=== PATIENT | female | born 1950 | race Caucasian/White ===

== ENCOUNTER 2016-09-05 10:36 | Day surgery (SDC) | payer MEDICARE, OTHER ==
[2016-08-31 15:06] VITALS: BMI 37.8
[~2016-09-05 10:36] MED LIST: LACTATED RINGERS 1,000 ML IV SCH; LIDOCAINE 1% 20 ML VIAL (10MG/ML) FOR IV START INTRADERMA PRN
[2016-09-05 11:28] VITALS: TEMP 98
[2016-09-05] MEDS ORDERED: LACTATED RINGERS 1,000 ML IV ONE (11:28)
[2016-09-05] MEDS ORDERED: LIDOCAINE 1% 20 ML VIAL (10MG/ML) FOR IV START INTRADERMA ONE (11:29)
[2016-09-05] MEDS ORDERED: fentaNYL (PF) 50 MCG/ML 2 ML AMP ONE (12:13)
[2016-09-05] MEDS ORDERED: PROPOFOL 10 MG/ML 20 ML VIAL IV ONE (12:13)
[2016-09-05] MEDS ORDERED: MIDAZOLAM 2 MG/2 ML VIAL ONE (12:13)
--- NOTE | 2016-09-05 12:18 | P.GSHP ---
History of Present Illness H&P Date: 09/05/16 Chief Complaint: GERD, dysphagia, screening Patient here today for upper and lower endoscopy. Last colonoscopy was 5 years ago. She does have a history of colon polyps. She has chronic reflux. Recently she started having dysphagia. The reflux is worse despite taking Prilosec daily. Past Medical History Past Medical History: GERD/Reflux, Thyroid Disorder Additional Past Medical History / Comment(s): hx colon polyps History of Any Multi-Drug Resistant Organisms: None Reported Past Surgical History: Cholecystectomy, Orthopedic Surgery Additional Past Surgical History / Comment(s): lt knee arthroscopy Past Anesthesia/Blood Transfusion Reactions: Motion Sickness Smoking Status: Former smoker Past Alcohol Use History: Occasional Additional Past Alcohol Use History / Comment(s): smoked 5-10 years 1 ppd quit 35 years ago Past Drug Use History: None Reported - Past Family History Mother Family Medical History: Cancer Father Family Medical History: Cancer Additional Family Medical History / Comment(s): prostate Medications and Allergies Home Medications Medication Instructions Recorded Confirmed Type Furosemide [Lasix] 20 mg PO DAILY 12/03/13 08/31/16 History Levothyroxine Sodium [Synthroid] 137 mcg PO DAILY 12/03/13 08/31/16 History Omeprazole [PriLOSEC] 20 mg PO AC-BRKFST 12/03/13 08/31/16 History buPROPion [Wellbutrin] 150 mg PO DAILY 12/03/13 08/31/16 History Cetirizine HCl [Zyrtec] 10 mg PO DAILY PRN 02/06/16 08/31/16 History Calcium Carbonate [Tums] 500 mg PO TID PRN 08/31/16 08/31/16 History Allergies Allergy/AdvReac Type Severity Reaction Status Date / Time Sulfa (Sulfonamide Allergy RED AND Verified 08/31/16 14:53 Antibiotics) HOT SKIN Surgical - Exam Vital Signs Temp Pulse Resp BP Pulse Ox 98.0 F 88 18 138/89 98 09/05/16 11:27 09/05/16 11:27 09/05/16 11:27 09/05/16 11:27 09/05/16 11:27 Physical exam: General: Well-developed, well-nourished HEENT: Normocephalic, sclerae nonicteric Abdomen: Nontender, nondistended Extremities: No edema Neuro: Alert and oriented Assessment and Plan (1) GERD (gastroesophageal reflux disease) Narrative/Plan: Proceed with upper and lower endoscopy. Possible dilation discussed. Risks of bleeding and perforation discussed. Status: Acute
--- NOTE | 2016-09-05 12:40 | P.PCN ---
Date of Procedure: 09/05/16 Procedure(s) Performed: PREOPERATIVE DIAGNOSIS: GERD, screening, personal history of colon polyps POSTOPERATIVE DIAGNOSIS: Mild gastritis, small hiatal hernia, mild distal esophagitis, transverse colon polyp PROCEDURE: 1. EGD with biopsy 2. Colonoscopy with snare polypectomy ANESTHESIA: [facility] [place] SURGEON: Damian Cash M.D. SPECIMENS: Antrum, transverse colon polyp ENDOSCOPIC PROCEDURE: The patient was on the endoscopy table in the left decubitus position. The Olympus gastroscope was inserted into the oropharynx and passed under direct visualization to the region of the third portion of the duodenum. From that point the scope was slowly withdrawn inspecting all surfaces carefully. There were no neoplastic inflammatory or polypoid lesions throughout the duodenum. The pylorus was widely patent. The stomach was carefully inspected. There was mild gastritis present. A biopsy of the antrum took place to rule out H. pylori. Retroflexion revealed a very small sliding hiatal hernia. Only about 1 cm of the stomach was seen above the diaphragm. There was mild esophagitis present at the GE junction and a biopsy was taken. The remainder the esophagus appeared normal. The patient was kept on the endoscopy table in the left decubitus position. The Olympus colonoscope was inserted into the anus and passed under direct visualization to the base of the cecum. The appendiceal orifice was visualized. From that point the scope was slowly withdrawn inspecting all surfaces carefully. There were no neoplastic inflammatory or polypoid lesions throughout the cecum and ascending colon. In the mid transverse colon a small polyp was seen and removed using the snare with cautery technique. We questioned whether there was any tissue as it appeared to almost fulgurate we were cauterizing. The remainder of the transverse, descending, sigmoid and rectum appeared normal. There was no diverticulosis noted. Digital rectal examination was normal. The patient was taken to the recovery room in stable condition per anesthesia guidelines. RECOMMENDATIONS: Await biopsy results. Increase antiacid therapy. Consider modified barium study if her symptoms persist.
[2016-09-05 13:08] VITALS: BP 131/61; PULSE 72; RESP 18
== END 2016-09-05 13:25 | disposition home or self-care (01) ==
LOC: ORWHC2ENDO 10:36
PROVIDERS: ATTEND Surgery
DX: Z12.11 Encounter for screening for malignant neoplasm of colon (principal); Z86.010 Personal history of colon polyps; D12.3 Benign neoplasm of transverse colon; K21.0 Gastro-esophageal reflux disease with esophagitis; E07.9 Disorder of thyroid, unspecified; K29.50 Unspecified chronic gastritis without bleeding; K44.9 Diaphragmatic hernia without obstruction or gangrene; Z79.899 Other long term (current) drug therapy; Z87.891 Personal history of nicotine dependence; Z88.2 Allergy status to sulfonamides
CPT/HCPCS: 88305; 88342; 45385; 43239; J2250; J3010; J2704

== ENCOUNTER 2018-04-16 00:42 | Emergency (ER) | payer MEDICARE ==
[2018-04-16 00:49] VITALS: TEMP 98.1
[2018-04-16] MEDS ORDERED: ASPIRIN 81 MG PO STA (00:59)
[2018-04-16] MEDS ORDERED: SODIUM CHLORIDE 0.9% 1,000 ML IV STA (00:59)
--- NOTE | 2018-04-16 01:00 | ED ---
Chest Pain HPI - General Chief Complaint: Chest Pain Stated Complaint: chest pain Time Seen by Provider: 04/16/18 00:58 Source: patient, family Mode of arrival: wheelchair Limitations: no limitations - History of Present Illness Initial Comments: Aidee is a 67-year-old female with a history of GERD who presents to the ER today for evaluation of burning epigastric and retrosternal pain. Patient reports that for dinner she had some tomato soup and subsequently developed some acid reflux, she took her Protonix any some Tums but the symptoms persisted. Patient reports around 10 PM she attempted bili down to go to bed but continued to have a burning pain that then radiated into her chest, patient' s sister did have a myocardial infarction last week requiring stent placement and patient has been told in the past that women can have atypical symptoms therefore she became somewhat concerned and came to the ER for further evaluation. is no history of hypertension, hyperlipidemia, diabetes, she was a social smoker in her teens and 20s but has not smoked in over 30 years. She has no family history of early cardiac disease but does have an older sister at an [place] last week. - Related Data Home Medications Medication Instructions Recorded Confirmed Furosemide [Lasix] 20 mg PO DAILY 12/03/13 08/31/16 Levothyroxine Sodium [Synthroid] 137 mcg PO DAILY 12/03/13 08/31/16 Omeprazole [PriLOSEC] 20 mg PO AC-BRKFST 12/03/13 08/31/16 buPROPion [Wellbutrin] 150 mg PO DAILY 12/03/13 08/31/16 Cetirizine HCl [Zyrtec] 10 mg PO DAILY PRN 02/06/16 08/31/16 Calcium Carbonate [Tums] 500 mg PO TID PRN 08/31/16 08/31/16 Allergies Allergy/AdvReac Type Severity Reaction Status Date / Time Sulfa (Sulfonamide Allergy RED AND Verified 04/16/18 00:49 Antibiotics) HOT SKIN Review of Systems ROS Statement: Those systems with pertinent positive or pertinent negative responses have been documented in the HPI. ROS Other: All systems not noted in ROS Statement are negative. EKG Findings - EKG Comments: EKG Findings:: EKG obtained at 12:59 AM, rate is 78, rhythm is sinus, there is left axis deviation and a left bundle branch block, [place] 182, QRS 140, QTC 481. There are no acute ST elevations or depressions urge no evidence of acute ischemia or infarction. Past Medical History Past Medical History: GERD/Reflux, Thyroid Disorder Additional Past Medical History / Comment(s): wound lt leg lt side of brock History of Any Multi-Drug Resistant Organisms: None Reported Past Surgical History: Cholecystectomy, Orthopedic Surgery Additional Past Surgical History / Comment(s): lt knee arthroscopy. cataracts. Past Anesthesia/Blood Transfusion Reactions: Motion Sickness Past Psychological History: No Psychological Hx Reported Smoking Status: Former smoker Past Alcohol Use History: Occasional Past Drug Use History: None Reported - Past Family History Mother Family Medical History: Cancer Father Family Medical History: Cancer General Exam - General Exam Comments Initial Comments: Physical Exam GENERAL: Patient is well-developed and well-nourished. Patient is nontoxic and well- hydrated and is in no distress. HENT: Normocephalic, Atraumatic. EYES: PERRL, EOMI PULMONARY: Unlabored respirations. No audible rales rhonchi or wheezing was noted. CARDIOVASCULAR: There is a regular rate and rhythm without any murmurs gallops or rubs. ABDOMEN: Soft and nontender with normal bowel sounds. SKIN: Skin is clear with no lesions or rashes and otherwise unremarkable. : Deferred NEUROLOGIC: Patient is alert and oriented x3. Moving all extremities spontaneously MUSCULOSKELETAL: Normal extremities with adequate strength and full range of motion. No lower extremity swelling or edema. No calf tenderness. PSYCHIATRIC: Normal psychiatric evaluation. Limitations: no limitations Limitations: no limitations Course Vital Signs 04/16/18 04/16/18 04/16/18 00:44 03:57 05:43 Temperature 98.1 F Pulse Rate 83 69 79 Respiratory 16 15 16 Rate Blood Pressure 166/92 133/83 133/99 O2 Sat by Pulse 99 95 95 Oximetry Chest Pain MDM - MDM The patient was seen and evaluated, history is obtained from the patient and at bedside Patient reports discomfort has subsided upon evaluation HEART score 3 (Age, moderately suspicious hx) Initial labs were unremarkable Patient is very eager for discharge home, however considering the symptoms that worsen immediately upon arrival she is agreeable to staying for repeat troponin 3 hours after arrival Repeat trop again negative Patient remains chest pain free I offered the patient option for staying in observation for evaluation by cardiology, however patient would prefer to be discharged home. I have a very low suspicion for cardiac etiology of her discomfort, her heart score is only 3 , she has no cardiac risk factors and is stable for discharge home. Her has established care with cardiology and she will follow up with the [facility]. Return parameters were discussed or questions pertaining care were answered patient was discharged home in stable condition. Disposition Clinical Impression: Atypical chest pain, GERD (gastroesophageal reflux disease) Disposition: HOME SELF-CARE Condition: Stable Instructions: Chest Pain (ED) Is patient prescribed a controlled substance at d/c from ED?: No Referrals: Maury Estrada DO [Primary Care Provider] - 1-2 days Frank Murguia MD [STAFF PHYSICIAN] - 1-2 days
[2018-04-16 02:28] LABS: Basophils % (A) 0 %; Eosinophils # (A) 0.1 k/uL (0-0.7); Eosinophils % (A) 2 %; HCT 39.8 % (34.0-46.0); HGB 13.5 gm/dL (11.4-16.0); Lymphocytes # (A) 1.1 k/uL (1.0-4.8); Lymphocytes % (A) 20 %; MCH 28.9 pg (25.0-35.0); MCHC 33.9 g/dL (31.0-37.0); MCV 85.3 fL (80.0-100.0); Mean Platelet Volume 6.9; Monocytes # (A) 0.4 k/uL (0-1.0); Monocytes % (A) 7 %; Neutrophils # (A) 3.6 k/uL (1.3-7.7); Neutrophils % (A) 68 %; Platelet Count 174 k/uL (150-450); RBC 4.66 m/uL (3.80-5.40); RDW 13.8 % (11.5-15.5); WBC 5.2 k/uL (3.8-10.6)
[2018-04-16 02:39] LABS: Partial Thromboplastin Time 23.3 sec (22.0-30.0); Prothrombin Time 9.9 sec (9.0-12.0)
[2018-04-16 02:41] LABS: ALT 34 U/L (9-52); AST 28 U/L (14-36); Albumin 3.8 g/dL (3.5-5.0); Alkaline Phosphatase 104 U/L (38-126); Anion Gap 8 mmol/L; Blood Urea Nitrogen 16 mg/dL (7-17); Calcium 9.5 mg/dL (8.4-10.2); Carbon Dioxide 25 mmol/L (22-30); Chloride 106 mmol/L (98-107); Glucose 100 mg/dL (74-99); Lipase 50 U/L (23-300); Potassium 4.4 mmol/L (3.5-5.1); Sodium 139 mmol/L (137-145); Total Bilirubin 0.8 mg/dL (0.2-1.3); Total Protein 7.2 g/dL (6.3-8.2)
--- NOTE | 2018-04-16 02:42 | XR ---
EXAMINATION TYPE: XR chest 2V DATE OF EXAM: 04/16/2018 COMPARISON: NONE HISTORY: Chest pain TECHNIQUE: Frontal and lateral views of the chest are obtained. FINDINGS: Heart and mediastinum are normal. Lungs are clear. Diaphragm is normal. Bony thorax appear s normal. There are chest leads. IMPRESSION: Normal chest
[2018-04-16 02:43] LABS: Creatine Kinase 26 U/L (30-135)
[2018-04-16 02:56] LABS: Creatine Kinase MB 0.5 ng/mL (0.0-2.4); Troponin I <0.012 ng/mL (0.000-0.034)
[2018-04-16 05:44] VITALS: BP 133/99; PULSE 79; RESP 16
== END 2018-04-16 05:59 | disposition home or self-care (01) ==
LOC: EC 00:42
DX: K21.9 Gastro-esophageal reflux disease without esophagitis (principal); R07.89 Other chest pain; E07.9 Disorder of thyroid, unspecified; Z87.891 Personal history of nicotine dependence; Z79.899 Other long term (current) drug therapy; Z88.2 Allergy status to sulfonamides; Z82.49 Family history of ischemic heart disease and other diseases of the circulatory system
CPT/HCPCS: 36415; 71046; 80053; 82550; 82553; 83690; 83735; 84484; 85025; 85610; 85730; 93005; 96360; 99285

== ENCOUNTER → 2018-10-30 | Outpatient (CLI) | payer MEDICARE ==
--- NOTE | 2018-11-03 10:04 | MM ---
Reason for exam: screening (asymptomatic). Last mammogram was performed 7 years and 6 months ago. Physical Findings: A clinical breast exam by your physician is recommended on an annual basis and results should be correlated with mammographic findings. MG 3D Screening Mammo W/Cad Bilateral CC and MLO view(s) were taken. Prior study comparison: April 16, 2011, mammogram. March 24, 2010, mammogram. There are two central, slightly lateral anterior and middle depth 5mm masses. There is a 2mm group of calcifications in the right lower inner quadrant at middle depth and a 3mm group on the left in the upper outer quadrant at middle posterior depth. ASSESSMENT: Incomplete: need additional imaging evaluation, BI-RAD 0 RECOMMENDATION: Special view mammogram of both breasts. [facility] will attempt to contact patient to return for supplemental views.
== END | disposition home or self-care (01) ==
LOC: RADMAMWWP 08:01
PROVIDERS: ATTEND Family Medicine
DX: Z12.31 Encounter for screening mammogram for malignant neoplasm of breast (principal)
CPT/HCPCS: 77063; 77067

== ENCOUNTER → 2018-11-04 | Outpatient (CLI) | payer MEDICARE ==
--- NOTE | 2018-11-05 13:26 | MM ---
Reason for exam: additional evaluation requested from abnormal screening. Last mammogram was performed less than 1 month ago. History: Patient is postmenopausal. Family history of breast cancer in paternal grandmother at age 85. Physical Findings: Nurse did not find any significant physical abnormalities on exam. MG 3D Work Up W/Cad DEONTE Bilateral spot compression CC, spot compression MLO, and LM view(s) were taken. Prior study comparison: October 30, 2018, bilateral MG 3d screening mammo w/cad. April 16, 2011, mammogram. The breast tissue is heterogeneously dense. This may lower the sensitivity of mammography. There are 3 low density central inner middle depth right masses that improve on additional views but subtly persists . Ultrasound will be performed. There is a heterogenous group of calcifications on the left in the upper outer quadrant at middle posterior depth that appear similar to other adjacent calcifications and coarse. 6 month follow up recommended. A right 3mm group of calcifications in the central inner breast at middle depth appear pleomorphic, stereotactic biopsy recommended. These results were verbally communicated with the patient and result sheet given to the patient on 11/04/18. ASSESSMENT: Incomplete: need additional imaging evaluation, BI-RAD 0 RECOMMENDATION: Ultrasound of the right breast. (lower outer quadrant, if there is no correlation, the upper outer quadrant)
--- NOTE | 2018-11-05 13:32 | USB ---
Reason for exam: additional evaluation requested from abnormal screening. History: Patient is postmenopausal. Family history of breast cancer in paternal grandmother at age 85. US Breast Workup Limited RT Right limited breast ultrasound including focal area of concern, retroareolar and axilla demonstrates a 0.3 x 0.2 x 0.2cm hypoechoic lesion at 7 o'clock, possibly small cyst. 6 month follow up ultrasound of the right breast. Multifocal/ductal ectasia correlate with mammographic finding. These results were verbally communicated with the patient and result sheet given to the patient on 11/04/18. ASSESSMENT: Suspicious, BI-RAD 4 RECOMMENDATION: Stereotactic core biopsy of the right breast. Called Dr. Estrada with mammographic findings and has scheduled an appointment for the patient for 12/18/18 at 10:[address] Anderson. Biopsy scheduled for 11/28/18 at 8:00. PRELIMINARY REPORT CALLED AND FAXED TO DR. ANDERSON ON 11/05/18. Ultrasound of the right breast in 6 months.
== END | disposition home or self-care (01) ==
LOC: RADMAMWWP 15:13
PROVIDERS: ATTEND Family Medicine
DX: R92.8 Other abnormal and inconclusive findings on diagnostic imaging of breast (principal)
CPT/HCPCS: 77066; 76642; G0279; 77062

== ENCOUNTER → 2018-11-28 | Day surgery (SDC) | payer MEDICARE ==
[2018-11-28 07:23] VITALS: RESP 16; BMI 81.2
[2018-11-28 09:27] VITALS: BP 133/78; PULSE 62; TEMP 98.1
--- NOTE | 2018-11-28 16:00 | MM ---
EXAMINATION TYPE: MG stereo VAD BX RT DATE OF EXAM: 11/28/2018 COMPARISON: 10/30/2018 and 11/04/2018 CLINICAL HISTORY: 68-year-old female referred for biopsy of right breast microcalcifications. TECHNIQUE: Stereotactic guided core biopsy of the right breast. FINDINGS: The procedure of stereotactic guided core biopsy was explained to the patient. Benefits, alternatives, and risks were discussed. An informed consent was then obtained. [facility] for biopsy was chosen. Shortness pathway was a medial approach. I performed the localization followed by the remainder of the procedure. A vacuum assisted biopsy gun was used to obtain 4 core samples. The patient tolerated the procedure well without any immediate complication. The patient was kept in the radiology department for short stay after the procedure and then discharged home in stable condition. Targeted calcifications are identified in specimen mammogram. Post biopsy mammogram shows 1.7 cm of medial clip migration relative to the biopsy cavity. IMPRESSION: SUCCESSFUL, UNCOMPLICATED STEREOTACTIC GUIDED CORE BIOPSY OF 3-4 O'CLOCK MICROCALCIFICATIONS IN THE right BREAST, FULL PATHOLOGY RESULTS TO FOLLOW. 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 Negative for malignancy. Recommendation Follow up mammogram of the right breast in 6 months. GÓMEZ
== END ==
LOC: RADMAMWWP 06:57
PROVIDERS: ATTEND Surgery
DX: D24.1 Benign neoplasm of right breast (principal); R92.1 Mammographic calcification found on diagnostic imaging of breast; Z88.2 Allergy status to sulfonamides
CPT/HCPCS: 19081; 88305; A4648; J2001

== ENCOUNTER → 2019-06-19 | Outpatient (CLI) | payer MEDICARE ==
--- NOTE | 2019-06-19 11:12 | USB ---
Reason for exam: follow-up at short interval from prior study. History: Patient is postmenopausal. Family history of breast cancer in paternal grandmother at age 85. Benign MG stereo VAD BX RT of the right breast, November 28, 2018. US Breast Limited RT Right limited breast ultrasound including focal area of concern, retroareolar and axilla demonstrates a 5 x 2 x 3mm oval, cystic lesion at 7 o'clock, a 3 x 2 x 4mm oval, cystic lesion at 7 o'clock, a 6 x 2 x 4mm oval, cystic lesion at 9 o'clock, a 7mm oval lymph node at the axilla tail and a 5mm oval lymph node at the axillary tail. All thin walled cysts. These results were verbally communicated with the patient and result sheet given to the patient on 06/19/19. ASSESSMENT: Benign, BI-RAD 2 RECOMMENDATION: Return to routine screening mammogram schedule for both breasts.
--- NOTE | 2019-06-23 10:55 | MM ---
Reason for exam: follow-up at short interval from prior study. Last mammogram was performed 7 months ago. History: Patient is postmenopausal. Family history of breast cancer in paternal grandmother at age 85. Benign MG stereo VAD BX RT of the right breast, November 28, 2018. Physical Findings: Nurse did not find any significant physical abnormalities on exam. MG 3D Diag Mammo W/Cad DEONTE Bilateral CC and MLO view(s) were taken. Prior study comparison: November 04, 2018, bilateral MG 3d work up w/cad DEONTE. October 30, 2018, bilateral MG 3d screening mammo w/cad. There are scattered fibroglandular densities. Finding: There are typically benign dystrophic calcifications in the left breast. Previous mammotome biopsy in the right breast. These results were verbally communicated with the patient and result sheet given to the patient on 06/19/19. ASSESSMENT: Benign, BI-RAD 2 RECOMMENDATION: Routine screening mammogram of both breasts in 1 year.
== END | disposition home or self-care (01) ==
LOC: RADMAMWWP 08:51
PROVIDERS: ATTEND Surgery
DX: R92.8 Other abnormal and inconclusive findings on diagnostic imaging of breast (principal)
CPT/HCPCS: 77066; 76642; G0279; 77062

== ENCOUNTER → 2019-08-05 | Outpatient (CLI) | payer MEDICARE ==
--- NOTE | 2019-08-05 12:14 | XR ---
EXAMINATION TYPE: XR chest 2V DATE OF EXAM: 08/05/2019 COMPARISON: 04/16/2018 HISTORY: Cough and chest congestion TECHNIQUE: Frontal and lateral views of the chest are obtained. FINDINGS: There is no focal air space opacity, pleural effusion, or pneumothorax seen. Diffuse inte rstitial prominence throughout. The cardiac silhouette size is within normal limits. The osseous st ructures are intact. Cholecystectomy clips are seen. Mild degenerative change of the spine. IMPRESSION: Diffuse interstitial prominence that can be seen in atypical pneumonia or bronchitis.
== END | disposition home or self-care (01) ==
LOC: RADXRMAIN 11:55
PROVIDERS: ATTEND Family Medicine
DX: R91.8 Other nonspecific abnormal finding of lung field (principal); R05 Cough; R09.89 Other specified symptoms and signs involving the circulatory and respiratory systems
CPT/HCPCS: 71046

== ENCOUNTER 2020-11-29 10:18 | Emergency (ER) | payer MEDICARE ==
[2020-11-29 10:32] VITALS: BP 132/77; PULSE 70; RESP 18; TEMP 97.8
--- NOTE | 2020-11-29 12:04 | US ---
EXAMINATION TYPE: US venous doppler duplex LE LT DATE OF EXAM: 11/29/2020 11:57 AM COMPARISON: NONE CLINICAL HISTORY: pain, swelling 2-3 wks. SIDE PERFORMED: Left TECHNIQUE: The lower extremity deep venous system is examined utilizing real time linear array sonog natalya with graded compression, doppler sonography and color-flow sonography. VESSELS IMAGED: Common Femoral Vein Deep Femoral Vein Greater Saphenous Vein * Femoral Vein Popliteal Vein Small Saphenous Vein * Proximal Calf Veins (* superficial vessels) Left Leg: Negative for DVT IMPRESSION: 1. No evidence of deep venous thrombosis in the left lower extremity veins.
--- NOTE | 2020-11-29 12:35 | XR ---
EXAMINATION TYPE: XR tibia fibula LT DATE OF EXAM: 11/29/2020 CLINICAL HISTORY: Left lower leg swelling and pain TECHNIQUE: Two views of the left leg are obtained. COMPARISON: None. FINDINGS: There is no acute fracture or dislocation seen in the left tibia or fibula. Left ankle sofie ears intact and visualized portions. Mild narrowing of the mediolateral and patellofemoral compartmen t joint spaces of the left knee suggestive of osteoarthritis. No radiopaque foreign body within the s oft tissues. The overlying soft tissue appears unremarkable. IMPRESSION: There is no acute fracture or dislocation seen in the left tibia or fibula.
--- NOTE | 2020-11-29 12:48 | ED ---
Extremity Problem HPI - General Chief complaint: Extremity Problem,Nontraumatic Stated complaint: leg swelling Time Seen by Provider: 11/29/20 10:33 Source: patient Mode of arrival: ambulatory Limitations: no limitations - History of Present Illness Initial comments: Patient is a 70-year-old female presenting to emergency Department with complaints of swelling of her left lower leg that has been intermittent for the past 3-4 weeks. She did have a road trip to [place] about 4 weeks ago, and is concerned for possible DVT. She also stated she did hit her left brock at home on a step about 2 weeks ago. She denies any fevers or chills, no chest pain or shortness of breath. She has no history of DVTs, she is not on a blood thinner. She does have an old scars to the left lower leg after having wound care about 10 years ago. She has no further complaints at this time. - Related Data Home Medications Medication Instructions Recorded Confirmed Furosemide [Lasix] 20 mg PO DAILY 12/03/13 11/29/20 Levothyroxine Sodium [Synthroid] 137 mcg PO DAILY 12/03/13 11/29/20 Omeprazole [PriLOSEC] 20 mg PO BID 12/03/13 11/29/20 Famotidine 20 mg PO HS 11/13/18 11/29/20 Ascorbic Acid [Vitamin C] 500 mg PO DAILY 11/29/20 11/29/20 Biotin 5 mg PO DAILY 11/29/20 11/29/20 Calcium/Magnesium/Zinc 1 tab PO DAILY 11/29/20 11/29/20 [Qpsexfl-Meqgijfkj-Diqu Tablet] Cetirizine HCl [Zyrtec] 10 mg PO HS 11/29/20 11/29/20 Cholecalciferol [Vitamin D3 (25 25 mcg PO DAILY 11/29/20 11/29/20 Mcg = 1000 Iu)] Escitalopram [Lexapro] 10 mg PO DAILY 11/29/20 11/29/20 Multivitamins, Thera [Multivitamin 1 tab PO DAILY 11/29/20 11/29/20 (formulary)] Pseudoephedrine HCl [Sudafed 240 mg PO DAILY 11/29/20 11/29/20 24-Hour] Vit C/E/Zn/Coppr/Lutein/Zeaxan 1 cap PO BID 11/29/20 11/29/20 [Preservision Areds 2 Softgel] Vitamin B Complex 1 cap PO DAILY 11/29/20 11/29/20 amLODIPine [Norvasc] 5 mg PO DAILY 11/29/20 11/29/20 buPROPion HCL [Wellbutrin SR] 150 mg PO DAILY 11/29/20 11/29/20 Allergies Allergy/AdvReac Type Severity Reaction Status Date / Time Sulfa (Sulfonamide Allergy RED AND Verified 11/29/20 10:59 Antibiotics) HOT SKIN Review of Systems ROS Statement: Those systems with pertinent positive or pertinent negative responses have been documented in the HPI. ROS Other: All systems not noted in ROS Statement are negative. Past Medical History Past Medical History: GERD/Reflux, Thyroid Disorder Additional Past Medical History / Comment(s): hypothyroidism History of Any Multi-Drug Resistant Organisms: None Reported Past Surgical History: Cholecystectomy, Orthopedic Surgery Additional Past Surgical History / Comment(s): lt knee arthroscopy. bilateral cataracts. Past Anesthesia/Blood Transfusion Reactions: Motion Sickness Additional Past Anesthesia/Blood Transfusion Reaction / Comment(s): Patient states anesthesiologist usually gives her Zofran in her IV before surgery Past Psychological History: Anxiety, Depression Smoking Status: Former smoker Past Alcohol Use History: Occasional Past Drug Use History: None Reported - Past Family History Mother Family Medical History: No Reported History Father Family Medical History: Cancer Additional Family Medical History / Comment(s): at age 75 from cancer (pt believes possibly prostate cancer) General Exam - General Exam Comments Initial Comments: GENERAL: Patient is well-developed and well-nourished. Patient is nontoxic and in no acute distress. HEAD: Atraumatic, normocephalic. EYES: Pupils equal round and reactive to light, extraocular movements intact, sclera anicteric, conjunctiva are normal. Eyelids were unremarkable. NECK: Normal range of motion, supple without lymphadenopathy or JVD. LUNGS: Unlabored respirations. Breath sounds clear to auscultation bilaterally and equal. No wheezes rales or rhonchi. HEART: Regular rate and rhythm without murmurs, rubs or gallops. ABDOMEN: Soft, nontender, normoactive bowel sounds. No guarding, no rebound. No masses appreciated. MUSCULOSKELETAL: Patient has some mild swelling noted to the left lower leg on the lateral aspect near her old scars, there is no erythema, very minimal pain with palpation, no pain in the posterior aspect of the left lower leg. She is neurovascular intact bilaterally lower extremities. Range of motion of the knee. There is no evidence of infection. No clubbing or cyanosis. NEUROLOGICAL: Patient is alert and oriented x 3. Normal speech, normal gait. PSYCH: Normal mood, normal affect. SKIN: Warm, Dry, normal turgor, no rashes or lesions noted. Limitations: no limitations Course Vital Signs 11/29/20 10:28 Temperature 97.8 F Pulse Rate 70 Respiratory 18 Rate Blood Pressure 132/77 O2 Sat by Pulse 97 Oximetry Medical Decision Making - Medical Decision Making Patient is a 70-year-old female here for some mild swelling noted to the left lower leg that has been there for about 3 weeks. She did have a recent road trip to [place] and was concerned for DVT. No chest pain or shortness of breath, no history of DVTs. I did do an x-ray of the left tib-fib which showed no acute abnormalities and ultrasound of the left lower extremity also revealed no evidence for DVT. I discussed with patient that this could be from a contusion of hitting on a step a couple weeks ago. I see no evidence of infection at this time. I recommended compression to the area, elevation above the heart level and a follow-up with primary care physician. Patient is in agreement with this plan of care, she is stable for discharge. Return parameters were discussed with her and she verbalized understanding. Case discussed with Dr. Martinez. Disposition Clinical Impression: Localized swelling of left lower leg Disposition: HOME SELF-CARE Condition: Stable Instructions (If sedation given, give patient instructions): Leg Edema (ED) Additional Instructions: Please return to the Emergency Department if symptoms worsen or any other concerns. X-rays today were normal, ultrasound shows no evidence for DVT. Recommended compression to the area, elevation above the heart level. Please follow up with primary care physician. Is patient prescribed a controlled substance at d/c from ED?: No Referrals: Maury Estrada DO [Primary Care Provider] - 1-2 days Time of Disposition: 12:47
== END 2020-11-29 13:23 | disposition home or self-care (01) ==
LOC: EC 10:18
DX: R22.42 Localized swelling, mass and lump, left lower limb (principal); E03.9 Hypothyroidism, unspecified; K21.9 Gastro-esophageal reflux disease without esophagitis; F32.9 Major depressive disorder, single episode, unspecified; F41.9 Anxiety disorder, unspecified; Z87.891 Personal history of nicotine dependence; Z79.890 Hormone replacement therapy
CPT/HCPCS: 99284

== ENCOUNTER → 2021-03-13 | Outpatient (CLI) | payer MEDICARE ==
--- NOTE | 2021-03-14 13:35 | MM ---
Reason for exam: screening (asymptomatic). Last mammogram was performed 1 year and 9 months ago. History: Patient is postmenopausal. Family history of breast cancer in paternal grandmother at age 85. Benign MG stereo VAD BX RT of the right breast, November 28, 2018. Physical Findings: A clinical breast exam by your physician is recommended on an annual basis and results should be correlated with mammographic findings. MG 3D Screening Mammo W/Cad Bilateral CC and MLO view(s) were taken. Prior study comparison: June 19, 2019, bilateral MG 3d diag mammo w/cad [facility]. October 30, 2018, bilateral MG 3d screening mammo w/cad. There are scattered fibroglandular densities. No significant changes when compared with prior studies. ASSESSMENT: Benign, BI-RAD 2 RECOMMENDATION: Routine screening mammogram of both breasts in 1 year.
== END | disposition home or self-care (01) ==
LOC: RADMAMWWP 10:50
PROVIDERS: ATTEND Family Medicine
DX: Z12.31 Encounter for screening mammogram for malignant neoplasm of breast (principal); Z80.3 Family history of malignant neoplasm of breast
CPT/HCPCS: 77063; 77067

== ENCOUNTER → 2022-03-20 | Outpatient (CLI) | payer MEDICARE ==
--- NOTE | 2022-03-21 10:21 | MM ---
Reason for Exam: Screening (asymptomatic). Last screening mammogram was performed 12 month(s) ago. Patient History: Menarche at age 12. First Full-Term at age 18. Postmenopausal. 11/28/2018, Benign Core Biopsy on the right side. Paternal grandmother had breast cancer, age 85. Risk Values: Fanny 5 year model risk: 1.5%. NCI Lifetime model risk: 3.9%. Prior Study Comparison: 11/04/2018 Bilateral Diagnostic Mammogram, [facility]. 06/19/2019 Bilateral Diagnostic Mammogram, [facility]. 03/13/2021 Bilateral Screening Mammogram, [facility]. Tissue Density: There are scattered fibroglandular densities. Findings: Analyzed By CAD. Mammotome biopsy clip right breast is redemonstrated. Benign-appearing bilateral axillary lymph nodes are again seen. There are some scattered and grouped benign appearing round calcifications bilaterally redemonstrated. There is no suspicious group of microcalcifications or new suspicious mass in either breast. Overall Assessment: Benign, BI-RAD 2 Management: Screening Mammogram of both breasts in 1 year. A clinical breast exam by your physician is recommended on an annual basis and results should be correlated with mammographic findings. Electronically signed and approved by: Jesse Moralez M.D.
== END | disposition home or self-care (01) ==
LOC: RADMAMWWP 09:25
PROVIDERS: ATTEND Family Medicine
DX: Z12.31 Encounter for screening mammogram for malignant neoplasm of breast (principal)
CPT/HCPCS: 77063; 77067

== ENCOUNTER → 2023-05-06 | Outpatient (CLI) | payer MEDICARE ==
--- NOTE | 2023-05-07 16:35 | MM ---
Reason for Exam: Screening (asymptomatic). Last mammogram was performed 1 year(s) and 2 month(s) ago. Patient History: Menarche at age 12. First Full-Term at age 18. Postmenopausal. 11/28/2018, Benign Core Biopsy on the right side. Paternal grandmother had breast cancer, age 85. Risk Values: Fanny 5 year model risk: 1.5%. NCI Lifetime model risk: 3.7%. Prior Study Comparison: 04/16/2011 Screening Mammogram, [facility]. 10/30/2018 Bilateral Screening Mammogram, [facility]. 11/04/2018 Bilateral Diagnostic Mammogram, [facility]. 06/19/2019 Bilateral Diagnostic Mammogram, [facility]. 03/13/2021 Bilateral Screening Mammogram, [facility]. 03/20/2022 Bilateral MG 3D screening mammo w/cad, [facility]. Tissue Density: There are scattered fibroglandular densities. Findings: Analyzed By CAD. Pattern appears symmetrical and stable. Scattered benign calcifications are present greater on the left. No significant interval changes are. Chronic nodularities right breast is stable No suspicious groups of microcalcifications, spiculated or lobular masses, architectural distortion or other secondary signs of malignancy are mammographically apparent. Overall Assessment: Benign, BI-RAD 2 Management: Screening Mammogram of both breasts in 1 year. A negative mammogram report should not preclude additional follow up of suspicious palpable abnormalities. Patient should continue monthly self breast exam. A clinical breast exam by your physician is recommended on an annual basis and results should be correlated with mammographic findings. Electronically signed and approved by: Tone Escalante D.O. Radiologis
== END | disposition home or self-care (01) ==
LOC: RADMAMWWP 10:06
PROVIDERS: ATTEND Family Medicine
DX: Z12.31 Encounter for screening mammogram for malignant neoplasm of breast (principal); Z80.3 Family history of malignant neoplasm of breast; Z78.0 Asymptomatic menopausal state
CPT/HCPCS: 77063; 77067

== ENCOUNTER → 2024-03-31 | Outpatient (CLI) | payer MEDICARE ==
--- NOTE | 2024-03-31 12:30 | MR ---
EXAMINATION TYPE: MR knee LT wo con DATE OF EXAM: 03/31/2024 COMPARISON: X-ray 03/24/2024 HISTORY: Left knee pain x 2 mos. TECHNIQUE: Multiplanar, multisequence imaging of the left knee is performed without IV contrast. FINDINGS: MEDIAL MENISCUS: Intrasubstance signal seen in the posterior horn medial meniscus favored mucoid dege neration or tear. LATERAL MENISCUS: Intrasubstance signal seen within the posterior horn and body. A subtle linear tear is suspected. CRUCIATE LIGAMENTS: The anterior and posterior cruciate ligaments are intact and unremarkable. COLLATERAL LIGAMENTS: The medial collateral ligament and lateral collateral ligament complex are inta ct and unremarkable. EXTENSOR MECHANISM: Visualized quadriceps and patellar tendons are intact. EFFUSION: No significant suprapatellar joint effusion. POPLITEAL CYST: No popliteal/mast cyst. TRICOMPARTMENT SPACES: Mild to moderate tricompartment joint space narrowing. No erosive changes. CARTILAGE: Fibrillation of the medial femoral articular cartilage compatible grade I chondromalacia. Patellar cartilage maintained. BONE MARROW SIGNAL: No focal abnormal marrow signal is appreciated. IMPRESSION: 1. Mild to moderate tricompartment osteoarthritis with no evidence of marrow edema or erosive changes . 2. Intrasubstance signal seen in the posterior horn of the medial meniscus favored to represent myxoi d degeneration over subtle tear. 3. Intrasubstance signal posterior horn of the lateral meniscus likely represents a degenerative meni scal tear. 4. Fibrillation of the medial femoral articular cartilage compatible with chondromalacia. [facility], , 03/31/2024 12:28 PM
== END | disposition home or self-care (01) ==
LOC: RADMRIMAIN 10:45
PROVIDERS: ATTEND Orthopaedic Surgery
DX: M17.12 Unilateral primary osteoarthritis, left knee (principal); M94.262 Chondromalacia, left knee

== ENCOUNTER → 2024-05-07 | Outpatient (CLI) | payer MEDICARE ==
--- NOTE | 2024-05-07 17:32 | US ---
EXAMINATION TYPE: US pelvis complete transvag DATE OF EXAM: 05/07/2024 COMPARISON: NONE CLINICAL INDICATION: Female, 73 years old with history of N950 POST HERB BLEEDING, R102 PELVIC PAIN; spotting on and off. TECHNIQUE: Transvaginal (TV) and Transabdominal (TA) . Transabdominal grayscale sonographic images of the pelvis were acquired. Transvaginal sonographic im ages were medically necessary to better assess the following anatomy: endo Doppler imaging: Not performed. FINDINGS: Date of LMP: unknown EXAM MEASUREMENTS: Uterus: 8.1 x 5.3 x 4.4 cm Endometrial Stripe: 2.5 Right Ovary: not seen Left Ovary: not seen 1. Uterus: Anteverted wnl 2. Endometrium: appears enlarged 3. Right Ovary: not seen 4. Left Ovary: not seen 5. Bilateral Adnexa: wnl 6. Posterior cul-de-sac: wnl IMPRESSION: Abnormally thickened endometrium with vascularity concerning for endometrial carcinoma, f urther workup with direct visualization and tissue similarly recommended. A Yellow level critical message alert has been initiated for Maury Estrada DO via the [facility] Critical Results System on 05/07/2024 5:29 PM. This message alert has been sent to Maury Estrada DO vi a the preferences provided by the clinician for the receipt of Radiology Critical Findings. Message I D [id number]. [facility], , 05/07/2024 5:29 PM
== END | disposition home or self-care (01) ==
LOC: RADUSWWP 16:02
PROVIDERS: ATTEND Family Medicine
DX: N95.0 Postmenopausal bleeding (principal); N85.9 Noninflammatory disorder of uterus, unspecified; R10.2 Pelvic and perineal pain
CPT/HCPCS: 76830; 76856

== ENCOUNTER 2024-05-12 11:18 | Inpatient (IN) | payer MEDICARE ==
--- NOTE | 2024-05-12 11:39 | ED ---
Chest Pain HPI - General Source: patient, RN notes reviewed Mode of arrival: wheelchair Limitations: no limitations <Jocelynn Noyola - Last Filed: 05/12/24 11:38> <Matt Martinez - Last Filed: 05/12/24 15:48> - General Chief Complaint: Chest Pain Stated Complaint: Chest pain Time Seen by Provider: 05/12/24 11:30 - History of Present Illness Initial Comments: Quick [id number] female presenting to the emergency department chief complaint of chest pain that has been intermittent started yesterday evening. P atlarisa readily thought this was indigestion however pain has not been alleviated with Tums. She endorses nausea. Denies radiation of pain. Patient states that she underwent cardiac stress testing last week. (Jocelynn Noyola) Dictation was produced using Q-Bot dictation software. please excuse any grammatical, word or spelling errors. Chief Complaint: 73-year-old female chest pain History of Present Illness: Patient 73-year-old female presents to the emergency department chest pain. Patient states she has a dull ache to her substernal chest. She also has allegedly right arm pain as well. No diaphoresis or nausea. She had a stress test last week does not know of the results for it. She had a stress test for cardiac clearance for surgery. Patient denies any symptoms at the bedside. She took some Tums with no relief. Patient has no history of coronary artery disease. The ROS documented in this emergency department record has been reviewed and confirmed by me. Those systems with pertinent positive or negative responses have been documented in the HPI. All other systems are other negative and/or noncontributory. (Matt Martinez) - Related Data Home Medications Medication Instructions Recorded Confirmed Furosemide [Lasix] 20 mg PO DAILY 12/03/13 11/29/20 Levothyroxine Sodium [Synthroid] 137 mcg PO DAILY 12/03/13 11/29/20 Omeprazole [PriLOSEC] 20 mg PO BID 12/03/13 11/29/20 Famotidine 20 mg PO HS 11/13/18 11/29/20 Ascorbic Acid [Vitamin C] 500 mg PO DAILY 11/29/20 11/29/20 Biotin 5 mg PO DAILY 11/29/20 11/29/20 Calcium/Magnesium/Zinc 1 tab PO DAILY 11/29/20 11/29/20 [Weqgnlq-Eahqjcixc-Ofgu Tablet] Cetirizine HCl [Zyrtec] 10 mg PO HS 11/29/20 11/29/20 Cholecalciferol [Vitamin D3 (25 25 mcg PO DAILY 11/29/20 11/29/20 Mcg = 1000 Iu)] Escitalopram [Lexapro] 10 mg PO DAILY 11/29/20 11/29/20 Multivitamins, Thera [Multivitamin 1 tab PO DAILY 11/29/20 11/29/20 (formulary)] Pseudoephedrine HCl [Sudafed 240 mg PO DAILY 11/29/20 11/29/20 24-Hour] Vit C/E/Zn/Coppr/Lutein/Zeaxan 1 cap PO BID 11/29/20 11/29/20 [Preservision Areds 2 Softgel] Vitamin B Complex 1 cap PO DAILY 11/29/20 11/29/20 amLODIPine [Norvasc] 5 mg PO DAILY 11/29/20 11/29/20 buPROPion HCL [Wellbutrin SR] 150 mg PO DAILY 11/29/20 11/29/20 Allergies Allergy/AdvReac Type Severity Reaction Status Date / Time Sulfa (Sulfonamide Allergy RED AND Verified 05/12/24 11:23 Antibiotics) HOT SKIN Review of Systems ROS Other: All systems not noted in ROS Statement are negative. <Jocelynn Noyola - Last Filed: 05/12/24 11:38> ROS Other: All systems not noted in ROS Statement are negative. <Matt Martinez - Last Filed: 05/12/24 15:48> ROS Statement: Those systems with pertinent positive or pertinent negative responses have been documented in the HPI. Past Medical History Past Medical History: GERD/Reflux, Thyroid Disorder Additional Past Medical History / Comment(s): hypothyroidism History of Any Multi-Drug Resistant Organisms: None Reported Past Surgical History: Cholecystectomy, Orthopedic Surgery Additional Past Surgical History / Comment(s): lt knee arthroscopy. bilateral cataracts. Past Anesthesia/Blood Transfusion Reactions: Motion Sickness Additional Past Anesthesia/Blood Transfusion Reaction / Comment(s): Patient states anesthesiologist usually gives her Zofran in her IV before surgery Past Psychological History: Anxiety, Depression Smoking Status: Former smoker Past Alcohol Use History: Occasional Past Drug Use History: None Reported - Past Family History Mother Family Medical History: No Reported History Father Family Medical History: Cancer Additional Family Medical History / Comment(s): at age 75 from cancer (pt believes possibly prostate cancer) <Jocelynn Noyola - Last Filed: 05/12/24 11:38> General Exam Limitations: no limitations <Jocelynn Noyola - Last Filed: 05/12/24 11:38> <Matt Martinez - Last Filed: 05/12/24 15:48> - General Exam Comments Initial Comments: Visual Physical Exam Vital signs reviewed General: Well-appearing, nontoxic, no acute distress. Head: Normocephalic, atraumatic Eyes: PERRLA, EOMI ENT: Airway patent Chest: Nonlabored breathing Skin: No visual rash, normal skin tone Neuro: Alert and oriented 3 Musculoskeletal: No gross abnormalities (Jocelynn Noyola) Patient initially seen and evaluated in the waiting room due to lack of ER department beds PHYSICAL EXAM: General Impression: Alert and oriented x3, not in acute distress HEENT: Normocephalic atraumatic, extra-ocular movements intact, pupils equal and reactive to light bilaterally, mucous membranes moist. Cardiovascular: Heart regular rate and rhythm Chest: Able to complete full sentences, no retractions, no tachypnea Abdomen: abdomen soft, non-tender, non-distended, no organomegaly Musculoskeletal: Pulses present and equal in all extremities, no peripheral edema Motor: no focal deficits noted Neurological: CN II-XII grossly intact, no focal motor or sensory deficits noted Skin: Intact with no visualized rashes Psych: Normal affect and mood (Matt Martinez) Course Vital Signs 05/12/24 05/12/24 11:21 15:30 Temperature 97.4 F L Pulse Rate 62 66 Respiratory 20 Rate Blood Pressure 154/79 159/84 O2 Sat by Pulse 100 Oximetry Chest Pain MDM <Jocelynn Noyola - Last Filed: 05/12/24 11:38> <Matt Martinez - Last Filed: 05/12/24 15:48> - MDM I completed the quick note portion of this chart signed Jocelynn Noyola PA-C (Jocelynn Noyola) My EKG interpretation: Ventricular rate 60, sinus rhythm, WY interval 185, QRS 147, QTc 464. No W[place] prolongation, no QTC prolongation, no ST or T-wave changes noted. EKG compared to April 16, 2018 showing no changes. Overall, this EKG is unremarkable Was pt. sent in by a medical professional or institution (, PA, GUN STOCKER, urgent care, hospital, or intermediate...) When possible be specific @ -No Did you speak to anyone other than the patient for history (EMS, parent, family, police, friend...)? What history was obtained from this source @ -Some history obtained from Dr. Estrada states that patient was recent diagnosed with pelvic mass Did you review nursing and triage notes (agree or disagree)? Why? @ -I reviewed and agree with nursing and triage notes Were old charts reviewed (outside hosp., previous admission, EMS record, old EKG, old radiological studies, urgent care reports/EKG's, intermediate records)? Report findings @ -No old charts were reviewed Differential Diagnosis (chest pain, altered mental status, abdominal pain women, abdominal pain men, vaginal bleeding, musculoskeletal, weakness, fever, dyspnea, syncope, headache, dizziness, GI bleed, back pain, seizure, CVA, palpatations, mental health)? @ -Differential Chest Pain: Stable Angina, Unstable Angina, STEMI, NSTEMI Aortic Dissection, Pneumothorax, Musculoskeletal, Esophageal Spasm GERD, Cholecystitis, Pancreatitis, Zoster, this is not meant to be an all-inclusive list. EKG interpreted by me (3pts min.). @ -See above X-rays interpreted by me (1pt min.). @ -Chest x-ray is nonacute CT interpreted by me (1pt min.). @ -None done U/S interpreted by me (1pt. min.). @ -None done What testing was considered but not performed or refused? (CT, X-rays, U/S, labs)? Why? @ -None What meds were considered but not given or refused? Why? @ -None Was smoking cessation discussed for >3mins.? @ -No Were there social determinants of health that impacted care today? How? (Homelessness, low income, unemployed, alcoholism, drug addiction, transportation, low edu. Level, literacy, decrease access to med. care, custodial, rehab)? @ -No Was there de-escalation of care discussed even if they declined (Discuss DNR or withdrawal of care, Hospice)? DNR status @ -No What co-morbidities impacted this encounter? (DM, HTN, Smoking, COPD, CAD, Cancer, CVA, ARF, Chemo, Hep., AIDS, mental health diagnosis, sleep apnea, morbid obesity)? @ -Recent diagnosis of cancer Was patient admitted / discharged? Hospital course, mention meds given and route, prescriptions, significant lab abnormalities, going to OR and other pertinent info. @ -73-year-old female presents to the emergency department for atypical chest pain typical features. Vital signs upon arrival are within acceptable limits. EKG shows no findings of ischemia infarction. Laboratory evaluation obtained. Troponin is 0.06. Rest of labs within acceptable limits. Clinical presentation concerning with NSTEMI. Did you discuss the management of the patient with other professionals (professionals i.e. , PA, GUN STOCKER, lab, RT, psych nurse, social sciences professor, pattern chain builder, teacher, fire management officer, casey saw operator)? Give summary @ -Case was discussed with Dr. Estrada who is agreeable for admission Was critical care preformed (if so, how long)? @ -Yes, 33 minutes Undiagnosed new problem with uncertain prognosis? @ -No Drug Therapy requiring intensive monitoring for toxicity (Heparin, Nitro, Insulin, Cardizem)? @ -No Were any procedures done? @ -No Diagnosis/symptom? Acute, or Chronic, or Acute on Chronic? Uncomplicated (without systemic symptoms) or Complicated (systemic symptoms)? @ -NSTEMI Side effects of treatment? @ -No Exacerbation, Progression, or Severe Exacerbation? @ -No Poses a threat to life or bodily function? How? (Chest pain, [place], [place], pneumonia, PE, COPD, DKA, ARF, appy, cholecystitis, CVA, Diverticulitis, Homicidal, Suicidal, threat to staff... and all critical care pts) @ -yes (Matt Martinez) Disposition <Jocelynn Noyola - Last Filed: 05/12/24 11:38> Decision Time: 15:48 <Matt Martinez - Last Filed: 05/12/24 15:48> Clinical Impression: NSTEMI (non-ST elevated myocardial infarction) Disposition: ADMITTED IP TO THIS HOSP Condition: Serious Referrals: Maury Estrada DO [Primary Care Provider] - 1-2 days
--- NOTE | 2024-05-12 12:42 | XR ---
EXAMINATION TYPE: XR chest 2V DATE OF EXAM: 05/12/2024 12:04 PM COMPARISON: 08/05/2019 CLINICAL INDICATION: Female, 73 years old with history of Chest Pain, TECHNIQUE: Frontal and lateral views of the chest are obtained. FINDINGS: There is no focal air space opacity, pleural effusion, or pneumothorax seen. The cardiac silhouette size is within normal limits. The osseous structures are intact. IMPRESSION: No acute cardiopulmonary process. [facility], , 05/12/2024 12:39 PM
[2024-05-12 13:35] LABS: Basophils % (A) 0 %; Eosinophils # (A) 0.2 k/uL (0-0.7); Eosinophils % (A) 2 %; HCT 42.4 % (34.0-46.0); HGB 13.6 gm/dL (11.4-16.0); Lymphocytes # (A) 1.1 k/uL (1.0-4.8); Lymphocytes % (A) 15 %; MCH 28.9 pg (25.0-35.0); MCV 90.5 fL (80.0-100.0); Mean Platelet Volume 7.2; Monocytes # (A) 0.4 k/uL (0-1.0); Monocytes % (A) 5 %; Neutrophils # (A) 5.3 k/uL (1.3-7.7); Neutrophils % (A) 75 %; Platelet Count 166 k/uL (150-450); RBC 4.69 m/uL (3.80-5.40); RDW 12.9 % (11.5-15.5)
[2024-05-12 13:53] LABS: INR 0.9 (<1.2); Partial Thromboplastin Time 22.4 sec (22.0-30.0); Prothrombin Time 10.4 sec (10.0-12.5)
[2024-05-12 13:54] LABS: ALT 24 U/L (4-34); AST 30 U/L (14-36); African American GFR (CKD) 81 (>60 ml/min/1.73 sqM); Albumin 4.3 g/dL (3.5-5.0); Alkaline Phosphatase 102 U/L (38-126); Anion Gap 5 mmol/L; Blood Urea Nitrogen 22 mg/dL (7-17); Calcium 9.3 mg/dL (8.4-10.2); Carbon Dioxide 27 mmol/L (22-30); Chloride 107 mmol/L (98-107); Glucose 117 mg/dL (74-99); Lipase 88 U/L (23-300); Magnesium 2.2 mg/dL (1.6-2.3); Non-African American GFR(CKD) 70 (>60 ml/min/1.73 sqM); Potassium 4.2 mmol/L (3.5-5.1); Sodium 139 mmol/L (137-145); Total Bilirubin 0.4 mg/dL (0.2-1.3); Total Protein 7.4 g/dL (6.3-8.2)
[2024-05-12] MEDS ORDERED: HEPARIN SODIUM 1,000 UN/ML (10ML VL) IV PRN (14:50)
[2024-05-12] MEDS: ASPIRIN 81 MG PO STA (15:17)
[2024-05-12] MEDS: HEPARIN SOD,PORK IN 0.45% NACL 25,000 UNIT in 0.45% NACL 1 250ML.BAG IV SCH (15:22)
[2024-05-12] MEDS: HEPARIN SODIUM 1,000 UN/ML (10ML VL) IV ONE (15:27)
[2024-05-12] MEDS: NITROGLYCERIN SL TABS 0.4 MG TAB SUBLINGUAL STA (15:28)
[2024-05-12] MEDS: NITROGLYCERIN OINT 1 INCH/GM PACKET TOPICAL SCH (18:57)
[2024-05-13] MEDS: NITROGLYCERIN SL TABS 0.4 MG TAB SUBLINGUAL PRN (04:16)
[2024-05-13 04:54] LABS: Glucose,Whole Blood 126 mg/dL (70-110)
[2024-05-13] MEDS: LIDOCAINE 1% INJ 10MG/ML (20 ML MDV) SQ ONE (05:33)
--- NOTE | 2024-05-13 05:33 | P.CRDCN ---
History of Present Illness History of present illness: HISTORY OF PRESENTING ILLNESS Patient is pleasant 73-year-old female with history of GERD, hypothyroidism, osteoarthritis who presents secondary to chest pain. Patient presented with episodes of chest pain which started yesterday evening. She states originally she felt like it was indigestion. She had undergone a stress test approximately one week ago for clearance for surgery with Dr Tam. She denies any history of CAD. Initial EKG showed left bundle branch block which she had a history of from 2018. Initial troponin 0.06, 0.3, 3.1. D-dimer normal at 0.5. I was contacted earlier in the night with elevation of troponin however patient had Nitropaste and her chest pain had completely resolved. Patient then developed worsened 8 out of 10 chest pain approximately an hour ago per nursing and was given 2 nitroglycerin with decrease in blood pressure initially down in the 70s improved with fluid bolus. Her chest pain however did improve from 8-07. Still having ongoing chest pain. Smokes 40 yrs ago, no alcohol, no hx in parents however sister recently had an OR. In retrospect she has been having off-and-on heartburn sensations for a number months however this episode was more severe. Additionally by the time she got to the emergency department she was having some numbness and tingling in both arms. With a recurrence of chest pain on the general medical floor, she had more nausea and diaphoresis. REVIEW OF SYSTEMS At the time of my exam: CONSTITUTIONAL: Denies fever or chills. CARDIOVASCULAR: +chest pain, +shortness of breath, no orthopnea, PND or palpitat ions. RESPIRATORY: Denies cough. GASTROINTESTINAL: Denies abdominal pain, diarrhea, constipation, nausea or vomiting. MUSCULOSKELETAL: Denies myalgias. NEUROLOGIC: Denies numbness, tingling or weakness. ENDOCRINE: Denies fatigue, weight change, polydipsia or polyurina. GENITOURINARY: Denies burning, hematuria or urgency with micturation. HEMATOLOGIC: Denies history of anemia or bleeding. PHYSICAL EXAMINATION Vital signs reviewed. CONSTITUTIONAL: No apparent distress. HEENT: Head is normocephalic. Pupils are equal, round. Sclerae anicteric. Mucous membranes of the mouth are moist. No JVD. No carotid bruit. CHEST EXAMINATION: Lungs are clear to auscultation. No chest wall tenderness is noted on palpation or with deep breathing. HEART EXAMINATION: Regular rate and rhythm. S1, S2 heard. No murmurs, gallops or rub. ABDOMEN: Soft, nontender. Positive bowel sounds. EXTREMITIES: 2+ peripheral pulses, no lower extremity edema and no calf tenderness. NEUROLOGIC EXAMINATION: Patient is awake, alert and oriented x3. ASSESSMENT Non-STEMI with ongoing chest pain Hypertension Hyperlipidemia remote tobacco abuse Family history sister with CAD PLAN continue aspirin, heparin drip, nitro as tolerated however did have some hypotension with the nitro. We discussed urgent heart catheterization given ongoing chest pain and patient agreeable. Check 2-D echo. Obtain results from prior stress test. Further recommendations of follow-up Past Medical History Past Medical History: GERD/Reflux, Thyroid Disorder Additional Past Medical History / Comment(s): hypothyroidism History of Any Multi-Drug Resistant Organisms: None Reported Past Surgical History: Cholecystectomy, Orthopedic Surgery Additional Past Surgical History / Comment(s): lt knee arthroscopy. bilateral cataracts. Past Anesthesia/Blood Transfusion Reactions: Motion Sickness Additional Past Anesthesia/Blood Transfusion Reaction / Comment(s): Patient states anesthesiologist usually gives her Zofran in her IV before surgery Past Psychological History: Anxiety, Depression Additional Psychological History / Comment(s): Takes Wellbutrin daily Smoking Status: Former smoker Past Alcohol Use History: Occasional Additional Past Alcohol Use History / Comment(s): smoked 5-10 years 1 ppd quit 1978 Past Drug Use History: None Reported - Past Family History Mother Family Medical History: No Reported History Father Family Medical History: Cancer Additional Family Medical History / Comment(s): at age 75 from cancer (pt believes possibly prostate cancer) Medications and Allergies Home Medications Medication Instructions Recorded Confirmed Type Famotidine 20 mg PO DAILY PRN 11/13/18 05/12/24 History Biotin 5 mg PO HS 11/29/20 05/12/24 History Calcium/Magnesium/Zinc 1 tab PO HS 11/29/20 05/12/24 History [Plullkj-Bskguuhjm-Jqrk Tablet] Escitalopram [Lexapro] 10 mg PO DAILY 11/29/20 05/12/24 History amLODIPine [Norvasc] 5 mg PO DAILY 11/29/20 05/12/24 History Acetaminophen Tab [Tylenol Tab] 1,000 mg PO Q6HR PRN 05/12/24 05/12/24 History Levothyroxine Sodium [Synthroid] 112 mcg PO DAILY 05/12/24 05/12/24 History Allergies Allergy/AdvReac Type Severity Reaction Status Date / Time Sulfa (Sulfonamide Allergy RED AND Verified 05/12/24 15:50 Antibiotics) HOT SKIN Physical Exam Vitals: Vital Signs Temp Pulse Pulse Resp BP BP Pulse Ox 05/13/24 04:48 60 18 112/70 95 05/13/24 04:42 65 18 95 05/13/24 04:28 67 18 108/67 95 05/13/24 04:23 62 18 129/79 96 05/13/24 04:00 98.8 F 63 18 143/73 94 L 05/13/24 01:02 65 18 118/74 98 05/13/24 00:51 98.4 F 65 18 158/84 96 05/12/24 22:33 97.8 F 63 18 148/76 96 05/12/24 22:00 161/80 05/12/24 21:00 57 L 20 151/83 05/12/24 20:34 64 19 151/83 05/12/24 15:30 66 159/84 05/12/24 11:21 97.4 F L 62 20 154/79 100 Intake and Output 05/12/24 05/12/24 05/13/24 14:59 22:59 06:59 Intake Total 70.333 80 Balance 70.333 80 Intake: IV 80 Heparin Sod,Pork in 0.45% 80 NaCl 25,000 unit In 0.45 % NaCl 1 250ml.bag @ 11. 603 UNITS/KG/HR 10 mls/hr IV .Q24H [facility] Rx#: [id number] Intake, IV Titration 70.333 Amount Heparin Sod,Pork in 0.45% 70.333 NaCl 25,000 unit In 0.45 % NaCl 1 250ml.bag @ 11. 603 UNITS/KG/HR 10 mls/hr IV .Q24H [facility] Rx#: [id number] Other: Weight 86.183 kg 86.183 kg Results 05/12/24 13:05 05/12/24 13:05 Cardiac Enzymes 05/12/24 05/12/24 05/12/24 Range/Units 13:05 13:05 15:53 AST 30 (14-36) U/L Troponin I 0.060 H* 0.317 H* (0.000-0.034) ng/mL 05/12/24 Range/Units 18:37 AST (14-36) U/L Troponin I 3.150 H* (0.000-0.034) ng/mL Coagulation 05/12/24 05/12/24 Range/Units 13:05 20:52 PT 10.4 (10.0-12.5) sec APTT 22.4 48.9 H (22.0-30.0) sec CBC 05/12/24 Range/Units 13:05 WBC 7.0 (3.8-10.6) k/uL RBC 4.69 (3.80-5.40) m/uL Hgb 13.6 (11.4-16.0) gm/dL Hct 42.4 (34.0-46.0) % Plt Count 166 (150-450) k/uL Comprehensive Metabolic Panel 05/12/24 Range/Units 13:05 Sodium 139 (137-145) mmol/L Potassium 4.2 (3.5-5.1) mmol/L Chloride 107 (98-107) mmol/L Carbon Dioxide 27 (22-30) mmol/L BUN 22 H (7-17) mg/dL Creatinine 0.83 (0.52-1.04) mg/dL Glucose 117 H (74-99) mg/dL Calcium 9.3 (8.4-10.2) mg/dL AST 30 (14-36) U/L ALT 24 (4-34) U/L Alkaline Phosphatase 102 (38-126) U/L Total Protein 7.4 (6.3-8.2) g/dL Albumin 4.3 (3.5-5.0) g/dL Current Medications Generic Name Dose Route Start Last Admin Trade Name Freq PRN Reason Stop Dose Admin Aspirin 325 mg 05/13/24 09:00 Aspirin 325 Mg Tab PO DAILY [facility] Heparin Sodium (Porcine) 0 unit 05/12/24 14:50 Heparin Sodium 1,000 Un/Ml (10ml Vl) IV PER PROTOCOL PRN Low PTT Protocol Heparin Sodium/Sodium Chloride 250 mls @ 10 mls/hr 05/12/24 15:00 05/12/24 22:24 25,000 unit/ Sodium Chloride IV 11.6 units/kg/hr .Q24H [facility] 10 mls/hr Titration Protocol 11.603 UNITS/KG/HR Sodium Chloride 500 mls @ 999 mls/hr 05/13/24 04:58 Saline 0.9% IV 05/13/24 05:28 .Q31M ONE Nitroglycerin 0.4 mg 05/12/24 15:39 05/13/24 04:25 Nitroglycerin Sl Tabs 0.4 Mg Tab SUBLINGUAL 0.4 mg Q5M PRN Administration Chest Pain Nitroglycerin 1 inch 05/12/24 18:00 05/13/24 02:08 Nitroglycerin Oint 1 Inch/Gm Packet TOPICAL 1 inch Q6HR [facility] Administration Intake and Output 05/12/24 05/12/24 05/13/24 14:59 22:59 06:59 Intake Total 70.333 80 Balance 70.333 80 Intake: IV 80 Heparin Sod,Pork in 0.45% 80 NaCl 25,000 unit In 0.45 % NaCl 1 250ml.bag @ 11. 603 UNITS/KG/HR 10 mls/hr IV .Q24H [facility] Rx#: [id number] Intake, IV Titration 70.333 Amount Heparin Sod,Pork in 0.45% 70.333 NaCl 25,000 unit In 0.45 % NaCl 1 250ml.bag @ 11. 603 UNITS/KG/HR 10 mls/hr IV .Q24H [facility] Rx#: [id number] Other: Weight 86.183 kg 86.183 kg Patient Weight 05/13/24 06:59 Weight 86.183 kg 05/12/24 13:05 05/12/24 13:05
[2024-05-13] MEDS: fentaNYL (PF) 50 MCG/ML 2 ML AMP IVP ONE (05:34)
[2024-05-13] MEDS: MIDAZOLAM 2 MG/2 ML VIAL IVP ONE (05:34)
[2024-05-13] MEDS: VERAPAMIL SYRINGE (5 MG/10 ML) INTRAARTER ONE (05:36)
[2024-05-13] MEDS: HEPARIN SODIUM 1,000 UN/ML (10ML VL) IVP ONE ×2 (05:42→05:54)
[2024-05-13] MEDS: IV FLUID CONTINUATION 800 ML IV ONE (05:43)
[2024-05-13] MEDS: TICAGRELOR 90 MG TAB PO ONE (05:44)
[2024-05-13] MEDS: NITROGLYCERIN 1000MCG/10ML SYRINGE INTRACORON ONE ×2 (05:58→06:01)
[2024-05-13] MEDS: IOPAMIDOL-300 100ML BTL INJ ONE (06:02)
[2024-05-13] MEDS: IOPAMIDOL-370 100ML BTL INJ ONE (06:15)
--- NOTE | 2024-05-13 06:38 | P.PRCINT ---
Percutaneous Coronary Int. - Percutaneous Coronary Intervention Percutaneous Coronary Intervention: PROCEDURES PERFORMED: Left heart catheterization, bilateral coronary angiography, ultrasound guided arterial access, PCI mid LAD with a 2.5 x 15mm Xience BRODIE, post dilated with a 2.5mm NC balloon INDICATION: NSTEMI, NYHA class 4 symptoms CONSENT:I have discussed the risks, benefits and alternative therapies for the above-mentioned procedure and for both sedation/analgesia as well as necessary blood product administration, if indicated, as they pertain to this patient. The patient has indicated understanding and acceptance of the risks and procedures discussed. PROCEDURE: After the risks, benefits and alternatives of the above mentioned procedure explained in detail with the patient, informed consent was obtained. Patient was taken to the catheterization lab and prepped and draped in usual fashion. Ultrasound guidance was used to assess for arterial access. 1% lidocaine was used to anesthetize the right radial artery. A 6-Italian sheath was placed in the right radial artery using modified Seldinger technique and ultrasound guidance. Left coronary angiography was performed with a 5-Italian JL 3.5 catheter and right coronary angiography was performed with a 5-Italian FR5 catheter in various views. A 5-Italian FR5 catheter was inserted into the left ventricle and pressure measurements were obtained. The decision was made to perform PCI of the LAD. A 6-Italian LBU 3.5 guide catheter was used to engage the left main. A 0.014 BMW wire was advanced to the distal LAD. Angioplasty was performed with 2.5 x 12 mm balloon. There is diffuse proximal LAD 50-60% stenosis and more distal to apical LAD approximately 70% stenosis however felt best treated medically with patient's chest pain completely improved after ballooning. A 2.5 x 15 mm drug-eluting stent was placed in the mid LAD. This was postdilated with a 2.5 noncompliant balloon. Final angiograms were performed. Preintervention there was 100% stenosis and LAMBERT 0 flow postintervention there was less than 10% stenosis and LAMBERT-3 flow. The right radial sheath was removed and a TR band was placed with hemostasis achieved. The patient tolerated the procedure well. Patient was transported back to the post catheterization holding area in stable condition. Conscious Sedation: Patient was monitored under the direct supervision of myself for conscious sedation using Versed and fentanyl for a total duration of 62 minutes HEMODYNAMICS: Ao: 121/71 LV: 118/8, LVEDP 16 SELECTIVE CORONARY ARTERIOGRAPHY: LEFT MAIN: The left main is a large caliber vessel which bifurcates into the LAD and circumflex. There is distal left main 30-40% stenosis. LEFT ANTERIOR DESCENDING CORONARY ARTERY: LAD is a large caliber vessel which wraps around to the apex. There is proximal LAD 50-60% stenosis. There is diffuse proximal to mid LAD 30% stenosis followed by a mid LAD 100% stenosis. After ballooning, there is noted to be a long 60-70% distal LAD stenosis and otherwise mild luminal irregularities. LEFT CIRCUMFLEX CORONARY ARTERY: Left circumflex is a moderate caliber vessel with mild 20% stenosis. RIGHT CORONARY ARTERY: The right coronary artery is a large caliber vessel which gives off a PDA and PLV branch and is the dominant vessel. There is mild 20% proximal and mid RCA stenosis. There are right to left collaterals to the LAD. FINAL IMPRESSION: 1. CAD as described above with 100% mid LAD, 50-60% proximal LAD, 60-70% distal LAD, 20% RCA and 20% circumflex with some right to left collaterals. 2. Mildly elevated left sided filling pressures 3. S/p PCI mid LAD with a 2.5 x 15mm Xience BRODIE, post dilated with a 2.5mm NC balloon PLAN: 1. Aggressive risk factor modification per most recent ACC/AHA guidelines. 2. Continue dual antiplatelets with aspirin and Brillinta for 12 months 3. Consider functional assessment of proximal LAD or distal LAD if still having angina
[2024-05-13] MEDS: SODIUM CHLORIDE 0.9% 500 ML 500 ML IV ONE (06:42)
[2024-05-13] MEDS ORDERED: MAG HYDROX/AL HYDROX/SIMETH 30 ML CUP PO PRN (06:48)
[2024-05-13] MEDS ORDERED: ATROPINE SULFATE 0.1 MG/ML 10ML SYRINGE IV PRN (06:48)
[2024-05-13] MEDS ORDERED: RX INFO: IV CONTRAST WAS GIVEN 1 EACH MISC MISCELLANE PRN (06:48)
[2024-05-13] MEDS ORDERED: ZOLPIDEM 5 MG TAB PO PRN (06:48)
[2024-05-13] MEDS ORDERED: ASPIRIN 325 MG TAB PO SCH (09:00)
[2024-05-13] MEDS: ASPIRIN 81 MG PO SCH (09:25)
[2024-05-13] MEDS: SODIUM CHLORIDE 0.9% 1,000 ML in EMPTY BAG 1 BAG IV SCH (09:25)
[2024-05-13] MEDS: METOPROLOL TARTRATE 12.5 MG TAB PO SCH (09:25)
[2024-05-13 10:47] LABS: Chol/HDL Ratio 4.69 Ratio; LDL Cholesterol,Calculated 113.2 mg/dL (0.0-131.0)
[2024-05-13 11:28] VITALS: BMI 37.0
--- NOTE | 2024-05-13 12:18 | CA ---
Transthoracic Echo Report Name: Aidee Casas Age: 73 Gender: F : 1950 Exam Date: 05/13/2024 09:03 Exam Location: [facility] Ht (in): 60 Wt (lb): 190 Ordering Physician: Oscar Pendleton DO ([email or web address]) Attending/Referring Phys: Paving Bed Maker Justine Sosa RDCS Procedure CPT: Indications: re: NSTEMI Cardiac Hx: Technical Quality: Good Contrast 1: Definity Total Dose (mL): 1 Contrast 2: Total Dose (mL): MEASUREMENTS (Male / Female) Normal Values 2D ECHO LV Diastolic Diameter PLAX 5.7 cm 4.2 - 5.9 / 3.9 - 5.3 cm LV Systolic Diameter PLAX 4.3 cm IVS Diastolic Thickness 0.9 cm 0.6 - 1.0 / 0.6 - 0.9 cm LVPW Diastolic Thickness 0.9 cm 0.6 - 1.0 / 0.6 - 0.9 cm LV Relative Wall Thickness 0.3 LVOT Diameter 2.0 cm LV Diastolic Volume MOD BP 133.6 cm??? 67 - 155 / 56 - 104 cm??? LV Systolic Volume MOD BP 88.2 cm??? 22 - 58 / 19 - 49 cm??? LV Ejection Fraction MOD BP 34.0 % >= 55 % LV Cardiac Index MOD BP 1695.7 cm???/min???m??? LV Diastolic Volume MOD 4C 129.8 cm??? LV Systolic Volume MOD 4C 90.7 cm??? LV Ejection Fraction MOD 4C 30.1 % LV Cardiac Index MOD 4C 1459.2 cm???/min???m??? LV Diastolic Length 4C 9.0 cm LV Systolic Length 4C 8.2 cm LV Diastolic Volume MOD 2C 133.1 cm??? LV Systolic Volume MOD 2C 83.7 cm??? LV Ejection Fraction MOD 2C 37.1 % LV Cardiac Index MOD 2C 1846.5 cm???/min???m??? LV Diastolic Length 2C 8.7 cm LV Systolic Length 2C 8.0 cm LA Volume 73.1 cm??? 18 - 58 / 22 - 52 cm??? LA Volume Index 37.4 cm???/m??? 16 - 28 cm???/m??? DOPPLER AV Peak Velocity 216.6 cm/s AV Peak Gradient 18.8 mmHg AV Mean Velocity 153.7 cm/s AV Mean Gradient 10.2 mmHg AV Velocity Time Integral 48.6 cm LVOT Peak Velocity 106.4 cm/s LVOT Peak Gradient 4.5 mmHg LVOT Velocity Time Integral 23.5 cm LVOT Stroke Volume 76.1 cm??? LVOT Stroke Volume Index 41.7 ml/m??? LVOT Cardiac Index 2842.0 cm???/min???m??? AV Area Cont Eq vti 1.6 cm??? AV Area Cont Eq pk 1.6 cm??? MV Area PHT 3.6 cm??? Mitral E Point Velocity 49.1 cm/s Mitral A Point Velocity 97.8 cm/s Mitral E to A Ratio 0.5 MV Deceleration Time 208.6 ms PV Peak Velocity 109.4 cm/s PV Peak Gradient 4.8 mmHg FINDINGS Left Ventricle Left ventricular ejection fraction is estimated at 30-35 %. Mildly increased left ventricular diastolic diameter. Severely increased left ventricular diastolic volume. Severely increased left ventricular systolic volume. Moderately decreased left ventricular ejection fraction with regional variability. Right Ventricle Normal right ventricular size and function. Unable to estimate the right ventricular systolic pressure. Right Atrium Normal right atrial size. Left Atrium Moderately increased left atrial volume. Mildly increased left atrial area. Mitral Valve Mitral valve thickened. Mitral annular calcification. No evidence for mitral valve prolapse. No mitral stenosis. Mild mitral regurgitation. Aortic Valve Trileaflet aortic valve. Trace aortic stenosis. Mean gradient 10 mmHg. Mild aortic regurgitation. Tricuspid Valve Structurally normal tricuspid valve. No tricuspid stenosis. Trace tricuspid regurgitation. Pulmonic Valve Pulmonic valve not well visualized. No pulmonic stenosis. No pulmonic regurgitation. Pericardium No pericardial effusion. Aorta Aortic annulus normal. CONCLUSIONS Ischemic cardiomyopathy with severe LV systolic dysfunction with an ejection fraction of 30-35% Hypokinesis involving the anteroseptal and the apex Enlarged left atrium Mild mitral and aortic regurgitation Previewed by: Dr. Kevin Camacho MD (Electronically Signed) Final Date: 13 May 2024 12:17
[2024-05-13] MEDS ORDERED: FAMOTIDINE 20 MG TAB PO PRN (15:34)
[2024-05-13] MEDS: LEVOTHYROXINE 112 MCG TAB PO SCH (17:54)
[2024-05-13] MEDS: ESCITALOPRAM 10 MG TAB PO SCH (17:55)
[2024-05-13] MEDS: PANTOPRAZOLE 40 MG/10 ML VIAL IVP SCH (17:55)
[2024-05-13] MEDS: amLODIPine 5 MG TAB PO SCH (17:55)
[2024-05-13] MEDS: ATORVASTATIN 80 MG TAB PO SCH (20:43)
[2024-05-13] MEDS: TICAGRELOR 90 MG TAB PO SCH (20:43)
[2024-05-14 07:29] LABS: Basophils % (A) 0 %; Eosinophils % (A) 0 %; HGB 12.2 gm/dL (11.4-16.0); Lymphocytes # (A) 0.9 k/uL (1.0-4.8); Lymphocytes % (A) 12 %; MCH 28.7 pg (25.0-35.0); MCHC 32.1 g/dL (31.0-37.0); MCV 89.5 fL (80.0-100.0); Mean Platelet Volume 8.1; Monocytes # (A) 0.3 k/uL (0-1.0); Monocytes % (A) 4 %; Neutrophils % (A) 83 %; Platelet Count 160 k/uL (150-450); RBC 4.25 m/uL (3.80-5.40); RDW 13.1 % (11.5-15.5); WBC 7.2 k/uL (3.8-10.6)
[2024-05-14 08:08] LABS: African American GFR (CKD) >90 (>60 ml/min/1.73 sqM); Anion Gap 2 mmol/L; Blood Urea Nitrogen 14 mg/dL (7-17); Calcium 9.3 mg/dL (8.4-10.2); Carbon Dioxide 28 mmol/L (22-30); Chloride 109 mmol/L (98-107); Glucose 144 mg/dL (74-99); Non-African American GFR(CKD) 87 (>60 ml/min/1.73 sqM); Potassium 4.4 mmol/L (3.5-5.1); Sodium 139 mmol/L (137-145)
[2024-05-14] MEDS: DAPAGLIFLOZIN PROPANEDIOL 10 MG TABLET PO SCH (10:28)
[2024-05-14] MEDS: SACUBITRIL/VALSARTAN 24 MG-26 MG TABLET PO SCH (10:28)
--- NOTE | 2024-05-14 12:03 | P.PN ---
Subjective Progress Note Date: 05/14/24 HISTORY OF PRESENTING ILLNESS Patient is pleasant 73-year-old female with history of GERD, hypothyroidism, osteoarthritis who presents secondary to chest pain. Patient presented with episodes of chest pain which started yesterday evening. She states originally she felt like it was indigestion. She had undergone a stress test approximately one week ago for clearance for surgery with Dr Tam. She denies any history of CAD. Initial EKG showed left bundle branch block which she had a history of from 2018. Initial troponin 0.06, 0.3, 3.1. D-dimer normal at 0.5. I was contacted earlier in the night with elevation of troponin however patient had Nitropaste and her chest pain had completely resolved. Patient then developed worsened 8 out of 10 chest pain approximately an hour ago per nursing and was given 2 nitroglycerin with decrease in blood pressure initially down in the 70s improved with fluid bolus. Her chest pain however did improve from 8-07. Still having ongoing chest pain. Smokes 40 yrs ago, no alcohol, no hx in parents however sister recently had an [place]. In retrospect she has been having off-and-on heartburn sensations for a number months however this episode was more severe. Additionally by the time she got to the emergency department she was having some numbness and tingling in both arms. With a recurrence of chest pain on the general medical floor, she had more nausea and diaphoresis. 05/14/2024 Patient seen and examined. Yesterday, patient underwent left heart catheterization which revealed 100% mid LAD, 50 to 60% proximal LAD, 60 to 70% distal LAD, 20% RCA and 20% circumflex with some right to left collaterals. Patient underwent PCI of the mid LAD with BRODIE. Patient denies having any chest pain at this time no shortness of breath and no fluttering in her chest. Blood pressure 130/78, heart rate 65, pulse ox 98% on room air. Hemoglobin 12.2. BUN 14 creatinine 0.66. Echocardiogram reveals EF of 30 to 35%, hypokinesis involving the anterior septal and apex, enlarged left atrium, mild mitral and aortic regurgitation. PHYSICAL EXAMINATION Vital signs reviewed. CONSTITUTIONAL: No apparent distress. HEENT: Head is normocephalic. Pupils are equal, round. Sclerae anicteric. Mucous membranes of the mouth are moist. No JVD. No carotid bruit. CHEST EXAMINATION: Lungs are clear to auscultation. No chest wall tenderness is noted on palpation or with deep breathing. HEART EXAMINATION: Regular rate and rhythm. S1, S2 heard. No murmurs, gallops or rub. ABDOMEN: Soft, nontender. Positive bowel sounds. EXTREMITIES: 2+ peripheral pulses, no lower extremity edema and no calf tenderness. NEUROLOGIC EXAMINATION: Patient is awake, alert and oriented x3. ASSESSMENT Non-STEMI status post PCI of the mid LAD 05/13 Ischemic cardiomyopathy with EF of 30 to 35% Hypertension Hyperlipidemia remote tobacco abuse Family history sister with CAD PLAN Continue patient on aspirin, statin, metoprolol tartrate 12.5 mg twice daily, Brilinta 90 mg twice daily, amlodipine 5 mg daily Start patient on Farxiga 10 mg daily and Entresto 24-26 mg daily Monitor blood pressure and angina symptoms Further recommendations as patient progresses Nurse practitioner note has been reviewed, I agree with documented findings and plan of care. Patient was seen and examined. Objective - Vital Signs Vital signs: Vital Signs Temp 98.1 F 05/14/24 08:00 Pulse 65 05/14/24 08:00 Resp 16 05/14/24 08:00 BP 130/78 05/14/24 08:00 Pulse Ox 98 05/14/24 08:00 FiO2 Intake & Output 05/13/24 05/14/24 05/14/24 18:59 06:59 18:59 Intake Total 570 20 Balance 570 20 Weight 86.183 kg 86.2 kg Intake: IV 30 20 Invasive Line 2 10 10 Invasive Line 3 20 10 Oral 540 Other: # Voids 3 1 - Labs CBC & Chem 7: 05/14/24 07:20 05/14/24 07:20 Labs: Abnormal Lab Results - Last 24 Hours (Table) 05/12/24 05/14/24 05/14/24 Range/Units 13:05 07:20 07:20 Lymphocytes # 0.9 L (1.0-4.8) k/uL Chloride 109 H (98-107) mmol/L Glucose 144 H (74-99) mg/dL Triglycerides 256.00 H (0.00-149.00) mg/dL Cholesterol 209.00 H (0.00-200.00) mg/dL VLDL Cholesterol, Calc 51.20 H (5.00-40.00) mg/dL
--- NOTE | 2024-05-14 13:55 | P.HPIM ---
History of Present Illness H&P Date: 05/13/24 Chief Complaint: Chest pain This is a 73-year-old female past medical history significant for former nicotine dependence, morbid obesity, gastroesophageal reflux disease, hypo thyroidism, anxiety, depression and multiple other medical issues presented to the ER with complaints of chest pain. Last week patient was being worked up by PCP for clearance regarding a orthopedic procedure. Patient discovered to have anemia, further imaging conducted on 05/07/2024/pelvic/transvaginal ultrasound reported abnormally thickened endometrium with vascularity concerning for endometrial carcinoma. Family history of CAD, sister had an [place].patient also completed a stress test about a week ago. Troponin 0.060, 0.317, 3.150. Evaluated by cardiology, EKGs reviewed, underwent left heart catheterization reporting 100% mid LAD, 50 to 60% proximal LAD, 60 to 70% distal LAD, 20% RCA a nd 20% circumflex with some right to left collaterals, PCI of the mid LAD with BRODIE, earlier today. Tolerated procedure well. Denies chest pain, palpitations or shortness of breath. Echo reporting EF of 30 to 35%, hypokinesis involving the anterior septal and apex, enlarged left atrium, mild mitral and aortic regurgitation. Review of Systems ROS Statement: Those systems with pertinent positive or pertinent negative responses have been documented in the HPI. ROS Other: All systems not noted in ROS Statement are negative. Past Medical History Past Medical History: GERD/Reflux, Thyroid Disorder Additional Past Medical History / Comment(s): hypothyroidism History of Any Multi-Drug Resistant Organisms: None Reported Past Surgical History: Cholecystectomy, Orthopedic Surgery Additional Past Surgical History / Comment(s): lt knee arthroscopy. bilateral cataracts. Past Anesthesia/Blood Transfusion Reactions: Motion Sickness Additional Past Anesthesia/Blood Transfusion Reaction / Comment(s): Patient states anesthesiologist usually gives her Zofran in her IV before surgery Past Psychological History: Anxiety, Depression Additional Psychological History / Comment(s): Takes Wellbutrin daily Smoking Status: Former smoker Past Alcohol Use History: Occasional Additional Past Alcohol Use History / Comment(s): smoked 5-10 years 1 ppd quit 1978 Past Drug Use History: None Reported - Past Family History Mother Family Medical History: No Reported History Father Family Medical History: Cancer Additional Family Medical History / Comment(s): at age 75 from cancer (pt believes possibly prostate cancer) Medications and Allergies Home Medications Medication Instructions Recorded Confirmed Type Famotidine 20 mg PO DAILY PRN 11/13/18 05/12/24 History Biotin 5 mg PO HS 11/29/20 05/12/24 History Calcium/Magnesium/Zinc 1 tab PO HS 11/29/20 05/12/24 History [Jxoouei-Pieunjmqs-Cwln Tablet] Escitalopram [Lexapro] 10 mg PO DAILY 11/29/20 05/12/24 History amLODIPine [Norvasc] 5 mg PO DAILY 11/29/20 05/12/24 History Acetaminophen Tab [Tylenol Tab] 1,000 mg PO Q6HR PRN 05/12/24 05/12/24 History Levothyroxine Sodium [Synthroid] 112 mcg PO DAILY 05/12/24 05/12/24 History Allergies Allergy/AdvReac Type Severity Reaction Status Date / Time Sulfa (Sulfonamide Allergy RED AND Verified 05/12/24 15:50 Antibiotics) HOT SKIN Physical Exam Vitals: Vital Signs Temp Pulse Pulse Resp BP BP Pulse Ox 05/13/24 12:00 97.8 F 59 L 16 132/64 98 05/13/24 10:33 62 16 130/73 97 05/13/24 09:33 69 16 133/77 97 05/13/24 08:33 65 16 125/75 97 05/13/24 08:03 66 16 132/79 96 05/13/24 08:00 98.1 F 73 16 130/77 98 05/13/24 07:33 56 L 16 135/77 97 05/13/24 07:18 59 L 16 145/78 97 05/13/24 07:03 64 16 145/82 98 05/13/24 06:48 56 L 16 97 05/13/24 04:48 60 18 112/70 95 05/13/24 04:42 65 18 95 05/13/24 04:28 67 18 108/67 95 05/13/24 04:23 62 18 129/79 96 05/13/24 04:00 98.8 F 63 18 143/73 94 L 05/13/24 01:02 65 18 118/74 98 05/13/24 00:51 98.4 F 65 18 158/84 96 05/12/24 22:33 97.8 F 63 18 148/76 96 05/12/24 22:00 161/80 05/12/24 21:00 57 L 20 151/83 05/12/24 20:34 64 19 151/83 05/12/24 15:30 66 159/84 Intake and Output 05/13/24 05/13/24 05/13/24 06:59 14:59 22:59 Intake Total 740 570 Balance 740 570 Intake: IV 740 30 Heparin Sod,Pork in 0.45% 80 NaCl 25,000 unit In 0.45 % NaCl 1 250ml.bag @ 11. 603 UNITS/KG/HR 10 mls/hr IV .Q24H UMESH Rx#: [id number] Invasive Line 2 10 Invasive Line 3 10 20 Oral 540 Other: # Voids 3 Weight 86.183 kg 86.183 kg PHYSICAL EXAM: VITAL SIGNS: [Reviewed] GENERAL: Alert and oriented x 3, laying in bed, no acute distress HEENT: Atraumatic, normocephalic, conjunctivae normal. eyes normal. NECK: Supple,no JVD. No thyroid enlargement. No LNs CARDIOVASCULAR: S1, S2 regular. No murmur RESPIRATION: Unlabored, equal air entry, clear to auscultation. ABDOMEN: Soft, nondistended, nontender . No guarding. no masses palpable. Pos itive bowel sounds. LEGS: No edema. no swelling. No calf tenderness. NERVOUS SYSTEM: Cranial N 2-12 grossly normal. No focal deficits. Strength and sensation grossly intact. Skin: Warm and dry, no rash. Results CBC & Chem 7: 05/14/24 07:20 05/14/24 07:20 Labs: Abnormal Lab Results - Last 24 Hours (Table) 05/12/24 05/12/24 05/12/24 Range/Units 13:05 15:53 18:37 APTT (22.0-30.0) sec POC Glucose (mg/dL) (70-110) mg/dL Troponin I 0.317 H* 3.150 H* (0.000-0.034) ng/mL Triglycerides 256.00 H (0.00-149.00) mg/dL Cholesterol 209.00 H (0.00-200.00) mg/dL VLDL Cholesterol, Calc 51.20 H (5.00-40.00) mg/dL 05/12/24 05/13/24 Range/Units 20:52 04:52 APTT 48.9 H (22.0-30.0) sec POC Glucose (mg/dL) 126 H (70-110) mg/dL Troponin I (0.000-0.034) ng/mL Triglycerides (0.00-149.00) mg/dL Cholesterol (0.00-200.00) mg/dL VLDL Cholesterol, Calc (5.00-40.00) mg/dL Thrombosis Risk Factor Assmnt - Choose All That Apply Each Factor Represents 1 point: Obesity (BMI >25) Each Risk Factor Represents 2 Points: Age 61-74 years Thrombosis Risk Factor Assessment Total Risk Factor Score: 3 Thrombosis Risk Factor Assessment Level: Moderate Risk Assessment and Plan Assessment: NSTEMI, status post PCI of the mid LAD 05/13 Ischemic cardiomyopathy, EF 30 to 35% abnormally thickened endometrium with vascularity concerning for endometrial carcinoma, reported per pelvic/transvaginal ultrasound 05/07/2024. Anemia outpatient, reported per PCP Hypertension Hyperlipidemia Morbid obesity, BMI 37 Family history of CAD,sister Prior nicotine dependence Plan: Continue on current medication regimen ,monitoring and symptomatic treatment. [facility]RI[employer] C[employer] ASSOCIATE consulted for further review of imaging suggestive of suspicious endometrial cancer/evaluation. Beta-apolonia, statin ,dual antiplatelet therapy. Discharge planning in progress for tomorrow pending final DC recommendations and clearance per cardiology The impression and plan of care has been dictated as directed. : I performed a history and examination of this patient, discussed the same with the dictator. I agree with the dictator's note ,documented as a scribe. Any additional findings or plans will be noted.
--- NOTE | 2024-05-14 14:05 | P.PN ---
Subjective Progress Note Date: 05/14/24 H&P Date: 05/13/24 Chief Complaint: Chest pain This is a 73-year-old female past medical history significant for former nicotine dependence, morbid obesity, gastroesophageal reflux disease, hypothyroidism, anxiety, depression and multiple other medical issues presented to the ER with complaints of chest pain. Last week patient was being worked up by PCP for clearance regarding a orthopedic procedure. Patient discovered to have anemia, further imaging conducted on 05/07/2024/pelvic/transvaginal ultrasound reported abnormally thickened endometrium with vascularity concerning for endometrial carcinoma. Family history of CAD, sister had an [place].patient also completed a stress test about a week ago. Troponin 0.060, 0.317, 3.150. Evaluated by cardiology, EKGs reviewed, underwent left heart catheterization reporting 100% mid LAD, 50 to 60% proximal LAD, 60 to 70% distal LAD, 20% RCA and 20% circumflex with some right to left collaterals, PCI of the mid LAD with BRODIE, earlier today. Tolerated procedure well. Denies chest pain, palpitations or shortness of breath. Echo reporting EF of 30 to 35%, hypokinesis involving the anterior septal and apex, enlarged left atrium, mild mitral and aortic regurgitation. 05/14/2024 maintained on dual antiplatelet therapy, beta-apolonia, statin .sitting up in chair, complaining of minimal diarrhea this morning, brat diet recommended. Denies chest pain, palpitations or shortness of breath. Maintaini ng O2 sats in the mid 90s on room air .Farxiga and Entresto initiated this morning. LifeVest ordered. Objective - Vital Signs Vital signs: Vital Signs Temp 97.8 F 05/14/24 12:00 Pulse 60 05/14/24 12:00 Resp 16 05/14/24 12:00 BP 131/80 05/14/24 12:00 Pulse Ox 97 05/14/24 12:00 FiO2 Intake & Output 05/13/24 05/14/24 05/14/24 18:59 06:59 18:59 Intake Total 570 158 Balance 570 158 Weight 86.183 kg 86.2 kg Intake: IV 30 40 Invasive Line 2 10 20 Invasive Line 3 20 20 Oral 540 118 Other: # Voids 3 1 - Exam PHYSICAL EXAM: VITAL SIGNS: [Reviewed] GENERAL: Alert and oriented x 3, sitting up in chair, no acute distress HEENT: Atraumatic, normocephalic, conjunctivae normal. eyes normal. MMM. NECK: Supple,no JVD. CARDIOVASCULAR: S1, S2 regular. No murmur RESPIRATION: Unlabored, equal air entry, clear to auscultation. ABDOMEN: Soft, nondistended, nontender . No guarding. Positive bowel sounds. LEGS: No edema. no swelling. No calf tenderness. NERVOUS SYSTEM: Cranial N 2-12 grossly normal. No focal deficits. Strength and sensation grossly intact. Skin: Warm and dry, no rash. - Labs CBC & Chem 7: 05/14/24 07:20 05/14/24 07:20 Labs: Abnormal Lab Results - Last 24 Hours (Table) 05/14/24 05/14/24 Range/Units 07:20 07:20 Lymphocytes # 0.9 L (1.0-4.8) k/uL Chloride 109 H (98-107) mmol/L Glucose 144 H (74-99) mg/dL Assessment and Plan Assessment: NSTEMI, status post PCI of the mid LAD 05/13 Ischemic cardiomyopathy, EF 30 to 35% abnormally thickened endometrium with vascularity concerning for endometrial carcinoma, reported per pelvic/transvaginal ultrasound 05/07/2024. Anemia outpatient, reported per PCP Hypertension Hyperlipidemia Morbid obesity, BMI 37 Family history of CAD,sister Prior nicotine dependence Plan: Continue on current medication regimen ,monitoring and symptomatic treatment. GOVERNMENT GUARD consult canceled per their request and PCP's office will schedule outpatient GOVERNMENT GUARD follow-up. LifeVest ordered for patient's cardiomyopathy. Further med adjustments, with Farxiga and Entresto added to med regimen- continued monitoring as per cardiology. discharge planning in progress for tomorrow pending final DC recommendations and clearance per cardiology. The impression and plan of care has been dictated as directed. : I performed a history and examination of this patient, discussed the same with the dictator. I agree with the dictator's note ,documented as a scribe. Any additional findings or plans will be noted.
[2024-05-14 20:18] VITALS: RESP 18
[2024-05-15] MEDS: PANTOPRAZOLE 40 MG TABLET PO SCH (06:17)
[2024-05-15 10:24] VITALS: BP 141/65; PULSE 62; TEMP 98.1
--- NOTE | 2024-05-15 13:33 | P.DS ---
Providers Date of admission: 05/12/24 15:41 Expected date of discharge: 05/15/24 Attending physician: Maury Estrada Consults: 05/12/24 15:40 Consult Physician Urgent Consulting Provider: Berny Ashraf Consult Reason/Comments: nstemi Do you want consulting provider notified?: Yes 05/13/24 06:48 Consult Physician Routine Consulting Provider: [facility] Consult Reason/Comments: Post Interventional Patient Do you want consulting provider notified?: Already Contacted Primary care physician: Maury Estrada [facility] Course: Final Diagnosis: NSTEMI, status post PCI of the mid LAD 05/13 Ischemic cardiomyopathy, EF 30 to 35% abnormally thickened endometrium with vascularity concerning for endometrial carcinoma, reported per pelvic/transvaginal ultrasound 05/07/2024. Referral to [facility] outpatient in progress as per PCPs office. Anemia outpatient, reported per PCP Hypertension Hyperlipidemia Morbid obesity, BMI 37 Family history of CAD,sister Prior nicotine dependence Hospital course:This is a 73-year-old female past medical history significant for former nicotine dependence, morbid obesity, gastroesophageal reflux disease, hypothyroidism, anxiety, depression and multiple other medical issues presented to the ER with complaints of chest pain. Last week patient was being worked up by PCP for clearance regarding a orthopedic procedure. Patient discovered to coombs ve anemia, further imaging conducted on 05/07/2024/pelvic/transvaginal ultrasound reported abnormally thickened endometrium with vascularity concerning for endometrial carcinoma. Family history of CAD, sister had an [place].patient also completed a stress test about a week ago. Troponin 0.060, 0.317, 3.150. Evaluated by cardiology, EKGs reviewed, underwent left heart catheterization reporting 100% mid LAD, 50 to 60% proximal LAD, 60 to 70% distal LAD, 20% RCA and 20% circumflex with some right to left collaterals, PCI of the mid LAD with BRODIE, earlier today. Tolerated procedure well. Denies chest pain, palpitations or shortness of breath. Echo reporting EF of 30 to 35%, hypokinesis involving the anterior septal and apex, enlarged left atrium, mild mitral and aortic regurgitation. 05/14/2024 maintained on dual antiplatelet therapy, beta-apolonia, statin .sitting up in chair, complaining of minimal diarrhea this morning, brat diet recommended. Denies chest pain, palpitations or shortness of breath. Maintaining O2 sats in the mid 90s on room air .Farxiga and Entresto initiated this morning. LifeVest ordered. [facility] consult canceled per their request and PCP's office will schedule outpatient [facility] follow-up. LifeVest ordered for patient's cardiomyopathy. Further med adjustments, with Farxiga and Entresto added to med regimen- continued monitoring as per cardiology. discharge planning in progress for tomorrow pending final DC recommendations and clearance per cardiology. 05/15/2024 denies chest pain, palpitations or shortness of breath. Farxiga and Entresto added to med regimen yesterday. Vital signs stable, no hypotension, renal function stable. Patient will be discharged home today in a stable condition with guarded prognosis pending arrival of LifeVest, final DC recommendations and clearance per cardiology. The impression and plan of care has been dictated as directed. : I performed a history and examination of this patient, discussed the same with the dictator. I agree with the dictator's note ,documented as a scribe. Any additional findings or plans will be noted. Patient Condition at Discharge: Stable Plan - Discharge Summary Discharge Rx Participant: Yes New Discharge Prescriptions: New Aspirin EC [Ecotrin Low Dose] 81 mg PO DAILY #30 tab Sacubitril/Valsartan [Entresto 24 mg-26 mg Tablet] 1 each PO BID #60 tab Atorvastatin [Lipitor] 80 mg PO HS #30 tab Metoprolol Tartrate [Lopressor] 12.5 mg PO BID #60 tab Nitroglycerin Sl Tabs [Nitrostat] 0.4 mg SUBLINGUAL Q5M PRN #100 tab PRN Reason: Chest Pain Pantoprazole [Protonix] 40 mg PO AC-BRKFST #30 tab Ticagrelor [Brilinta] 90 mg PO BID #60 tab Dapagliflozin Propanediol [Farxiga] 10 mg PO DAILY #30 tab Continue Calcium/Magnesium/Zinc [Cafzsnf-Pstobgswu-Wnit Tablet] 1 tab PO HS Escitalopram [Lexapro] 10 mg PO DAILY Biotin 5 mg PO HS amLODIPine [Norvasc] 5 mg PO DAILY Acetaminophen Tab [Tylenol] 1,000 mg PO Q6HR PRN PRN Reason: Pain Or Fever > 100.5 Levothyroxine Sodium [Synthroid] 112 mcg PO DAILY Discontinued Famotidine 20 mg PO DAILY PRN PRN Reason: acid reflux Discharge Medication List Biotin 5 mg PO HS 07/06/21 [History] Calcium/Magnesium/Zinc [Fliixks-Cmzuggprs-Naaf Tablet] 1 tab PO HS 11/29/20 [History] Escitalopram [Lexapro] 10 mg PO DAILY 11/29/20 [History] amLODIPine [Norvasc] 5 mg PO DAILY 11/29/20 [History] Acetaminophen Tab [Tylenol] 1,000 mg PO Q6HR PRN 05/12/24 [History] Levothyroxine Sodium [Synthroid] 112 mcg PO DAILY 05/12/24 [History] Aspirin EC [Ecotrin Low Dose] 81 mg PO DAILY #30 tab 05/15/24 [Rx] Atorvastatin [Lipitor] 80 mg PO HS #30 tab 05/15/24 [Rx] Dapagliflozin Propanediol [Farxiga] 10 mg PO DAILY #30 tab 05/15/24 [Rx] Metoprolol Tartrate [Lopressor] 12.5 mg PO BID #60 tab 05/15/24 [Rx] Nitroglycerin Sl Tabs [Nitrostat] 0.4 mg SUBLINGUAL Q5M PRN #100 tab 05/15/24 [Rx] Pantoprazole [Protonix] 40 mg PO AC-BRKFST #30 tab 05/15/24 [Rx] Sacubitril/Valsartan [Entresto 24 mg-26 mg Tablet] 1 each PO BID #60 tab [Rx] Ticagrelor [Brilinta] 90 mg PO BID #60 tab 05/15/24 [Rx] Follow up Appointment(s)/Referral(s): Juan Tam MD [Medical Doctor] - 05/26/24 3:15 pm Maury Estrada DO [Primary Care Provider] - 2 Weeks (Please call to schedule your appt ) Ambulatory/Diagnostic Orders: Basic Metabolic Panel [LAB.AMB] Time Frame: 3 Days, Location: None Selected Patient Instructions/Handouts: Heart Catheterization (DC) Discharge Disposition: HOME SELF-CARE
--- NOTE | 2024-05-15 13:38 | P.PN ---
Subjective Progress Note Date: 05/15/24 HISTORY OF PRESENTING ILLNESS Patient is pleasant 73-year-old female with history of GERD, hypothyroidism, osteoarthritis who presents secondary to chest pain. Patient presented with episodes of chest pain which started yesterday evening. She states originally she felt like it was indigestion. She had undergone a stress test approximately one week ago for clearance for surgery with Dr Tam. She denies any history of CAD. Initial EKG showed left bundle branch block which she had a history of from 2018. Initial troponin 0.06, 0.3, 3.1. D-dimer normal at 0.5. I was contacted earlier in the night with elevation of troponin however patient had Nitropaste and her chest pain had completely resolved. Patient then developed worsened 8 out of 10 chest pain approximately an hour ago per nursing and was given 2 nitroglycerin with decrease in blood pressure initially down in the 70s improved with fluid bolus. Her chest pain however did improve from 8-07. Still having ongoing chest pain. Smokes 40 yrs ago, no alcohol, no hx in parents however sister recently had an [place]. In retrospect she has been having off-and-on heartburn sensations for a number months however this episode was more severe. Additionally by the time she got to the emergency department she was having some numbness and tingling in both arms. With a recurrence of chest pain on the general medical floor, she had more nausea and diaphoresis. 05/14/2024 Patient seen and examined. Yesterday, patient underwent left heart catheterization which revealed 100% mid LAD, 50 to 60% proximal LAD, 60 to 70% distal LAD, 20% RCA and 20% circumflex with some right to left collaterals. Patient underwent PCI of the mid LAD with BRODIE. Patient denies having any chest pain at this time no shortness of breath and no fluttering in her chest. Blood pressure 130/78, heart rate 65, pulse ox 98% on room air. Hemoglobin 12.2. BUN 14 creatinine 0.66. Echocardiogram reveals EF of 30 to 35%, hypokinesis involving the anterior septal and apex, enlarged left atrium, mild mitral and aortic regurgitation. 05/15/2024 Patient seen and examined. She denies have any chest pain no shortness of breath. She is scheduled to receive her LifeVest today at 10 AM. Blood pressure 141/65, heart rate in 60s, pulse ox 97% on room air. Yesterday, patient was started on Farxiga and Entresto. PHYSICAL EXAMINATION Vital signs reviewed. CONSTITUTIONAL: No apparent distress. HEENT: Head is normocephalic. Pupils are equal, round. Sclerae anicteric. Mucous membranes of the mouth are moist. No JVD. No carotid bruit. CHEST EXAMINATION: Lungs are clear to auscultation. No chest wall tenderness is noted on palpation or with deep breathing. HEART EXAMINATION: Regular rate and rhythm. S1, S2 heard. No murmurs, gallops or rub. ABDOMEN: Soft, nontender. Positive bowel sounds. EXTREMITIES: 2+ peripheral pulses, no lower extremity edema and no calf tenderness. NEUROLOGIC EXAMINATION: Patient is awake, alert and oriented x3. ASSESSMENT Non-STEMI status post PCI of the mid LAD 05/13 Ischemic cardiomyopathy with EF of 30 to 35% Hypertension Hyperlipidemia remote tobacco abuse Family history sister with CAD PLAN Continue patient on aspirin, statin, metoprolol tartrate 12.5 mg twice daily, Brilinta 90 mg twice daily, amlodipine 5 mg daily Continue patient on Farxiga 10 mg daily and Entresto 24-26 mg daily Patient is cleared for discharge from cardiology May follow-up in the office in 1 to 2 weeks. Nurse practitioner note has been reviewed, I agree with documented findings and plan of care. Patient was seen and examined. Objective - Vital Signs Vital signs: Vital Signs Temp 98 F 05/15/24 04:00 Pulse 65 05/15/24 04:00 Resp 18 05/15/24 04:00 BP 145/65 05/15/24 04:00 Pulse Ox 96 05/15/24 04:00 FiO2 Intake & Output 05/14/24 05/15/24 05/15/24 18:59 06:59 18:59 Intake Total 498 10 120 Balance 498 10 120 Weight 86.1 kg Intake: IV 40 10 Invasive Line 2 20 10 Invasive Line 3 20 Oral 458 120 Other: # Voids 1 1 - Labs CBC & Chem 7: 05/14/24 07:20 05/14/24 07:20
== END 2024-05-15 12:04 | disposition home or self-care (01) | DRG 322 ==
LOC: EC 11:18 → 3SCARD 15:41
PROVIDERS: ADMIT Family Medicine; ATTEND Family Medicine
PROC: B2111ZZ Fluoroscopy of Multiple Coronary Arteries using Low Osmolar Contrast (ICD-10-PCS; 2024-05-13)
PROC: 027034Z Dilation of Coronary Artery, One Artery with Drug-eluting Intraluminal Device, Percutaneous Approach (ICD-10-PCS; principal; 2024-05-13 05:27)
PROC: 4A023N7 Measurement of Cardiac Sampling and Pressure, Left Heart, Percutaneous Approach (ICD-10-PCS; 2024-05-13 05:27)
DX: I21.3 ST elevation (STEMI) myocardial infarction of unspecified site (principal); D64.9 Anemia, unspecified; E66.01 Morbid (severe) obesity due to excess calories; I08.0 Rheumatic disorders of both mitral and aortic valves; E03.9 Hypothyroidism, unspecified; I10 Essential (primary) hypertension; Z68.37 Body mass index [BMI] 37.0-37.9, adult; I25.10 Atherosclerotic heart disease of native coronary artery without angina pectoris; I25.5 Ischemic cardiomyopathy; E78.5 Hyperlipidemia, unspecified; R93.89 Abnormal findings on diagnostic imaging of other specified body structures; Z79.890 Hormone replacement therapy; Z82.49 Family history of ischemic heart disease and other diseases of the circulatory system; Z87.891 Personal history of nicotine dependence; Z79.899 Other long term (current) drug therapy
CPT/HCPCS: 36415; 71046; 80048; 80053; 80061; 83690; 83735; 84484; 85025; 85379; 85610; 85730; 93005; 93306; 93458; 94760; 96365; 96366; 99291

== ENCOUNTER 2024-05-17 12:40 | Inpatient (IN) | payer MEDICARE ==
[2024-05-17 12:58] LABS: Basophils % (A) 0 %; Eosinophils # (A) 0.2 k/uL (0-0.7); Eosinophils % (A) 3 %; HCT 41.9 % (34.0-46.0); HGB 13.6 gm/dL (11.4-16.0); Lymphocytes # (A) 1.4 k/uL (1.0-4.8); Lymphocytes % (A) 19 %; MCH 29.3 pg (25.0-35.0); MCHC 32.4 g/dL (31.0-37.0); MCV 90.5 fL (80.0-100.0); Mean Platelet Volume 7.3; Monocytes # (A) 0.6 k/uL (0-1.0); Monocytes % (A) 8 %; Neutrophils # (A) 4.9 k/uL (1.3-7.7); Neutrophils % (A) 68 %; Platelet Count 219 k/uL (150-450); RBC 4.63 m/uL (3.80-5.40); RDW 13.1 % (11.5-15.5); WBC 7.2 k/uL (3.8-10.6)
[2024-05-17] MEDS: SODIUM CHLORIDE 0.9% 500 ML 500 ML IV STA (13:18)
--- NOTE | 2024-05-17 13:19 | XR ---
EXAMINATION TYPE: XR chest 2V DATE OF EXAM: 05/17/2024 1:07 PM COMPARISON: Chest radiographs from 05/12/2024 CLINICAL INDICATION: Female, 74 years old with history of syncope; [facility] TECHNIQUE: XR chest 2V Frontal and lateral views of the chest. FINDINGS: Lungs/Pleura: There is no evidence of pleural effusion, focal consolidation, or pneumothorax. Pulmonary vascularity: Unremarkable. Heart/mediastinum: Cardiomediastinal silhouette is unremarkable. Musculoskeletal: No acute osseous pathology. IMPRESSION: No acute cardiopulmonary disease/process. [facility] Georgina Jay, , 05/17/2024 1:16 PM
[2024-05-17 13:21] LABS: ALT 26 U/L (4-34); AST 34 U/L (14-36); African American GFR (CKD) 84 (>60 ml/min/1.73 sqM); Albumin 3.6 g/dL (3.5-5.0); Alkaline Phosphatase 96 U/L (38-126); Anion Gap 9 mmol/L; Blood Urea Nitrogen 16 mg/dL (7-17); Calcium 8.8 mg/dL (8.4-10.2); Carbon Dioxide 20 mmol/L (22-30); Chloride 110 mmol/L (98-107); Glucose 170 mg/dL (74-99); Non-African American GFR(CKD) 73 (>60 ml/min/1.73 sqM); Potassium 3.6 mmol/L (3.5-5.1); Sodium 139 mmol/L (137-145); Total Protein 6.5 g/dL (6.3-8.2)
[2024-05-17 13:27] LABS: Prothrombin Time 10.8 sec (10.0-12.5)
[2024-05-17 13:30] LABS: NT-Pro-B-Type Natriuretic Pept 3020 pg/mL
--- NOTE | 2024-05-17 13:46 | ED ---
General Adult HPI - General Chief complaint: Syncope Stated complaint: Syncope Time Seen by Provider: 05/17/24 12:45 Source: patient Mode of arrival: EMS Limitations: no limitations - History of Present Illness Initial comments: 74-year-old female with past medical history of hypothyroidism, GERD, coronary disease who presents emergency department after she had a syncopal episode at home. Patient was just discharged from our hospital on the . She had 1 stent placed. EF was noted to be 30% and patient was sent home with a LifeVest. She states that she tried to take a shower this morning. She felt extremely weak and sat down on the toilet. went into the bathroom to find her unresponsive. She did not sustain any trauma. States that she has been very weak upon standing. She did take her medications this morning. She denies any chest pain or shortness of breath. No nausea or vomiting. No lateralizing weakness. No other alleviating, precipitating or modifying factors - Related Data Home Medications Medication Instructions Recorded Confirmed Biotin 5 mg PO HS 11/29/20 05/17/24 Calcium/Magnesium/Zinc 1 tab PO HS 11/29/20 05/17/24 [Lxhybtt-Yfhwvfeax-Xkrh Tablet] Escitalopram [Lexapro] 10 mg PO DAILY 11/29/20 05/17/24 amLODIPine [Norvasc] 5 mg PO DAILY 11/29/20 05/17/24 Acetaminophen Tab [Tylenol] 1,000 mg PO Q6HR PRN 05/12/24 05/17/24 Levothyroxine Sodium [Synthroid] 112 mcg PO DAILY 05/12/24 05/17/24 Sacubitril/Valsartan [Entresto 24 1 tab PO BID 05/17/24 05/17/24 mg-26 mg Tablet] Previous Rx's Medication Instructions Recorded Aspirin EC [Ecotrin Low Dose] 81 mg PO DAILY #30 tab 05/15/24 Atorvastatin [Lipitor] 80 mg PO HS #30 tab 05/15/24 Dapagliflozin Propanediol [Farxiga] 10 mg PO DAILY #30 tab 05/15/24 Metoprolol Tartrate [Lopressor] 12.5 mg PO BID #60 tab 05/15/24 Nitroglycerin Sl Tabs [Nitrostat] 0.4 mg SUBLINGUAL Q5M PRN #100 tab 05/15/24 Pantoprazole [Protonix] 40 mg PO AC-BRKFST #30 tab 05/15/24 Ticagrelor [Brilinta] 90 mg PO BID #60 tab 05/15/24 Allergies Allergy/AdvReac Type Severity Reaction Status Date / Time Sulfa (Sulfonamide Allergy RED AND Verified 05/17/24 14:18 Antibiotics) HOT SKIN Review of Systems ROS Statement: Those systems with pertinent positive or pertinent negative responses have been documented in the HPI. ROS Other: All systems not noted in ROS Statement are negative. Past Medical History Past Medical History: GERD/Reflux, Thyroid Disorder Additional Past Medical History / Comment(s): hypothyroidism History of Any Multi-Drug Resistant Organisms: None Reported Past Surgical History: Cholecystectomy, Heart Catheterization With Stent, Orthopedic Surgery Additional Past Surgical History / Comment(s): lt knee arthroscopy. bilateral cataracts. Past Anesthesia/Blood Transfusion Reactions: Motion Sickness Additional Past Anesthesia/Blood Transfusion Reaction / Comment(s): Patient states anesthesiologist usually gives her Zofran in her IV before surgery Past Psychological History: Anxiety, Depression Smoking Status: Former smoker Past Alcohol Use History: Occasional Past Drug Use History: None Reported - Past Family History Mother Family Medical History: No Reported History Father Family Medical History: Cancer Additional Family Medical History / Comment(s): at age 75 from cancer (pt believes possibly prostate cancer) General Exam Limitations: no limitations General appearance: alert, in no apparent distress Head exam: Present: atraumatic, normocephalic, normal inspection Eye exam: Present: normal appearance, PERRL, EOMI. Absent: scleral icterus, conjunctival injection, periorbital swelling ENT exam: Present: normal exam, mucous membranes moist Neck exam: Present: normal inspection. Absent: tenderness, meningismus, lymphadenopathy Respiratory exam: Present: normal lung sounds bilaterally. Absent: respiratory distress, wheezes, rales, rhonchi, stridor Cardiovascular Exam: Present: regular rate, normal rhythm, normal heart sounds. Absent: systolic murmur, diastolic murmur, rubs, gallop, clicks GI/Abdominal exam: Present: soft, normal bowel sounds. Absent: distended, tenderness, guarding, rebound, rigid Extremities exam: Present: normal inspection, full ROM, normal capillary refill. Absent: tenderness, pedal edema, joint swelling, calf tenderness Back exam: Present: normal inspection Neurological exam: Present: alert, oriented X3, CN II-XII intact Psychiatric exam: Present: normal affect, normal mood Skin exam: Present: warm, dry, intact, normal color. Absent: rash Course Vital Signs 05/17/24 05/17/24 05/17/24 12:44 13:09 13:11 Temperature 98.5 F Pulse Rate 60 Pulse Rate [ 65 Sitting] Pulse Rate [ Standing] Pulse Rate [ 60 Supine] Respiratory 20 Rate Blood Pressure 101/53 Blood Pressure 101/55 [Sitting] Blood Pressure [Standing] Blood Pressure 100/51 [Supine] O2 Sat by Pulse 95 96 95 Oximetry 05/17/24 05/17/24 05/17/24 13:14 13:58 16:00 Temperature Pulse Rate 52 L 58 L Pulse Rate [ Sitting] Pulse Rate [ 70 Standing] Pulse Rate [ Supine] Respiratory 20 20 Rate Blood Pressure 104/53 110/53 Blood Pressure [Sitting] Blood Pressure 80/51 [Standing] Blood Pressure [Supine] O2 Sat by Pulse 96 99 99 Oximetry 05/17/24 05/17/24 17:00 18:16 Temperature Pulse Rate 60 56 L Pulse Rate [ Sitting] Pulse Rate [ Standing] Pulse Rate [ Supine] Respiratory 20 20 Rate Blood Pressure 129/63 130/69 Blood Pressure [Sitting] Blood Pressure [Standing] Blood Pressure [Supine] O2 Sat by Pulse 99 98 Oximetry Medical Decision Making - Medical Decision Making Was pt. sent in by a medical professional or institution (TARA Avendaño, JOB SITE SUPERINTENDENT, urgent care, hospital, or assisted...) When possible be specific @ -No Did you speak to anyone other than the patient for history (EMS, parent, family, police, friend...)? What history was obtained from this source @ -I spoke with EMS for history Did you review nursing and triage notes (agree or disagree)? Why? @ -I reviewed and agree with nursing and triage notes Were old charts reviewed (outside hosp., previous admission, EMS record, old EKG, old radiological studies, urgent care reports/EKG's, assisted records)? Report findings @ -I reviewed the discharge summary from the Differential Diagnosis (chest pain, altered mental status, abdominal pain women, abdominal pain men, vaginal bleeding, weakness, fever, dyspnea, syncope, headache, dizziness, GI bleed, back pain, seizure, CVA, palpatations, mental health, musculoskeletal)? @ -Differential Syncope: Valvular disease, hypertrophic cardiomyopathy, pulmonary embolism, tamponade, tachycardia, bradycardia, [place], hypovolemia, hemorrhage, dissection, anemia, intracranial hemorrhage, seizure, hypoglycemia, carbon monoxide poisoning, this is not meant to be an all-inclusive list. EKG interpreted by me (3pts min.). @ -Yes and demonstrates sinus rhythm with a rate of 62. Parable 187. QRS 139. QTc of 462. Intraventricular conduction delay. No acute ST segment elevation X-rays interpreted by me (1pt min.). @ -Yes which demonstrates no acute process CT interpreted by me (1pt min.). @ -None done U/S interpreted by me (1pt. min.). @ -None done What testing was considered but not performed or refused? (CT, X-rays, U/S, labs)? Why? @ -None What meds were considered but not given or refused? Why? @ -None Did you discuss the management of the patient with other professionals (professionals i.e. , PA, JOB SITE SUPERINTENDENT, lab, RT, psych nurse, director of social media marketing, roll picker, teacher, air support control officer, pillowcase cutter)? Give summary @ -Spoke with Dr. renteria for admission Was smoking cessation discussed for >3mins.? @ -No Was critical care preformed (if so, how long)? @ -No Were there social determinants of health that impacted care today? How? (Homelessness, low income, unemployed, alcoholism, drug addiction, transportation, low edu. Level, literacy, decrease access to med. care, longterm, re hab)? @ -No Was there de-escalation of care discussed even if they declined (Discuss DNR or withdrawal of care, Hospice)? DNR status @ -No What co-morbidities impacted this encounter? (DM, HTN, Smoking, COPD, CAD, Cancer, CVA, ARF, Chemo, Hep., AIDS, mental health diagnosis, sleep apnea, morbid obesity)? @ -Coronary artery disease, congestive heart failure Was patient admitted / discharged? Hospital course, mention meds given and route, prescriptions, significant lab abnormalities, going to OR and other pertinent info. @ -Upon arrival patient placed in room 1. Thorough history and physical exam was performed. Orthostatics are obtained. Patient does have positive orthostatics when standing. She was given a 500 L bolus however further fluids are held due to her history of congestive heart failure. Twelve-lead EKG was obtained. Patient remains on continuous pulse ox and cardiac monitoring. Laboratory studies are conducted. Troponin continues to be elevated. I discussed results with the patient. I did recommend overnight observation with evaluation of her medications. Patient was agreeable to this. Spoke with Dr. renteria for admission Undiagnosed new problem with uncertain prognosis? @ -No Drug Therapy requiring intensive monitoring for toxicity (Heparin, Nitro, Insulin, Cardizem)? @ -No Were any procedures done? @ -No Diagnosis/symptom? @ -Acute syncope, orthostatic hypotension, recent stent placement Acute, or Chronic, or Acute on Chronic? @ -Acute Uncomplicated (without systemic symptoms) or Complicated (systemic symptoms)? @ -Complicated Side effects of treatment? @ -No Exacerbation, Progression, or Severe Exacerbation? @ -No Poses a threat to life or bodily function? How? (Chest pain, [place], [place], pneumonia, PE, COPD, DKA, ARF, appy, cholecystitis, CVA, Diverticulitis, Homicidal, Suicidal, threat to staff... and all critical care pts) @ -No - Lab Data Result diagrams: 05/18/24 06:56 05/18/24 06:56 Lab Results 05/17/24 05/17/24 05/17/24 Range/Units 12:50 12:50 12:50 WBC 7.2 (3.8-10.6) k/uL RBC 4.63 (3.80-5.40) m/uL Hgb 13.6 (11.4-16.0) gm/dL Hct 41.9 (34.0-46.0) % MCV 90.5 (80.0-100.0) fL MCH 29.3 (25.0-35.0) pg MCHC 32.4 (31.0-37.0) g/dL RDW 13.1 (11.5-15.5) % Plt Count 219 (150-450) k/uL MPV 7.3 Neutrophils % 68 % Lymphocytes % 19 % Monocytes % 8 % Eosinophils % 3 % Basophils % 0 % Neutrophils # 4.9 (1.3-7.7) k/uL Lymphocytes # 1.4 (1.0-4.8) k/uL Monocytes # 0.6 (0-1.0) k/uL Eosinophils # 0.2 (0-0.7) k/uL Basophils # 0.0 (0-0.2) k/uL PT 10.8 (10.0-12.5) sec INR 1.0 (<1.2) APTT 19.6 L (22.0-30.0) sec Sodium 139 (137-145) mmol/L Potassium 3.6 (3.5-5.1) mmol/L Chloride 110 H (98-107) mmol/L Carbon Dioxide 20 L (22-30) mmol/L Anion Gap 9 mmol/L BUN 16 (7-17) mg/dL Creatinine 0.80 (0.52-1.04) mg/dL Est GFR (CKD-EPI)AfAm 84 (>60 ml/min/1.73 sqM) Est GFR (CKD-EPI)NonAf 73 (>60 ml/min/1.73 sqM) Glucose 170 H (74-99) mg/dL Calcium 8.8 (8.4-10.2) mg/dL Total Bilirubin 1.0 (0.2-1.3) mg/dL AST 34 (14-36) U/L ALT 26 (4-34) U/L Alkaline Phosphatase 96 (38-126) U/L Troponin I (0.000-0.034) ng/mL NT-Pro-B Natriuret Pep 3020 pg/mL Total Protein 6.5 (6.3-8.2) g/dL Albumin 3.6 (3.5-5.0) g/dL 05/17/24 Range/Units 12:50 WBC (3.8-10.6) k/uL RBC (3.80-5.40) m/uL Hgb (11.4-16.0) gm/dL Hct (34.0-46.0) % MCV (80.0-100.0) fL MCH (25.0-35.0) pg MCHC (31.0-37.0) g/dL RDW (11.5-15.5) % Plt Count (150-450) k/uL MPV Neutrophils % % Lymphocytes % % Monocytes % % Eosinophils % % Basophils % % Neutrophils # (1.3-7.7) k/uL Lymphocytes # (1.0-4.8) k/uL Monocytes # (0-1.0) k/uL Eosinophils # (0-0.7) k/uL Basophils # (0-0.2) k/uL PT (10.0-12.5) sec INR (<1.2) APTT (22.0-30.0) sec Sodium (137-145) mmol/L Potassium (3.5-5.1) mmol/L Chloride (98-107) mmol/L Carbon Dioxide (22-30) mmol/L Anion Gap mmol/L BUN (7-17) mg/dL Creatinine (0.52-1.04) mg/dL Est GFR (CKD-EPI)AfAm (>60 ml/min/1.73 sqM) Est GFR (CKD-EPI)NonAf (>60 ml/min/1.73 sqM) Glucose (74-99) mg/dL Calcium (8.4-10.2) mg/dL Total Bilirubin (0.2-1.3) mg/dL AST (14-36) U/L ALT (4-34) U/L Alkaline Phosphatase (38-126) U/L Troponin I 0.054 H* (0.000-0.034) ng/mL NT-Pro-B Natriuret Pep pg/mL Total Protein (6.3-8.2) g/dL Albumin (3.5-5.0) g/dL Disposition Clinical Impression: Orthostatic hypotension, Elevated troponin Disposition: ADMITTED IP TO THIS [facility] Condition: Stable Is patient prescribed a controlled substance at d/c from ED?: No Time of Disposition: 14:27 Decision to Admit Reason: Admit from EC Decision Date: 05/17/24 Decision Time: 14:27
[2024-05-17 13:48] LABS: Partial Thromboplastin Time 19.6 sec (22.0-30.0)
[2024-05-17] MEDS ORDERED: NALOXONE 0.4 MG/ML 1 ML VIAL IV PRN (14:28)
[2024-05-17] MEDS: SODIUM CHLORIDE 0.9% 1,000 ML IV SCH (15:27)
[2024-05-17] MEDS ORDERED: NON FORMULARY DRUG (Biotin [Biotin] 5 MG Capsule) PO SCH (21:00)
[2024-05-17] MEDS: ATORVASTATIN 80 MG TAB PO SCH (21:40)
[2024-05-17] MEDS: METOPROLOL TARTRATE 12.5 MG TAB PO SCH (21:40)
[2024-05-17] MEDS: SACUBITRIL/VALSARTAN 24 MG-26 MG TABLET PO SCH (21:40)
[2024-05-17] MEDS: TICAGRELOR 90 MG TAB PO SCH (21:40)
--- NOTE | 2024-05-17 22:03 | P.HPIM ---
History of Present Illness H&P Date: 05/17/24 Chief Complaint: Syncopal episode Patient is a 73-year-old male with a known history of NSTEMI, coronary artery disease status post PCI mid LAD on 05/12/2024, cardiomyopathy ejection fraction 30 to 35% was sent home on LifeVest, hypothyroidism, GERD, anxiety/depression and prior history of smoking. She was discharged home on 05/15/2024. Patient presents to ER with complaints of syncopal episode at home. Patient states that she has been sleeping more than 12 hours and finally was able to get up and going to shower, while turning back she felt very weak and sat down. Denied any complaints of chest pain. Denied any palpitations. Patient was very LifeVest at the time of syncopal episode and was heard by her . EMS was called and patient was brought to ER. Patient otherwise denies any missed doses of medications. No complaints of chest pain or shortness of breath. No nausea vomiting. Denied any abdominal pain. No diarrhea. 2D echocardiogram on 05/13/2024 showed ischemic cardiomyopathy with severe LV systolic dysfunction with ejection fraction 30 to 35%. Hypokinesis involving the anteroseptal and apex. Enlarged left atrium. Mild mitral and aortic regurgitation. Chest x-ray on admission showed no acute cardiopulmonary process. EKG showed sinus rhythm heart rate 62. Patient was told her blood pressure was low when EMS picked her. In the ER blood pressure was 101/53, heart rate 60 respiration 20 and pulse ox 98% on room air. Laboratory data showed WBC 7.2 hemoglobin 13.6 and platelets 219 sodium 139 potassium 3.6 chloride 110 bicarb is 20 blood sugar 170 liver enzymes are not elevated. Troponin 0.050, 0.084 and 0.17 and proBNP 3020. Review of Systems Constitutional: Patient denies any fever or chills . Generalized weakness and tiredness. Abdomen: Patient denied nausea vomiting and diarrhea and abdominal pain. Cardiovascular: Patient denies any chest pain or short of breath no palpitations. Respiratory: patient denied any cough or sputum production. No shortness of breath Neurologic: Patient denied any numbness or tingling. no headache. Musculoskeletal: Patient denies any complaints of joint swelling or deformity. Skin: Negative Psychiatric: Negative Endocrine: No heat or cold intolerance. No recent weight gain. Genitourinary: No dysuria or hematuria. All other 14 point ROS negative except the above Past Medical History Past Medical History: GERD/Reflux, Thyroid Disorder Additional Past Medical History / Comment(s): hypothyroidism History of Any Multi-Drug Resistant Organisms: None Reported Past Surgical History: Cholecystectomy, Heart Catheterization With Stent, Orthop edic Surgery Additional Past Surgical History / Comment(s): lt knee arthroscopy. bilateral cataracts. Past Anesthesia/Blood Transfusion Reactions: Motion Sickness Additional Past Anesthesia/Blood Transfusion Reaction / Comment(s): Patient states anesthesiologist usually gives her Zofran in her IV before surgery Date of Last Stent Placement:: 05/13/24 Past Psychological History: Anxiety, Depression Additional Psychological History / Comment(s): Takes Wellbutrin daily Smoking Status: Former smoker Past Alcohol Use History: Occasional Additional Past Alcohol Use History / Comment(s): smoked 5-10 years 1 1978 Past Drug Use History: None Reported - Past Family History Mother Family Medical History: No Reported History Father Family Medical History: Cancer Additional Family Medical History / Comment(s): at age 75 from cancer (pt believes possibly prostate cancer) Medications and Allergies Home Medications Medication Instructions Recorded Confirmed Type Biotin 5 mg PO HS 11/29/20 05/17/24 History Calcium/Magnesium/Zinc 1 tab PO HS 11/29/20 05/17/24 History [Yxolktr-Kefhzlvzh-Syqp Tablet] Escitalopram [Lexapro] 10 mg PO DAILY 11/29/20 05/17/24 History amLODIPine [Norvasc] 5 mg PO DAILY 11/29/20 05/17/24 History Acetaminophen Tab [Tylenol] 1,000 mg PO Q6HR PRN 05/12/24 05/17/24 History Levothyroxine Sodium [Synthroid] 112 mcg PO DAILY 05/12/24 05/17/24 History Aspirin EC [Ecotrin Low Dose] 81 mg PO DAILY #30 tab 05/15/24 05/17/24 Rx Atorvastatin [Lipitor] 80 mg PO HS #30 tab 05/15/24 05/17/24 Rx Dapagliflozin Propanediol [Farxiga] 10 mg PO DAILY #30 tab 05/15/24 05/17/24 Rx Metoprolol Tartrate [Lopressor] 12.5 mg PO BID #60 tab 05/15/24 05/17/24 Rx Nitroglycerin Sl Tabs [Nitrostat] 0.4 mg SUBLINGUAL Q5M PRN #100 tab 05/15/24 05/17/24 Rx Pantoprazole [Protonix] 40 mg PO AC-BRKFST #30 tab 05/15/24 05/17/24 Rx Ticagrelor [Brilinta] 90 mg PO BID #60 tab 05/15/24 05/17/24 Rx Sacubitril/Valsartan [Entresto 24 1 tab PO BID 05/17/24 05/17/24 History mg-26 mg Tablet] Allergies Allergy/AdvReac Type Severity Reaction Status Date / Time Sulfa (Sulfonamide Allergy RED AND Verified 05/17/24 14:18 Antibiotics) HOT SKIN Physical Exam Vitals: Vital Signs Temp Pulse Pulse Pulse Pulse Pulse Resp 05/17/24 19:47 98.3 F 68 16 05/17/24 18:38 65 16 05/17/24 18:16 56 L 20 05/17/24 17:00 60 20 05/17/24 16:00 58 L 20 05/17/24 13:58 52 L 20 05/17/24 13:14 70 05/17/24 13:11 65 05/17/24 13:09 60 05/17/24 12:44 98.5 F 60 20 BP BP BP BP BP Pulse Ox 05/17/24 19:47 146/79 99 05/17/24 18:38 143/88 96 05/17/24 18:16 130/69 98 05/17/24 17:00 129/63 99 05/17/24 16:00 110/53 99 05/17/24 13:58 104/53 99 05/17/24 13:14 80/51 96 05/17/24 13:11 101/55 95 05/17/24 13:09 100/51 96 05/17/24 12:44 101/53 95 Intake and Output 05/17/24 05/17/24 05/17/24 06:59 14:59 22:59 Intake Total 10 Balance 10 Intake: IV 10 Invasive Line 1 10 Other: Weight 85.275 kg 85.275 kg PHYSICAL EXAMINATION: Patient is lying in the bed, no acute distress, awake alert and oriented.. HEENT: Normocephalic. Neck is supple. Pupils reactive. Nostrils clear. Oral cavity is moist. Neck reveals no JVD, carotid bruits, or thyromegaly. CHEST EXAMINATION: Trachea is central. Symmetrical expansion. Bibasilar diminished sounds. Otherwise lung newsome clear to auscultation and percussion. CARDIAC: Normal S1, S2 with no gallops. No murmurs ABDOMEN: Soft. Bowel sounds normal. No organomegaly. No abdominal bruits. Extremities: reveal no edema. No clubbing or cyanosis Neurologically awake, alert, oriented x3 with well-coordinated movements. No focal deficits noted Skin: No rash or skin lesions. Psychiatric: Coperative. Nonsuicidal Musculoskeletal: No joint swelling or deformity. Normal range of motion. Results CBC & Chem 7: 05/17/24 12:50 05/17/24 12:50 Labs: Abnormal Lab Results - Last 24 Hours (Table) 05/17/24 05/17/24 05/17/24 Range/Units 12:50 12:50 12:50 APTT 19.6 L (22.0-30.0) sec Chloride 110 H (98-107) mmol/L Carbon Dioxide 20 L (22-30) mmol/L Glucose 170 H (74-99) mg/dL Troponin I 0.054 H* (0.000-0.034) ng/mL 05/17/24 Range/Units 15:39 APTT (22.0-30.0) sec Chloride (98-107) mmol/L Carbon Dioxide (22-30) mmol/L Glucose (74-99) mg/dL Troponin I 0.084 H* (0.000-0.034) ng/mL Thrombosis Risk Factor Assmnt - DVT/VTE Prophylaxis DVT/VTE Prophylaxis: Pharmacologic Prophylaxis ordered - Choose All That Apply Each Factor Represents 1 point: Obesity (BMI >25) Each Risk Factor Represents 3 Points: Age 75 years or older Thrombosis Risk Factor Assessment Total Risk Factor Score: 4 Thrombosis Risk Factor Assessment Level: Moderate Risk Assessment and Plan Assessment: Acute syncopal episode likely due to orthostatic hypotension Recent history of NSTEMI status post PCI to mid LAD on 05/12/2024 Elevated troponin level due to to recent [place] Ischemic cardiomyopathy ejection fraction 30 to 35% with hypokinesis involving the anteroseptal and apex. Patient is on LifeVest. Hypothyroidism Anxiety/depression GERD Prior history of smoking GI prophylaxis PPI Plan: Patient will current on telemonitoring. Started back on aspirin, Brilinta and statin. Continue with metoprolol 12.5 mg twice daily and Entresto. Cardiology was consulted for evaluation. Patient was given IV fluid bolus with symptomatic improvement.. Continue with home medications and follow-up closely. Time with Patient: Greater than 30
[2024-05-17] MEDS: ACETAMINOPHEN TAB 500 MG TAB PO PRN (23:03)
[2024-05-17] MEDS: POTASSIUM CHLORIDE ER 20 MEQ TAB.ER PO STA (23:03)
[2024-05-18] MEDS: PANTOPRAZOLE 40 MG TABLET PO SCH (06:12)
[2024-05-18] MEDS: LEVOTHYROXINE 112 MCG TAB PO SCH (06:12)
[2024-05-18 07:11] LABS: Basophils % (A) 0 %; Eosinophils # (A) 0.2 k/uL (0-0.7); Eosinophils % (A) 3 %; HCT 41.8 % (34.0-46.0); HGB 13.3 gm/dL (11.4-16.0); Lymphocytes # (A) 1.3 k/uL (1.0-4.8); Lymphocytes % (A) 21 %; MCH 28.8 pg (25.0-35.0); MCHC 31.8 g/dL (31.0-37.0); MCV 90.7 fL (80.0-100.0); Mean Platelet Volume 7.2; Monocytes # (A) 0.5 k/uL (0-1.0); Monocytes % (A) 8 %; Neutrophils # (A) 3.9 k/uL (1.3-7.7); Neutrophils % (A) 64 %; Platelet Count 194 k/uL (150-450); RDW 13.1 % (11.5-15.5)
--- NOTE | 2024-05-18 07:28 | P.PN ---
Subjective Patient is a 73-year-old male with a known history of NSTEMI, coronary artery disease status post PCI mid LAD on 05/12/2024, cardiomyopathy ejection fraction 30 to 35% was sent home on LifeVest, hypothyroidism, GERD, anxiety/depression and prior history of smoking. She was discharged home on 05/15/2024. Patient presents to ER with complaints of syncopal episode at home. Patient states that she has been sleeping more than 12 hours and finally was able to get up and going to shower, while turning back she felt very weak and sat down. Denied any complaints of chest pain. Denied any palpitations. Patient was very LifeVest at the time of syncopal episode and was heard by her . EMS was called and patient was brought to ER. Patient otherwise denies any missed doses of medications. No complaints of chest pain or shortness of breath. No nausea vomiting. Denied any abdominal pain. No diarrhea. 2D echocardiogram on 05/13/2024 showed ischemic cardiomyopathy with severe LV systolic dysfunction with ejection fraction 30 to 35%. Hypokinesis involving the anteroseptal and apex. Enlarged left atrium. Mild mitral and aortic reg urgitation. Chest x-ray on admission showed no acute cardiopulmonary process. EKG showed sinus rhythm heart rate 62. Patient was told her blood pressure was low when EMS picked her. In the ER blood pressure was 101/53, heart rate 60 respiration 20 and pulse ox 98% on room air. Laboratory data showed WBC 7.2 hemoglobin 13.6 and platelets 219 sodium 139 potassium 3.6 chloride 110 bicarb is 20 blood sugar 170 liver enzymes are not elevated. Troponin 0.050, 0.084 and 0.17 and proBNP 3020. 05/18 Objective - Vital Signs Vital signs: Vital Signs Temp 98.1 F 05/18/24 04:00 Pulse 64 05/18/24 04:00 Resp 17 05/18/24 04:00 BP 125/69 05/18/24 04:00 Pulse Ox 96 05/18/24 04:00 FiO2 Intake & Output 05/17/24 05/18/24 05/18/24 18:59 06:59 18:59 Intake Total 30 Balance 30 Weight 85.275 kg 85.1 kg Intake: IV 30 Invasive Line 1 20 Invasive Line 2 10 Other: Voiding Method Toilet # Voids 1 - Exam GENERAL: The patient is alert and oriented x3, not in any acute distress. Well developed, well nourished. HEENT: Pupils are round and equally reacting to light. EOMI. No scleral icterus. No conjunctival pallor. Normocephalic, atraumatic. No pharyngeal erythema. No thyromegaly. CARDIOVASCULAR: S1 and S2 present. No murmurs, rubs, or gallops. PULMONARY: Chest is clear to auscultation, no wheezing , no crackles. ABDOMEN: Soft, nontender, nondistended, normoactive bowel sounds. No palpable organomegaly. MUSCULOSKELETAL: No joint swelling or deformity. EXTREMITIES: No cyanosis, clubbing, or pedal edema. NEUROLOGICAL: Gross neurological examination did not reveal any focal deficits. SKIN: No rashes. no petechiae. - Labs CBC & Chem 7: 05/18/24 06:56 05/17/24 12:50 Labs: Abnormal Lab Results - Last 24 Hours (Table) 05/17/24 05/17/24 05/17/24 Range/Units 12:50 12:50 12:50 APTT 19.6 L (22.0-30.0) sec Chloride 110 H (98-107) mmol/L Carbon Dioxide 20 L (22-30) mmol/L Glucose 170 H (74-99) mg/dL Troponin I 0.054 H* (0.000-0.034) ng/mL 05/17/24 05/17/24 Range/Units 15:39 20:35 APTT (22.0-30.0) sec Chloride (98-107) mmol/L Carbon Dioxide (22-30) mmol/L Glucose (74-99) mg/dL Troponin I 0.084 H* 0.170 H* (0.000-0.034) ng/mL Assessment and Plan Assessment: Acute syncopal episode likely due to orthostatic hypotension Recent history of NSTEMI status post PCI to mid LAD on 05/12/2024 Elevated troponin level due to to recent PA Ischemic cardiomyopathy ejection fraction 30 to 35% with hypokinesis involving the anteroseptal and apex. Patient is on LifeVest. Hypothyroidism Anxiety/depression GERD Prior history of smoking Plan: Continue with dual antiplatelet therapy with aspirin and Brilinta Continued on Lipitor 80 mg Continue on metoprolol 12.5 mg however other blood pressure medication Entresto, Norvasc 5 mg and Farxiga are on hold Monitor blood pressure Cardiology consult Labs and medication were reviewed.. Continue same treatment. Continue with symptomatic treatment. Resume home medication. Monitor labs and vitals. DVT and GI prophylaxis. Further recommendations as per clinical course of the patient DVT prophylaxis: Subcutaneous heparin GI Prophylaxis: Protonix Prognosis is guarded
[2024-05-18] MEDS: HEPARIN SODIUM,PORCINE 5,000 UNIT/ML 1 ML VIAL SQ SCH (07:51)
[2024-05-18] MEDS: ASPIRIN 81 MG PO SCH (07:52)
[2024-05-18 07:57] LABS: African American GFR (CKD) >90 (>60 ml/min/1.73 sqM); Anion Gap 5 mmol/L; Blood Urea Nitrogen 14 mg/dL (7-17); Calcium 8.6 mg/dL (8.4-10.2); Carbon Dioxide 23 mmol/L (22-30); Chloride 111 mmol/L (98-107); Glucose 89 mg/dL (74-99); Non-African American GFR(CKD) 90 (>60 ml/min/1.73 sqM); Potassium 4.2 mmol/L (3.5-5.1); Sodium 139 mmol/L (137-145)
[2024-05-18] MEDS ORDERED: ALPRAZolam 0.25 MG TAB PO PRN (09:40)
[2024-05-18] MEDS ORDERED: ALPRAZolam 0.5 MG TAB PO PRN (09:40)
[2024-05-18] MEDS ORDERED: NITROGLYCERIN SL TABS 0.4 MG TAB SUBLINGUAL PRN (09:40)
[2024-05-18] MEDS ORDERED: HEPARIN SODIUM 1,000 UN/ML (10ML VL) IV PRN (09:42)
[2024-05-18] MEDS: ASPIRIN 325 MG TAB PO STA (09:56)
[2024-05-18] MEDS: ASPIRIN 81 MG PO STA (09:59)
[2024-05-18] MEDS: ATORVASTATIN 80 MG TAB PO STA (09:59)
[2024-05-18] MEDS: HEPARIN SODIUM 1,000 UN/ML (10ML VL) IV ONE (09:59)
[2024-05-18] MEDS: HEPARIN SOD,PORK IN 0.45% NACL 25,000 UNIT in 0.45% NACL 1 250ML.BAG IV SCH (10:00)
[2024-05-18 10:14] LABS: Basophils % (A) 1 %; Eosinophils # (A) 0.2 k/uL (0-0.7); Eosinophils % (A) 3 %; HCT 41.3 % (34.0-46.0); Hypochromasia Slight; Lymphocytes # (A) 1.3 k/uL (1.0-4.8); Lymphocytes % (A) 21 %; MCH 28.7 pg (25.0-35.0); MCHC 31.4 g/dL (31.0-37.0); MCV 91.4 fL (80.0-100.0); Mean Platelet Volume 7.2; Monocytes # (A) 0.5 k/uL (0-1.0); Monocytes % (A) 8 %; Neutrophils # (A) 3.8 k/uL (1.3-7.7); Neutrophils % (A) 64 %; Platelet Count 195 k/uL (150-450); RBC 4.52 m/uL (3.80-5.40); RDW 13.2 % (11.5-15.5); WBC 5.9 k/uL (3.8-10.6)
[2024-05-18 10:26] LABS: Prothrombin Time 10.8 sec (10.0-12.5)
[2024-05-18] MEDS: SODIUM CHLORIDE 0.9% 1,000 ML IV ONE (10:27)
[2024-05-18] MEDS: HEPARIN SODIUM,PORCINE (1 ML) 2,500 UNIT in SODIUM CHLORIDE 0.9% 250 ML IRRIGATION ONE ×2 (10:27→15:07)
[2024-05-18] MEDS: HEPARIN SODIUM,PORCINE 10,000 UNIT in SODIUM CHLORIDE 0.9% 1,000 ML IRRIGATION ONE ×2 (10:27→15:06)
[2024-05-18] MEDS: fentaNYL (PF) 50 MCG/ML 2 ML AMP IVP ONE (10:48)
[2024-05-18] MEDS: MIDAZOLAM 2 MG/2 ML VIAL IVP ONE ×2 (10:48→16:00)
[2024-05-18] MEDS: LIDOCAINE 1% INJ 10MG/ML (20 ML MDV) SQ ONE (10:52)
[2024-05-18] MEDS: VERAPAMIL SYRINGE (5 MG/10 ML) INTRAARTER ONE ×2 (10:54→16:02)
[2024-05-18] MEDS: HEPARIN SODIUM 1,000 UN/ML (10ML VL) IVP ONE ×2 (11:00→15:45)
[2024-05-18] MEDS: NITROGLYCERIN 1000MCG/10ML SYRINGE INTRACORON ONE ×2 (11:10→16:24)
--- NOTE | 2024-05-18 11:27 | P.CRDCN ---
History of Present Illness History of present illness: HISTORY OF PRESENT ILLNESS: This is a 74-year-old female with a past medical history significant for hypertension, hypothyroidism, obesity, and coronary artery disease. Patient follows in the office with Dr. Tam. We have been asked to see the patient in consultation for syncope. Patient examined at the bedside. Patient states that she was at home and had taken a shower and had a syncopal episode. She does report losing consciousness. The patient was recently hospitalized and und erwent stenting and was discharged home on a LifeVest. Patient states that she did not have her LifeVest on at that time as she was in the shower. The patient denies any chest pain or pressure. She denies any shortness of breath. She states that when EMS arrived she was told that her blood pressure was low in the 80s. Patient was found to have orthostatic hypotension with blood pressure starting in the 100s and dropping into the 80s upon standing. Patient was also found to have elevated troponins. DIAGNOSTICS: - EKG reveals sinus mechanism with left bundle branch block - Chest xray negative for acute process - Laboratory data: WBC 5.9. Hemoglobin 13.0. Platelet count 195. Sodium 139. Potassium 4.2. BUN 14. Creatinine 0.60. Troponin 0.054. 0.084. 0.170. proBNP 3020. - Current home cardiac medications include aspirin 81 mg daily, Lipitor 80 mg at night, Farxiga 10 mg daily, metoprolol tartrate 12.5 mg twice a day, Entresto 24-26 mg twice a day, amlodipine 5 mg daily, Brilinta 90 mg twice a day - Most recent echocardiogram obtained in April 2024 revealing ejection fr action 30 to 35%, trace aortic stenosis, mild aortic regurgitation, trace tricuspid regurgitation, hypokinesis involving anterior septal and apex, enlarged left atrium. - Cardiac catheterization history: April 2024 revealing 100% mid LAD, 50 to 60% proximal LAD, 60 to 70% distal LAD, 20% RCA, and 20% circumflex with some right to left collaterals. Patient underwent stenting of the mid LAD. REVIEW OF SYSTEMS: At the time of my exam: CONSTITUTIONAL: Denies fever or chills. HEENT: Denies blurred vision, vision changes, or eye pain. Denies hemoptysis CARDIOVASCULAR: Denies chest pain. Denies orthopnea. Denies PND. Denies palpitations RESPIRATORY: Denies shortness of breath. GASTROINTESTINAL: Denies abdominal pain. Denies nausea or vomiting. HEMATOLOGIC: Denies bleeding disorders. GENITOURINARY: Denies any blood in urine. SKIN: Denies pruitis. Denies rash. PHYSICAL EXAM: VITAL SIGNS: Reviewed. GENERAL: Well-developed in no acute distress. HEENT: Head is normocephalic. Pupils are equal, round. Sclerae anicteric. Mucous membranes of the mouth are moist. Neck supple. No JVD or thyromegaly LUNGS: Respirations even and unlabored. Lungs essentially clear to auscultation bilaterally. HEART: Regular rate and rhythm. S1 and S2 heard. ABDOMEN: Soft. Nondistended. Nontender. EXTREMITIES: Normal range of motion. No clubbing or cyanosis. Peripheral pulses intact. No lower extremity edema NEUROLOGIC: Awake and alert. Oriented x 3. ASSESSMENT: Syncope Orthostatic hypotension Non-STEMI Recent hospitalization for non-STEMI with stenting to the mid LAD Coronary artery disease with recent stenting of the mid LAD, April 2024 Ischemic cardiomyopathy, 30 to 35%, on LifeVest outpatient History of hypertension Hypothyroidism Obesity: BMI 36.6 PLAN: Obtain limited echo to assess LV function Begin IV heparin Continue dual antiplatelet therapy with aspirin and Brilinta Continue high intensity statin Continue additional home cardiac medications Discontinue amlodipine secondary to orthostatic hypotension Continue to monitor orthostatic blood pressures every shift Patient to undergo cardiac catheterization today with Dr. Tam Further recommendations pending patient course Nurse practitioner note has been reviewed by physician. Signing provider agrees with the documented findings, assessment, and plan of care documented by NUCLE[employer]UELS RECLAMATION ENGINEER as a scribe. Past Medical History Past Medical History: GERD/Reflux, Thyroid Disorder Additional Past Medical History / Comment(s): hypothyroidism History of Any Multi-Drug Resistant Organisms: None Reported Past Surgical History: Cholecystectomy, Heart Catheterization With Stent, Orthopedic Surgery Additional Past Surgical History / Comment(s): lt knee arthroscopy. bilateral cataracts. Past Anesthesia/Blood Transfusion Reactions: Motion Sickness Additional Past Anesthesia/Blood Transfusion Reaction / Comment(s): Patient states anesthesiologist usually gives her Zofran in her IV before surgery Date of Last Stent Placement:: 05/13/24 Past Psychological History: Anxiety, Depression Additional Psychological History / Comment(s): Takes Wellbutrin daily Smoking Status: Former smoker Past Alcohol Use History: Occasional Additional Past Alcohol Use History / Comment(s): smoked 5-10 years 1 ppd quit 1978 Past Drug Use History: None Reported - Past Family History Mother Family Medical History: No Reported History Father Family Medical History: Cancer Additional Family Medical History / Comment(s): at age 75 from cancer (pt believes possibly prostate cancer) Medications and Allergies Home Medications Medication Instructions Recorded Confirmed Type Biotin 5 mg PO HS 11/29/20 05/17/24 History Calcium/Magnesium/Zinc 1 tab PO HS 11/29/20 05/17/24 History [Cqisaha-Xuwsyvkdi-Kipd Tablet] Escitalopram [Lexapro] 10 mg PO DAILY 11/29/20 05/17/24 History amLODIPine [Norvasc] 5 mg PO DAILY 11/29/20 05/17/24 History Acetaminophen Tab [Tylenol] 1,000 mg PO Q6HR PRN 05/12/24 05/17/24 History Levothyroxine Sodium [Synthroid] 112 mcg PO DAILY 05/12/24 05/17/24 History Aspirin EC [Ecotrin Low Dose] 81 mg PO DAILY #30 tab 05/15/24 05/17/24 Rx Atorvastatin [Lipitor] 80 mg PO HS #30 tab 05/15/24 05/17/24 Rx Dapagliflozin Propanediol [Farxiga] 10 mg PO DAILY #30 tab 05/15/24 05/17/24 Rx Metoprolol Tartrate [Lopressor] 12.5 mg PO BID #60 tab 05/15/24 05/17/24 Rx Nitroglycerin Sl Tabs [Nitrostat] 0.4 mg SUBLINGUAL Q5M PRN #100 tab 05/15/24 05/17/24 Rx Pantoprazole [Protonix] 40 mg PO AC-BRKFST #30 tab 05/15/24 05/17/24 Rx Ticagrelor [Brilinta] 90 mg PO BID #60 tab 05/15/24 05/17/24 Rx Sacubitril/Valsartan [Entresto 24 1 tab PO BID 05/17/24 05/17/24 History mg-26 mg Tablet] Allergies Allergy/AdvReac Type Severity Reaction Status Date / Time Sulfa (Sulfonamide Allergy RED AND Verified 05/17/24 14:18 Antibiotics) HOT SKIN Physical Exam Vitals: Vital Signs Temp Pulse Pulse Pulse Pulse Pulse Resp 05/18/24 07:48 61 05/18/24 07:47 98.2 F 61 17 05/18/24 04:00 98.1 F 64 17 05/17/24 23:17 98.0 F 60 16 05/17/24 19:47 98.3 F 68 16 05/17/24 18:38 65 16 05/17/24 18:16 56 L 20 05/17/24 17:00 60 20 05/17/24 16:00 58 L 20 05/17/24 13:58 52 L 20 05/17/24 13:14 70 05/17/24 13:11 65 05/17/24 13:09 60 05/17/24 12:44 98.5 F 60 20 BP BP BP BP BP Pulse Ox 05/18/24 07:48 05/18/24 07:47 116/73 95 05/18/24 04:00 120/74 125/69 96 05/17/24 23:17 135/81 96 05/17/24 19:47 146/79 99 05/17/24 18:38 143/88 96 05/17/24 18:16 130/69 98 05/17/24 17:00 129/63 99 05/17/24 16:00 110/53 99 05/17/24 13:58 104/53 99 05/17/24 13:14 80/51 96 05/17/24 13:11 101/55 95 05/17/24 13:09 100/51 96 05/17/24 12:44 101/53 95 Intake and Output 05/17/24 05/18/24 05/18/24 22:59 06:59 14:59 Intake Total 10 20 20 Balance 10 20 20 Intake: IV 10 20 20 Invasive Line 1 10 10 10 Invasive Line 2 10 10 Other: Voiding Method Toilet Toilet Toilet # Voids 1 Weight 85.275 kg 85.1 kg Results 05/18/24 09:53 05/18/24 06:56 Cardiac Enzymes 05/17/24 05/17/24 05/17/24 Range/Units 12:50 12:50 15:39 AST 34 (14-36) U/L Troponin I 0.054 H* 0.084 H* (0.000-0.034) ng/mL 05/17/24 Range/Units 20:35 AST (14-36) U/L Troponin I 0.170 H* (0.000-0.034) ng/mL Coagulation 05/17/24 Range/Units 12:50 PT 10.8 (10.0-12.5) sec APTT 19.6 L (22.0-30.0) sec CBC 05/17/24 05/18/24 Range/Units 12:50 06:56 WBC 7.2 6.0 (3.8-10.6) k/uL RBC 4.63 4.60 (3.80-5.40) m/uL Hgb 13.6 13.3 (11.4-16.0) gm/dL Hct 41.9 41.8 (34.0-46.0) % Plt Count 219 194 (150-450) k/uL Comprehensive Metabolic Panel 05/17/24 05/18/24 Range/Units 12:50 06:56 Sodium 139 139 (137-145) mmol/L Potassium 3.6 4.2 (3.5-5.1) mmol/L Chloride 110 H 111 H (98-107) mmol/L Carbon Dioxide 20 L 23 (22-30) mmol/L BUN 16 14 (7-17) mg/dL Creatinine 0.80 0.60 (0.52-1.04) mg/dL Glucose 170 H 89 (74-99) mg/dL Calcium 8.8 8.6 (8.4-10.2) mg/dL AST 34 (14-36) U/L ALT 26 (4-34) U/L Alkaline Phosphatase 96 (38-126) U/L Total Protein 6.5 (6.3-8.2) g/dL Albumin 3.6 (3.5-5.0) g/dL Current Medications Generic Name Dose Route Start Last Admin Trade Name Freq PRN Reason Stop Dose Admin Acetaminophen 1,000 mg 05/17/24 20:29 05/17/24 23:03 Acetaminophen Tab 500 Mg Tab PO 1,000 mg Q6HR PRN Administration Pain or Fever > 100.5 Aspirin 81 mg 05/18/24 09:00 05/18/24 07:52 Aspirin 81 Mg PO 81 mg DAILY UMEHS Administration Atorvastatin Calcium 80 mg 05/17/24 21:00 05/17/24 21:40 Atorvastatin 80 Mg Tab PO 80 mg HS UMESH Administration Heparin Sodium (Porcine) 5,000 unit 05/18/24 09:00 05/18/24 07:51 Heparin Sodium,Porcine 5,000 Unit/Ml 1 Ml Vial SQ 5,000 unit Q12HR UMESH Administration Sodium Chloride 1,000 mls @ 75 mls/hr 05/17/24 14:30 05/18/24 06:12 Saline 0.9% IV 75 mls/hr .[id number] UMESH Administration Levothyroxine Sodium 112 mcg 05/18/24 06:30 05/18/24 06:12 Levothyroxine 112 Mcg Tab PO 112 mcg DAILY@0630 UMESH Administration Metoprolol Tartrate 12.5 mg 05/17/24 21:00 05/18/24 07:52 Metoprolol Tartrate 12.5 Mg Tab PO 12.5 mg BID UMESH Administration Naloxone HCl 0.2 mg 05/17/24 14:28 Naloxone 0.4 Mg/Ml 1 Ml Vial IV Q2M PRN Opioid Reversal Pantoprazole Sodium 40 mg 05/18/24 07:30 05/18/24 06:12 Pantoprazole 40 Mg Tablet PO 40 mg AC-BRKFST UMESH Administration Sacubitril/Valsartan 1 each 05/17/24 21:00 05/18/24 07:52 Sacubitril/Valsartan 24 Mg-26 Mg Tablet PO 1 each BID UMESH Administration Ticagrelor 90 mg 05/17/24 21:00 05/18/24 07:52 Ticagrelor 90 Mg Tab PO 90 mg BID UMESH Administration Intake and Output 05/17/24 05/18/24 05/18/24 22:59 06:59 14:59 Intake Total 10 20 20 Balance 10 20 20 Intake: IV 10 20 20 Invasive Line 1 10 10 10 Invasive Line 2 10 10 Other: Voiding Method Toilet Toilet Toilet # Voids 1 Weight 85.275 kg 85.1 kg 05/18/24 06:56 05/18/24 06:56
[2024-05-18] MEDS: IOPAMIDOL-370 100ML BTL INJ ONE ×2 (11:37→16:34)
--- NOTE | 2024-05-18 12:30 | P.CARDCATH ---
Date of Procedure: 05/18/24 Description of Procedure: DIAGNOSTIC CORONARY ANGIOGRAPHY and LEFT HEART CATH REPORT PROCEDURES PERFORMED: Left heart catheterization Selective coronary angiography Moderate conscious sedation 30 mins Ultrasound assisted right radial access Intracoronary nitroglycerin INDICATION: NSTEMI 73-year-old female presented to the hospital because of concerns of a syncopal episode while in shower which lasted for few minutes. On admission there was evidence of elevated troponin with an uptrending pattern which peaked at 1.7. Patient recently had PCI of LAD with residual disease in proximal LAD. Due to uptrending elevated troponin, she was taken to the cardiac Senior Government Program Analyst [employer] catheterization procedure. CONSENT: I have explained the procedural steps of above-mentioned procedures in layman's terms to the patient. I discussed the risks (including but not limited to stroke, emergent vascular or cardiac surgery or ), benefits and alternative therapies for the above-mentioned procedure. I discussed the risks of sedation/analgesia and blood product administration (if indicated). The patient has indicated understanding and acceptance of these risks. Conscious Sedation: Patient's ECG, heart rate, blood pressure, pulse oximetry were monitored throughout the duration of procedure under my direct supervision. 1 mg Versed and 50 mcg Fentanyl were used for induction of moderate conscious sedation. Total duration of moderate concious sedation 30 minutes. PROCEDURE: After explaining the risks, benefits and alternatives of the above mentioned procedures in detail to the patient, informed consent was obtained. Patient was taken to the catheterization lab, prepped and draped in usual sterile fashion using universal precuations. Ultrasound was used to identify the radial artery. 1% lidocaine was infiltrated over the right radial artery. A 6-Polish sheath was placed and secured in the right radial artery using modified Seldinger technique. The sheath was flushed and 5 mg verapamil was administered intra-arterially. J tipped wire was advanced under fluoroscopic guidance. Once the wire tip reached aortic root 4000 units of IV heparin was given. Patient was on IV heparin drip 30 minutes prior to the procedure. Over the wire JR4 diagnostic catheter was advanced. The wire in place the catheter was manipulated to cross the aortic valve and entered into LV under fluoroscopy guidance. The wire was removed and the catheter was flushed. LV pressures were obtained and pullback was performed under fluoroscopy. Catheter was manipulated to selectively engage the right coronary ostium. Right coronary angiography was performed in different angiographic projections. The JR4 diagnostic catheter was exchanged for a JL 3.5 diagnostic catheter over the J-wire. The wire was removed, catheter was flushed and manipulated under fluoroscopy to selectively engaged the left coronary ostium. Left coronary angioplasty was performed in different angiographic projections. 100 mcg of nitroglycerin was administered in left coronary system. Left coronary angiogram was repeated. Catheter was removed over the wire. Radial sheath was flushed. The right radial sheath was removed and a TR band was placed with excellent patent hemostasis was achieved. The patient tolerated the procedure well. Patient was transported back to the post catheterization holding area in stable condition. Angiographic images were reviewed in detail. Challenges: Tortuous right subclavian artery. Required Glidewire to cross from subclavian to the ascending aorta. Complications: None Estimated blood loss: Less than 10 mL Total radiation 204 mGy Total fluoroscopy time: 6.8 minutes HEMODYNAMICS: Aortic Pressure: 110/70 mmHg. LV pressure: 114/10 mmHg. LVEDP 18 mmHg. There was no significant gradient across the aortic valve. SELECTIVE CORONARY ARTERIOGRAPHY: LEFT MAIN: The left main is short and large caliber vessel. It bifurcates into the LAD and circumflex. Distal left main has 40% eccentric stenosis. LEFT ANTERIOR DESCENDING CORONARY ARTERY: LAD is a large caliber vessel which wraps around to the apex. Proximal LAD has 60% diffuse irregular plaque. There is diffuse proximal to mid LAD 30 to 40% stenosis. Mid LAD has a patent stent. Distal LAD has a long tubular 70% stenosis disease however chicken ranch vessel is less than 2 mm in that segment. LEFT CIRCUMFLEX CORONARY ARTERY: It is nondominant vessel. LCx is small caliber. Proximal LCx has 30 to 40% disease evaluated including. Mid LCx has 20 to 30% luminal irregularity. RIGHT CORONARY ARTERY: Dominant vessel. The right coronary artery is a large caliber vessel which gives PDA and PLV branch. Proximal RCA mild luminal irregularities, mid RCA has 20% stenosis. When compared to recent heart cath from 05/07/2024, no new or progression of coronary artery disease appreciated. No right to left collaterals are seen on today's study. Patent stent in mid LAD seen. IMPRESSION: 60% proximal LAD stenosis Diffuse 30 to 40% mid LAD stenosis proximal to patent stent 60 to 70% distal LAD disease Mild nonobstructive disease in LCx and RCA Mildly elevated LVEDP PLAN: Recommend IFR/IVUS assessment of proximal LAD disease which appears to have 60% eccentric irregular plaque. It does not appear to be a progressed from prior cath however. Case discussed with Dr. Pendleton. Family was updated Performing Physician Juan Tam MD, FACC, RPVI
[2024-05-18] MEDS: IV FLUID CONTINUATION 1,000 ML IV ONE (15:16)
[2024-05-18] MEDS: fentaNYL (PF) 50 MCG/1 ML VIAL IVP ONE (16:00)
[2024-05-18] MEDS: PHENYLEPHRINE-0.9% NACL SYG 1,000 MCG/10 ML SYRINGE IVP ONE (16:33)
[2024-05-18] MEDS ORDERED: ZOLPIDEM 5 MG TAB PO PRN (16:50)
[2024-05-18] MEDS ORDERED: ATROPINE SULFATE 0.1 MG/ML 10ML SYRINGE IV PRN (16:50)
[2024-05-18] MEDS ORDERED: RX INFO: IV CONTRAST WAS GIVEN 1 EACH MISC MISCELLANE PRN (16:50)
--- NOTE | 2024-05-18 16:50 | P.PRCINT ---
Percutaneous Coronary Int. - Percutaneous Coronary Intervention Percutaneous Coronary Intervention: PROCEDURES PERFORMED: Left coronary angiography, iFR LAD, circumflex, PCI mid LAD with a 2.5 x 28mm Xience BRODIE, post dilated with a 2.5mm NC balloon, IVUS LAD INDICATION: NSTEMI CONSENT:I have discussed the risks, benefits and alternative therapies for the above-mentioned procedure and for both sedation/analgesia as well as necessary blood product administration, if indicated, as they pertain to this patient. The patient has indicated understanding and acceptance of the risks and procedures discussed. PROCEDURE: After the risks, benefits and alternatives of the above mentioned procedure explained in detail with the patient, informed consent was obtained. Patient was taken to the catheterization lab and prepped and draped in usual fashion. Ultrasound guidance was used to assess for arterial access. 1% l idocaine was used to anesthetize the right radial artery. A 6-[place]ian sheath had been placed in the right radial artery previously. The decision was made to perform functional assessment of the LAD and circumflex. Heparin was given. Using a 6-[place] Lucian LBU 3.5 guide catheter, the left main was engaged. A 0.014 pressure wire was advanced into the left main and normalize. He was then advanced into the mid to distal LAD a few centimeters beyond the LAD stent. The iFR was grossly abnormal at 0.81. Pullback was performed and the pressure gradient was across the entire LAD with no major step up. Mostly disappeared related to the mid LAD portion and therefore decision was made to intervene on this. Additionally assessment was made of the proximal circumflex as there was some 50% stenosis. Therefore the 0.014 pressure wire was advanced into the proximal circumflex and iFR (RFR) was performed and was normal at 0.97. Wire was repositioned along the LAD. Predilation was performed with a 2.5 x 20 mm noncompliant balloon. Next a 2.5 x 28 mm drug-eluting stent was advanced just distal to the diagonal 1 branch overlapping the prior stents. The stent was postdilated with a 2.5 mm noncompliant balloon. Intravascular ultrasound showed well-expanded stent proximally and diffuse 60-70% proximal LAD stenosis with no dissection. Final angiograms were performed. Pre-intervention there is 70% stenosis and LAMBERT-3 flow and postintervention there was less than 10% stenosis. There was a more distal apical 60 is 70% stenosis however felt best treated medically with diffuse disease of across the entire LAD. The right radial sheath was removed and a TR band was placed with hemostasis achieved. The patient tolerated the procedure well. Patient was transported back to the post catheterization holding area in stable condition. Conscious Sedation: Patient was monitored under the direct supervision of myself for conscious sedation using Versed and fentanyl for a total duration of 36 minutes HEMODYNAMICS: Ao: 98/67 SELECTIVE CORONARY ARTERIOGRAPHY: LEFT MAIN: The left main is a large caliber vessel which bifurcates into the LAD and circumflex. There is distal left main 20-30% stenosis. LEFT ANTERIOR DESCENDING CORONARY ARTERY: LAD is a large caliber vessel which wraps around to the apex. There is proximal LAD 60-70% stenosis followed by a mid LAD 60-70% stenosis and a patent mid LAD stents. Diagonal 1 is small to moderate caliber with mild disease. Diagonal to a small caliber with proximal 60-70% stenosis. The distal LAD has diffuse disease including a distal 60-70% stenosis.. LEFT CIRCUMFLEX CORONARY ARTERY: Left circumflex is a moderate caliber vessel with a proximal 50% stenosis and otherwise mild luminal irregularities. RIGHT CORONARY ARTERY: The right coronary was not imaged, see separate report FINAL IMPRESSION: 1. CAD as described above including 20-30% left main, proximal and mid LAD 67% and distal LAD 60-70% stenosis. 2. iFR (RFR) abnormal of LAD with diffuse step up across the entire LAD, iFR circumflex normal 3. S/p PCI mid LAD with a 2.5 x 28mm Xience BRODIE, post dilated with a 2.5mm NC balloon PLAN: 1. Aggressive risk factor modification per most recent ACC/AHA guidelines. 2. Continue dual antiplatelets for 12 months 3. Medical therapy of proximal and distal LAD. If more symptomatic would require more complex left main into LAD stenting or CABG.
[2024-05-18] MEDS: SODIUM CHLORIDE 0.9% 1,000 ML in EMPTY BAG 1 BAG IV SCH ×2 (17:07→17:11)
[2024-05-19] MEDS ORDERED: HEPARIN SODIUM,PORCINE 10,000 UNIT in SODIUM CHLORIDE 0.9% 1,000 ML IRRIGATION PRN (07:00)
[2024-05-19] MEDS ORDERED: HEPARIN SODIUM,PORCINE (1 ML) 2,500 UNIT in SODIUM CHLORIDE 0.9% 250 ML IRRIGATION PRN (07:00)
[2024-05-19 07:06] LABS: Basophils % (A) 0 %; Eosinophils # (A) 0.2 k/uL (0-0.7); Eosinophils % (A) 3 %; HCT 40.3 % (34.0-46.0); HGB 12.9 gm/dL (11.4-16.0); Hypochromasia Slight; Lymphocytes # (A) 1.1 k/uL (1.0-4.8); Lymphocytes % (A) 18 %; MCH 29.2 pg (25.0-35.0); MCV 91.3 fL (80.0-100.0); Mean Platelet Volume 7.3; Monocytes # (A) 0.4 k/uL (0-1.0); Monocytes % (A) 7 %; Neutrophils # (A) 4.5 k/uL (1.3-7.7); Neutrophils % (A) 71 %; Platelet Count 202 k/uL (150-450); RBC 4.42 m/uL (3.80-5.40); RDW 13.2 % (11.5-15.5); WBC 6.3 k/uL (3.8-10.6)
[2024-05-19 07:16] LABS: African American GFR (CKD) >90 (>60 ml/min/1.73 sqM); Anion Gap 6 mmol/L; Blood Urea Nitrogen 11 mg/dL (7-17); Calcium 8.7 mg/dL (8.4-10.2); Carbon Dioxide 18 mmol/L (22-30); Chloride 113 mmol/L (98-107); Glucose 97 mg/dL (74-99); Non-African American GFR(CKD) 87 (>60 ml/min/1.73 sqM); Sodium 137 mmol/L (137-145)
[2024-05-19] MEDS: METOPROLOL SUCCINATE (ER) 25 MG TAB.ER.24H PO SCH (07:50)
[2024-05-19 08:01] LABS: Prothrombin Time 10.7 sec (10.0-12.5)
[2024-05-19 10:34] VITALS: BMI 36.2
--- NOTE | 2024-05-19 11:20 | P.PN ---
Subjective Patient is a 73-year-old male with a known history of NSTEMI, coronary artery disease status post PCI mid LAD on 05/12/2024, cardiomyopathy ejection fraction 30 to 35% was sent home on LifeVest, hypothyroidism, GERD, anxiety/depression and prior history of smoking. She was discharged home on 05/15/2024. Patient presents to ER with complaints of syncopal episode at home. Patient states that she has been sleeping more than 12 hours and finally was able to get up and going to shower, while turning back she felt very weak and sat down. Denied any complaints of chest pain. Denied any palpitations. Patient was very LifeVest at the time of syncopal episode and was heard by her . EMS was called and patient was brought to ER. Patient otherwise denies any missed doses of medications. No complaints of chest pain or shortness of breath. No nausea vomiting. Denied any abdominal pain. No diarrhea. 2D echocardiogram on 05/13/2024 showed ischemic cardiomyopathy with severe LV systolic dysfunction with ejection fraction 30 to 35%. Hypokinesis involving the anteroseptal and apex. Enlarged left atrium. Mild mitral and aortic reg urgitation. Chest x-ray on admission showed no acute cardiopulmonary process. EKG showed sinus rhythm heart rate 62. Patient was told her blood pressure was low when EMS picked her. In the ER blood pressure was 101/53, heart rate 60 respiration 20 and pulse ox 98% on room air. Laboratory data showed WBC 7.2 hemoglobin 13.6 and platelets 219 sodium 139 potassium 3.6 chloride 110 bicarb is 20 blood sugar 170 liver enzymes are not elevated. Troponin 0.050, 0.084 and 0.17 and proBNP 3020. 05/18 Patient is seen and examined by me at bedside Patient states this happened in the shower, she felt dizzy and she has to sit down but she does not think she fainted out completely EMS checked her blood pressure it was 80/40 at that time. Patient Currently she denies any other complaint no abdominal pain vomiting or diarrhea, no dysuria or urgency, no chest pain or dyspnea, no headache dizziness weakness or numbness Her PCP is Dr. Estrada 05/19 Patient is status post PCI to mid LAD yesterday. Still has distal LAD stenosis about 60 to 70% and based on her clinical situation she might need further test and stenting per [employer]. 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 difficile and started on normal saline 75 mL/h Objective - Vital Signs Vital signs: Vital Signs Temp 98.2 F 05/19/24 11:06 Pulse 67 05/19/24 11:06 Resp 19 05/19/24 11:06 BP 132/83 05/19/24 11:06 Pulse Ox 99 05/19/24 11:06 FiO2 Intake & Output 05/18/24 05/19/24 05/19/24 18:59 06:59 18:59 Intake Total 1212 10 128 Output Total 300 Balance 912 10 128 Weight 84.1 kg 84.1 kg Intake: IV 990 10 10 Invasive Line 1 20 10 10 Invasive Line 2 20 Oral 222 118 Output: Urine 300 Other: Voiding Method Toilet Toilet Toilet # Voids 2 2 3 # Bowel Movements 8 - Exam GENERAL: The patient is alert and oriented x3, not in any acute distress. Well developed, well nourished. HEENT: Pupils are round and equally reacting to light. EOMI. No scleral icterus. No conjunctival pallor. Normocephalic, atraumatic. No pharyngeal erythema. No thyromegaly. CARDIOVASCULAR: S1 and S2 present. No murmurs, rubs, or gallops. PULMONARY: Chest is clear to auscultation, no wheezing , no crackles. ABDOMEN: Soft, nontender, nondistended, normoactive bowel sounds. No palpable organomegaly. MUSCULOSKELETAL: No joint swelling or deformity. EXTREMITIES: No cyanosis, clubbing, or pedal edema. NEUROLOGICAL: Gross neurological examination did not reveal any focal deficits. SKIN: No rashes. no petechiae. - Labs CBC & Chem 7: 05/19/24 06:09 05/19/24 06:09 Labs: Abnormal Lab Results - Last 24 Hours (Table) 05/19/24 Range/Units 06:09 Chloride 113 H (98-107) mmol/L Carbon Dioxide 18 L (22-30) mmol/L Assessment and Plan Assessment: Acute syncopal episode likely due to orthostatic hypotension Recent history of NSTEMI status post PCI to mid LAD on 05/12/2024. S/p another PCI to mid LAD on 05/18 Diarrhea, could be reactive Elevated troponin level due to to recent [place] Ischemic cardiomyopathy ejection fraction 30 to 35% with hypokinesis involving the anteroseptal and apex. Patient is on LifeVest. Hypothyroidism Anxiety/depression GERD Prior history of smoking Plan: Continue with dual antiplatelet therapy with aspirin and Brilinta Continued on Lipitor 80 mg Continue on metoprolol 12.5 mg however other blood pressure medication Entresto, Norvasc 5 mg and Farxiga are on hold Monitor blood pressure Cardiology consult check for C. difficile and start for normal saline 75 mL/h x 24 hours Labs and medication were reviewed.. Continue same treatment. Continue with symptomatic treatment. Resume home medication. Monitor labs and vitals. DVT and GI prophylaxis. Further recommendations as per clinical course of the patient DVT prophylaxis: Subcutaneous heparin GI Prophylaxis: Protonix Prognosis is guarded
[2024-05-19] MEDS: SODIUM CHLORIDE 0.9% 1,000 ML IV SCH (11:37)
--- NOTE | 2024-05-19 13:52 | CA ---
Transthoracic Echo Report Name: Aidee Casas Age: 74 Gender: F : 1950 Exam Date: 05/19/2024 08:37 Exam Location: [facility] Ht (in): 60 Wt (lb): 187 Ordering Physician: Aruna Ponce Attending/Referring Phys: [id number], Kris Cardiopulmonary Specialist Sierra Castaneda, FOX Procedure CPT: Indications: Presyncope, LV function Cardiac Hx: limited study Technical Quality: Good Contrast 1: Total Dose (mL): Contrast 2: Total Dose (mL): MEASUREMENTS (Male / Female) Normal Values 2D ECHO LV Diastolic Volume MOD BP 102.8 cm??? 67 - 155 / 56 - 104 cm??? LV Systolic Volume MOD BP 49.3 cm??? 22 - 58 / 19 - 49 cm??? LV Ejection Fraction MOD BP 52.1 % >= 55 % LV Cardiac Index MOD BP 1932.0 cm???/min???m??? LV Diastolic Volume MOD 4C 114.7 cm??? LV Systolic Volume MOD 4C 56.9 cm??? LV Ejection Fraction MOD 4C 50.4 % LV Cardiac Index MOD 4C 2086.4 cm???/min???m??? LV Diastolic Length 4C 8.4 cm LV Systolic Length 4C 8.0 cm LV Diastolic Volume MOD 2C 92.5 cm??? LV Systolic Volume MOD 2C 44.5 cm??? LV Ejection Fraction MOD 2C 51.9 % LV Cardiac Index MOD 2C 1734.3 cm???/min???m??? LV Diastolic Length 2C 8.4 cm LV Systolic Length 2C 8.1 cm DOPPLER TR Peak Velocity 199.9 cm/s TR Peak Gradient 16.0 mmHg Right Ventricular Systolic Press 21.0 mmHg FINDINGS Left Ventricle Left ventricular ejection fraction is estimated at 45-50 %. Mid septal hypokinesis, apical septal hypokinesis. Apical inferior hypokinesis Right Ventricle Right ventricular systolic pressure within normal limits. Right Atrium Left Atrium Mitral Valve Mild mitral regurgitation. Aortic Valve Mild aortic regurgitation. Tricuspid Valve Mild tricuspid regurgitation. Pulmonic Valve Pericardium No pericardial or pleural effusion. Aorta CONCLUSIONS Reduced LV systolic function with anterior septal and apical hypokinesis Previewed by: Dr. Simon Hilario MD (Electronically Signed) Final Date: 19 May 2024 13:51
[2024-05-19] MEDS ORDERED: LOPERAMIDE 2 MG CAP PO PRN (19:45)
[2024-05-19] MEDS: MAG HYDROX/AL HYDROX/SIMETH 30 ML CUP PO PRN (20:32)
[2024-05-19] MEDS: LOPERAMIDE 2 MG CAP PO STA (20:32)
--- NOTE | 2024-05-19 21:52 | P.PN ---
Subjective Progress Note Date: 05/19/24 HISTORY OF PRESENT ILLNESS: This is a 74-year-old female with a past medical history significant for hy pertension, hypothyroidism, obesity, and coronary artery disease. Patient follows in the office with Dr. Tam. We have been asked to see the patient in consultation for syncope. Patient examined at the bedside. Patient states that she was at home and had taken a shower and had a syncopal episode. She does report losing consciousness. The patient was recently hospitalized and underwent stenting and was discharged home on a LifeVest. Patient states that she did not have her LifeVest on at that time as she was in the shower. The patient denies any chest pain or pressure. She denies any shortness of breath. She states that when EMS arrived she was told that her blood pressure was low in the 80s. Patient was found to have orthostatic hypotension with blood pressure starting in the 100s and dropping into the 80s upon standing. Patient was also found to have elevated troponins. DIAGNOSTICS: - EKG reveals sinus mechanism with left bundle branch block - Chest xray negative for acute process - Laboratory data: WBC 5.9. Hemoglobin 13.0. Platelet count 195. Sodium 139. Potassium 4.2. BUN 14. Creatinine 0.60. Troponin 0.054. 0.084. 0.170. proBNP 3020. - Current home cardiac medications include aspirin 81 mg daily, Lipitor 80 mg at night, Farxiga 10 mg daily, metoprolol tartrate 12.5 mg twice a day, Entresto 24-26 mg twice a day, amlodipine 5 mg daily, Brilinta 90 mg twice a day - Most recent echocardiogram obtained in April 2024 revealing ejection fraction 30 to 35%, trace aortic stenosis, mild aortic regurgitation, trace tricuspid regurgitation, hypokinesis involving anterior septal and apex, enlarged left atrium. - Cardiac catheterization history: April 2024 revealing 100% mid LAD, 50 to 60% proximal LAD, 60 to 70% distal LAD, 20% RCA, and 20% circumflex with some right to left collaterals. Patient underwent stenting of the mid LAD. Progress note 05/19/2024 Patient seen and examined at bedside this a.m. Patient denies any postcardiac cath complication No reported arrhythmias on telemetry. PHYSICAL EXAM: VITAL SIGNS: Reviewed. GENERAL: Well-developed in no acute distress. HEENT: Head is normocephalic. Pupils are equal, round. Sclerae anicteric. Mucous membranes of the mouth are moist. Neck supple. No JVD or thyromegaly LUNGS: Respirations even and unlabored. Lungs essentially clear to auscultation bilaterally. HEART: Regular rate and rhythm. S1 and S2 heard. ABDOMEN: Soft. Nondistended. Nontender. EXTREMITIES: Normal range of motion. No clubbing or cyanosis. Peripheral pulses intact. No lower extremity edema NEUROLOGIC: Awake and alert. Oriented x 3. ASSESSMENT: Syncope Orthostatic hypotension Non-STEMI status post proximal LAD PCI Recent hospitalization for non-STEMI with stenting to the mid LAD Coronary artery disease with recent stenting of the mid LAD, April 2024 Ischemic cardiomyopathy, 30 to 35%, on LifeVest outpatient History of hypertension Hypothyroidism Obesity: BMI 36.6 Limited echo May 18, 2024, LVEF 45 to 50%, apical inferior wall hypokinesia, septal wall hypokinesia. PLAN: Aspirin 81 mg, Lipitor 40 mg, menton 90 mg twice daily Continue Entresto 24/26 mg twice daily, Toprol 12.5 mg daily. Low-dose beta- apolonia due to low resting heart rate Add Aldactone 12.5 mg daily, Farxiga 10 mg daily. Obtain orthostatic vital signs tomorrow a.m. prior to discharge. LVEF is improved slightly. Discontinue LifeVest. Recommend outpatient Holter monitor for syncope workup. If blood pressure is high, consider increasing dose of Entresto. If hemodynamically stable tomorrow, and kidney function is stable, patient will be cleared from cardiac standpoint tomorrow a.m. Objective - Vital Signs Vital signs: Vital Signs Temp 98.7 F 05/19/24 15:55 Pulse 69 05/19/24 15:55 Resp 19 05/19/24 15:55 BP 143/81 05/19/24 15:55 Pulse Ox 99 05/19/24 15:55 FiO2 Intake & Output 05/19/24 05/19/24 05/20/24 06:59 18:59 06:59 Intake Total 10 496 Balance 10 496 Weight 84.1 kg 84.1 kg Intake: IV 10 20 Invasive Line 1 10 20 Oral 476 Other: Voiding Method Toilet Toilet # Voids 2 1 # Bowel Movements 1 - Labs CBC & Chem 7: 05/19/24 06:09 05/19/24 06:09 Labs: Abnormal Lab Results - Last 24 Hours (Table) 05/19/24 Range/Units 06:09 Chloride 113 H (98-107) mmol/L Carbon Dioxide 18 L (22-30) mmol/L
[2024-05-20] MEDS: SPIRONOLACTONE 25 MG TAB PO SCH (08:34)
[2024-05-20] MEDS: DAPAGLIFLOZIN PROPANEDIOL 10 MG TABLET PO SCH (08:37)
[2024-05-20] MEDS: CHOLESTYRAMINE (WITH SUGAR) 4 GM PACKET PO SCH (12:17)
--- NOTE | 2024-05-20 19:43 | PN ---
PROGRESS NOTE Aidee is a 74-year-old lady, who underwent cardiac catheterization and angioplasty of the mid LAD. Her baseline EKG shows sinus rhythm with left bundle branch block. She was initially admitted with syncope. She had a low ejection fraction that has since improved. Most recent ejection fraction is 45% to 50%. The patient is free of cardiac symptoms. MEDICATIONS: Currently on, 1. Aspirin. 2. Lipitor. 3. Toprol. 4. Entresto. 5. Brilinta. 6. Ambien. 7. Aldactone. PHYSICAL EXAMINATION: GENERAL: Comfortable at rest. VITAL SIGNS: Stable. There are no orthostatic changes. CHEST: Reveals good air entry bilaterally. HEART: Reveals first and second heart sounds. No gallop. EXTREMITIES: Exam of extremities did not reveal any edema. Peripheral pulses are felt. LABORATORY DATA: No labs from this morning. ASSESSMENT: 1. Status post catheterization and angioplasty of the LAD. 2. Orthostatic hypotension. PLAN: Patient is stable clinically. Ejection fraction is 45% to 50%. From cardiac standpoint, she is stable for discharge and follow up with Dr. Tam. MMMATHEUSL / FOUZIAN: [id number] /
[2024-05-20] MEDS ORDERED: MELATONIN 3 MG TABLET PO PRN (22:30)
--- NOTE | 2024-05-20 22:32 | P.PN ---
Subjective Patient is a 73-year-old male with a known history of NSTEMI, coronary artery disease status post PCI mid LAD on 05/12/2024, cardiomyopathy ejection fraction 30 to 35% was sent home on LifeVest, hypothyroidism, GERD, anxiety/depression and prior history of smoking. She was discharged home on 05/15/2024. Patient presents to ER with complaints of syncopal episode at home. Patient states that she has been sleeping more than 12 hours and finally was able to get up and going to shower, while turning back she felt very weak and sat down. Denied any complaints of chest pain. Denied any palpitations. Patient was very LifeVest at the time of syncopal episode and was heard by her . EMS was called and patient was brought to ER. Patient otherwise denies any missed doses of medications. No complaints of chest pain or shortness of breath. No nausea vomiting. Denied any abdominal pain. No diarrhea. 2D echocardiogram on 05/13/2024 showed ischemic cardiomyopathy with severe LV systolic dysfunction with ejection fraction 30 to 35%. Hypokinesis involving the anteroseptal and apex. Enlarged left atrium. Mild mitral and aortic reg urgitation. Chest x-ray on admission showed no acute cardiopulmonary process. EKG showed sinus rhythm heart rate 62. Patient was told her blood pressure was low when EMS picked her. In the ER blood pressure was 101/53, heart rate 60 respiration 20 and pulse ox 98% on room air. Laboratory data showed WBC 7.2 hemoglobin 13.6 and platelets 219 sodium 139 potassium 3.6 chloride 110 bicarb is 20 blood sugar 170 liver enzymes are not elevated. Troponin 0.050, 0.084 and 0.17 and proBNP 3020. 05/18 Patient is seen and examined by me at bedside Patient states this happened in the shower, she felt dizzy and she has to sit down but she does not think she fainted out completely EMS checked her blood pressure it was 80/40 at that time. Patient Currently she denies any other complaint no abdominal pain vomiting or diarrhea, no dysuria or urgency, no chest pain or dyspnea, no headache dizziness weakness or numbness Her PCP is Dr. Estrada 05/19 Patient is status post PCI to mid LAD yesterday. Still has distal LAD stenosis about 60 to 70% and based on her clinical situation she might need further test and stenting per [employer]. 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 difficile and started on normal saline 75 mL/h 05/20 Patient presents because of coronary artery disease, she has a large PCI to mid LAD on 05/18 After the procedure yesterday she had frequent bowel movement about 8 of them. We checked C. difficile it was negative. Today it looks that this is resolving she is having only 1 bowel movement yesterday. No abdominal pain. Her dyspnea is better No cough no chest pain ate well We will keep monitoring check labs in the morning Objective - Vital Signs Vital signs: Vital Signs Temp 97.8 F 05/20/24 20:00 Pulse 77 05/20/24 20:00 Resp 16 05/20/24 20:00 BP 134/77 05/20/24 20:00 Pulse Ox 97 05/20/24 20:00 FiO2 Intake & Output 05/20/24 05/20/24 05/21/24 06:59 18:59 06:59 Intake Total 260 500 10 Balance 260 500 10 Weight 84 kg Intake: IV 20 20 10 Invasive Line 1 20 20 10 Oral 240 480 Other: Voiding Method Toilet Toilet Toilet # Voids 1 2 1 # Bowel Movements 3 - Exam GENERAL: The patient is alert and oriented x3, not in any acute distress. Well developed, well nourished. HEENT: Pupils are round and equally reacting to light. EOMI. No scleral icterus. No conjunctival pallor. Normocephalic, atraumatic. No pharyngeal erythema. No thyromegaly. CARDIOVASCULAR: S1 and S2 present. No murmurs, rubs, or gallops. PULMONARY: Chest is clear to auscultation, no wheezing , no crackles. ABDOMEN: Soft, nontender, nondistended, normoactive bowel sounds. No palpable organomegaly. MUSCULOSKELETAL: No joint swelling or deformity. EXTREMITIES: No cyanosis, clubbing, or pedal edema. NEUROLOGICAL: Gross neurological examination did not reveal any focal deficits. SKIN: No rashes. no petechiae. - Labs CBC & Chem 7: 05/19/24 06:09 05/19/24 06:09 Assessment and Plan Assessment: Acute syncopal episode likely due to orthostatic hypotension Recent history of NSTEMI status post PCI to mid LAD on 05/12/2024. S/p another PCI to mid LAD on 05/18 Diarrhea, could be reactive Elevated troponin level due to to recent [place] Ischemic cardiomyopathy ejection fraction 30 to 35% with hypokinesis involving the anteroseptal and apex. Patient is on LifeVest. Hypothyroidism Anxiety/depression GERD Prior history of smoking Plan: Continue with dual antiplatelet therapy with aspirin and Brilinta Continued on Lipitor 80 mg Continue on metoprolol 12.5 mg however other blood pressure medication Entresto, Norvasc 5 mg are on hold Farxiga resumed Monitor blood pressure Cardiology consult Labs and medication were reviewed.. Continue same treatment. Continue with symptomatic treatment. Resume home medication. Monitor labs and vitals. DVT and GI prophylaxis. Further recommendations as per clinical course of the patient DVT prophylaxis: Subcutaneous heparin GI Prophylaxis: Protonix Prognosis is guarded
[2024-05-21 03:34] LABS: Basophils % (A) 0 %; Eosinophils # (A) 0.2 k/uL (0-0.7); Eosinophils % (A) 3 %; HCT 37.8 % (34.0-46.0); HGB 12.2 gm/dL (11.4-16.0); Lymphocytes # (A) 1.4 k/uL (1.0-4.8); Lymphocytes % (A) 21 %; MCH 28.6 pg (25.0-35.0); MCHC 32.2 g/dL (31.0-37.0); MCV 88.8 fL (80.0-100.0); Mean Platelet Volume 7.7; Monocytes # (A) 0.5 k/uL (0-1.0); Monocytes % (A) 7 %; Neutrophils # (A) 4.3 k/uL (1.3-7.7); Neutrophils % (A) 67 %; Platelet Count 205 k/uL (150-450); RBC 4.26 m/uL (3.80-5.40); RDW 13.7 % (11.5-15.5); WBC 6.4 k/uL (3.8-10.6)
[2024-05-21 03:47] LABS: African American GFR (CKD) >90 (>60 ml/min/1.73 sqM); Anion Gap 5 mmol/L; Blood Urea Nitrogen 10 mg/dL (7-17); Calcium 9.2 mg/dL (8.4-10.2); Carbon Dioxide 21 mmol/L (22-30); Chloride 112 mmol/L (98-107); Glucose 99 mg/dL (74-99); Non-African American GFR(CKD) 80 (>60 ml/min/1.73 sqM); Potassium 3.9 mmol/L (3.5-5.1); Sodium 138 mmol/L (137-145)
[2024-05-21 10:32] VITALS: RESP 18
[2024-05-21 10:33] VITALS: BP 120/66; PULSE 70; TEMP 97.6
--- NOTE | 2024-05-21 23:22 | P.DS ---
Providers Date of admission: 05/19/24 09:04 Attending physician: Cheyanne Curtis Consults: 05/17/24 14:28 Consult Physician Urgent Consulting Provider: Cardiology Wilfred Consult Reason/Comments: orthostatic hypotension Do you want consulting provider notified?: Yes 05/18/24 16:50 Consult Physician Routine Consulting Provider: Cardiology Wilfred Consult Reason/Comments: Post Interventional Patient Do you want consulting provider notified?: Already Contacted Primary care physician: Maury Estrada Hospital Course: Diagnoses: Acute syncopal episode likely due to orthostatic hypotension Recent history of NSTEMI status post PCI to mid LAD on 05/12/2024. S/p another PCI to mid LAD on 05/18 Diarrhea, could be reactive Elevated troponin level due to to recent [place] Ischemic cardiomyopathy ejection fraction 30 to 35% with hypokinesis involving the anteroseptal and apex. Patient is on LifeVest. Hypothyroidism Anxiety/depression GERD Prior history of smoking Hospital course: Patient is a 73-year-old male with a known history of NSTEMI, coronary artery disease status post PCI mid LAD on 05/12/2024, cardiomyopathy ejection fraction 30 to 35% was sent home on LifeVest, hypothyroidism, GERD, anxiety/depression and prior history of smoking. She was discharged home on 05/15/2024. Patient presents to ER with complaints of syncopal episode at home. Patient evaluated by repair electric motor assembler Patient underwent stent placement to her LAD on 05/13 and another 1 repeated in the middle part of the LAD on 05/18, patient tolerated the procedure well. Chest pain resolved and on the day of discharge she denies any other dyspnea or any other new complaints. 2 days ago she developed some diarrhea, C. difficile was negative, currently improved with no abdominal pain. Patient asked to be discharged home today otherwise he will leave AMA Patient was cleared for discharge by repair electric motor assembler Problems and management plan were discussed with the patient and he verbalized understanding and acceptance Patient was found stable and can be discharged home in guarded prognosis however he needs follow-up as an outpatient. Patient was instructed to follow up with PCP dr estrada within one week and patient agrees Patient was instructed to follow-up with repair electric motor assembler Dr. Tam in 1 week and she agrees Physical exam Gen: patient is a AAOx3, no distress CVS: S1-S2, RRR, no murmur Lungs: B/L CTA, no wheezing Abdomen: soft, no distention, no tenderness, positive bowel sounds Extremity: no leg edema or induration Time spent more than 35 minutes Patient Condition at Discharge: Stable Plan - Discharge Summary Discharge Rx Participant: No New Discharge Prescriptions: New Cholestyramine (with Sugar) [Questran Packet] 4 gm PO BID@1000,1800 PRN 2 Days #4 packet PRN Reason: Diarrhea Spironolactone [Aldactone] 12.5 mg PO DAILY #15 tab Continue Calcium/Magnesium/Zinc [Easrqwe-Batniafaw-Wvlv Tablet] 1 tab PO HS Escitalopram [Lexapro] 10 mg PO DAILY Biotin 5 mg PO HS Acetaminophen Tab [Tylenol] 1,000 mg PO Q6HR PRN PRN Reason: Pain Or Fever > 100.5 Atorvastatin [Lipitor] 80 mg PO HS #30 tab Metoprolol Tartrate [Lopressor] 12.5 mg PO BID #60 tab Nitroglycerin Sl Tabs [Nitrostat] 0.4 mg SUBLINGUAL Q5M PRN #100 tab PRN Reason: Chest Pain Pantoprazole [Protonix] 40 mg PO AC-BRKFST #30 tab Ticagrelor [Brilinta] 90 mg PO BID 30 Days #60 tab Levothyroxine Sodium [Synthroid] 112 mcg PO DAILY Dapagliflozin Propanediol [Farxiga] 10 mg PO DAILY #30 tab Sacubitril/Valsartan [Entresto 24 mg-26 mg Tablet] 1 tab PO BID Aspirin EC [Ecotrin Low Dose] 81 mg PO DAILY 30 Days #30 tab Discontinued amLODIPine [Norvasc] 5 mg PO DAILY Discharge Medication List Biotin 5 mg PO HS 11/29/20 [History] Calcium/Magnesium/Zinc [Tivdrjz-Jatcxdlrv-Fwby Tablet] 1 tab PO HS 11/29/20 [History] Escitalopram [Lexapro] 10 mg PO DAILY 11/29/20 [History] Acetaminophen Tab [Tylenol] 1,000 mg PO Q6HR PRN 05/12/24 [History] Levothyroxine Sodium [Synthroid] 112 mcg PO DAILY 05/12/24 [History] Atorvastatin [Lipitor] 80 mg PO HS #30 tab 05/15/24 [Rx] Dapagliflozin Propanediol [Farxiga] 10 mg PO DAILY #30 tab 05/15/24 [Rx] Metoprolol Tartrate [Lopressor] 12.5 mg PO BID #60 tab 12/20/24 [Rx] Nitroglycerin Sl Tabs [Nitrostat] 0.4 mg SUBLINGUAL Q5M PRN #100 tab 05/15/24 [Rx] Pantoprazole [Protonix] 40 mg PO AC-BRKFST #30 tab 05/15/24 [Rx] Sacubitril/Valsartan [Entresto 24 mg-26 mg Tablet] 1 tab PO BID 05/17/24 [History] Aspirin EC [Ecotrin Low Dose] 81 mg PO DAILY 30 Days #30 tab 05/20/24 [Rx] Cholestyramine (with Sugar) [Questran Packet] 4 gm PO BID@1000,1800 PRN 2 Days #4 packet 05/20/24 [Rx] Spironolactone [Aldactone] 12.5 mg PO DAILY #15 tab 05/20/24 [Rx] Ticagrelor [Brilinta] 90 mg PO BID 30 Days #60 tab 05/20/24 [Rx] Follow up Appointment(s)/Referral(s): Juan Tam MD [Medical Doctor] - 05/26/24 3:15 pm (05/22/24 Go to office to have event monitor put on. ) Maury Estrada DO [Primary Care Provider] - 05/28/24 8:20 am (appointment with Misti COELHO) Patient Instructions/Handouts: Heart Catheterization (DC) Activity/Diet/Wound Care/Special Instructions: Heart healthy diet Activity is restricted till you see your doctor Please follow-up with cardiology office tomorrow to obtain heart monitor Discharge Disposition: HOME SELF-CARE Plan of Treatment: CBC, CMP and NTproBNP in 1 week after discharge
== END 2024-05-21 11:07 | disposition home or self-care (01) | DRG 322 ==
LOC: EC 12:40 → 3SCARD 14:28 → OBSVTOIN 05-19 09:04
PROVIDERS: ADMIT Hospitalist; ATTEND Hospitalist
PROC: 4A033BC Measurement of Arterial Pressure, Coronary, Percutaneous Approach (ICD-10-PCS; 2024-05-18)
PROC: B240ZZ3 Ultrasonography of Single Coronary Artery, Intravascular (ICD-10-PCS; 2024-05-18)
PROC: 4A023N7 Measurement of Cardiac Sampling and Pressure, Left Heart, Percutaneous Approach (ICD-10-PCS; principal; 2024-05-18 14:20)
PROC: 027034Z Dilation of Coronary Artery, One Artery with Drug-eluting Intraluminal Device, Percutaneous Approach (ICD-10-PCS; 2024-05-18 15:50)
PROC: B2111ZZ Fluoroscopy of Multiple Coronary Arteries using Low Osmolar Contrast (ICD-10-PCS; 2024-05-18 15:50)
DX: I21.4 Non-ST elevation (NSTEMI) myocardial infarction (principal); I95.1 Orthostatic hypotension; R19.7 Diarrhea, unspecified; I25.5 Ischemic cardiomyopathy; E03.9 Hypothyroidism, unspecified; F32.A Depression, unspecified; F41.9 Anxiety disorder, unspecified; K21.9 Gastro-esophageal reflux disease without esophagitis; E66.9 Obesity, unspecified; I25.10 Atherosclerotic heart disease of native coronary artery without angina pectoris; I44.7 Left bundle-branch block, unspecified; Z87.891 Personal history of nicotine dependence; Z95.5 Presence of coronary angioplasty implant and graft; I25.2 Old myocardial infarction; Z79.82 Long term (current) use of aspirin; Z79.890 Hormone replacement therapy; Z88.2 Allergy status to sulfonamides; Z68.36 Body mass index [BMI] 36.0-36.9, adult
CPT/HCPCS: 36415; 71046; 80048; 80053; 83880; 84484; 85025; 85610; 85730; 87324; 92978; 93005; 93308; 93458; 93799; 96360; 96361; 99285

== ENCOUNTER → 2024-06-29 | Outpatient (CLI) | payer MEDICARE ==
[2024-06-29 16:56] LABS: HGB 12.3 g/dL (12.0-15.0); MCH 28.3 pg (27.0-32.0); MCHC 30.8 g/dL (32.0-37.0); Mean Platelet Volume 10.8 FL (9.5-12.2); NRBC Per 100 WBC 0 X 10*3/uL (0.00-0.01); Platelet Count 197 X 10*3/uL (140-440); RBC 4.35 X 10*6/uL (4.10-5.20); RDW 14.7 % (11.5-14.5); WBC 5.36 X 10*3/uL (4.50-10.00)
[2024-06-29 18:39] LABS: ALT 102 U/L (8-44); AST 130 U/L (13-35); Albumin 3.7 g/dL (3.8-4.9); Albumin/Globulin Ratio 1.42 Ratio (1.60-3.17); Alkaline Phosphatase 313 U/L (41-126); BUN/Creat Ratio 22.71 Ratio (12.00-20.00); Blood Urea Nitrogen 15.9 mg/dL (9.0-27.0); Calcium 8.9 mg/dL (8.7-10.3); Carbon Dioxide 23.7 mmol/L (21.6-31.8); Chloride 110 mmol/L (96-109); Chol/HDL Ratio 2.99 Ratio; Globulin 2.6 g/dL (1.6-3.3); Glucose 98 mg/dL (70-110); LDL Cholesterol,Calculated 58.5 mg/dL (0.0-131.0); Potassium 4.5 mmol/L (3.5-5.5); Sodium 144 mmol/L (135-145); Total Bilirubin 0.8 mg/dL (0.3-1.2); Total Protein 6.3 g/dL (6.2-8.2); VLDL Calculation 17.38 mg/dL (5.00-40.00)
[2024-06-29 20:19] LABS: NT-Pro-B-Type Natriuretic Pept 1571 pg/mL (0-450)
== END | disposition home or self-care (01) ==
LOC: LABWHC1 09:06
PROVIDERS: ATTEND Student in an Organized Health Care Education/Training Program
DX: I50.9 Heart failure, unspecified (principal); E11.9 Type 2 diabetes mellitus without complications; E78.5 Hyperlipidemia, unspecified; E03.9 Hypothyroidism, unspecified; D72.9 Disorder of white blood cells, unspecified; R79.89 Other specified abnormal findings of blood chemistry
CPT/HCPCS: 36415; 80053; 80061; 83036; 83880; 84443; 85027

== ENCOUNTER → 2024-07-17 | Outpatient (CLI) | payer MEDICARE ==
[2024-07-17 18:56] LABS: Blood Urea Nitrogen 10.8 mg/dL (9.0-27.0); Carbon Dioxide 26.9 mmol/L (21.6-31.8); Chloride 105 mmol/L (96-109); Glucose 131 mg/dL (70-110); Potassium 4.5 mmol/L (3.5-5.5); Sodium 141 mmol/L (135-145)
[2024-07-17 18:57] LABS: ALT 68 U/L (8-44); AST 78 U/L (13-35); Albumin 3.7 g/dL (3.8-4.9); Albumin/Globulin Ratio 1.19 Ratio (1.60-3.17); Alkaline Phosphatase 226 U/L (41-126); Calcium 9.1 mg/dL (8.7-10.3); Globulin 3.1 g/dL (1.6-3.3); Total Bilirubin 0.7 mg/dL (0.3-1.2); Total Protein 6.8 g/dL (6.2-8.2)
== END | disposition home or self-care (01) ==
LOC: LABWHC1 14:15
PROVIDERS: ATTEND Family Medicine
DX: R74.01 Elevation of levels of liver transaminase levels (principal)
CPT/HCPCS: 36415; 80053

== ENCOUNTER 2024-07-29 03:24 | Inpatient (IN) | payer MEDICARE ==
--- NOTE | 2024-07-29 03:33 | ED ---
Chest Pain HPI - General Chief Complaint: Chest Pain Stated Complaint: Chest pain Time Seen by Provider: 07/29/24 03:31 Source: patient, RN notes reviewed, old records reviewed Mode of arrival: ambulatory Limitations: no limitations - History of Present Illness Initial Comments: This is a 74-year-old female to the ER for evaluation of chest pain. Patient has strong history of CAD. Patient states the symptoms began a little bit after dinner last night, when the chest pain started she took a nitro and went to bed woke up again with chest pain took nitro went to bed. Patient has history of CAD 2 stents placed a few months ago. Patient has been having increasing chest pain this week no shortness of breath no travel history or sick contacts but is taking nitro more than often and is becoming concerned MD Complaint: chest pain -: hour(s) Onset: during rest Pain Location: substernal, left chest Pain Radiation: none Severity: moderate Severity scale (1-10): 6 Quality: tightness, heaviness Consistency: intermittent Improves With: nitroglycerin Worsens With: nothing Anginal Symptoms: sense of impending doom Other Symptoms: palpitations Treatments Prior to Arrival: none - Related Data Home Medications Medication Instructions Recorded Confirmed Calcium/Magnesium/Zinc 1 tab PO HS 11/29/20 07/29/24 [Rwhweks-Dlppgbdzg-Lbcx Tablet] Escitalopram [Lexapro] 10 mg PO HS 11/29/20 07/29/24 Levothyroxine Sodium [Synthroid] 112 mcg PO DAILY 05/12/24 07/29/24 Cetirizine HCl [Zyrtec] 10 mg PO HS 07/09/24 07/29/24 Clopidogrel [Plavix] 75 mg PO DAILY 07/09/24 07/29/24 Losartan [Cozaar] 50 mg PO DAILY 07/09/24 07/29/24 Multivitamins, Thera [Multivitamin 1 tab PO HS 07/09/24 07/29/24 (formulary)] Pantoprazole [Protonix] 40 mg PO DAILY 07/09/24 07/29/24 Spironolactone [Aldactone] 12.5 mg PO HS 07/29/24 07/29/24 Previous Rx's Medication Instructions Recorded Atorvastatin [Lipitor] 80 mg PO HS #30 tab 05/15/24 Nitroglycerin Sl Tabs [Nitrostat] 0.4 mg SUBLINGUAL Q5M PRN #100 tab 05/15/24 Aspirin EC [Ecotrin Low Dose] 81 mg PO DAILY 30 Days #30 tab 05/20/24 Isosorbide Mononitrate ER [Imdur] 30 mg PO DAILY #30 tab 07/11/24 Ranolazine [Ranexa] 500 mg PO Q12HR #60 tab 07/11/24 carvediloL [Coreg] 6.25 mg PO BID-W/MEALS #60 tab 07/11/24 Allergies Allergy/AdvReac Type Severity Reaction Status Date / Time Sulfa (Sulfonamide Allergy Rash, RED Verified 07/29/24 07:49 Antibiotics) AND HOT SKIN Review of Systems ROS Statement: Those systems with pertinent positive or pertinent negative responses have been documented in the HPI. ROS Other: All systems not noted in ROS Statement are negative. EKG Findings - EKG Comments: EKG Findings:: EKG is 70 FL 204 QRS 156 QTc 492 - EKG Results: EKG: interpreted by LANDRY Past Medical History Past Medical History: GERD/Reflux, Myocardial Infarction (NH), Thyroid Disorder Additional Past Medical History / Comment(s): hypothyroidism History of Any Multi-Drug Resistant Organisms: None Reported Past Surgical History: Cholecystectomy, Heart Catheterization With Stent, Orthopedic Surgery Additional Past Surgical History / Comment(s): lt knee arthroscopy. bilateral cataracts. Past Anesthesia/Blood Transfusion Reactions: Motion Sickness Additional Past Anesthesia/Blood Transfusion Reaction / Comment(s): Patient states anesthesiologist usually gives her Zofran in her IV before surgery Date of Last Stent Placement:: 05/13/24 Past Psychological History: Anxiety, Depression Smoking Status: Former smoker Past Alcohol Use History: Occasional Past Drug Use History: None Reported - Past Family History Mother Family Medical History: No Reported History Father Family Medical History: Cancer Additional Family Medical History / Comment(s): at age 75 from cancer (pt believes possibly prostate cancer) General Exam Limitations: no limitations General appearance: alert, in no apparent distress Head exam: Present: atraumatic, normocephalic, normal inspection Eye exam: Present: normal appearance, PERRL, EOMI. Absent: scleral icterus, conjunctival injection, periorbital swelling ENT exam: Present: normal exam, mucous membranes moist Neck exam: Present: normal inspection. Absent: tenderness, meningismus, lymphadenopathy Respiratory exam: Present: normal lung sounds bilaterally. Absent: respiratory distress, wheezes, rales, rhonchi, stridor Cardiovascular Exam: Present: regular rate, normal rhythm, normal heart sounds. Absent: systolic murmur, diastolic murmur, rubs, gallop, clicks GI/Abdominal exam: Present: soft, normal bowel sounds. Absent: distended, tenderness, guarding, rebound, rigid Extremities exam: Present: normal inspection, full ROM, normal capillary refill. Absent: tenderness, pedal edema, joint swelling, calf tenderness Back exam: Present: normal inspection Neurological exam: Present: alert, oriented X3, CN II-XII intact Psychiatric exam: Present: normal affect, normal mood Skin exam: Present: warm, dry, intact, normal color. Absent: rash Course Vital Signs 07/29/24 07/29/24 07/29/24 03:25 03:45 06:09 Temperature 97.6 F 97.6 F Pulse Rate 66 60 76 Respiratory 16 15 16 Rate Blood Pressure 115/68 108/63 125/72 O2 Sat by Pulse 95 95 93 L Oximetry 07/29/24 07/29/24 07/29/24 07:56 09:36 11:23 Temperature Pulse Rate 70 70 71 Respiratory 20 16 16 Rate Blood Pressure 119/77 120/70 95/59 O2 Sat by Pulse 93 L 98 95 Oximetry 07/29/24 07/29/24 07/29/24 12:12 13:00 13:45 Temperature Pulse Rate 65 60 64 Respiratory 16 20 16 Rate Blood Pressure 97/56 110/60 91/46 O2 Sat by Pulse 96 98 98 Oximetry 07/29/24 07/29/24 07/29/24 15:00 16:00 17:00 Temperature Pulse Rate 72 66 70 Respiratory 20 16 16 Rate Blood Pressure 110/60 118/57 98/53 O2 Sat by Pulse 98 98 98 Oximetry 07/29/24 07/29/24 07/29/24 18:00 18:56 20:00 Temperature Pulse Rate 70 70 66 Respiratory 16 16 18 Rate Blood Pressure 98/60 109/70 132/99 O2 Sat by Pulse 98 96 97 Oximetry 07/30/24 07/30/24 07/30/24 00:00 03:00 06:00 Temperature Pulse Rate 60 60 57 L Respiratory 18 18 18 Rate Blood Pressure 120/55 106/53 110/47 O2 Sat by Pulse 95 95 95 Oximetry 07/30/24 07:52 Temperature 97.7 F Pulse Rate 64 Respiratory 16 Rate Blood Pressure 122/83 O2 Sat by Pulse 95 Oximetry - Reevaluation(s) Reevaluation #1: 07/29/24 06:00 Medical records reviewed Hospitalizations for chest pain including stent placement Reevaluation #2: 07/29/24 06:00 Patient remains with chest pain throughout ER stay Reevaluation #3: 07/29/24 06:01 Patient informed of results questions answered Reevaluation #4: Was pt. sent in by a medical professional or institution (, TARA, SUSPENDER CUTTER, urgent care, hospital, or intermediate...) When possible be specific @ -no Did you speak to anyone other than the patient for history (EMS, parent, family, police, friend...)? What history was obtained from this source @ -no Did you review nursing and triage notes (agree or disagree)? Why? @ -agree Are old charts reviewed (outside hosp., previous admission, EMS record, old EKG, old radiological studies, urgent care reports/EKG's, intermediate records)? Report findings @ -yes Differential Diagnosis (chest pain, altered mental status, abdominal pain women, abdominal pain men, vaginal bleeding, weakness, fever, dyspnea, syncope, headache, dizziness, GI bleed, back pain, seizure, CVA, palpatations, mental health, musculoskeletal)? @ -prior EKG interpreted by me (3pts min.). @ -yes X-rays interpreted by me (1pt min.). @ -yes negative for acute disease CT interpreted by me (1pt min.). @ -no U/S interpreted by me (1pt. min.). @ -no What testing was considered but not performed or refused? (CT, X-rays, U/S, labs)? Why? @ -none What meds were considered but not given or refused? Why? @ -none Did you discuss the management of the patient with other professionals (professionals i.e. TARA Avendaño, SUSPENDER CUTTER, lab, RT, psych nurse, clinical social work aide, assembly line robot operator, teacher, k [employer] police officer, case assembler)? Give summary @ -no Was smoking cessation discussed for >3mins.? @ -no Was critical care preformed (if so, how long)? @ -yes31 Were there social determinants of health that impacted care today? How? (Homelessness, low income, unemployed, alcoholism, drug addiction, transportation, low edu. Level, literacy, decrease access to med. care, retirement, rehab)? @ -none Was there de-escalation of care discussed even if they declined (Discuss DNR or withdrawal of care, Hospice)? DNR status @ -no What co-morbidities impacted this encounter? (DM, HTN, Smoking, COPD, CAD, Cancer, CVA, ARF, Chemo, Hep., AIDS, mental health diagnosis, sleep apnea, morbid obesity)? @ -none Was patient admitted / discharged? Hospital course, mention meds given and route, prescriptions, significant lab abnormalities, going to OR and other pertinent info. @ - 74 female to the ER for evaluation of chest pain today. Patient has t ypical chest pain relieved with nitro at home. states has been going on more frequently lately almost every night and she is not sleeping brings her to the ER troponin is elevated and patient will admit for cardiac observation Admit Undiagnosed new problem with uncertain prognosis? @ -no Drug Therapy requiring intensive monitoring for toxicity (Heparin, Nitro, Insulin, Cardizem)? @ -no Were any procedures done? @ -no Diagnosis/symptom? @ -chest pain, unstable angina Acute, or Chronic, or Acute on Chronic? @ -Acute Uncomplicated (without systemic symptoms) or Complicated (systemic symptoms)? @ -Complicated Side effects of treatment? @ -no Exacerbation, Progression, or Severe Exacerbation? @ -exacerbation Poses a threat to life or bodily function? How? (Chest pain, [place], NH, pneumonia, PE, COPD, DKA, ARF, appy, cholecystitis, CVA, Diverticulitis, Homicidal, Suicidal, threat to staff... and all critical care pts) @ -yes with acute chest pain Reevaluation #5: Differential Chest Pain: Stable Angina, Unstable Angina, STEMI, NSTEMI Aortic Dissection, Pneumothorax, Musculoskeletal, Esophageal Spasm GERD, Cholecystitis, Pancreatitis, Zoster, this is not meant to be an all-inclusive list. - Consultations Consultation #1: Spoke with Dr. Estrada who agrees to admit the patient Chest Pain MDM - MDM 74 female to the ER for evaluation of chest pain today. Patient has typical chest pain relieved with nitro at home. states has been going on more frequently lately almost every night and she is not sleeping brings her to the ER troponin is elevated and patient will admit for cardiac observation Critical Care Time Critical Care Time: Yes Total Critical Care Time: 31 Disposition Clinical Impression: Chest pain, NSTEMI (non-ST elevated myocardial infarction), Elevated troponin Disposition: ADMITTED IP TO THIS HOSP Condition: Good Is patient prescribed a controlled substance at d/c from ED?: No Time of Disposition: 04:30
[2024-07-29 04:17] LABS: Basophils % (A) 1 %; Eosinophils # (A) 0.3 k/uL (0-0.7); Eosinophils % (A) 4 %; HCT 40.1 % (34.0-46.0); HGB 12.6 gm/dL (11.4-16.0); Hypochromasia Slight; Lymphocytes # (A) 1.9 k/uL (1.0-4.8); Lymphocytes % (A) 29 %; MCH 28.6 pg (25.0-35.0); MCHC 31.3 g/dL (31.0-37.0); MCV 91.3 fL (80.0-100.0); Mean Platelet Volume 8.1; Monocytes # (A) 0.6 k/uL (0-1.0); Monocytes % (A) 8 %; Neutrophils # (A) 3.6 k/uL (1.3-7.7); Neutrophils % (A) 55 %; Platelet Count 195 k/uL (150-450); RBC 4.39 m/uL (3.80-5.40); RDW 14.1 % (11.5-15.5); WBC 6.5 k/uL (3.8-10.6)
[2024-07-29 04:36] LABS: ALT 42 U/L (4-34); African American GFR (CKD) 67 (>60 ml/min/1.73 sqM); Anion Gap 10 mmol/L; Blood Urea Nitrogen 25 mg/dL (7-17); Calcium 8.7 mg/dL (8.4-10.2); Carbon Dioxide 21 mmol/L (22-30); Chloride 105 mmol/L (98-107); Glucose 103 mg/dL (74-99); Lipase 114 U/L (23-300); Non-African American GFR(CKD) 58 (>60 ml/min/1.73 sqM); Sodium 136 mmol/L (137-145)
[2024-07-29 04:44] LABS: Potassium 5.5 mmol/L (3.5-5.1)
[2024-07-29 04:45] LABS: AST 77 U/L (14-36); Albumin 3.8 g/dL (3.5-5.0); Alkaline Phosphatase 119 U/L (38-126); NT-Pro-B-Type Natriuretic Pept 1870 pg/mL; Total Bilirubin 1.4 mg/dL (0.2-1.3); Total Protein 7.1 g/dL (6.3-8.2)
[2024-07-29 05:18] LABS: Partial Thromboplastin Time 22.9 sec (22.0-30.0); Prothrombin Time 10.6 sec (10.0-12.5)
--- NOTE | 2024-07-29 05:36 | XR ---
EXAM: XR Chest, 2 Views CLINICAL HISTORY: ITS.REASON XR Reason: Chest Pain TECHNIQUE: Frontal and lateral views of the chest. COMPARISON: XR Chest dated 07/09/24 FINDINGS: Lungs: Unremarkable. No consolidation. Pleural space: Unremarkable. No pneumothorax. Heart: Unremarkable. No cardiomegaly. Mediastinum: Unremarkable. Normal mediastinal contour. Bones/joints: Unremarkable. No acute fracture. IMPRESSION: No evidence of acute cardiopulmonary disease.
[2024-07-29] MEDS: ASPIRIN 81 MG PO STA (06:10)
[2024-07-29] MEDS: HEPARIN SOD,PORK IN 0.45% NACL 25,000 UNIT in 0.45% NACL 1 250ML.BAG IV SCH (06:11)
[2024-07-29] MEDS: RANOLAZINE 500 MG TAB.ER.12H PO SCH (08:41)
[2024-07-29] MEDS: LOSARTAN 50 MG TAB PO SCH (08:41)
[2024-07-29] MEDS: ISOSORBIDE MONONITRATE ER 30 MG TAB.ER.24H PO SCH (08:41)
[2024-07-29] MEDS: carvediloL 6.25 MG TAB PO SCH (08:41)
[2024-07-29] MEDS: CLOPIDOGREL 75 MG TAB PO SCH (08:41)
[2024-07-29 08:43] LABS: Mean Platelet Volume 7.5; Platelet Count 237 k/uL (150-450)
[2024-07-29] MEDS ORDERED: ATORVASTATIN 80 MG TAB PO SCH (09:00)
--- NOTE | 2024-07-29 09:16 | P.HPIM ---
History of Present Illness H&P Date: 07/29/24 Chief Complaint: Chest pain This is a 74-year-old female with past medical history significant for CAD, ischemic cardiomyopathy, recent NSTEMI with stenting of the mid LAD 05/13/2024 followed by cardiac catheterization on 07/10/2024 reporting no progression of disease with medical therapy maximized, left bundle branch block ,hypertension, hyperlipidemia, morbid obesity, prediabetic with hemoglobin A1c of 6.2 (07/21), hypothyroidism, prior nicotine dependence, and multiple other medical issues presented to the ER with complaints of radiating midsternal chest pain accompani ed by diaphoresis and shortness of breath over the last 2 to 3 nights in a row. Admits to fluctuating chest pain since April 2024 as well as her last catheterization in June 2024. denies nausea, vomiting or diarrhea. Denies abdominal pain. Reports weight loss of 11 pounds since April 2024. Denies upper respiratory infections or known sick contacts. She started cardiac rehab yesterday. Reports pain initiates in her right hand travels up her right arm across to her mid sternum. Symptoms usually begin after dinner, progresses through the night, averaging a total of 3 nitro sublinguals each night. Afebrile, normal WBC. Chest x-ray reported nonacute. Hematology, coagulation panel unremarkable. Sodium 136, potassium 5.5, bicarb 21, BUN 25, creatinine 0.96, mag 2.0, T. bili 1.4, AST 77, ALT 42, alk phos WNL. Troponin 0.053. BNP 1870. EKG reported sinus rhythm with left bundle branch block. Anticoagulated on IV heparin drip. Echo ordered. Review of Systems ROS Statement: Those systems with pertinent positive or pertinent negative responses have been documented in the HPI. ROS Other: All systems not noted in ROS Statement are negative. Past Medical History Past Medical History: GERD/Reflux, Myocardial Infarction (PR), Thyroid Disorder Additional Past Medical History / Comment(s): hypothyroidism History of Any Multi-Drug Resistant Organisms: None Reported Past Surgical History: Cholecystectomy, Heart Catheterization With Stent, Orthopedic Surgery Additional Past Surgical History / Comment(s): lt knee arthroscopy. bilateral cataracts. Past Anesthesia/Blood Transfusion Reactions: Motion Sickness Additional Past Anesthesia/Blood Transfusion Reaction / Comment(s): Patient states anesthesiologist usually gives her Zofran in her IV before surgery Date of Last Stent Placement:: 05/13/24 Past Psychological History: Anxiety, Depression Smoking Status: Former smoker Past Alcohol Use History: Occasional Past Drug Use History: None Reported - Past Family History Mother Family Medical History: No Reported History Father Family Medical History: Cancer Additional Family Medical History / Comment(s): at age 75 from cancer (pt believes possibly prostate cancer) Medications and Allergies Home Medications Medication Instructions Recorded Confirmed Type Calcium/Magnesium/Zinc 1 tab PO HS 11/29/20 07/29/24 History [Ujtlwjw-Pvvtfrgqp-Ylai Tablet] Escitalopram [Lexapro] 10 mg PO HS 11/29/20 07/29/24 History Levothyroxine Sodium [Synthroid] 112 mcg PO DAILY 05/12/24 07/29/24 History Atorvastatin [Lipitor] 80 mg PO HS #30 tab 05/15/24 07/29/24 Rx Nitroglycerin Sl Tabs [Nitrostat] 0.4 mg SUBLINGUAL Q5M PRN #100 tab 05/15/24 07/29/24 Rx Aspirin EC [Ecotrin Low Dose] 81 mg PO DAILY 30 Days #30 tab 05/20/24 07/29/24 Rx Cetirizine HCl [Zyrtec] 10 mg PO HS 07/09/24 07/29/24 History Clopidogrel [Plavix] 75 mg PO DAILY 07/09/24 07/29/24 History Losartan [Cozaar] 50 mg PO DAILY 07/09/24 07/29/24 History Multivitamins, Thera [Multivitamin 1 tab PO HS 07/09/24 07/29/24 History (formulary)] Pantoprazole [Protonix] 40 mg PO DAILY 07/09/24 07/29/24 History Isosorbide Mononitrate ER [Imdur] 30 mg PO DAILY #30 tab 07/11/24 07/29/24 Rx Ranolazine [Ranexa] 500 mg PO Q12HR #60 tab 07/11/24 07/29/24 Rx carvediloL [Coreg] 6.25 mg PO BID-W/MEALS #60 tab 07/11/24 07/29/24 Rx Spironolactone [Aldactone] 12.5 mg PO HS 07/29/24 07/29/24 History Allergies Allergy/AdvReac Type Severity Reaction Status Date / Time Sulfa (Sulfonamide Allergy Rash, RED Verified 07/29/24 07:49 Antibiotics) AND HOT SKIN Physical Exam Vitals: Vital Signs Temp Pulse Resp BP Pulse Ox 07/29/24 07:56 70 20 119/77 93 L 07/29/24 06:09 97.6 F 76 16 125/72 93 L 07/29/24 03:45 60 15 108/63 95 07/29/24 03: 97.6 F 66 16 115/68 95 Intake and Output 07/28/24 07/29/24 07/29/24 22:59 06:59 14:59 Other: Weight 81.647 kg VITAL SIGNS: [Reviewed] GENERAL: Alert and oriented x 3, sitting up at bedside, no acute distress. AMBLER. HEENT: Atraumatic, normocephalic, conjunctivae normal. eyes normal. NECK: Supple,no JVD. No thyroid enlargement. No LNs CARDIOVASCULAR: S1, S2. regular rate and rhythm. No murmur RESPIRATION: Unlabored, equal air entry, minimal expiratory wheeze. ABDOMEN: Soft, nondistended, nontender . No guarding. no masses palpable. Positive bowel sounds. LEGS: No edema. no swelling. No calf tenderness. NERVOUS SYSTEM: Cranial N 2-12 grossly normal. No focal deficits. Strength and sensation grossly intact. Skin: Warm and dry, no rash. Results CBC & Chem 7: 07/29/24 08:20 07/29/24 08:20 Labs: Abnormal Lab Results - Last 24 Hours (Table) 07/29/24 07/29/24 Range/Units 03:37 03:37 Sodium 136 L (137-145) mmol/L Potassium 5.5 H (3.5-5.1) mmol/L Carbon Dioxide 21 L (22-30) mmol/L BUN 25 H (7-17) mg/dL Glucose 103 H (74-99) mg/dL Total Bilirubin 1.4 H (0.2-1.3) mg/dL AST 77 H (14-36) U/L ALT 42 H (4-34) U/L Troponin I 0.053 H* (0.000-0.034) ng/mL Assessment and Plan Assessment: Chest pain, troponin 0.053,NSTEMI, patient with prior CAD, recent PR with stenting of the mid LAD 05/13/2024. 07/10/2024 cardiac catheterization completed reporting 30% distal left main disease, 70% ostial LAD disease, patent stents in the mid LAD, 70% diffuse distal LAD disease. 50% ostial and proximal left circumflex disease negative IFR performed on 05/18/2024. Cardiology reported no progression of CAD, comparing to heart cath of 05/18/2024.Per catheterization reports cardiology felt that the LAD intervention was complex and patient would benefit from optimization of cardiac medications and was started on Imdur therapy. If patient fails antianginal and optimize heart failure medication she would be considered for CABG. Ischemic cardiomyopathy, EF 30 to 35% Hyperbilirubinemia with minimally elevated AST and ALT. History of abnormally thickened endometrium with vascularity concerning for endometrial carcinoma, reported per pelvic/transvaginal ultrasound 05/07/2024. Further outpatient workup in progress. Hypertension Hyperlipidemia Morbid obesity, BMI 35, reports 11 pound weight loss since 05/19 Prediabetic, hemoglobin A1c 6.2 (07/21) Prior nicotine dependence, 1 pack/day x 10 years,quit 1978 Anxiety Depression Plan: Continue on current medication regimen ,monitoring and symptomatic treatment. Anticoagulation with heparin drip. Echo pending. Serial troponins pending .cardiology consult in place, recommendations pending. Prognosis guarded given multiple complex medical issues. The impression and plan of care has been dictated as directed. : I performed a history and examination of this patient, discussed the same with the dictator. I agree with the dictator's note ,documented as a scribe. Any additional findings or plans will be noted.
[2024-07-29] MEDS: TORSEMIDE 20 MG TAB PO SCH (09:17)
[2024-07-29] MEDS ORDERED: ONDANSETRON 4 MG/2 ML VIAL IVP PRN (11:01)
--- NOTE | 2024-07-29 11:58 | P.CRDCN ---
History of Present Illness History of present illness: HISTORY OF PRESENT ILLNESS: This is a 74-year-old female with a past medical history significant for coronary artery disease with previous stenting, ischemic cardiomyopathy, known left bundle branch block, hypertension, hypothyroidism, and obesity. Patient follows in the office with Dr. Tam. We have been asked to see the patient in consultation for chest pain. Patient examined at the bedside in the emergency room. Patient presented to the hospital with a chief complaint of chest d iscomfort. Patient states over the past 2 to 3 days she has been having chest discomfort. She states the pain starts in her right arm and then radiates into her chest. She states the pain just seems to be happening at night. She denies having any chest pain during the day with exertion. She states the pain feels similar to her previous admissions when she required stenting. Patient states she has been getting up to 2 times a night for the past few days and has been taking nitro. She also reports shortness of breath when she is laying flat. DIAGNOSTICS: - EKG reveals sinus mechanism with left bundle branch block. - Chest xray negative for acute process. - Laboratory data: WBC 6.5. Hemoglobin 12.6. Platelet count 197. Sodium 136. Potassium 5.2. BUN 25. Creatinine 0.96. Magnesium 2.0. Troponin 0.053. 0.033. proBNP 1870. - Current home cardiac medications include aspirin 81 mg daily, atorvastatin 80 mg at night, Plavix 75 mg daily, Imdur 30 mg daily, losartan 50 mg daily, Ranexa 500 mg twice a day, Aldactone 12.5 mg at night, carvedilol 6.25 mg twice a day - Most recent echocardiogram obtained in April 2024 revealed ejection fraction 45 to 50%, mid septal hypokinesis, apical septal hypokinesis, apical inferior hypokinesis, mild MR, mild AR, mild TR - Cardiac catheterization history: 07/10/2024 revealing 30% distal left main disease, 70% ostial LAD disease. Patent stent in the mid LAD. 70% diffuse distal LAD disease. 50% ostial and proximal left circumflex disease. Negative IFR performed on 05/18/2024. Medical management was recommended. REVIEW OF SYSTEMS: At the time of my exam: CONSTITUTIONAL: Denies fever or chills. HEENT: Denies blurred vision, vision changes, or eye pain. Denies hemoptysis CARDIOVASCULAR: Denies chest pain. Denies orthopnea. Denies PND. Denies palpitations RESPIRATORY: Denies shortness of breath. GASTROINTESTINAL: Denies abdominal pain. Denies nausea or vomiting. HEMATOLOGIC: Denies bleeding disorders. GENITOURINARY: Denies any blood in urine. SKIN: Denies pruitis. Denies rash. PHYSICAL EXAM: VITAL SIGNS: Reviewed. GENERAL: Well-developed in no acute distress. HEENT: Head is normocephalic. Pupils are equal, round. Sclerae anicteric. Mucous membranes of the mouth are moist. Neck supple. No JVD or thyromegaly LUNGS: Respirations even and unlabored. Lungs essentially clear to auscultation bilaterally. HEART: Regular rate and rhythm. S1 and S2 heard. ABDOMEN: Soft. Nondistended. Nontender. EXTREMITIES: Normal range of motion. No clubbing or cyanosis. Peripheral pulses intact. No lower extremity edema NEUROLOGIC: Awake and alert. Oriented x 3. ASSESSMENT: Chest pain Non-STEMI Coronary artery disease with previous stenting Acute heart failure with reduced EF Ischemic cardiomyopathy, 45% Known left bundle branch block Hypertension Hypothyroidism Obesity PLAN: Obtain 2D echo to assess cardiac structure and function Trend troponins Continue IV heparin Resume home cardiac medications including aspirin, atorvastatin, carvedilol, Plavix, Imdur, losartan, Ranexa Discontinue Aldactone secondary to hyperkalemia. First specimen hemolyzed. Repeat specimen still elevated at 5.2 Begin Demadex 10 mg daily No plans for repeat cardiac catheterization Dr. Tam to review patient's cardiac catheterization films. Possible consult to CT surgery. Further recommendations pending patient course Nurse practitioner note has been reviewed by physician. Signing provider agrees with the documented findings, assessment, and plan of care documented by CRUISE COORDINATOR as a scribe. Past Medical History Past Medical History: GERD/Reflux, Myocardial Infarction ([place]), Thyroid Disorder Additional Past Medical History / Comment(s): hypothyroidism History of Any Multi-Drug Resistant Organisms: None Reported Past Surgical History: Cholecystectomy, Heart Catheterization With Stent, Orthopedic Surgery Additional Past Surgical History / Comment(s): lt knee arthroscopy. bilateral cataracts. Past Anesthesia/Blood Transfusion Reactions: Motion Sickness Additional Past Anesthesia/Blood Transfusion Reaction / Comment(s): Patient states anesthesiologist usually gives her Zofran in her IV before surgery Date of Last Stent Placement:: 05/13/24 Past Psychological History: Anxiety, Depression Smoking Status: Former smoker Past Alcohol Use History: Occasional Past Drug Use History: None Reported - Past Family History Mother Family Medical History: No Reported History Father Family Medical History: Cancer Additional Family Medical History / Comment(s): at age 75 from cancer (pt believes possibly prostate cancer) Medications and Allergies Home Medications Medication Instructions Recorded Confirmed Type Calcium/Magnesium/Zinc 1 tab PO HS 11/29/20 07/29/24 History [Nbzmfgr-Rhgrmvtft-Bkhx Tablet] Escitalopram [Lexapro] 10 mg PO HS 11/29/20 07/29/24 History Levothyroxine Sodium [Synthroid] 112 mcg PO DAILY 05/12/24 07/29/24 History Atorvastatin [Lipitor] 80 mg PO HS #30 tab 05/15/24 07/29/24 Rx Nitroglycerin Sl Tabs [Nitrostat] 0.4 mg SUBLINGUAL Q5M PRN #100 tab 05/15/24 07/29/24 Rx Aspirin EC [Ecotrin Low Dose] 81 mg PO DAILY 30 Days #30 tab 05/20/24 07/29/24 Rx Cetirizine HCl [Zyrtec] 10 mg PO HS 07/09/24 07/29/24 History Clopidogrel [Plavix] 75 mg PO DAILY 07/09/24 07/29/24 History Losartan [Cozaar] 50 mg PO DAILY 07/09/24 07/29/24 History Multivitamins, Thera [Multivitamin 1 tab PO HS 07/09/24 07/29/24 History (formulary)] Pantoprazole [Protonix] 40 mg PO DAILY 07/09/24 07/29/24 History Isosorbide Mononitrate ER [Imdur] 30 mg PO DAILY #30 tab 07/11/24 07/29/24 Rx Ranolazine [Ranexa] 500 mg PO Q12HR #60 tab 07/11/24 07/29/24 Rx carvediloL [Coreg] 6.25 mg PO BID-W/MEALS #60 tab 07/11/24 07/29/24 Rx Spironolactone [Aldactone] 12.5 mg PO HS 07/29/24 07/29/24 History Allergies Allergy/AdvReac Type Severity Reaction Status Date / Time Sulfa (Sulfonamide Allergy Rash, RED Verified 07/29/24 07:49 Antibiotics) AND HOT SKIN Physical Exam Vitals: Vital Signs Temp Pulse Resp BP Pulse Ox 07/29/24 11:23 71 16 95/59 95 07/29/24 09:36 70 16 120/70 98 07/29/24 07:56 70 20 119/77 93 L 07/29/24 06:09 97.6 F 76 16 125/72 93 L 07/29/24 03:45 60 15 108/63 95 07/29/24 03: 97.6 F 66 16 115/68 95 Intake and Output 07/28/24 07/29/24 07/29/24 22:59 06:59 14:59 Other: Weight 81.647 kg Results 07/29/24 08:20 07/29/24 08:20 Cardiac Enzymes 07/29/24 07/29/24 07/29/24 Range/Units 03:37 03:37 08:20 AST 77 H (14-36) U/L Troponin I 0.053 H* 0.033 (0.000-0.034) ng/mL Coagulation 07/29/24 07/29/24 Range/Units 03:37 08:20 PT 10.6 (10.0-12.5) sec APTT 22.9 30.2 H (22.0-30.0) sec CBC 07/29/24 07/29/24 Range/Units 03:37 08:20 WBC 6.5 (3.8-10.6) k/uL RBC 4.39 (3.80-5.40) m/uL Hgb 12.6 (11.4-16.0) gm/dL Hct 40.1 (34.0-46.0) % Plt Count 195 237 (150-450) k/uL Comprehensive Metabolic Panel 07/29/24 07/29/24 Range/Units 03:37 08:20 Sodium 136 L (137-145) mmol/L Potassium 5.5 H 5.2 H (3.5-5.1) mmol/L Chloride 105 (98-107) mmol/L Carbon Dioxide 21 L (22-30) mmol/L BUN 25 H (7-17) mg/dL Creatinine 0.96 (0.52-1.04) mg/dL Glucose 103 H (74-99) mg/dL Calcium 8.7 (8.4-10.2) mg/dL AST 77 H (14-36) U/L ALT 42 H (4-34) U/L Alkaline Phosphatase 119 (38-126) U/L Total Protein 7.1 (6.3-8.2) g/dL Albumin 3.8 (3.5-5.0) g/dL Current Medications Generic Name Dose Route Start Last Admin Trade Name Freq PRN Reason Stop Dose Admin Aspirin 81 mg 07/30/24 09:00 Aspirin 81 Mg PO DAILY [facility] Atorvastatin Calcium 80 mg 07/29/24 21:00 Atorvastatin 80 Mg Tab PO HS [facility] Carvedilol 6.25 mg 07/29/24 08:00 07/29/24 08:41 Carvedilol 6.25 Mg Tab PO 6.25 mg BID-W/MEALS [facility] Administration Clopidogrel Bisulfate 75 mg 07/29/24 09:00 07/29/24 08:41 Clopidogrel 75 Mg Tab PO 75 mg DAILY [facility] Administration Heparin Sodium/Sodium Chloride 250 mls @ 9.798 mls/hr 07/29/24 06:00 07/29/24 06:11 25,000 unit/ Sodium Chloride IV 12 units/kg/hr .Q24H [facility] 9.798 mls/hr Administration Protocol 12 UNITS/KG/HR Isosorbide Mononitrate 30 mg 07/29/24 09:00 07/29/24 08:41 Isosorbide Mononitrate Er 30 Mg Tab.Er.24h PO 30 mg DAILY [facility] Administration Losartan Potassium 50 mg 07/29/24 09:00 07/29/24 08:41 Losartan 50 Mg Tab PO 50 mg DAILY [facility] Administration Morphine Sulfate 4 mg 07/29/24 05:56 Morphine Sulfate 4 Mg/Ml Syringe IV Q4HR PRN Chest Pain Nitroglycerin 0.4 mg 07/29/24 05:56 Nitroglycerin Sl Tabs 0.4 Mg Tab SUBLINGUAL Q5M PRN Chest Pain Ondansetron HCl 4 mg 07/29/24 11:01 Ondansetron 4 Mg/2 Ml Vial IVP Q6HR PRN Nausea And Vomiting Ranolazine 500 mg 07/29/24 09:00 07/29/24 08:41 Ranolazine 500 Mg Tab.Er.12h PO 500 mg Q12HR [facility] Administration Spironolactone 12.5 mg 07/29/24 21:00 Spironolactone 25 Mg Tab PO HS [facility] Torsemide 10 mg 07/29/24 09:00 07/29/24 09:17 Torsemide 20 Mg Tab PO 10 mg DAILY [facility] Administration Intake and Output 07/28/24 07/29/24 07/29/24 22:59 06:59 14:59 Other: Weight 81.647 kg 07/29/24 08:20 07/29/24 08:20
[2024-07-29] MEDS: HEPARIN SODIUM 1,000 UN/ML (10ML VL) IV PRN (12:42)
[2024-07-29 18:33] LABS: INR 1.1 (<1.2); Prothrombin Time 11.7 sec (10.0-12.5)
--- NOTE | 2024-07-29 18:37 | CA ---
Transthoracic Echo Report Name: Aidee Casas Age: 74 Gender: F : 1950 Exam Date: 07/29/2024 09:46 Exam Location: [facility] Ht (in): 60 Wt (lb): 180 Ordering Physician: Tad Mckeon DO Attending/Referring Phys: [id number], Mike It Trainer Akanksha Saravia RDCS Procedure CPT: Indications: CP Cardiac Hx: Technical Quality: Good Contrast 1: Total Dose (mL): Contrast 2: Total Dose (mL): MEASUREMENTS (Male / Female) Normal Values 2D ECHO LV Diastolic Diameter PLAX 5.5 cm 4.2 - 5.9 / 3.9 - 5.3 cm LV Systolic Diameter PLAX 4.7 cm IVS Diastolic Thickness 1.3 cm 0.6 - 1.0 / 0.6 - 0.9 cm LVPW Diastolic Thickness 1.1 cm 0.6 - 1.0 / 0.6 - 0.9 cm LV Relative Wall Thickness 0.4 RV Internal Dim ED PLAX 2.1 cm LVOT Diameter 1.8 cm LA Systolic Diameter LX 4.6 cm 3.0 - 4.0 / 2.7 - 3.8 cm LV Diastolic Volume MOD BP 81.6 cm??? 67 - 155 / 56 - 104 cm??? LV Systolic Volume MOD BP 50.0 cm??? - 58 / 19 - 49 cm??? LV Ejection Fraction MOD BP 38.6 % >= 55 % LV Cardiac Index MOD BP 1045.8 cm???/min???m??? LV Diastolic Volume MOD 4C 96.4 cm??? LV Systolic Volume MOD 4C 63.1 cm??? LV Ejection Fraction MOD 4C 34.6 % LV Cardiac Index MOD 4C 1106.5 cm???/min???m??? LV Diastolic Length 4C 7.9 cm LV Systolic Length 4C 6.8 cm LV Diastolic Volume MOD 2C 62.4 cm??? LV Systolic Volume MOD 2C 39.3 cm??? LV Ejection Fraction MOD 2C 37.0 % LV Cardiac Index MOD 2C 765.0 cm???/min???m??? LV Diastolic Length 2C 7.2 cm LV Systolic Length 2C 6.6 cm LA Volume 82.8 cm??? 18 - 58 / 22 - 52 cm??? LA Volume Index 43.6 cm???/m??? 16 - 28 cm???/m??? M-MODE Aortic Root Diameter MM 3.0 cm LA Systolic Diameter MM 4.6 cm LA Ao Ratio MM 1.5 AV Cusp Separation MM 1.0 cm DOPPLER AV Peak Velocity 215.4 cm/s AV Peak Gradient 18.6 mmHg AV Mean Velocity 167.0 cm/s AV Mean Gradient 12.0 mmHg AV Velocity Time Integral 47.0 cm AI Peak Velocity 376.5 cm/s AI Peak Gradient 56.7 mmHg AI Pressure Half Time 552.6 ms LVOT Peak Velocity 96.6 cm/s LVOT Peak Gradient 3.7 mmHg LVOT Velocity Time Integral 23.1 cm LVOT Stroke Volume 58.8 cm??? LVOT Stroke Volume Index 32.9 ml/m??? LVOT Cardiac Index 1949.9 cm???/min???m??? AV Area Cont Eq vti 1.3 cm??? AV Area Cont Eq pk 1.1 cm??? MV Area PHT 2.2 cm??? Mitral E Point Velocity 50.6 cm/s Mitral A Point Velocity 97.1 cm/s Mitral E to A Ratio 0.5 MV Deceleration Time 350.3 ms TR Peak Velocity 220.2 cm/s TR Peak Gradient 19.4 mmHg Right Ventricular Systolic Press 24.1 mmHg FINDINGS Left Ventricle Left ventricular ejection fraction is estimated at 30-35 %. Severely impaired left ventricular systolic function.Mildly increased left ventricular wall thickness. Left ventricular cavity size normal. Right Ventricle Normal right ventricular size and function. Right ventricular systolic pressure within normal limits. Right Atrium Normal right atrial size. Left Atrium Moderately increased left atrial diameter. Severely increased left atrial volume. Mitral Valve Structurally normal mitral valve. Moderate mitral regurgitation. No mitral stenosis.mitral annular calcification. Aortic Valve Mild aortic stenosis with a peak gradient of 19 mmHg and a mean gradient of 12mmHg. Mild to moderate aortic regurgitation. Tricuspid Valve Structurally normal tricuspid valve. Mild tricuspid regurgitation. No tricuspid stenosis. Pulmonic Valve Structurally normal pulmonic valve. Trace pulmonic regurgitation. No pulmonic stenosis. Pericardium No pericardial or pleural effusion. Aorta Normal size aortic root and proximal ascending aorta. CONCLUSIONS 1. Severely impaired low ventricular systolic function 2. Moderate mitral regurgitation 3. Mild to moderate aortic regurgitation with mild aortic stenosis 4. Mild tricuspid regurgitation Previewed by: Dr. Baron Lucia MD (Electronically Signed) Final Date: 29 July 2024 18:36
[2024-07-29] MEDS: MORPHINE SULFATE 4 MG/ML SYRINGE IV PRN (18:55)
[2024-07-29] MEDS: ATORVASTATIN 80 MG TAB PO SCH (20:24)
[2024-07-29] MEDS ORDERED: SPIRONOLACTONE 25 MG TAB PO SCH (21:00)
[2024-07-30] MEDS: ACETAMINOPHEN TAB 325 MG TAB PO PRN (00:09)
[2024-07-30 07:35] LABS: Mean Platelet Volume 8.1; Platelet Count 187 k/uL (150-450)
[2024-07-30] MEDS ORDERED: ASPIRIN 325 MG TAB PO SCH (09:00)
[2024-07-30] MEDS: ASPIRIN 81 MG PO SCH (09:06)
[2024-07-30 11:03] LABS: Chol/HDL Ratio 3.06 Ratio; LDL Cholesterol,Calculated 56.5 mg/dL (0.0-131.0); VLDL Calculation 18.88 mg/dL (5.00-40.00)
--- NOTE | 2024-07-30 11:32 | P.PN ---
Subjective Progress Note Date: 07/30/24 HISTORY OF PRESENT ILLNESS: This is a 74-year-old female with a past medical history significant for co ronary artery disease with previous stenting, ischemic cardiomyopathy, known left bundle branch block, hypertension, hypothyroidism, and obesity. Patient follows in the office with Dr. Tam. We have been asked to see the patient in consultation for chest pain. Patient examined at the bedside in the emergency room. Patient presented to the hospital with a chief complaint of chest discomfort. Patient states over the past 2 to 3 days she has been having chest discomfort. She states the pain starts in her right arm and then radiates into her chest. She states the pain just seems to be happening at night. She denies having any chest pain during the day with exertion. She states the pain feels similar to her previous admissions when she required stenting. Patient states she has been getting up to 2 times a night for the past few days and has been taking nitro. She also reports shortness of breath when she is laying flat. DIAGNOSTICS: - EKG reveals sinus mechanism with left bundle branch block. - Chest xray negative for acute process. - Laboratory data: WBC 6.5. Hemoglobin 12.6. Platelet count 197. Sodium 136. Potassium 5.2. BUN 25. Creatinine 0.96. Magnesium 2.0. Troponin 0.053. 0.033. proBNP 1870. - Current home cardiac medications include aspirin 81 mg daily, atorvastatin 80 mg at night, Plavix 75 mg daily, Imdur 30 mg daily, losartan 50 mg daily, Ranexa 500 mg twice a day, Aldactone 12.5 mg at night, carvedilol 6.25 mg twice a day - Most recent echocardiogram obtained in April 2024 revealed ejection fraction 45 to 50%, mid septal hypokinesis, apical septal hypokinesis, apical inferior hypokinesis, mild MR, mild AR, mild TR - Cardiac catheterization history: 07/10/2024 revealing 30% distal left main disease, 70% ostial LAD disease. Patent stent in the mid LAD. 70% diffuse distal LAD disease. 50% ostial and proximal left circumflex disease. Negative IFR performed on 05/18/2024. Medical management was recommended. Progress note 07/30/2024 BP 122/86, heart rate 60 bpm Few blood pressure readings in 100 systolic, Troponin up trended to 0.19 PHYSICAL EXAM: VITAL SIGNS: Reviewed. GENERAL: Well-developed in no acute distress. HEENT: Head is normocephalic. Pupils are equal, round. Sclerae anicteric. Mucous membranes of the mouth are moist. Neck supple. No JVD or thyromegaly LUNGS: Respirations even and unlabored. Lungs essentially clear to auscultation bilaterally. HEART: Regular rate and rhythm. S1 and S2 heard. ABDOMEN: Soft. Nondistended. Nontender. EXTREMITIES: Normal range of motion. No clubbing or cyanosis. Peripheral pulses intact. No lower extremity edema NEUROLOGIC: Awake and alert. Oriented x 3. ASSESSMENT: NSTEMI Substernal chest pressure, likely related to NSTEMI Coronary artery disease with previous stenting. Acute heart failure with reduced EF Ischemic cardiomyopathy, 45% Known left bundle branch block Hypertension Hypothyroidism Obesity Echo EF 30 to 35%, Moderate mitral regurgitation Moderate aortic regurgitation, mild aortic stenosis PLAN: Continue aspirin, Plavix, Lipitor Continue IV heparin drip for 48 hours started on 07/29/2024 Continue Coreg 6.25 mg twice daily Increase Imdur to 60 mg daily, continue Ranexa 500 mg twice daily Continue losartan 50 mg daily Continue torsemide 10 mg daily for mildly elevated JVP and PND symptoms. She could not afford Brilinta, SGLT2 and Entresto on outpatient basis. Not on Aldactone because of potassium of 5.2. Consult CT surgery team Will discuss case with Dr. Pendleton who was the primary river driver on the case. There is residual 60 to 70% ostial LAD and proximal LAD disease which which had abnormal IFR assessment on initial evaluation in April. She has moderate 50% disease in ostial LCx which was negative by IFR in April. Previously Dr. Pendleton has expressed that the proximal LAD and the distal left main disease appears to be a poor anatomical location for PCI and requested to obtain surgical evaluation if patient continues to have substernal chest pain. Even with intensified antianginal therapy, patient continued to have substernal chest pressure along with evidence of NSTEMI. Objective - Vital Signs Vital signs: Vital Signs Temp 97.5 F L 07/30/24 11:22 Pulse 64 07/30/24 11:22 Resp 20 07/30/24 11:22 BP 100/63 07/30/24 11:22 Pulse Ox 98 07/30/24 11:22 FiO2 Intake & Output 07/29/24 07/30/24 07/30/24 18:59 06:59 18:59 Intake Total 63.034 171.547 Balance 63.034 171.547 Weight 81.647 kg Intake: Intake, IV Titration 63.034 171.547 Amount Heparin Sod,Pork in 0.45% 63.034 171.547 NaCl 25,000 unit In 0.45 % NaCl 1 250ml.bag @ 12 UNITS/KG/HR 9.798 mls/hr IV .Q24H [facility] Rx#: [id number] - Labs CBC & Chem 7: 07/30/24 07:13 07/29/24 08:20 Labs: Abnormal Lab Results - Last 24 Hours (Table) 07/29/24 07/29/24 07/29/24 Range/Units 11:30 11:30 17:45 APTT 38.4 H 88.0 H (22.0-30.0) sec Troponin I 0.193 H* (0.000-0.034) ng/mL HDL Cholesterol (40.00-60.00) mg/dL 07/30/24 07/30/24 07/30/24 Range/Units 00:15 07:13 07:13 APTT 73.3 H 59.5 H (22.0-30.0) sec Troponin I (0.000-0.034) ng/mL HDL Cholesterol 36.60 L (40.00-60.00) mg/dL
[2024-07-30] MEDS: ISOSORBIDE MONONITRATE ER 30 MG TAB.ER.24H PO STA (11:48)
[2024-07-30] MEDS: PANTOPRAZOLE 40 MG/10 ML VIAL IVP SCH (11:48)
[2024-07-30] MEDS: LEVOTHYROXINE 112 MCG TAB PO SCH (11:48)
[2024-07-30] MEDS: LOSARTAN 25 MG TAB PO STA (12:11)
--- NOTE | 2024-07-30 13:18 | P.PN ---
Subjective Progress Note Date: 07/30/24 H&P Date: 07/29/24 Chief Complaint: Chest pain This is a 74-year-old female with past medical history significant for CAD, ischemic cardiomyopathy, recent NSTEMI with stenting of the mid LAD 05/13/2024 followed by cardiac catheterization on 07/10/2024 reporting no progression of disease with medical therapy maximized, left bundle branch block ,hypertension, hyperlipidemia, morbid obesity, prediabetic with hemoglobin A1c of 6.2 (07/21), hypothyroidism, prior nicotine dependence, and multiple other medical issues presented to the ER with complaints of radiating midsternal chest pain accompanied by diaphoresis and shortness of breath over the last 2 to 3 nights in a row. Admits to fluctuating chest pain since April 2024 as well as her last catheterization in June 2024. denies nausea, vomiting or diarrhea. Denies abdominal pain. Reports weight loss of 11 pounds since April 2024. Denies upper respiratory infections or known sick contacts. She started cardiac rehab yesterday. Reports pain initiates in her right hand travels up her right arm across to her mid sternum. Symptoms usually begin after dinner, progresses through the night, averaging a total of 3 nitro sublinguals each night. Afebrile, normal WBC. Chest x-ray reported nonacute. Hematology, coagulation panel unremarkable. Sodium 136, potassium 5.5, bicarb 21, BUN 25, creatinine 0.96, mag 2.0, T. bili 1.4, AST 77, ALT 42, alk phos WNL. Troponin 0.053. BNP 1870. EKG reported sinus rhythm with left bundle branch block. Anticoagulated on IV heparin drip. Echo ordered. 07/30/2024 serial enzymes 0.053, 0.033, 0.193.Echo reported severely impaired low ventricular systolic function, EF 30 to 35%, moderate mitral regurgitation, mild to moderate aortic regurgitation with mild aortic stenosis, mild tricuspid regurgitation. Reported she had another episode of right arm pain radiating up to midsternal chest pain during the night starting around 10:00, received morphine, pain subsided but developed nausea. Maintained on heparin drip., CTS consult recently placed, evaluation pending. Objective - Vital Signs Vital signs: Vital Signs Temp 97.5 F L 07/30/24 11:22 Pulse 64 07/30/24 11:22 Resp 20 07/30/24 11:22 BP 100/63 07/30/24 11:22 Pulse Ox 98 07/30/24 11:22 FiO2 Intake & Output 07/29/24 07/30/24 07/30/24 18:59 06:59 18:59 Intake Total 63.034 171.547 Balance 63.034 171.547 Weight 81.647 kg Intake: Intake, IV Titration 63.034 171.547 Amount Heparin Sod,Pork in 0.45% 63.034 171.547 NaCl 25,000 unit In 0.45 % NaCl 1 250ml.bag @ 12 UNITS/KG/HR 9.798 mls/hr IV .Q24H PENDING SALE TO [facility] Rx#: [id number] - Exam VITAL SIGNS: [Reviewed] GENERAL: Alert and oriented x 3, sitting up at bedside, no acute distress. [place]. HEENT: Atraumatic, normocephalic, conjunctivae normal. eyes normal. NECK: Supple,no JVD. No thyroid enlargement. No LNs CARDIOVASCULAR: S1, S2. regular rate and rhythm. No murmur. RESPIRATION: Unlabored, equal air entry, essentially clear to auscultation. ABDOMEN: Soft, nondistended, nontender . No guarding. no masses palpable. Positive bowel sounds. LEGS: No edema. no swelling. No calf tenderness. NERVOUS SYSTEM: Cranial N 2-12 grossly normal. No focal deficits. Strength and sensation grossly intact. Skin: Warm and dry, no rash. - Labs CBC & Chem 7: 07/30/24 07:13 07/29/24 08:20 Labs: Abnormal Lab Results - Last 24 Hours (Table) 07/29/24 07/30/24 07/30/24 Range/Units 17:45 00:15 07:13 APTT 88.0 H 73.3 H (22.0-30.0) sec HDL Cholesterol 36.60 L (40.00-60.00) mg/dL 07/30/24 Range/Units 07:13 APTT 59.5 H (22.0-30.0) sec HDL Cholesterol (40.00-60.00) mg/dL Assessment and Plan Assessment: Chest pain, NSTEMI,in a patient with prior CAD, recent NC with stenting of the mid LAD 05/13/2024. 07/10/2024 cardiac catheterization completed reporting 30% distal left main disease, 70% ostial LAD disease, patent stents in the mid LAD, 70% diffuse distal LAD disease. 50% ostial and proximal left circumflex disease negative IFR performed on 05/18/2024. Cardiology reported no progression of CAD, comparing to heart cath of 05/18/2024.Per catheterization reports cardiology felt that the LAD intervention was complex and patient would benefit from optimization of cardiac medications and was started on Imdur therapy. If patient fails antianginal and optimize heart failure medication she would be considered for CABG. Ischemic cardiomyopathy, EF 30 to 35% Moderate mitral regurgitation Mild to moderate aortic regurgitation with mild aortic stenosis Mild tricuspid regurgitation Hyperbilirubinemia with minimally elevated AST and ALT. History of abnormally thickened endometrium with vascularity concerning for endometrial carcinoma, reported per pelvic/transvaginal ultrasound 05/07/2024. Further outpatient workup in progress. Hypertension Hyperlipidemia Morbid obesity, BMI 35, reports 11 pound weight loss since 05/19 Prediabetic, hemoglobin A1c 6.2 (07/21) Prior nicotine dependence, 1 pack/day x 10 years,quit 1978 Anxiety Depression Plan: Continue on current medication regimen ,monitoring and symptomatic treatment. Anticoagulation with heparin drip. Imdur increased as per cardiology. CTS evaluation/recommendations pending. Prognosis guarded given multiple complex medical issues. The impression and plan of care has been dictated as directed. : I performed a history and examination of this patient, discussed the same with the dictator. I agree with the dictator's note ,documented as a scribe. Any additional findings or plans will be noted.
--- NOTE | 2024-07-30 17:56 | P.GSCN ---
History of Present Illness Consult date: 07/30/24 Reason for Consult: Coronary artery disease, non-ST elevated myocardial infarction this admission Requesting physician: Juan Tam History of present illness: This is a 74-year-old female patient who follows on an outpatient basis with Dr. Maury Estrada for her primary care and with Dr. Tam for her cardiology care. She has a past medical history significant for coronary artery disease with previous PCI to her LAD in April 2024, non-ST elevated myocardial infarction in April 2024, ischemic cardiomyopathy with an ejection fraction of 45%, hypertension, hyperlipidemia, hypothyroid, known left bundle branch block, hard of hearing, obesity with a BMI of 35.2 kg/m, remote history of nicotine dependence quit smoking over 40 years ago, and recent vaginal bleeding being followed by [facility]. The patient presented to the emergency department here at [facility] on July 27, 2024 with complaints of pain radiating from her right arm across her chest. She reports the pain mostly happens at night, is relieved by nitroglycerin tablets, although she reports that she does take 2-3 nitroglycerin tablets periodically with episodes of chest pain throughout the night. She has denied any complaints of chest pain with exertion. She denies any recent fever, chills, nausea, vomiting, shortness of breath, palpitations, diarrhea, constipation, headache, presyncope, or syncope. The patient reports over the past 2 to 3 days the chest discomfort has been more frequent and she decided to present to the emergency department for further evaluation and treatment recommendation especially with her previous history. A twelve-lead EKG was completed which showed normal sinus rhythm with a left bundle branch block heart rate 70 bpm. A chest x-ray was completed which showed no evidence of acute cardiopulmonary disease. A transthoracic 2D echocardiogram was completed which showed a left ventricular ejection fraction estimated at 30 to 35%, severely impaired left ventricular systolic function, moderate mitral valve regurgitation, mild aortic valve stenosis with a peak gradient of 19 mmHg, a mean gradient of 12 mmHg, mild to moderate aortic valve regurgitation, mild tricuspid valve regurgitation, trace pulmonic valve regurgitation, and a normal size aortic root and proximal ascending aorta. Initial laboratory results showed a WBC count of 6.5, hemoglobin 12.6, hematocrit 40.1, platelets 195, PT 10.6, INR 1.0, PTT 22.9, sodium 136, potassium 5.5, chloride 105, CO2 21, BUN 25, creatinine 0.96, glucose 103, magnesium 2.0, AST 77, ALT 42, proBNP 1870, and serial troponins as high as 0.193. She was ruled in for non-ST elevated myocardial infarction. Her most recent heart catheterization was completed on July 10, 2024 which demonstrated a 30% stenosis to her distal left main coronary artery, a 70% ostial LAD disease, patent stent in the mid LAD, 70% diffuse distal LAD disease, 50% ostial and proximal left circumflex disease with negative IFR performed on May 18, 2024, when compared to the heart catheterization from 05/18/2024 there was no progression of the CAD. Post heart cath the patient was recommended for intensification and optimization of her antianginal and G DMT for her heart failure. Subsequently, due to the patient's presenting symptoms and results of her heart catheterization on July 10, 2024 a consult was placed to cardiothoracic surgery for further evaluation and treatment recommendations including myocardial vascularization surgery. Review of Systems A review of systems was completed and was negative except as mentioned in the HPI. Past Medical History Past Medical History: Coronary Artery Disease (CAD), Chest Pain / Angina, GERD/Reflux, Hyperlipidemia, Hypertension, Myocardial Infarction (non Q-wave), Thyroid Disorder Additional Past Medical History / Comment(s): hypothyroidism, vaginal bleeding started March 2024, continues to have episodes of vaginal bleeding being followed by [facility]. Last Myocardial Infarction Date:: apr 2024 History of Any Multi-Drug Resistant Organisms: None Reported Past Surgical History: Cholecystectomy, Heart Catheterization With Stent, Or thopedic Surgery Additional Past Surgical History / Comment(s): lt knee arthroscopy. bilateral cataracts. Past Anesthesia/Blood Transfusion Reactions: Motion Sickness Additional Past Anesthesia/Blood Transfusion Reaction / Comm: Patient states anesthesiologist usually gives her Zofran in her IV before surgery Date of Last Stent Placement:: 05/13/24 Smoking Status: Former smoker (Quit smoking over 40 years ago) Past Alcohol Use History: Rare Past Drug Use History: None Reported - Past Family History Mother Family Medical History: Cancer (Lung cancer) Father Family Medical History: Cancer Additional Family Medical History / Comment(s): at age 75 from cancer (pt believes possibly prostate cancer) Medications and Allergies Home Medications Medication Instructions Recorded Confirmed Type Calcium/Magnesium/Zinc 1 tab PO HS 11/29/20 07/29/24 History [Wsrgzoy-Mfxcntitw-Ptwz Tablet] Escitalopram [Lexapro] 10 mg PO HS 11/29/20 07/29/24 History Levothyroxine Sodium [Synthroid] 112 mcg PO DAILY 05/12/24 07/29/24 History Atorvastatin [Lipitor] 80 mg PO HS #30 tab 05/15/24 07/29/24 Rx Nitroglycerin Sl Tabs [Nitrostat] 0.4 mg SUBLINGUAL Q5M PRN #100 tab 05/15/24 07/29/24 Rx Aspirin EC [Ecotrin Low Dose] 81 mg PO DAILY 30 Days #30 tab 05/20/24 07/29/24 Rx Cetirizine HCl [Zyrtec] 10 mg PO HS 07/09/24 07/29/24 History Clopidogrel [Plavix] 75 mg PO DAILY 07/09/24 07/29/24 History Losartan [Cozaar] 50 mg PO DAILY 07/09/24 07/29/24 History Multivitamins, Thera [Multivitamin 1 tab PO HS 07/09/24 07/29/24 History (formulary)] Pantoprazole [Protonix] 40 mg PO DAILY 07/09/24 07/29/24 History Isosorbide Mononitrate ER [Imdur] 30 mg PO DAILY #30 tab 07/11/24 07/29/24 Rx Ranolazine [Ranexa] 500 mg PO Q12HR #60 tab 07/11/24 07/29/24 Rx carvediloL [Coreg] 6.25 mg PO BID-W/MEALS #60 tab 07/11/24 07/29/24 Rx Spironolactone [Aldactone] 12.5 mg PO HS 07/29/24 07/29/24 History Allergies Allergy/AdvReac Type Severity Reaction Status Date / Time Sulfa (Sulfonamide Allergy Rash, RED Verified 07/29/24 07:49 Antibiotics) AND HOT SKIN Surgical - Exam Vital Signs Temp Pulse Resp BP Pulse Ox 97.6 F 66 16 115/68 95 07/29/24 03:25 07/29/24 03:25 07/29/24 03:25 07/29/24 03:25 07/29/24 03:25 - General well developed, well nourished, no distress, no pain - Eyes PERRL, normal ocular movement, no pale, no icteric - ENT normal pinna, normal nares, normal mucosa, no congestion, decreased hearing, no poor assisted - Neck Neck is supple, no lymphadenopathy. no masses, no no bruits, trachea midline, no venous distension carotid bruit: right - Respiratory Lung sounds essentially clear throughout. No wheezes, rhonchi or crackles. Respirations are symmetrical and nonlabored. - Cardiovascular Regular rhythm and rate. S1 and S2 present, negative for S3 or gallop. Positive systolic murmur /6. - Abdomen Abdomen is soft, nontender nondistended. Active bowel sounds present all 4 abdominal quadrants. No guarding or rigidity. - Genitourinary Deferred - Rectum Deferred - Integumentary Skin is warm and dry. No clubbing or cyanosis is present. no rash, no growths, no abnormal pigmentation - Neurologic No focal deficits. - Musculoskeletal Moves all 4 extremities with equal strength bilateral. normal gait, normal posture - Psychiatric oriented to time, oriented to person, oriented to place, speech is normal, memory intact Results - Labs 07/30/24 07:13 07/29/24 08:20 Abnormal Lab Results - Last 24 Hours (Table) 07/29/24 07/30/24 07/30/24 Range/Units 17:45 00:15 07:13 APTT 88.0 H 73.3 H (22.0-30.0) sec HDL Cholesterol 36.60 L (40.00-60.00) mg/dL 07/30/24 Range/Units 07:13 APTT 59.5 H (22.0-30.0) sec HDL Cholesterol (40.00-60.00) mg/dL Diabetes panel 07/30/24 Range/Units 07:13 Triglycerides 94.40 (0.00-149.00) mg/dL HDL Cholesterol 36.60 L (40.00-60.00) mg/dL - Imaging Chest x-ray: report reviewed, image reviewed EKG: image reviewed Assessment and Plan Assessment: Coronary artery disease with history of a previous PCI to her LAD in April 2024 Non-ST elevated myocardial infarction this admission Chest pain with radiating pain to her right arm, likely secondary to above Ischemic cardiomyopathy with an ejection fraction of 30 to 35% on most recent transthoracic 2D echocardiogram Acute systolic heart failure with a proBNP of 1870 Left bundle branch block Hypertension Hyperlipidemia Hypothyroidism Recent vaginal bleeding starting in March 2024, most recent episode of bleeding was today July 30, 2024 Obesity with a BMI of 35.2 kg/m Remote history of nicotine dependence quit smoking over 40 years ago Hard of hearing Plan: The patient was seen and examined at her bedside on the third floor cardiac stepdown unit in conjunction with Dr. Watson Neumann from cardiothoracic surgery. Her chart and diagnostics were reviewed. The patient's is present at her bedside. Dr. Neumann discussed the findings on the most recent heart catheterization results and transthoracic 2D echocardiogram results with the patient and the patient's . Treatment options were discussed including myocardial vascularization surgery. The usual course of cardiac surgery was discussed with the patient by Dr. Neumann. Preoperative teaching and preoperative testing has been initiated. A clinical frailty score was calculated which equals 2. Once the patient's preoperative testing has been completed an STS risk or will be calculated and discussed with the patient. We will hold the patient's Plavix at this time after speaking with Dr. Tam. Continue heparin drip per protocol managed by cardiology. We will complete a 5 m walk test with the patient. Continue to maximize medical management with aspirin, statin and beta-apolonia. More recommendations to follow based on patient's clinical course. Medical management of other comorbidities per internal medicine and cardiology service. Thank you Dr. Tam for this consult and we look forward to working with you in the care of this patient. I have personally seen and examined the patient, performed the documentation and the assessment and plan as written. Number of minutes spent on the visit: 30. ROSY Little
[2024-07-30] MEDS: ESCITALOPRAM 10 MG TAB PO SCH (20:37)
[2024-07-30] MEDS: MUPIROCIN 2% OINT 22 GM TUBE NASAL SCH (20:37)
[2024-07-30] MEDS: LORATADINE 10 MG TAB PO SCH (20:37)
--- NOTE | 2024-07-30 20:44 | US ---
EXAMINATION TYPE: Pre-Operative Non-Invasive Evaluation of the hand for Potential Radial Artery [employer], Measurements only DATE OF EXAM: 07/30/2024 7:40 PM CLINICAL INDICATION: Female, 74 years old with history of Pre-Op Cardiac Surgery; , Preop- Cardiac Lynn rgery TECHNIQUE:Grayscale and color Doppler imaging of the radial artery(s) SIDE PERFORMED: Left FINDINGS: Dominant hand: Right Duplex Findings: Radial Artery: Color flow seen Measurements in mm, transverse view: Left Radial Proximal: 3 x 3 mm Mid: 2 x 3 mm Distal: 2 x 2 mm IMPRESSION: 1. No evidence for vascular occlusion. 2. Measurements as described above. [facility], , 07/30/2024 8:41 PM
--- NOTE | 2024-07-30 20:51 | US ---
EXAMINATION TYPE: US carotid duplex BILAT DATE OF EXAM: 07/30/2024 COMPARISON: NONE CLINICAL INDICATION: Female, 74 years old with history of Pre-Op Cardiac Surgery; Open heart Additional History: .... TECHNIQUE: Grayscale, color Doppler and spectral Doppler evaluation of the bilateral carotid systems and vertebral arteries. Indirect Doppler criteria was utilized. FINDINGS: EXAM MEASUREMENTS: RIGHT: Peak Systolic Velocity (PSV) cm/sec ----- Right CCA: 67.1 ----- Right ICA: 103.4 ----- Right ECA: 99.5 ICA/CCA ratio: 1.5 RIGHT: End Diastole cm/sec ----- Right CCA: 13.9 ----- Right ICA: 23.2 ----- Right ECA: 2.5 LEFT: Peak Systolic Velocity (PSV) cm/sec ----- Left CCA: 79.0 ----- Left ICA: 159.4 ----- Left ECA: 137.6 ICA/CCA ratio: 2.0 LEFT: End Diastole cm/sec ----- Left CCA: 16.0 ----- Left ICA: 23.4 ----- Left ECA: 3.7 VERTEBRALS (direction of flow): Right Vertebral: Antegrade Left Vertebral: Antegrade Rhythm: Normal LIBRARIAN NOTES: Plaque seen bilateral bulbs. Elevated velocities seen within left mid and distal I CA. Tortuosity seen in the left ICA. Color Doppler imaging shows patency with blood flow throughout the carotid artery. Spectral waveforms are within normal limits. IMPRESSION: 50-69% stenosis suggested left mid ICA. Criteria for Assigning % of Stenosis / Diameter reduction (Estimation based on the indirect measurements of the internal carotid artery velocities (ICA PSV). 1. Normal (no stenosis)=ICA PSV < 125 cm/s: ratio < 2.0: ICA EDV<40 cm/s. 2. Less than 50% stenosis=ICA PSV < 125 cm/s: ratio < 2.0: ICA EDV<40 cm/s. 3. 50 to 69% stenosis=ICA PSV of 125 to 230 cm/s: ration 2.0 ? 4.0: ICA EDV 40-100 cm/s. 4. Greater than 70% stenosis to near occlusion= ICA PSV > 230 cm/s: ratio > 4.0: ICA EDV > 100 cm/s. 5. Near occlusion= ICA PSV velocities may be low or undetectable: variable ratio and ICA EDV. 6. Total occlusion=unable to detect flow. [facility], , 07/30/2024 8:48 PM
--- NOTE | 2024-07-30 20:52 | US ---
EXAMINATION TYPE: US vein mapping BILAT DATE OF EXAM: 07/30/2024 7:40 PM COMPARISON: NONE CLINICAL INDICATION: Female, 74 years old with history of PreOp Cardiac Surgery; Open heart, Preop- C ardiac Surgery TECHNIQUE: Grayscale and color Doppler imaging of the lower extremity venous system. SIDE PERFORMED: Bilateral FINDINGS: DUPLEX FINDINGS: Greater Saphenous: Color flow seen Measurements in mm: Right Greater Saphenous: Groin: 6 x 8 mm High Thigh: 3 x 4 mm Mid Thigh: 3 x 4 mm Above Knee: 3 x 3 mm Knee: 4 x 4 mm Below Knee: 3 x 3 mm Mid Calf: 3 x 3 mm At Ankle: 3 x 3 mm Left Greater Saphenous: Groin: 6 x 6mm High Thigh: 4 x 5 mm Mid Thigh: 4 x 5 mm Above Knee: 4 x 4 mm Knee: 4 x 4 mm Below Knee: 4 x 4 mm Mid Calf: 3 x 4 mm At Ankle: 3 x 4 mm IMPRESSION: 1. No evidence for occlusion. 2. GSV measurements listed above. 3. Performing surgeon to determine viability as conduit. [facility], , 07/30/2024 8:49 PM
--- NOTE | 2024-07-30 20:58 | CT ---
EXAMINATION TYPE: CT chest wo con DATE OF EXAM: 07/30/2024 COMPARISON: CLINICAL INDICATION: Female, 74 years old with history of Preop cardiac surgery, evaluate aorta; [facility], Preop cardiac surgery, evaluate aorta. TECHNIQUE: CT scan of the thorax is performed without IV contrast. CT DLP: [address] CTDI: mGy Automated exposure control for dose reduction was used. FINDINGS: LUNGS: The lungs are grossly clear, there is no concerning parenchymal mass or nodule identified. T here is no pleural effusion or pneumothorax seen. The tracheobronchial tree is patent. MEDIASTINUM: The thoracic aorta is of normal caliber. Ascending thoracic aorta measures 3.4 cm AP dim ension while the descending thoracic aorta measures 2.4 cm. Aortic arch is of normal caliber. Mild ca lcific atheromatous change noted. There is mild cardiomegaly. Zaboj-ea-auqrwjic fixed hiatal hernia s een. Lack of IV contrast is noted to limit evaluation for mediastinal and especially hilar adenopathy . There are no definitive greater than 1 cm hilar or mediastinal lymph nodes. No cardiomegaly or pe ricardial effusion is seen. OTHER: No additional significant abnormality is seen. IMPRESSION: 1. No evidence for thoracic aortic aneurysm. Mild scattered calcific atheromatous change. 2. Hiatal hernia is noted. Follow-up recommendations for incidental pulmonary nodules are per [employer] or [employer]. [facility], , 07/30/2024 8:56 PM
[2024-07-31 02:40] LABS: Appearance,Urine Cloudy (Clear); Bacteria,Urine Many /hpf; Bilirubin,Urine Negative (Negative); Blood,Urine Large (Negative); Color,Urine Yellow; Glucose,Urine (UA) Negative (Negative); Hyaline Casts,Urine 2 /lpf (0-2); Ketones,Urine Negative (Negative); Leukocyte Esterase,Urine Large (Negative); Nitrite,Urine Negative (Negative); PH, Urine 5.5 (5.0-8.0); Protein,Urine Trace (Negative); RBC,Urine 40 /hpf (0-5); Specific Gravity,Urine 1.009 (1.001-1.035); Urobilinogen,Urine <2.0 mg/dL (<2.0); WBC,Urine >182 /hpf (0-5)
[2024-07-31 06:29] LABS: Basophils % (A) 0 %; Eosinophils # (A) 0.2 k/uL (0-0.7); Eosinophils % (A) 4 %; HCT 37.6 % (34.0-46.0); HGB 11.7 gm/dL (11.4-16.0); Hypochromasia Slight; Lymphocytes # (A) 1.6 k/uL (1.0-4.8); Lymphocytes % (A) 25 %; MCH 28.7 pg (25.0-35.0); MCHC 31.1 g/dL (31.0-37.0); MCV 92.3 fL (80.0-100.0); Mean Platelet Volume 8.2; Monocytes # (A) 0.5 k/uL (0-1.0); Monocytes % (A) 7 %; Neutrophils # (A) 3.7 k/uL (1.3-7.7); Neutrophils % (A) 60 %; Platelet Count 178 k/uL (150-450); RBC 4.07 m/uL (3.80-5.40); RDW 14.6 % (11.5-15.5); WBC 6.1 k/uL (3.8-10.6)
[2024-07-31 06:48] LABS: ALT 44 U/L (4-34); AST 74 U/L (14-36); African American GFR (CKD) 84 (>60 ml/min/1.73 sqM); Albumin 3.7 g/dL (3.5-5.0); Alkaline Phosphatase 155 U/L (38-126); Anion Gap 8 mmol/L; Blood Urea Nitrogen 18 mg/dL (7-17); Calcium 8.8 mg/dL (8.4-10.2); Carbon Dioxide 25 mmol/L (22-30); Chloride 105 mmol/L (98-107); Glucose 90 mg/dL (74-99); Magnesium 1.9 mg/dL (1.6-2.3); Non-African American GFR(CKD) 73 (>60 ml/min/1.73 sqM); Potassium 4.8 mmol/L (3.5-5.1); Sodium 138 mmol/L (137-145); Total Bilirubin 1.4 mg/dL (0.2-1.3); Total Protein 6.8 g/dL (6.3-8.2)
[2024-07-31] MEDS ORDERED: AMINOPHYLLINE 500 MG/20 ML VIAL IV PRN (08:25)
[2024-07-31] MEDS ORDERED: CAFFEINE CITRATE 60 MG/3 ML VIAL IV PRN (08:25)
[2024-07-31] MEDS ORDERED: REGADENOSON 0.4 MG/5 ML SYRINGE IV PRN (08:25)
[2024-07-31] MEDS ORDERED: BENZOCAINE SPRAY 1 CAN TOPICAL PRN (08:46)
[2024-07-31] MEDS ORDERED: LOSARTAN 50 MG TAB PO SCH (09:00)
[2024-07-31] MEDS: ATORVASTATIN 80 MG TAB PO STA (09:38)
[2024-07-31] MEDS: ISOSORBIDE MONONITRATE ER 30 MG TAB.ER.24H PO SCH (09:38)
[2024-07-31] MEDS: ASPIRIN 325 MG TAB PO STA (09:38)
[2024-07-31] MEDS: LOSARTAN 50 MG TAB PO SCH (09:39)
--- NOTE | 2024-07-31 10:06 | P.PN ---
Subjective Progress Note Date: 07/31/24 Principal diagnosis: Coronary artery disease, non-ST elevated myocardial infarction this admission. Past medical history significant for coronary artery disease with previous PCI t o her LAD in April 2024, non-ST elevated myocardial infarction in April 2024, ischemic cardiomyopathy with an ejection fraction of 45%, hypertension, hyperlipidemia, hypothyroid, known left bundle branch block, hard of hearing, obesity with a BMI of 35.2 kg/m, remote history of nicotine dependence quit smoking over 40 years ago, and recent vaginal bleeding being followed by [facility]. The patient was seen and examined in follow-up today July 31, 2024 at her bedside on the third floor cardiac stepdown unit. She is currently sitting up to the bedside edge, is awake, alert, oriented x 3 and is in no acute apparent distress. She denies any further complaints of chest pain/pressure and denies any complaints of shortness of breath at this time. Heparin drip remains infusing per protocol. Her Plavix is currently on hold. She is scheduled for a transesophageal echocardiogram today to be completed by Dr. Tam. Preoperative testing and preoperative teaching is in progress. A five meter walk test has been completed with the patient this morning by cardiac rehab, time 1: 4.40 seconds, time 2: 4.16 seconds, and time 3: 4.55 seconds. The patient denied any symptoms during or after the walk test. A CT scan of the chest was completed yesterday which showed no evidence for thoracic aortic aneurysm, mild scattered calcific atheromatous change, and a hiatal hernia. Carotid duplex study showed a 50 to 69% stenosis to her left mid ICA. Laboratory results reviewed. Objective - Vital Signs Vital signs: Vital Signs Temp 98.4 F 07/31/24 07:34 Pulse 75 07/31/24 07:34 Resp 14 07/31/24 07:34 BP 117/76 07/31/24 07:34 Pulse Ox 95 07/31/24 07:34 FiO2 Intake & Output 07/30/24 07/31/24 07/31/24 18:59 06:59 18:59 Intake Total 457.92 Output Total 200 Balance 457.92 -200 Weight 81.647 kg 81.4 kg Intake: IV 97.92 Heparin Sod,Pork in 0.45% 97.92 NaCl 25,000 unit In 0.45 % NaCl 1 250ml.bag @ 12 UNITS/KG/HR 9.798 mls/hr IV .Q24H [facility] Rx#: [id number] Oral 360 Output: Urine 200 Other: # Voids 1 - Exam CONSTITUTIONAL: Sitting up to the bedside edge, appears comfortable, cooperative, no apparent acute distress. HEENT: Neck is supple, no JVD, no lymphadenopathy. RESPIRATORY: Lungs sounds essentially clear throughout. Respirations are symmetrical and nonlabored. Currently on room air with oxygen saturations 95%. Able to achieve 1500 mL on her incentive spirometry. Strong cough. CARDIOVASCULAR: Regular rhythm and rate. S1 and S2 present, negative for S3, or gallop. Systolic murmur present 3/6. Sternum is stable. Palpable peripheral pulses bilaterally. GASTROINTESTINAL: Abdomen soft, nontender, nondistended. Active bowel sounds present 4 quadrants. Tolerating diet. Passing flatus. No guarding or rigidity. GENITOURINARY: Continues to void. INTEGUMENTARY: Skin is warm and dry with no evidence of clubbing or cyanosis. NEUROLOGIC: Cranial nerves II through XII intact. No focal deficits. MUSKULOSKELETAL: Able to move all extremities, strength equal bilaterally. PSYCHIATRIC: Alert and oriented to person place and time, appropriate affect, intact judgment and insight. - Labs CBC & Chem 7: 07/31/24 06:03 07/31/24 06:03 Labs: Abnormal Lab Results - Last 24 Hours (Table) 07/30/24 07/31/24 07/31/24 Range/Units 07:13 01:29 06:03 BUN 18 H (7-17) mg/dL Hemoglobin A1c (<=6.0) % Total Bilirubin 1.4 H (0.2-1.3) mg/dL AST 74 H (14-36) U/L ALT 44 H (4-34) U/L Alkaline Phosphatase 155 H (38-126) U/L HDL Cholesterol 36.60 L (40.00-60.00) mg/dL Urine Appearance Cloudy H (Clear) Urine Protein Trace H (Negative) Urine Blood Large H (Negative) Ur Leukocyte Esterase Large H (Negative) Urine RBC 40 H (0-5) /hpf Urine WBC >182 H (0-5) /hpf Urine WBC Clumps Many H (None) /hpf Urine Bacteria Many H (None) /hpf 07/31/24 Range/Units 06:20 BUN (7-17) mg/dL Hemoglobin A1c 6.1 H (<=6.0) % Total Bilirubin (0.2-1.3) mg/dL AST (14-36) U/L ALT (4-34) U/L Alkaline Phosphatase (38-126) U/L HDL Cholesterol (40.00-60.00) mg/dL Urine Appearance (Clear) Urine Protein (Negative) Urine Blood (Negative) Ur Leukocyte Esterase (Negative) Urine RBC (0-5) /hpf Urine WBC (0-5) /hpf Urine WBC Clumps (None) /hpf Urine Bacteria (None) /hpf - Imaging and Cardiology Chest x-ray: report reviewed, image reviewed CT scan - chest: report reviewed, image reviewed Assessment and Plan Assessment: Coronary artery disease with history of a previous PCI to her LAD in April 2024 Non-ST elevated myocardial infarction this admission Chest pain with radiating pain to her right arm, likely secondary to above Ischemic cardiomyopathy with an ejection fraction of 30 to 35% on most recent transthoracic 2D echocardiogram Acute systolic heart failure with a proBNP of 1870 Left bundle branch block Hypertension Hyperlipidemia Hypothyroidism Recent vaginal bleeding starting in March 2024, most recent episode of bleeding was today July 30, 2024 Obesity with a BMI of 35.2 kg/m Remote history of nicotine dependence quit smoking over 40 years ago Hard of hearing Plan: Preoperative teaching and preoperative testing in progress. The patient is scheduled for a transesophageal echocardiogram today by Dr. Tam. A 5 m walk test was completed with the patient today, time 1: 4.40 seconds, time 2: 4.16 seconds, and time 3: 4.55 seconds. Encourage use of incentive spirometry 10 times every hour while awake. An STS risk or will be calculated and discussed with the patient once her preoperative testing has been completed. A clinical frailty score has been calculated with a score equaling 2. Medical management of other comorbidities per internal medicine and cardiology recommendations. More recommendations to follow based on patient's clinical course. Time with Patient: Greater than 30
[2024-07-31] MEDS ORDERED: AMINOPHYLLINE 500 MG/20 ML VIAL IV ONE (11:55)
[2024-07-31] MEDS: IV FLUID CONTINUATION 500 ML IV ONE (13:07)
[2024-07-31] MEDS: BENZOCAINE SPRAY 1 EACH MM ONE (13:07)
[2024-07-31] MEDS: fentaNYL (PF) 50 MCG/ML 2 ML AMP IVP ONE (13:19)
[2024-07-31] MEDS: MIDAZOLAM 2 MG/2 ML VIAL IVP ONE (13:19)
[2024-07-31] MEDS: MIDAZOLAM 2 MG/2 ML VIAL IV PRN (13:23)
[2024-07-31] MEDS: fentaNYL (PF) 50 MCG/ML 5 ML AMP IVP PRN (13:24)
--- NOTE | 2024-07-31 14:31 | NM ---
EXAMINATION TYPE: NM stress lexiscan cardiolite DATE OF EXAM: 07/31/2024 COMPARISON: NONE CLINICAL INDICATION: Female, 74 years old with history of Chest pain, CAD; history of heart attack an d prior angioplasty. History of hypertension. TECHNIQUE: After the intravenous administration of 10.4 mCi Tc 99m Sestamibi - Cardiolite resting SP ECT images acquired 115 minutes post injection. The patient received 0.4mg Lexiscan, 24.8 mCi Tc 99m Sestamibi - Stress images obtained [address] injection FINDINGS: Review of stress and rest SPECT images demonstrates poor uptake in the septal wall in the cardiac ape x on stress and rest images suspicious for old infarct. No convincing evidence for reversible ischem ia. Gated analysis shows estimated left ventricular ejection fraction of 40 %, diminished from the no rmal range. IMPRESSION: Old infarct or infarcts. No convincing scintigraphic evidence for reversible ischemia. [facility], , 07/31/2024 2:29 PM
--- NOTE | 2024-07-31 16:23 | P.TEE ---
Date of Procedure: 07/31/24 Description of Procedure(s): Procedure performed: 1. Transesophageal Echocardiogram with color flow doppler, pulsed wave doppler and continuous wave doppler, (CPT 61436, +[id number], +[id number]) 2. Moderate conscious sedation. Sedation time [20] mins. (CPT 26540 Indications: Moderate regurgitation and aortic regurgitation HPI: Patient with recurrent NSTEMI and substernal chest pressure persisting after PCI is being evaluated for open heart surgery. Her echo showed moderate mitral regurgitation and moderate aortic regurgitation for which cardiothoracic surgery team requested to perform valvular evaluation from WILLAM. Moderate regurgitation and aortic regurgitation evaluation before anticipated cardiac surgery Consent: I have discussed the risks, benefits and alternative therapies for the above-mentioned procedure. The patient has indicated understanding and acceptance of the risks of the procedure. Signed consent was obtained and was placed in the paper chart. Procedural Steps: Timeout was performed in usual fashion. Patient's heart rate, blood pressure, oxygen saturation and ECG were monitored. Benzocaine was sprayed liberally in the back of the throat. Bite block was placed between the jaw. 2 mg of Versed and 50 mcg of Fentanyl were administered intravenously. After achieving appropriate moderate conscious sedation, WILLAM probe was advanced without difficulty and without any immediate complications to the esophagus. WILLAM study was performed with color flow doppler, pulsed wave doppler and continuous wave doppler. The probe was then removed. Patient tolerated the procedure well. Patient was transferred to the post procedure area in stable and satisfactory condition. Throughout the procedure patient's heart rate, blood pressure, oxygen saturation and ECG were monitored. Total sedation time [20] mins. Complications: none FINDINGS Left Atrium: Normal Left atrial size. No evidence of mass or thrombus seen Left Atrial Appendage: No evidence of thrombus or mass seen in GIANNA Inter atrial septum: Intact inter-atrial septum with no evidence of atrial septal defect or patent foramen ovale. Aneurysmal interatrial septum Left Ventricle: Normal global LV size and systolic function Right Atrium: Normal overall RA size Right Ventricle: Normal global RV size and systolic function Aortic Valve: Calcific thickening of trileaflet aortic valve. Mild to moderate aortic regurgitation centrally directed.. Mitral Valve: Structurally normal with mild mitral regurgitation. Pulmonic Valve: Not well visualized. Tricuspid Valve: Mild tricuspid regurgitation Ascending aorta, Aortic root and Aortic arch: Normal size ascending aorta and aortic root. Calcification noticed in ascending and aortic arch Descending aorta: Mild intimal thickening. Calcific plaque noticed in descending aorta No pericardial effusion CONCLUSION: Preserved LV size and systolic function with moderate concentric LVH Mild mitral regurgitation likely functional Mild to moderate central aortic regurgitation. Calcified trileaflet aortic valve Calcification noticed on ascending aorta and aortic root with normal size ascending aorta. Juan Tam MD, RPVI, FACC Thank you for allowing [facility] to participate in this patient's care. Feel free to reach out in case of any followup questions.
--- NOTE | 2024-07-31 18:30 | CA ---
Lexiscan Nuclear Stress Test Report Name: Aidee Casas Exam Date: 07/31/2024 11:23 Exam Location: [facility] Ht (in): 60 Wt (lb): 179 BSA: 1.78 Ordering Phys: Juan Tam MD Referring Phys: Yonatan Technologist: JOSE BRADEN Age: 74 Gender: F : 1950 Procedure CPT: Indications: Reflex order-Stress test ICD-10 Codes: Patient History: CP, KAMAR, HTN, HIGH CHOL, NUMBNESS, [place], CATH, 2PTCA. Medications: SEE CHART,,, Meds past 24 hrs: Pretest Chest Pain: STRESS TEST Lexiscan Protocol Exercise Duration (min:sec): 02:[address] Depressions (mm): Angina Score: Leonard Score: Resting HR (bpm): 64 Peak HR (bpm): 80 Resting BP (mmHg): 106 / 54 Peak BP (mmHg): 106 / 54 MPHR: 145 Target HR: 123 % MPHR: 55 METS: 1.0 Total Dose: Peak Dose: Atropine: Double Product: 8480 BP Response: Stress Termination: INFUSION COMPLETE Stress Symptoms: NAUSEA Stress Summary: ECG ANALYSIS Resting ECG: Stress ECG: CONCLUSIONS No ECG evidence for ischemia during Lexiscan infusion Nuclear portion will be reported separately Dr. Simon Hilario MD (Electronically Signed) Final Date: 31 July 2024 18:29
[2024-08-01 08:00] LABS: Basophils % (A) 0 %; Eosinophils # (A) 0.2 k/uL (0-0.7); Eosinophils % (A) 4 %; HCT 37.3 % (34.0-46.0); HGB 11.4 gm/dL (11.4-16.0); Hypochromasia Moderate; Lymphocytes # (A) 1.3 k/uL (1.0-4.8); Lymphocytes % (A) 25 %; MCH 28.5 pg (25.0-35.0); MCHC 30.6 g/dL (31.0-37.0); MCV 93.1 fL (80.0-100.0); Mean Platelet Volume 7.8; Monocytes # (A) 0.4 k/uL (0-1.0); Monocytes % (A) 8 %; Neutrophils # (A) 3.1 k/uL (1.3-7.7); Neutrophils % (A) 59 %; Platelet Count 189 k/uL (150-450); RDW 14.3 % (11.5-15.5); WBC 5.2 k/uL (3.8-10.6)
[2024-08-01 08:28] LABS: ALT 49 U/L (4-34); AST 77 U/L (14-36); African American GFR (CKD) 84 (>60 ml/min/1.73 sqM); Albumin 3.4 g/dL (3.5-5.0); Alkaline Phosphatase 133 U/L (38-126); Anion Gap 8 mmol/L; Blood Urea Nitrogen 19 mg/dL (7-17); Calcium 8.7 mg/dL (8.4-10.2); Carbon Dioxide 23 mmol/L (22-30); Chloride 107 mmol/L (98-107); Glucose 85 mg/dL (74-99); Magnesium 1.9 mg/dL (1.6-2.3); Non-African American GFR(CKD) 73 (>60 ml/min/1.73 sqM); Potassium 4.5 mmol/L (3.5-5.1); Sodium 138 mmol/L (137-145); Total Bilirubin 1.4 mg/dL (0.2-1.3); Total Protein 6.5 g/dL (6.3-8.2)
[2024-08-01] MEDS ORDERED: HEPARIN SODIUM 1,000 UN/ML (10ML VL) IV PRN (08:29)
[2024-08-01] MEDS: HEPARIN SOD,PORK IN 0.45% NACL 25,000 UNIT in 0.45% NACL 1 250ML.BAG IV SCH (09:41)
--- NOTE | 2024-08-01 10:14 | P.PN ---
Subjective Progress Note Date: 08/01/24 Principal diagnosis: Coronary artery disease, non-ST elevated myocardial infarction this admission. Past medical history significant for coronary artery disease with previous PCI t o her LAD in April 2024, non-ST elevated myocardial infarction in April 2024, ischemic cardiomyopathy with an ejection fraction of 45%, hypertension, hyperlipidemia, hypothyroid, known left bundle branch block, hard of hearing, obesity with a BMI of 35.2 kg/m, remote history of nicotine dependence quit smoking over 40 years ago, and recent vaginal bleeding being followed by [facility]. The patient was seen and examined in follow-up today August 01, 2024 at her bedside on the third floor cardiac stepdown unit. She is currently laying in bed, is awake, alert, oriented x 3 and is in no acute apparent distress. Denies any complaints of shortness of breath throughout the night, although reports an episode of chest pressure which was self-limiting and relieved after about 2 minutes according to the patient. She has been up ambulating in her room independently. Oxygen saturations are 94% on room air and she is achieving 1500 mL on her incentive spirometry with encouragement. Remote telemetry showing normal sinus rhythm heart rate 61 bpm. She underwent a transesophageal echocardiogram yesterday July 31, [address] Tam which demonstrated normal global LV size and systolic function, calcific thickening of the trileaflet aortic valve, mild to moderate aortic regurgitation centrally directed, structurally normal mitral valve with mild mitral regurgitation, and mild tricuspid valve regurgitation. It also showed a normal size a ascending aorta and aortic root. The patient also underwent a nuclear med stress Lexiscan Cardiolite test yesterday which the impression showed old infarct or infarcts, no convincing evidence for reversible ischemia. Laboratory results reviewed. Objective - Vital Signs Vital signs: Vital Signs Temp 97.5 F L 08/01/24 08:37 Pulse 65 08/01/24 08:37 Resp 14 08/01/24 08:37 BP 109/71 08/01/24 08:37 Pulse Ox 94 L 08/01/24 08:37 FiO2 Intake & Output 07/31/24 08/01/24 08/01/24 18:59 06:59 18:59 Intake Total 100 180 Balance 100 180 Weight 81.4 kg Intake: IV 100 Oral 180 Other: Voiding Method Toilet # Voids 1 1 - Exam CONSTITUTIONAL: Sitting up to the bedside edge, appears comfortable, cooperative, no apparent acute distress. HEENT: Neck is supple, no JVD, no lymphadenopathy. RESPIRATORY: Lungs sounds essentially clear throughout. Respirations are symmetrical and nonlabored. Currently on room air with oxygen saturations 95%. Able to achieve 1500 mL on her incentive spirometry. Strong cough. CARDIOVASCULAR: Regular rhythm and rate. S1 and S2 present, negative for S3, or gallop. Systolic murmur present 3/6. Sternum is stable. Palpable peripheral pulses bilaterally. Remote telemetry showing normal sinus rhythm heart rate 61 bpm. GASTROINTESTINAL: Abdomen soft, nontender, nondistended. Active bowel sounds present 4 quadrants. Tolerating diet. Passing flatus. No guarding or rigidity. GENITOURINARY: Continues to void. INTEGUMENTARY: Skin is warm and dry with no evidence of clubbing or cyanosis. NEUROLOGIC: Cranial nerves II through XII intact. No focal deficits. MUSKULOSKELETAL: Able to move all extremities, strength equal bilaterally. PSYCHIATRIC: Alert and oriented to person place and time, appropriate affect, intact judgment and insight. - Allied health notes Allied health notes reviewed: nursing - Labs CBC & Chem 7: 08/01/24 07:08 08/01/24 07:08 Labs: Abnormal Lab Results - Last 24 Hours (Table) 08/01/24 08/01/24 Range/Units 07:08 07:08 MCHC 30.6 L (31.0-37.0) g/dL BUN 19 H (7-17) mg/dL Total Bilirubin 1.4 H (0.2-1.3) mg/dL AST 77 H (14-36) U/L ALT 49 H (4-34) U/L Alkaline Phosphatase 133 H (38-126) U/L Albumin 3.4 L (3.5-5.0) g/dL Assessment and Plan Assessment: Coronary artery disease with history of a previous PCI to her LAD in April 2024 Non-ST elevated myocardial infarction this admission Chest pain with radiating pain to her right arm, likely secondary to above Ischemic cardiomyopathy with an ejection fraction of 30 to 35% on most recent transthoracic 2D echocardiogram Acute systolic heart failure with a proBNP of 1870 Transaminitis, AST 77, ALT 49 Left bundle branch block Hypertension Hyperlipidemia Hypothyroidism Recent vaginal bleeding starting in March 2024, most recent episode of bleeding was today July 30, 2024 Obesity with a BMI of 35.2 kg/m Remote history of nicotine dependence quit smoking over 40 years ago Hard of hearing Plan: Preoperative teaching and preoperative testing in progress. Preoperative teaching reinforced with the patient. Continue to hold Plavix, the Plavix will need to be held 5 to 7 days prior to surgery. Timing of surgery is being discussed, my cardiovascular is a brock surgery likely next week. Results of transesophageal echocardiogram reviewed by Dr. Kirby. A 5 m walk test was completed with the patient yesterday, time 1: 4.40 seconds, time 2: 4.16 seconds, and time 3: 4.55 seconds. Encourage use of incentive spirometry 10 times every hour while awake. An STS risk or will be calculated and discussed with the patient once her preoperative testing has been completed. A clinical frailty score has been calculated with a score equaling 2. Medical management of other comorbidities per internal medicine and cardiology recommendations. Heparin drip management and recommendations per cardiology. More recommendations to follow based on patient's clinical course. Time with Patient: Greater than 30
--- NOTE | 2024-08-01 11:53 | P.PN ---
Subjective This is a pleasant 74 years old female who presents with signs symptoms of non- STEMI secondary to proximal LAD disease with evidence of ischemic cardiomyopathy with ejection fraction 30 to 35%. Patient currently with no dyspnea but she has ongoing chest pain which prompted cardiothoracic surgery evaluation for her bypass procedure She still has chest pain, she has 3 episodes last night over 1 hour which woke her up from sleep Currently she does not look overtly hypervolemic, she has little leg edema with no basal crepitation or dyspnea Objective - Vital Signs Vital signs: Vital Signs Temp 97.5 F L 08/01/24 08:37 Pulse 65 08/01/24 08:37 Resp 14 08/01/24 08:37 BP 109/71 08/01/24 08:37 Pulse Ox 94 L 08/01/24 08:37 FiO2 Intake & Output 07/31/24 08/01/24 08/01/24 18:59 06:59 18:59 Intake Total 100 180 Balance 100 180 Weight 81.4 kg Intake: IV 100 Oral 180 Other: Voiding Method Toilet # Voids 1 1 1 - Exam GENERAL: The patient is alert and oriented x3, not in any acute distress. Well developed, well nourished. HEENT: Pupils are round and equally reacting to light. EOMI. No scleral icterus. No conjunctival pallor. Normocephalic, atraumatic. No pharyngeal erythema. No thyromegaly. CARDIOVASCULAR: S1 and S2 present. No murmurs, rubs, or gallops. PULMONARY: Chest is clear to auscultation, no wheezing , no crackles. ABDOMEN: Soft, nontender, nondistended, normoactive bowel sounds. No palpable organomegaly. MUSCULOSKELETAL: No joint swelling or deformity. -EXTREMITIES: No cyanosis, clubbing, or p mild bilateral pitting leg edema. NEUROLOGICAL: Gross neurological examination did not reveal any focal deficits. SKIN: No rashes. no petechiae. - Labs CBC & Chem 7: 08/01/24 07:08 08/01/24 07:08 Labs: Abnormal Lab Results - Last 24 Hours (Table) 08/01/24 08/01/24 Range/Units 07: 07:08 MCHC 30.6 L (31.0-37.0) g/dL BUN 19 H (7-17) mg/dL Total Bilirubin 1.4 H (0.2-1.3) mg/dL AST 77 H (14-36) U/L ALT 49 H (4-34) U/L Alkaline Phosphatase 133 H (38-126) U/L Albumin 3.4 L (3.5-5.0) g/dL Assessment and Plan Assessment: Chest pain, NSTEMI,in a patient with prior CAD, recent UT with stenting of the mid LAD 05/13/2024. 07/10/2024 cardiac catheterization completed reporting 30% d istal left main disease, 70% ostial LAD disease, patent stents in the mid LAD, 70% diffuse distal LAD disease. 50% ostial and proximal left circumflex disease negative IFR performed on 05/18/2024. Cardiology reported no progression of CAD, comparing to heart cath of 05/18/2024.Per catheterization reports cardiology felt that the LAD intervention was complex and patient would benefit from optimization of cardiac medications and was started on Imdur therapy. If patient fails antianginal and optimize heart failure medication she would be considered for CABG. Ischemic cardiomyopathy, EF 30 to 35% Moderate mitral regurgitation Mild to moderate aortic regurgitation with mild aortic stenosis Mild tricuspid regurgitation Hyperbilirubinemia with minimally elevated AST and ALT. History of abnormally thickened endometrium with vascularity concerning for endometrial carcinoma, reported per pelvic/transvaginal ultrasound 05/07/2024. Further outpatient workup in progress. Hypertension Hyperlipidemia Morbid obesity, BMI 35, reports 11 pound weight loss since 05/19 Prediabetic, hemoglobin A1c 6.2 (07/21) Prior nicotine dependence, 1 pack/day x 10 years,quit 1978 Anxiety Depression Plan: Continue on the current cardiac medication, Coreg, losartan Ranexa Continue with diuretic torsemide Patient on antibiotic ceftriaxone Patient on aspirin Cardiology team following Cardiothoracic surgery evaluated the patient for possible bypass Further recommendation based on the clinical course GI prophylaxis: Protonix DVT prophylaxis: heparin
[2024-08-01] MEDS: HEPARIN SODIUM 1,000 UN/ML (10ML VL) IV ONE (21:11)
[2024-08-01] MEDS: NITROGLYCERIN SL TABS 0.4 MG TAB SUBLINGUAL PRN (22:25)
[2024-08-02 08:54] LABS: ALT 48 U/L (4-34); AST 80 U/L (14-36); African American GFR (CKD) >90 (>60 ml/min/1.73 sqM); Albumin 3.4 g/dL (3.5-5.0); Alkaline Phosphatase 131 U/L (38-126); Anion Gap 10 mmol/L; Blood Urea Nitrogen 19 mg/dL (7-17); Carbon Dioxide 21 mmol/L (22-30); Chloride 109 mmol/L (98-107); Glucose 95 mg/dL (74-99); Non-African American GFR(CKD) 80 (>60 ml/min/1.73 sqM); Potassium 4.9 mmol/L (3.5-5.1); Sodium 140 mmol/L (137-145); Total Bilirubin 1.2 mg/dL (0.2-1.3); Total Protein 6.5 g/dL (6.3-8.2)
--- NOTE | 2024-08-02 09:43 | P.PN ---
Subjective Progress Note Date: 08/02/24 Principal diagnosis: Coronary artery disease, non-ST elevated myocardial infarction this admission. Past medical history significant for coronary artery disease with previous PCI t o her LAD in April 2024, non-ST elevated myocardial infarction in April 2024, ischemic cardiomyopathy with an ejection fraction of 45%, hypertension, hyperlipidemia, hypothyroid, known left bundle branch block, hard of hearing, obesity with a BMI of 35.2 kg/m, remote history of nicotine dependence quit smoking over 40 years ago, and recent vaginal bleeding being followed by [facility]. The patient was seen and examined at her bedside today August 02, 2024 on the third floor cardiac stepdown unit. She is currently sitting up to the bedside edge, is awake, alert, oriented x 3 and is in no acute apparent distress. She denies any complaints of shortness of breath or pain/pressure at this time, although reports that she had a self-limiting episode of right arm discomfort last evening which only lasted a couple of minutes. She remains on heparin drip per protocol managed by cardiology. Oxygen saturations are 96% on room air and she is achieving 1500 mL on her incentive spirometry with encouragement. Preoperative nasal swab positive for Staphylococcus aureus, not MRSA and she remains on mupirocin 2% ointment to each nare twice daily. Urine culture remains pending. Remote telemetry is showing normal sinus rhythm heart rate 79 bpm. Laboratory results reviewed. Objective - Vital Signs Vital signs: Vital Signs Temp 98.3 F 08/02/24 08:11 Pulse 71 08/02/24 08:11 Resp 14 08/02/24 08:11 BP 113/69 08/02/24 08:11 Pulse Ox 92 L 08/02/24 08:11 FiO2 Intake & Output 08/01/24 08/02/24 08/02/24 17:59 06:59 18:59 Intake Total Balance Weight Intake: Intake, IV Titration Amount Heparin Sod,Pork in 0.45% NaCl 25,000 unit In 0.45 % NaCl 1 250ml.bag @ 12 UNITS/KG/HR 9.768 mls/hr IV .Q24H [facility] Rx#: [id number] Oral Other: Voiding Method # Voids - Exam CONSTITUTIONAL: Sitting up to the bedside edge, appears comfortable, cooperative, no apparent acute distress. HEENT: Neck is supple, no JVD, no lymphadenopathy. RESPIRATORY: Lungs sounds essentially clear throughout. Respirations are symmetrical and nonlabored. Currently on room air with oxygen saturations 96%. Able to achieve 1500 mL on her incentive spirometry. Strong cough. CARDIOVASCULAR: Regular rhythm and rate. S1 and S2 present, negative for S3, or gallop. Systolic murmur present 3/6. Sternum is stable. Palpable peripheral pulses bilaterally. Remote telemetry showing normal sinus rhythm heart rate 79 bpm. GASTROINTESTINAL: Abdomen soft, nontender, nondistended. Active bowel sounds present 4 quadrants. Tolerating diet. Passing flatus. No guarding or rigidity. GENITOURINARY: Continues to void. INTEGUMENTARY: Skin is warm and dry with no evidence of clubbing or cyanosis. NEUROLOGIC: Cranial nerves II through XII intact. No focal deficits. MUSKULOSKELETAL: Able to move all extremities, strength equal bilaterally. PSYCHIATRIC: Alert and oriented to person place and time, appropriate affect, intact judgment and insight. - Allied health notes Allied health notes reviewed: nursing - Labs CBC & Chem 7: 08/01/24 07:08 08/02/24 07:20 Labs: Abnormal Lab Results - Last 24 Hours (Table) 08/01/24 08/01/24 08/01/24 Range/Units 07:08 15:49 22:38 APTT 38.0 H 66.1 H (22.0-30.0) sec Chloride (98-107) mmol/L Carbon Dioxide (22-30) mmol/L BUN 19 H (7-17) mg/dL Total Bilirubin 1.4 H (0.2-1.3) mg/dL AST 77 H (14-36) U/L ALT 49 H (4-34) U/L Alkaline Phosphatase 133 H (38-126) U/L Albumin 3.4 L (3.5-5.0) g/dL 08/02/24 08/02/24 Range/Units 07:20 07:20 APTT 90.4 H (22.0-30.0) sec Chloride 109 H (98-107) mmol/L Carbon Dioxide 21 L (22-30) mmol/L BUN 19 H (7-17) mg/dL Total Bilirubin (0.2-1.3) mg/dL AST 80 H (14-36) U/L ALT 48 H (4-34) U/L Alkaline Phosphatase 131 H (38-126) U/L Albumin 3.4 L (3.5-5.0) g/dL Microbiology - Last 24 Hours (Table) 07/30/24 18:18 Nasal Screen MRSA/MSSA - Final Nasal Swab Staphylococcus aureus,Not MRSA Assessment and Plan Assessment: Coronary artery disease with history of a previous PCI to her LAD in April 2024 Non-ST elevated myocardial infarction this admission Chest pain with radiating pain to her right arm, likely secondary to above Ischemic cardiomyopathy with an ejection fraction of 30 to 35% on most recent transthoracic 2D echocardiogram Acute systolic heart failure with a proBNP of 1870 Transaminitis, AST 80, ALT 48 Left bundle branch block Hypertension Hyperlipidemia Hypothyroidism Recent vaginal bleeding starting in March 2024, most recent episode of bleeding was today July 30, 2024 Obesity with a BMI of 35.2 kg/m Remote history of nicotine dependence quit smoking over 40 years ago Hard of hearing Plan: Preoperative teaching and preoperative testing in progress. Preoperative teaching reinforced with the patient. Continue to hold Plavix, the Plavix will need to be held 5 to 7 days prior to surgery. Timing of surgery is being discussed, myocardial revascularization surgery this coming week. Results of transesophageal echocardiogram reviewed by Dr. Kirby. A 5 m walk test was completed with the patient yesterday, time 1: 4.40 seconds, time 2: 4.16 seconds, and time 3: 4.55 seconds. Encourage use of incentive spirometry 10 times every hour while awake. An STS risk or will be calculated and discussed with the patient once her preope rative testing has been completed. A clinical frailty score has been calculated with a score equaling 2. Medical management of other comorbidities per internal medicine and cardiology recommendations. Heparin drip management and recommendations per cardiology. More recommendations to follow based on patient's clinical course. Time with Patient: Less than 30
--- NOTE | 2024-08-02 12:30 | P.PN ---
Subjective This is a pleasant 74 years old female who presents with signs symptoms of non- STEMI secondary to proximal LAD disease with evidence of ischemic cardiomyopathy with ejection fraction 30 to 35%. Patient currently with no dyspnea but she has ongoing chest pain which prompted cardiothoracic surgery evaluation for her bypass procedure She still has chest pain, she has 3 episodes last night over 1 hour which woke her up from sleep Currently she does not look overtly hypervolemic, she has little leg edema with no basal crepitation or dyspnea 08/02 Patient sitting comfortable in chair She still has couple episodes of chest pain last night, she was started on heparin drip Also she is on aspirin 81 mg and other cardiac medication like Coreg losartan Ranexa and torsemide She is getting ceftriaxone, urine cultures growing gram-negative bacilli pending final results Objective - Vital Signs Vital signs: Vital Signs Temp 98.2 F 08/02/24 11:55 Pulse 70 08/02/24 11:55 Resp 14 08/02/24 11:55 BP 92/60 08/02/24 11:55 Pulse Ox 94 L 08/02/24 11:55 FiO2 Intake & Output 08/01/24 08/02/24 08/02/24 17:59 06:59 18:59 Intake Total 179.487 Balance 179.487 Weight Intake: Intake, IV Titration 179.487 Amount Heparin Sod,Pork in 0.45% 179.487 NaCl 25,000 unit In 0.45 % NaCl 1 250ml.bag @ 12 UNITS/KG/HR 9.768 mls/hr IV .Q24H [facility] Rx#: [id number] Oral Other: Voiding Method # Voids - Exam GENERAL: The patient is alert and oriented x3, not in any acute distress. Well developed, well nourished. HEENT: Pupils are round and equally reacting to light. EOMI. No scleral icterus. No conjunctival pallor. Normocephalic, atraumatic. No pharyngeal erythema. No thyromegaly. CARDIOVASCULAR: S1 and S2 present. No murmurs, rubs, or gallops. PULMONARY: Chest is clear to auscultation, no wheezing , no crackles. ABDOMEN: Soft, nontender, nondistended, normoactive bowel sounds. No palpable organomegaly. MUSCULOSKELETAL: No joint swelling or deformity. -EXTREMITIES: No cyanosis, clubbing, or p mild bilateral pitting leg edema. NEUROLOGICAL: Gross neurological examination did not reveal any focal deficits. SKIN: No rashes. no petechiae. - Labs CBC & Chem 7: 08/01/24 07:08 08/02/24 07:20 Labs: Abnormal Lab Results - Last 24 Hours (Table) 08/01/24 08/01/24 08/02/24 Range/Units 15:49 22:38 07:20 APTT 38.0 H 66.1 H (22.0-30.0) sec Chloride 109 H (98-107) mmol/L Carbon Dioxide 21 L (22-30) mmol/L BUN 19 H (7-17) mg/dL AST 80 H (14-36) U/L ALT 48 H (4-34) U/L Alkaline Phosphatase 131 H (38-126) U/L Albumin 3.4 L (3.5-5.0) g/dL 08/02/24 Range/Units 07:20 APTT 90.4 H (22.0-30.0) sec Chloride (98-107) mmol/L Carbon Dioxide (22-30) mmol/L BUN (7-17) mg/dL AST (14-36) U/L ALT (4-34) U/L Alkaline Phosphatase (38-126) U/L Albumin (3.5-5.0) g/dL Microbiology - Last 24 Hours (Table) 07/31/24 01:29 Urine Culture - Preliminary Urine,Voided Gram Neg Bacilli 07/30/24 18:18 Nasal Screen MRSA/MSSA - Final Nasal Swab Staphylococcus aureus,Not MRSA Assessment and Plan Assessment: Chest pain, NSTEMI,in a patient with prior CAD, recent ME with stenting of the mid LAD 05/13/2024. 07/10/2024 cardiac catheterization completed reporting 30% distal left main disease, 70% ostial LAD disease, patent stents in the mid LAD, 70% diffuse distal LAD disease. 50% ostial and proximal left circumflex disease negative IFR performed on 05/18/2024. Cardiology reported no progression of CAD, comparing to heart cath of 05/18/2024.Per catheterization reports cardiology felt that the LAD intervention was complex and patient would benefit from optimization of cardiac medications and was started on Imdur therapy. If patient fails antianginal and optimize heart failure medication she would be considered for CABG. Ischemic cardiomyopathy, EF 30 to 35% Moderate mitral regurgitation Mild to moderate aortic regurgitation with mild aortic stenosis Mild tricuspid regurgitation Hyperbilirubinemia with minimally elevated AST and ALT. History of abnormally thickened endometrium with vascularity concerning for endometrial carcinoma, reported per pelvic/transvaginal ultrasound 05/07/2024. Further outpatient workup in progress. Hypertension Hyperlipidemia Morbid obesity, BMI 35, reports 11 pound weight loss since 05/19 Prediabetic, hemoglobin A1c 6.2 (07/21) Prior nicotine dependence, 1 pack/day x 10 years,quit 1978 Anxiety Depression Plan: Continue on the current cardiac medication, Coreg, losartan Ranexa Continue with diuretic torsemide Patient on antibiotic ceftriaxone Patient on aspirin Cardiology team following Cardiothoracic surgery evaluated the patient for possible bypass Further recommendation based on the clinical course GI prophylaxis: Protonix DVT prophylaxis: heparin
--- NOTE | 2024-08-02 19:08 | P.PN ---
Subjective Progress Note Date: 08/02/24 HISTORY OF PRESENT ILLNESS: This is a 74-year-old female with a past medical history significant for co ronary artery disease with previous stenting, ischemic cardiomyopathy, known left bundle branch block, hypertension, hypothyroidism, and obesity. Patient follows in the office with Dr. Tam. We have been asked to see the patient in consultation for chest pain. Patient examined at the bedside in the emergency room. Patient presented to the hospital with a chief complaint of chest discomfort. Patient states over the past 2 to 3 days she has been having chest discomfort. She states the pain starts in her right arm and then radiates into her chest. She states the pain just seems to be happening at night. She denies having any chest pain during the day with exertion. She states the pain feels similar to her previous admissions when she required stenting. Patient states she has been getting up to 2 times a night for the past few days and has been taking nitro. She also reports shortness of breath when she is laying flat. DIAGNOSTICS: - EKG reveals sinus mechanism with left bundle branch block. - Chest xray negative for acute process. - Laboratory data: WBC 6.5. Hemoglobin 12.6. Platelet count 197. Sodium 136. Potassium 5.2. BUN 25. Creatinine 0.96. Magnesium 2.0. Troponin 0.053. 0.033. proBNP 1870. - Current home cardiac medications include aspirin 81 mg daily, atorvastatin 80 mg at night, Plavix 75 mg daily, Imdur 30 mg daily, losartan 50 mg daily, Ranexa 500 mg twice a day, Aldactone 12.5 mg at night, carvedilol 6.25 mg twice a day - Most recent echocardiogram obtained in April 2024 revealed ejection fraction 45 to 50%, mid septal hypokinesis, apical septal hypokinesis, apical inferior hypokinesis, mild MR, mild AR, mild TR - Cardiac catheterization history: 07/10/2024 revealing 30% distal left main disease, 70% ostial LAD disease. Patent stent in the mid LAD. 70% diffuse distal LAD disease. 50% ostial and proximal left circumflex disease. Negative IFR performed on 05/18/2024. Medical management was recommended. Progress note 07/30/2024 BP 122/86, heart rate 60 bpm Few blood pressure readings in 100 systolic, Troponin up trended to 0.19 08/01/2024 Patient underwent a Lexiscan nuclear stress test which showed small area of primarily fixed with mildly erum-infarct ischemia in the apical wall. The findings were discussed with Dr. Kirby. Patient stress test did not show significant reversible ischemia however her heart cath does show severe disease in ostial and proximal LAD. With medical management alone patient has had multiple hospital admissions with NSTEMI and substernal chest pressure with minimal exertion with angina class IV symptoms. The findings were also discussed with Dr. Pendleton and he feels that it is a high risk intervention. Between surgical interventions, surgeons feel that patient has appropriate surgical profile and she would benefit from two-vessel CABG LAD and diagonal artery. Her WILLAM did not show any significant valvular dysfunction other than mild MR and mild AI. 08/02/2024 Patient is doing well from cardiovascular standpoint, no new cardiovascular events. Blood pressure is stable. PHYSICAL EXAM: HEENT: Head is normocephalic. Pupils are equal, round. Sclerae anicteric. Mucous membranes of the mouth are moist. Neck supple. No JVD or thyromegaly LUNGS: Respirations even and unlabored. Lungs essentially clear to auscultation bilaterally. HEART: Regular rate and rhythm. S1 and S2 heard. ABDOMEN: Soft. Nondistended. Nontender. EXTREMITIES: Normal range of motion. No clubbing or cyanosis. Peripheral pulses intact. No lower extremity edema NEUROLOGIC: Awake and alert. Oriented x 3. ASSESSMENT: NSTEMI Substernal chest pressure, likely related to NSTEMI Coronary artery disease with previous stenting. Acute heart failure with reduced EF Ischemic cardiomyopathy, 45% Known left bundle branch block Hypertension Hypothyroidism Obesity Echo EF 30 to 35%, Moderate mitral regurgitation Moderate aortic regurgitation, mild aortic stenosis WILLAM showed mild MR, mild AI, mild aortic stenosis, calcific aortic valve PLAN: Continue aspirin, Lipitor. Hold Plavix Continue IV heparin drip Continue Coreg 6.25 mg twice daily Continue Imdur to 60 mg daily, continue Ranexa 500 mg twice daily Continue losartan 50 mg daily Continue torsemide 10 mg daily for mildly elevated JVP and PND symptoms. Plan for CT surgery Saturday or . Until then continue to hold Plavix and continue IV heparin drip. She could not afford Brilinta, SGLT2 and Entresto on outpatient basis. Not on Aldactone because of potassium of 5.2. Objective - Vital Signs Vital signs: Vital Signs Temp 97.9 F 08/02/24 16:10 Pulse 67 08/02/24 16:10 Resp 14 08/02/24 16:10 BP 111/69 08/02/24 16:10 Pulse Ox 98 08/02/24 16:10 FiO2 Intake & Output 08/02/24 08/02/24 08/03/24 06:59 18:59 06:59 Intake Total 383.883 Balance 383.883 Weight Intake: Intake, IV Titration 233.883 Amount Heparin Sod,Pork in 0.45% 233.883 NaCl 25,000 unit In 0.45 % NaCl 1 250ml.bag @ 12 UNITS/KG/HR 9.768 mls/hr IV .Q24H [facility] Rx#: [id number] Oral 150 Other: Voiding Method Toilet # Voids 2 # Bowel Movements 0 - Labs CBC & Chem 7: 08/01/24 07:08 08/02/24 07:20 Labs: Abnormal Lab Results - Last 24 Hours (Table) 08/01/24 08/02/24 08/02/24 Range/Units 22:38 07:20 07:20 APTT 66.1 H 90.4 H (22.0-30.0) sec Chloride 109 H (98-107) mmol/L Carbon Dioxide 21 L (22-30) mmol/L BUN 19 H (7-17) mg/dL AST 80 H (14-36) U/L ALT 48 H (4-34) U/L Alkaline Phosphatase 131 H (38-126) U/L Albumin 3.4 L (3.5-5.0) g/dL 08/02/24 Range/Units 15:04 APTT 32.5 H (22.0-30.0) sec Chloride (98-107) mmol/L Carbon Dioxide (22-30) mmol/L BUN (7-17) mg/dL AST (14-36) U/L ALT (4-34) U/L Alkaline Phosphatase (38-126) U/L Albumin (3.5-5.0) g/dL Microbiology - Last 24 Hours (Table) 07/31/24 01:29 Urine Culture - Preliminary Urine,Voided Gram Neg Bacilli 07/30/24 18:18 Nasal Screen MRSA/MSSA - Final Nasal Swab Staphylococcus aureus,Not MRSA
--- NOTE | 2024-08-03 07:36 | P.PN ---
Subjective Progress Note Date: 08/03/24 Principal diagnosis: Coronary artery disease, non-ST elevated myocardial infarction this admission. Past medical history significant for coronary artery disease with previous PCI t o her LAD in April 2024, non-ST elevated myocardial infarction in April 2024, ischemic cardiomyopathy with an ejection fraction of 45%, hypertension, hyperlipidemia, hypothyroid, known left bundle branch block, hard of hearing, obesity with a BMI of 35.2 kg/m, remote history of nicotine dependence quit smoking over 40 years ago, and recent vaginal bleeding being followed by [facility]. The patient was seen and examined in follow-up today August 03, 2024 at her bedside on the third floor cardiac stepdown unit. She is currently laying in bed, is awake, alert, oriented x 3 and is in no acute apparent distress. She denies any complaints of shortness of breath or pain at this time, and denies a ny complaints of chest pain/pressure throughout the night. She continues on heparin drip per protocol which is being managed by cardiology. She remains afebrile. Oxygen saturations are 95% on room air and she is achieving 1500 mL on her incentive spirometry. Preoperative nasal swab positive for Staphylococcus aureus, not MRSA and she remains on mupirocin 2% ointment to each nare twice daily. Urine culture is showing gram-negative bacilli, final culture results remain pending, she remains on Rocephin for antibiotic coverage managed by internal medicine. In April 2024 the patient was having complaints of vaginal bleeding and underwent a ultrasound of her pelvis, complete transvaginal with findings revealing an abnormally thickened endometrium with vascularity concerning for endometrial carcinoma, further follow-up was recommended. The patient reports she continues to have episodes of vaginal bleeding. Objective - Vital Signs Vital signs: Vital Signs Temp 98.0 F 08/02/24 20:20 Pulse 75 08/03/24 03:46 Resp 14 08/03/24 03:46 BP 115/75 08/03/24 03:46 Pulse Ox 95 08/03/24 03:46 FiO2 Intake & Output 08/02/24 08/03/24 08/03/24 18:59 06:59 18:59 Intake Total 383.883 Balance 383.883 Weight 81.3 kg Intake: Intake, IV Titration 233.883 Amount Heparin Sod,Pork in 0.45% 233.883 NaCl 25,000 unit In 0.45 % NaCl 1 250ml.bag @ 12 UNITS/KG/HR 9.768 mls/hr IV .Q24H [facility] Rx#: [id number] Oral 150 Other: Voiding Method Toilet Toilet # Voids 2 1 # Bowel Movements 0 - Exam CONSTITUTIONAL: Sitting up to the bedside edge, appears comfortable, coopera tive, no apparent acute distress. HEENT: Neck is supple, no JVD, no lymphadenopathy. RESPIRATORY: Lungs sounds essentially clear throughout. Respirations are symmetrical and nonlabored. Currently on room air with oxygen saturations 96%. Able to achieve 1500 mL on her incentive spirometry. Strong cough. CARDIOVASCULAR: Regular rhythm and rate. S1 and S2 present, negative for S3, or gallop. Systolic murmur present 2/6. Sternum is stable. Palpable peripheral pulses bilaterally. Remote telemetry showing normal sinus rhythm heart rate 63 bpm. GASTROINTESTINAL: Abdomen soft, nontender, nondistended. Active bowel sounds present 4 quadrants. Tolerating diet. Passing flatus. No guarding or rigidity. GENITOURINARY: Continues to void. INTEGUMENTARY: Skin is warm and dry with no evidence of clubbing or cyanosis. NEUROLOGIC: Cranial nerves II through XII intact. No focal deficits. MUSKULOSKELETAL: Able to move all extremities, strength equal bilaterally. PSYCHIATRIC: Alert and oriented to person place and time, appropriate affect, intact judgment and insight. - Allied health notes Allied health notes reviewed: nursing - Labs CBC & Chem 7: 08/01/24 07:08 08/02/24 07:20 Labs: Abnormal Lab Results - Last 24 Hours (Table) 08/02/24 08/02/24 08/02/24 Range/Units 07:20 07:20 15:04 APTT 90.4 H 32.5 H (22.0-30.0) sec Chloride 109 H (98-107) mmol/L Carbon Dioxide 21 L (22-30) mmol/L BUN 19 H (7-17) mg/dL AST 80 H (14-36) U/L ALT 48 H (4-34) U/L Alkaline Phosphatase 131 H (38-126) U/L Albumin 3.4 L (3.5-5.0) g/dL 08/02/24 Range/Units 21:24 APTT 55.6 H (22.0-30.0) sec Chloride (98-107) mmol/L Carbon Dioxide (22-30) mmol/L BUN (7-17) mg/dL AST (14-36) U/L ALT (4-34) U/L Alkaline Phosphatase (38-126) U/L Albumin (3.5-5.0) g/dL Microbiology - Last 24 Hours (Table) 07/31/24 01:29 Urine Culture - Preliminary Urine,Voided Gram Neg Bacilli Assessment and Plan Assessment: Coronary artery disease with history of a previous PCI to her LAD in April 2024 Non-ST elevated myocardial infarction this admission Chest pain with radiating pain to her right arm, likely secondary to above Ischemic cardiomyopathy with an ejection fraction of 30 to 35% on most recent transthoracic 2D echocardiogram Acute systolic heart failure with a proBNP of 1870 Transaminitis, AST 80, ALT 48 Left bundle branch block Hypertension Hyperlipidemia Hypothyroidism Recent vaginal bleeding starting in March 2024, most recent episode of bleeding was today July 30, 2024, April 2024 the patient was having complaints of vaginal bleeding and underwent a ultrasound of her pelvis, complet e transvaginal with findings revealing an abnormally thickened endometrium with vascularity concerning for endometrial carcinoma, further follow-up was recommended Obesity with a BMI of 35.2 kg/m Remote history of nicotine dependence quit smoking over 40 years ago Hard of hearing Plan: Preoperative teaching and preoperative testing in progress. Preoperative teaching reinforced with the patient. Continue to hold Plavix, the Plavix will need to be held 5 to 7 days prior to surgery. Timing of surgery is being discussed, myocardial revascularization surgery this coming week. Results of transesophageal echocardiogram reviewed by Dr. Kirby. A 5 m walk test was completed with the patient yesterday, time 1: 4.40 seconds, time 2: 4.16 seconds, and time 3: 4.55 seconds. Encourage use of incentive spirometry 10 times every hour while awake. An STS risk or will be calculated and discussed with the patient once her preoperative testing has been completed. A clinical frailty score has been calculated with a score equaling 2. Medical management of other comorbidities per internal medicine and cardiology recommendations. Heparin drip management and recommendations per cardiology. More recommendations to follow based on patient's clinical course. Time with Patient: Less than 30
[2024-08-03 08:02] LABS: HCT 39.3 % (34.0-46.0); Hypochromasia Slight; MCH 28.2 pg (25.0-35.0); MCHC 30.4 g/dL (31.0-37.0); MCV 92.8 fL (80.0-100.0); Mean Platelet Volume 8.5; Platelet Count 195 k/uL (150-450); RBC 4.24 m/uL (3.80-5.40); RDW 14.8 % (11.5-15.5); WBC 6.4 k/uL (3.8-10.6)
[2024-08-03 09:09] LABS: ALT 50 U/L (4-34); AST 75 U/L (14-36); African American GFR (CKD) 84 (>60 ml/min/1.73 sqM); Albumin 3.7 g/dL (3.5-5.0); Alkaline Phosphatase 139 U/L (38-126); Anion Gap 10 mmol/L; Blood Urea Nitrogen 20 mg/dL (7-17); Calcium 9.3 mg/dL (8.4-10.2); Carbon Dioxide 23 mmol/L (22-30); Chloride 106 mmol/L (98-107); Glucose 93 mg/dL (74-99); Non-African American GFR(CKD) 73 (>60 ml/min/1.73 sqM); Potassium 4.8 mmol/L (3.5-5.1); Sodium 139 mmol/L (137-145); Total Bilirubin 1.3 mg/dL (0.2-1.3); Total Protein 6.9 g/dL (6.3-8.2)
--- NOTE | 2024-08-03 13:16 | P.PN ---
Subjective Progress Note Date: 08/03/24 HISTORY OF PRESENT ILLNESS: This is a 74-year-old female with a past medical history significant for cor onary artery disease with previous stenting, ischemic cardiomyopathy, known left bundle branch block, hypertension, hypothyroidism, and obesity. Patient follows in the office with Dr. Tam. We have been asked to see the patient in consultation for chest pain. Patient examined at the bedside in the emergency room. Patient presented to the hospital with a chief complaint of chest discomfort. Patient states over the past 2 to 3 days she has been having chest discomfort. She states the pain starts in her right arm and then radiates into her chest. She states the pain just seems to be happening at night. She denies having any chest pain during the day with exertion. She states the pain feels similar to her previous admissions when she required stenting. Patient states she has been getting up to 2 times a night for the past few days and has been taking nitro. She also reports shortness of breath when she is laying flat. DIAGNOSTICS: - EKG reveals sinus mechanism with left bundle branch block. - Chest xray negative for acute process. - Laboratory data: WBC 6.5. Hemoglobin 12.6. Platelet count 197. Sodium 136. Potassium 5.2. BUN 25. Creatinine 0.96. Magnesium 2.0. Troponin 0.053. 0.033. proBNP 1870. - Current home cardiac medications include aspirin 81 mg daily, atorvastatin 80 mg at night, Plavix 75 mg daily, Imdur 30 mg daily, losartan 50 mg daily, Ranexa 500 mg twice a day, Aldactone 12.5 mg at night, carvedilol 6.25 mg twice a day - Most recent echocardiogram obtained in April 2024 revealed ejection fraction 45 to 50%, mid septal hypokinesis, apical septal hypokinesis, apical inferior hypokinesis, mild MR, mild AR, mild TR - Cardiac catheterization history: 07/10/2024 revealing 30% distal left main disease, 70% ostial LAD disease. Patent stent in the mid LAD. 70% diffuse distal LAD disease. 50% ostial and proximal left circumflex disease. Negative IFR performed on 05/18/2024. Medical management was recommended. Progress note 07/30/2024 BP 122/86, heart rate 60 bpm Few blood pressure readings in 100 systolic, Troponin up trended to 0.19 08/01/2024 Patient underwent a Lexiscan nuclear stress test which showed small area of primarily fixed with mildly erum-infarct ischemia in the apical wall. The findings were discussed with Dr. Kirby. Patient stress test did not show significant reversible ischemia however her heart cath does show severe disease in ostial and proximal LAD. With medical management alone patient has had multiple hospital admissions with NSTEMI and substernal chest pressure with minimal exertion with angina class IV symptoms. The findings were also discussed with Dr. Pendleton and he feels that it is a high risk intervention. Between surgical interventions, surgeons feel that patient has appropriate surgical profile and she would benefit from two-vessel CABG LAD and diagonal artery. Her WILLAM did not show any significant valvular dysfunction other than mild MR and mild AI. 08/02/2024 Patient is doing well from cardiovascular standpoint, no new cardiovascular events. Blood pressure is stable. 08/03 Patient seen and examined. Patient is on IV heparin. She is waiting for CABG this week. Blood pressure 100/66, heart rate 72, pulse ox 95% on room air. Repeat blood work reveals hemoglobin 12, creatinine 0.8. Potassium 4.8. AST 75, ALT 50, alkaline phosphatase 139. Repeat EKG sinus rhythm with LBBB. PHYSICAL EXAM: HEENT: Head is normocephalic. Pupils are equal, round. Sclerae anicteric. Mucous membranes of the mouth are moist. Neck supple. No JVD or thyromegaly LUNGS: Respirations even and unlabored. Lungs essentially clear to auscultation bilaterally. HEART: Regular rate and rhythm. S1 and S2 heard. ABDOMEN: Soft. Nondistended. Nontender. EXTREMITIES: Normal range of motion. No clubbing or cyanosis. Peripheral pulses intact. No lower extremity edema NEUROLOGIC: Awake and alert. Oriented x 3. ASSESSMENT: NSTEMI Substernal chest pressure, likely related to NSTEMI Coronary artery disease with previous stenting. Acute heart failure with reduced EF Ischemic cardiomyopathy, 45% Known left bundle branch block Hypertension Hypothyroidism Obesity Echo EF 30 to 35%, Moderate mitral regurgitation, Moderate aortic regurgitation, mild aortic stenosis WILLAM showed mild MR, mild AI, mild aortic stenosis, calcific aortic valve PLAN: Continue aspirin, Coreg, losartan, Lipitor. Hold Plavix Continue IV heparin drip Continue Imdur to 60 mg daily, and Ranexa 500 mg twice daily Continue torsemide 10 mg daily for mildly elevated JVP and PND symptoms. Plan for CT surgery Saturday or . She could not afford Brilinta, SGLT2 and Entresto on outpatient basis. Not on Aldactone because of potassium of 5.2. Nurse practitioner note has been reviewed, I agree with documented findings and plan of care. Patient was seen and examined. Objective - Vital Signs Vital signs: Vital Signs Temp 98.0 F 08/02/24 20:20 Pulse 75 08/03/24 03:46 Resp 14 08/03/24 03:46 BP 115/75 08/03/24 03:46 Pulse Ox 95 08/03/24 03:46 FiO2 Intake & Output 08/02/24 08/03/24 08/03/24 18:59 06:59 18:59 Intake Total 383.883 Balance 383.883 Weight 81.3 kg Intake: Intake, IV Titration 233.883 Amount Heparin Sod,Pork in 0.45% 233.883 NaCl 25,000 unit In 0.45 % NaCl 1 250ml.bag @ 12 UNITS/KG/HR 9.768 mls/hr IV .Q24H [facility] Rx#: [id number] Oral 150 Other: Voiding Method Toilet Toilet # Voids 2 1 # Bowel Movements 0 - Labs CBC & Chem 7: 08/03/24 06:30 08/03/24 06:30 Labs: Abnormal Lab Results - Last 24 Hours (Table) 08/02/24 08/02/24 08/02/24 Range/Units 07:20 07:20 15:04 MCHC (31.0-37.0) g/dL APTT 90.4 H 32.5 H (22.0-30.0) sec Chloride 109 H (98-107) mmol/L Carbon Dioxide 21 L (22-30) mmol/L BUN 19 H (7-17) mg/dL AST 80 H (14-36) U/L ALT 48 H (4-34) U/L Alkaline Phosphatase 131 H (38-126) U/L Albumin 3.4 L (3.5-5.0) g/dL 08/02/24 08/03/24 Range/Units 21:24 06:30 MCHC 30.4 L (31.0-37.0) g/dL APTT 55.6 H (22.0-30.0) sec Chloride (98-107) mmol/L Carbon Dioxide (22-30) mmol/L BUN (7-17) mg/dL AST (14-36) U/L ALT (4-34) U/L Alkaline Phosphatase (38-126) U/L Albumin (3.5-5.0) g/dL Microbiology - Last 24 Hours (Table) 07/31/24 01:29 Urine Culture - Preliminary Urine,Voided Gram Neg Bacilli
--- NOTE | 2024-08-03 21:11 | P.PN ---
Subjective Progress Note Date: 07/31/24 Chief Complaint: Chest pain This is a 74-year-old female with past medical history significant for CAD, ischemic cardiomyopathy, recent NSTEMI with stenting of the mid LAD 05/13/2024 followed by cardiac catheterization on 07/10/2024 reporting no progression of disease with medical therapy maximized, left bundle branch block ,hypertension, hyperlipidemia, morbid obesity, prediabetic with hemoglobin A1c of 6.2 (07/21), hypothyroidism, prior nicotine dependence, and multiple other medical issues presented to the ER with complaints of radiating midsternal chest pain accompanied by diaphoresis and shortness of breath over the last 2 to 3 nights in a row. Admits to fluctuating chest pain since April 2024 as well as her last catheterization in June 2024. denies nausea, vomiting or diarrhea. Denies abdominal pain. Reports weight loss of 11 pounds since April 2024. De nies upper respiratory infections or known sick contacts. She started cardiac rehab yesterday. Reports pain initiates in her right hand travels up her right arm across to her mid sternum. Symptoms usually begin after dinner, progresses through the night, averaging a total of 3 nitro sublinguals each night. Afebrile, normal WBC. Chest x-ray reported nonacute. Hematology, coagulation panel unremarkable. Sodium 136, potassium 5.5, bicarb 21, BUN 25, creatinine 0.96, mag 2.0, T. bili 1.4, AST 77, ALT 42, alk phos WNL. Troponin 0.053. BNP 1870. EKG reported sinus rhythm with left bundle branch block. Anticoagulated on IV heparin drip. Echo ordered. 07/30/2024 serial enzymes 0.053, 0.033, 0.193.Echo reported severely impaired low ventricular systolic function, EF 30 to 35%, moderate mitral regurgitation, mild to moderate aortic regurgitation with mild aortic stenosis, mild tricuspid regurgitation. Reported she had another episode of right arm pain radiating up to midsternal chest pain during the night starting around 10:00, received morphine, pain subsided but developed nausea. Maintained on heparin drip., CTS consult recently placed, evaluation pending. 07/31/2024 patient was seen resting comfortably in bed with at bedside had a conversation with Dr. Kirby of cardiothoracic surgery and Dr. [facility] of [facility] regarding her care is determined that we would undergo a nuclear stress test to determine if there is any exercise-induced ischemia. If there was then would proceed with further intervention she is okay with this plan she denies any shortness of breath she had minimum chest pain last evening she is currently on Imdur which has diminished her angina. Objective - Vital Signs Vital signs: Vital Signs Temp 97.5 F L 07/30/24 11:22 Pulse 64 07/30/24 11:22 Resp 20 07/30/24 11:22 BP 100/63 07/30/24 11:22 Pulse Ox 98 07/30/24 11:22 FiO2 Intake & Output 07/29/24 07/30/24 07/30/24 18:59 06:59 18:59 Intake Total 63.034 171.547 Balance 63.034 171.547 Weight 81.647 kg Intake: Intake, IV Titration 63.034 171.547 Amount Heparin Sod,Pork in 0.45% 63.034 171.547 NaCl 25,000 unit In 0.45 % NaCl 1 250ml.bag @ 12 UNITS/KG/HR 9.798 mls/hr IV .Q24H [facility] Rx#: [id number] - Exam VITAL SIGNS: [Reviewed] GENERAL: Alert and oriented x 3, sitting up at bedside, no acute distress. [place]. HEENT: Atraumatic, normocephalic, conjunctivae normal. eyes normal. NECK: Supple,no JVD. No thyroid enlargement. No LNs CARDIOVASCULAR: S1, S2. regular rate and rhythm. No murmur. RESPIRATION: Unlabored, equal air entry, essentially clear to auscultation. ABDOMEN: Soft, nondistended, nontender . No guarding. no masses palpable. Positive bowel sounds. LEGS: No edema. no swelling. No calf tenderness. NERVOUS SYSTEM: Cranial N 2-12 grossly normal. No focal deficits. Strength and sensation grossly intact. Skin: Warm and dry, no rash. - Labs CBC & Chem 7: 07/30/24 07:13 07/29/24 08:20 Labs: Abnormal Lab Results - Last 24 Hours (Table) 07/29/24 07/30/24 07/30/24 Range/Units 17:45 00:15 07:13 APTT 88.0 H 73.3 H (22.0-30.0) sec HDL Cholesterol 36.60 L (40.00-60.00) mg/dL 07/30/24 Range/Units 07:13 APTT 59.5 H (22.0-30.0) sec HDL Cholesterol (40.00-60.00) mg/dL Assessment and Plan Assessment: Chest pain, NSTEMI,in a patient with prior CAD, recent [place] with stenting of the mid LAD 05/13/2024. 07/10/2024 cardiac catheterization completed reporting 30% distal left main disease, 70% ostial LAD disease, patent stents in the mid LAD, 70% diffuse distal LAD disease. 50% ostial and proximal left circumflex disease negative IFR performed on 05/18/2024. Cardiology reported no progression of CAD, comparing to heart cath of 05/18/2024.Per catheterization reports cardiology felt that the LAD intervention was complex and patient would benefit from optimization of cardiac medications and was started on Imdur therapy. If patient fails antianginal and optimize heart failure medication she would be considered for CABG. Ischemic cardiomyopathy, EF 30 to 35% Moderate mitral regurgitation Mild to moderate aortic regurgitation with mild aortic stenosis Mild tricuspid regurgitation Hyperbilirubinemia with minimally elevated AST and ALT. History of abnormally thickened endometrium with vascularity concerning for endometrial carcinoma, reported per pelvic/transvaginal ultrasound 05/07/2024. Further outpatient workup in progress. Hypertension Hyperlipidemia Morbid obesity, BMI 35, reports 11 pound weight loss since 05/19 Prediabetic, hemoglobin A1c 6.2 (07/21) Prior nicotine dependence, 1 pack/day x 10 years,quit 1978 Anxiety Depression Plan: Continue on current medication regimen ,monitoring and symptomatic treatment. Anticoagulation with heparin drip. Imdur increased as per cardiology. CTS evaluation/recommendations pending. Prognosis guarded given multiple complex medical issues. Objective - Vital Signs Vital signs: Vital Signs Temp 98.4 F 07/31/24 07:34 Pulse 75 07/31/24 07:34 Resp 14 07/31/24 07:34 BP 117/76 07/31/24 07:34 Pulse Ox 95 07/31/24 07:34 FiO2 Intake & Output 07/30/24 07/31/24 07/31/24 18:59 06:59 18:59 Intake Total 457.92 Output Total 200 Balance 457.92 -200 Weight 81.647 kg 81.4 kg Intake: IV 97.92 Heparin Sod,Pork in 0.45% 97.92 NaCl 25,000 unit In 0.45 % NaCl 1 250ml.bag @ 12 UNITS/KG/HR 9.798 mls/hr IV .Q24H [facility] Rx#: [id number] Oral 360 Output: Urine 200 Other: Voiding Method Toilet # Voids 1 1 - Labs CBC & Chem 7: 08/03/24 06:30 08/03/24 06:30 Labs: Abnormal Lab Results - Last 24 Hours (Table) 07/31/24 07/31/24 07/31/24 Range/Units 01:29 06:03 06:20 BUN 18 H (7-17) mg/dL Hemoglobin A1c 6.1 H (<=6.0) % Total Bilirubin 1.4 H (0.2-1.3) mg/dL AST 74 H (14-36) U/L ALT 44 H (4-34) U/L Alkaline Phosphatase 155 H (38-126) U/L Urine Appearance Cloudy H (Clear) Urine Protein Trace H (Negative) Urine Blood Large H (Negative) Ur Leukocyte Esterase Large H (Negative) Urine RBC 40 H (0-5) /hpf Urine WBC >182 H (0-5) /hpf Urine WBC Clumps Many H (None) /hpf Urine Bacteria Many H (None) /hpf
--- NOTE | 2024-08-03 21:29 | P.PN ---
Subjective Progress Note Date: 08/03/24 Chief Complaint: Chest pain This is a 74-year-old female with past medical history significant for CAD, ischemic cardiomyopathy, recent NSTEMI with stenting of the mid LAD 05/13/2024 followed by cardiac catheterization on 07/10/2024 reporting no progression of disease with medical therapy maximized, left bundle branch block ,hypertension, hyperlipidemia, morbid obesity, prediabetic with hemoglobin A1c of 6.2 (07/21), hypothyroidism, prior nicotine dependence, and multiple other medical issues presented to the ER with complaints of radiating midsternal chest pain accompanied by diaphoresis and shortness of breath over the last 2 to 3 nights in a row. Admits to fluctuating chest pain since April 2024 as well as her last catheterization in June 2024. denies nausea, vomiting or diarrhea. Denies abdominal pain. Reports weight loss of 11 pounds since April 2024. De nies upper respiratory infections or known sick contacts. She started cardiac rehab yesterday. Reports pain initiates in her right hand travels up her right arm across to her mid sternum. Symptoms usually begin after dinner, progresses through the night, averaging a total of 3 nitro sublinguals each night. Afebrile, normal WBC. Chest x-ray reported nonacute. Hematology, coagulation panel unremarkable. Sodium 136, potassium 5.5, bicarb 21, BUN 25, creatinine 0.96, mag 2.0, T. bili 1.4, AST 77, ALT 42, alk phos WNL. Troponin 0.053. BNP 1870. EKG reported sinus rhythm with left bundle branch block. Anticoagulated on IV heparin drip. Echo ordered. 07/30/2024 serial enzymes 0.053, 0.033, 0.193.Echo reported severely impaired low ventricular systolic function, EF 30 to 35%, moderate mitral regurgitation, mild to moderate aortic regurgitation with mild aortic stenosis, mild tricuspid regurgitation. Reported she had another episode of right arm pain radiating up to midsternal chest pain during the night starting around 10:00, received morphine, pain subsided but developed nausea. Maintained on heparin drip., CTS consult recently placed, evaluation pending. 07/31/2024 patient was seen resting comfortably in bed with at bedside had a conversation with Dr. Kirby of cardiothoracic surgery and Dr. Tam of [facility] regarding her care is determined that we would undergo a nuclear stress test to determine if there is any exercise-induced ischemia. If there was then would proceed with further intervention she is okay with this plan she denies any shortness of breath she had minimum chest pain last evening she is currently on Imdur which has diminished her angina. 08/03/2024 patient seen today resting comfortably all test were discussed with patient cardiothoracic surgery has recommended revascularization procedure coron sixto artery bypass graft which will be done midweek. She continues on heparin Plavix is on hold 5 to 7 days prior to surgery cardiology continues to follow patient remains on Imdur. Objective - Vital Signs Vital signs: Vital Signs Temp 97.5 F L 07/30/24 11:22 Pulse 64 07/30/24 11:22 Resp 20 07/30/24 11:22 BP 100/63 07/30/24 11:22 Pulse Ox 98 07/30/24 11:22 FiO2 Intake & Output 07/29/24 07/30/24 07/30/24 18:59 06:59 18:59 Intake Total 63.034 171.547 Balance 63.034 171.547 Weight 81.647 kg Intake: Intake, IV Titration 63.034 171.547 Amount Heparin Sod,Pork in 0.45% 63.034 171.547 NaCl 25,000 unit In 0.45 % NaCl 1 250ml.bag @ 12 UNITS/KG/HR 9.798 mls/hr IV .Q24H [facility] Rx#: [id number] - Exam VITAL SIGNS: [Reviewed] GENERAL: Alert and oriented x 3, sitting up at bedside, no acute distress. [place]. HEENT: Atraumatic, normocephalic, conjunctivae normal. eyes normal. NECK: Supple,no JVD. No thyroid enlargement. No LNs CARDIOVASCULAR: S1, S2. regular rate and rhythm. No murmur. RESPIRATION: Unlabored, equal air entry, essentially clear to auscultation. ABDOMEN: Soft, nondistended, nontender . No guarding. no masses palpable. Positive bowel sounds. LEGS: No edema. no swelling. No calf tenderness. NERVOUS SYSTEM: Cranial N 2-12 grossly normal. No focal deficits. Strength and sensation grossly intact. Skin: Warm and dry, no rash. - Labs CBC & Chem 7: 07/30/24 07:13 07/29/24 08:20 Labs: Abnormal Lab Results - Last 24 Hours (Table) 07/29/24 07/30/24 07/30/24 Range/Units 17:45 00:15 07:13 APTT 88.0 H 73.3 H (22.0-30.0) sec HDL Cholesterol 36.60 L (40.00-60.00) mg/dL 07/30/24 Range/Units 07:13 APTT 59.5 H (22.0-30.0) sec HDL Cholesterol (40.00-60.00) mg/dL Assessment and Plan Assessment: Chest pain, NSTEMI,in a patient with prior CAD, recent [place] with stenting of the mid LAD 05/13/2024. 07/10/2024 cardiac catheterization completed reporting 30% distal left main disease, 70% ostial LAD disease, patent stents in the mid LAD, 70% diffuse distal LAD disease. 50% ostial and proximal left circumflex disease negative IFR performed on 05/18/2024. Cardiology reported no progression of CAD, comparing to heart cath of 05/18/2024.Per catheterization reports cardiology felt that the LAD intervention was complex and patient would benefit from optimization of cardiac medications and was started on Imdur therapy. If patient fails antianginal and optimize heart failure medication she would be considered for CABG. Ischemic cardiomyopathy, EF 30 to 35% Moderate mitral regurgitation Mild to moderate aortic regurgitation with mild aortic stenosis Mild tricuspid regurgitation Hyperbilirubinemia with minimally elevated AST and ALT. History of abnormally thickened endometrium with vascularity concerning for endometrial carcinoma, reported per pelvic/transvaginal ultrasound 05/07/2024. Further outpatient workup in progress. Hypertension Hyperlipidemia Morbid obesity, BMI 35, reports 11 pound weight loss since 05/19 Prediabetic, hemoglobin A1c 6.2 (07/21) Prior nicotine dependence, 1 pack/day x 10 years,quit 1978 Anxiety Depression Gram-negative urinary tract infection currently on IV Rocephin every 24 Plan: Continue on current medication regimen ,monitoring and symptomatic treatment. Anticoagulation with heparin drip. Continue to hold Plavix patient to go for surgery revascularization with cardiothoracic surgery in 2 to 3 days. Prognosis guarded given multiple complex medical issues. Objective - Vital Signs Vital signs: Vital Signs Temp 98.8 F 08/03/24 20:29 Pulse 67 08/03/24 20:29 Resp 18 08/03/24 20:29 BP 109/59 08/03/24 20:29 Pulse Ox 98 08/03/24 20:29 FiO2 Intake & Output 08/03/24 08/03/24 08/04/24 06:59 18:59 06:59 Intake Total 368.000 Balance 368.000 Weight 81.3 kg Intake: Intake, IV Titration 250.000 Amount Heparin Sod,Pork in 0.45% 250.000 NaCl 25,000 unit In 0.45 % NaCl 1 250ml.bag @ 12 UNITS/KG/HR 9.768 mls/hr IV .Q24H [facility] Rx#: [id number] Oral 118 Other: Voiding Method Toilet # Voids 1 3 - Labs CBC & Chem 7: 08/03/24 06:30 08/03/24 06:30 Labs: Abnormal Lab Results - Last 24 Hours (Table) 08/02/24 08/03/24 08/03/24 Range/Units 21:24 06:30 06:30 MCHC 30.4 L (31.0-37.0) g/dL APTT 55.6 H (22.0-30.0) sec BUN 20 H (7-17) mg/dL AST 75 H (14-36) U/L ALT 50 H (4-34) U/L Alkaline Phosphatase 139 H (38-126) U/L 08/03/24 08/03/24 Range/Units 08:20 15:04 MCHC (31.0-37.0) g/dL APTT 79.3 H 52.7 H (22.0-30.0) sec BUN (7-17) mg/dL AST (14-36) U/L ALT (4-34) U/L Alkaline Phosphatase (38-126) U/L Microbiology - Last 24 Hours (Table) 07/31/24 01:29 Urine Culture - Final Urine,Voided Klebsiella pneumoniae
[2024-08-04 06:43] LABS: HGB 11.4 gm/dL (11.4-16.0); Hypochromasia Slight; MCH 28.6 pg (25.0-35.0); MCHC 30.9 g/dL (31.0-37.0); MCV 92.7 fL (80.0-100.0); Mean Platelet Volume 7.8; Platelet Count 174 k/uL (150-450); RBC 3.99 m/uL (3.80-5.40); RDW 14.5 % (11.5-15.5); WBC 6.9 k/uL (3.8-10.6)
[2024-08-04 07:14] LABS: Partial Thromboplastin Time 61.6 sec (22.0-30.0); Prothrombin Time 11.4 sec (10.0-12.5)
[2024-08-04 08:09] LABS: ALT 44 U/L (4-34); AST 57 U/L (14-36); African American GFR (CKD) 85 (>60 ml/min/1.73 sqM); Albumin 3.5 g/dL (3.5-5.0); Alkaline Phosphatase 132 U/L (38-126); Amylase 54 U/L (30-110); Anion Gap 8 mmol/L; Blood Urea Nitrogen 21 mg/dL (7-17); Calcium 8.9 mg/dL (8.4-10.2); Carbon Dioxide 23 mmol/L (22-30); Chloride 107 mmol/L (98-107); Glucose 100 mg/dL (74-99); Lipase 134 U/L (23-300); Non-African American GFR(CKD) 74 (>60 ml/min/1.73 sqM); Potassium 4.5 mmol/L (3.5-5.1); Sodium 138 mmol/L (137-145); Total Protein 6.6 g/dL (6.3-8.2)
--- NOTE | 2024-08-04 08:46 | P.PN ---
Subjective Progress Note Date: 08/04/24 Principal diagnosis: Coronary artery disease, non-ST elevated myocardial infarction this admission. Past medical history significant for coronary artery disease with previous PCI t o her LAD in April 2024, non-ST elevated myocardial infarction in April 2024, ischemic cardiomyopathy with an ejection fraction of 45%, hypertension, hyperlipidemia, hypothyroid, known left bundle branch block, hard of hearing, obesity with a BMI of 35.2 kg/m, remote history of nicotine dependence quit smoking over 40 years ago, and recent vaginal bleeding being followed by FEATURES EDITOR. The patient was seen and examined in follow-up today August 04, 2024 at her bedside on the cardiac stepdown unit. She is currently laying in bed, is awake, alert, oriented x 3 and is in no acute apparent distress. She denies any complaints of shortness of breath or chest pain or pressure at this time, althou gh reports she did have an episode of chest pain throughout the night and was given a nitroglycerin sublingual tablet with good relief of the chest pain. Heparin drip remains infusing per protocol. Preoperative teaching has been reinforced with the patient. Dr. Velazquez from cardiothoracic surgery met with the patient yesterday and the patient's family present at her bedside, risks and benefits of myocardial revascularization surgery discussed with the patient, the usual course of surgery discussed with the patient and knowing and understanding the risks the patient wishes to proceed with the surgical option. She will be scheduled for July for off-pump myocardial revascularization surgery with left internal mammary artery, possible endoscopic greater saphenous vein harvest, exclusion left atrial appendage and intraoperative transesophageal echocardiogram to be completed by Dr. Brandi Velazquez. Questions from the patient and the family were answered by Dr. Velazquez. We will continue to reinforce preoperative teaching. Oxygen saturations are 96% on room air and she is achieving 1500 mL on her incentive spirometry with encouragement. A twelve-lead EKG was completed this morning which showed normal sinus rhythm with a left bundle branch block heart rate 61 bpm. Her urine was positive for Klebsiella and she continues on Rocephin managed by primary care for a urinary tract infection. Her preoperative nasal swab screen was positive for MSSA, not MRSA and she continues on the mupirocin nasal ointment. Laboratory results were reviewed. Objective - Vital Signs Vital signs: Vital Signs Temp 98.8 F 08/03/24 20:29 Pulse 73 08/04/24 03:58 Resp 18 08/04/24 03:58 BP 131/82 08/04/24 03:58 Pulse Ox 94 L 08/04/24 03:58 FiO2 Intake & Output 08/03/24 08/04/24 08/04/24 18:59 06:59 18:59 Intake Total 368.000 Balance 368.000 Weight 81 kg Intake: Intake, IV Titration 250.000 Amount Heparin Sod,Pork in 0.45% 250.000 NaCl 25,000 unit In 0.45 % NaCl 1 250ml.bag @ 12 UNITS/KG/HR 9.768 mls/hr IV .Q24H [facility] Rx#: [id number] Oral 118 Other: Voiding Method Toilet # Voids 3 1 - Exam CONSTITUTIONAL: Laying in bed, appears comfortable, cooperative, no apparent acute distress. HEENT: Neck is supple, no JVD, no lymphadenopathy. RESPIRATORY: Lungs sounds essentially clear throughout. Respirations are symmetrical and nonlabored. Currently on room air with oxygen saturations 96%. Able to achieve 1500 mL on her incentive spirometry. Strong cough. CARDIOVASCULAR: Regular rhythm and rate. S1 and S2 present, negative for S3, or gallop. Systolic murmur present 2/6. Sternum is stable. Palpable peripheral pulses bilaterally. Remote telemetry showing normal sinus rhythm heart rate 61 bpm. GASTROINTESTINAL: Abdomen soft, nontender, nondistended. Active bowel sounds present 4 quadrants. Tolerating diet. Passing flatus. No guarding or rigidity. GENITOURINARY: Continues to void. INTEGUMENTARY: Skin is warm and dry with no evidence of clubbing or cyanosis. NEUROLOGIC: Cranial nerves II through XII intact. No focal deficits. MUSKULOSKELETAL: Able to move all extremities, strength equal bilaterally. PSYCHIATRIC: Alert and oriented to person place and time, appropriate affect, intact judgment and insight. - Allied health notes Allied health notes reviewed: nursing - Labs CBC & Chem 7: 08/04/24 06:26 08/04/24 06:26 Labs: Abnormal Lab Results - Last 24 Hours (Table) 08/03/24 08/03/24 08/03/24 Range/Units 06:30 08:20 15:04 MCHC (31.0-37.0) g/dL APTT 79.3 H 52.7 H (22.0-30.0) sec BUN 20 H (7-17) mg/dL Glucose (74-99) mg/dL AST 75 H (14-36) U/L ALT 50 H (4-34) U/L Alkaline Phosphatase 139 H (38-126) U/L 08/04/24 08/04/24 08/04/24 Range/Units 06:26 06:26 06:26 MCHC 30.9 L (31.0-37.0) g/dL APTT 61.6 H (22.0-30.0) sec BUN 21 H (7-17) mg/dL Glucose 100 H (74-99) mg/dL AST 57 H (14-36) U/L ALT 44 H (4-34) U/L Alkaline Phosphatase 132 H (38-126) U/L Microbiology - Last 24 Hours (Table) 07/31/24 01:29 Urine Culture - Final Urine,Voided Klebsiella pneumoniae Assessment and Plan Assessment: Coronary artery disease with history of a previous PCI to her LAD in April 2024 Non-ST elevated myocardial infarction this admission Chest pain with radiating pain to her right arm, likely secondary to above Ischemic cardiomyopathy with an ejection fraction of 30 to 35% on most recent transthoracic 2D echocardiogram Acute systolic heart failure with a proBNP of 1870 Transaminitis, AST 80, ALT 48 Left bundle branch block Hypertension Hyperlipidemia Hypothyroidism Recent vaginal bleeding starting in March 2024, most recent episode of bleeding was today July 30, 2024, April 2024 the patient was having complaints of vaginal bleeding and underwent a ultrasound of her pelvis, complete transvaginal with findings revealing an abnormally thickened endometrium with vascularity concerning for endometrial carcinoma, further follow-up was recommended Obesity with a BMI of 35.2 kg/m Remote history of nicotine dependence quit smoking over 40 years ago Hard of hearing Plan: Preoperative teaching in progress. Preoperative teaching reinforced with the patient. Continue to hold Plavix, the Plavix will need to be held 5 to 7 days prior to surgery. The patient is scheduled for off-pump myocardial revascularization surgery with left internal mammary artery, possible endoscopic greater saphenous vein harvest, exclusion left atrial appendage and intraoperative transesophageal echocardiogram to be completed by Dr. Brandi Velazquez on August 06, 2024. A 5 m walk test was completed with the patient, time 1: 4.40 seconds, time 2: 4.16 seconds, and time 3: 4.55 seconds. Encourage use of incentive spirometry 10 times every hour while awake. An STS risk or will be calculated and discussed with the patient once her preoperative testing has been completed. A clinical frailty score has been calculated with a score equaling 2. Medical management of other comorbidities per internal medicine and cardiology recommendations. Heparin drip management and recommendations per cardiology. Heparin drip will be held 2 hours prior to her myocardial revascularization surgery. She will be made n.p.o. after midnight on 08/06/2024. More recommendations to follow based on patient's clinical course. Time with Patient: Greater than 30
--- NOTE | 2024-08-04 12:57 | P.PN ---
Subjective Progress Note Date: 08/04/24 HISTORY OF PRESENT ILLNESS: This is a 74-year-old female with a past medical history significant for cor onary artery disease with previous stenting, ischemic cardiomyopathy, known left bundle branch block, hypertension, hypothyroidism, and obesity. Patient follows in the office with Dr. Tam. We have been asked to see the patient in consultation for chest pain. Patient examined at the bedside in the emergency room. Patient presented to the hospital with a chief complaint of chest discomfort. Patient states over the past 2 to 3 days she has been having chest discomfort. She states the pain starts in her right arm and then radiates into her chest. She states the pain just seems to be happening at night. She denies having any chest pain during the day with exertion. She states the pain feels similar to her previous admissions when she required stenting. Patient states she has been getting up to 2 times a night for the past few days and has been taking nitro. She also reports shortness of breath when she is laying flat. DIAGNOSTICS: - EKG reveals sinus mechanism with left bundle branch block. - Chest xray negative for acute process. - Laboratory data: WBC 6.5. Hemoglobin 12.6. Platelet count 197. Sodium 136. Potassium 5.2. BUN 25. Creatinine 0.96. Magnesium 2.0. Troponin 0.053. 0.033. proBNP 1870. - Current home cardiac medications include aspirin 81 mg daily, atorvastatin 80 mg at night, Plavix 75 mg daily, Imdur 30 mg daily, losartan 50 mg daily, Ranexa 500 mg twice a day, Aldactone 12.5 mg at night, carvedilol 6.25 mg twice a day - Most recent echocardiogram obtained in April 2024 revealed ejection fraction 45 to 50%, mid septal hypokinesis, apical septal hypokinesis, apical inferior hypokinesis, mild MR, mild AR, mild TR - Cardiac catheterization history: 07/10/2024 revealing 30% distal left main disease, 70% ostial LAD disease. Patent stent in the mid LAD. 70% diffuse distal LAD disease. 50% ostial and proximal left circumflex disease. Negative IFR performed on 05/18/2024. Medical management was recommended. Progress note 07/30/2024 BP 122/86, heart rate 60 bpm Few blood pressure readings in 100 systolic, Troponin up trended to 0.19 08/01/2024 Patient underwent a Lexiscan nuclear stress test which showed small area of primarily fixed with mildly erum-infarct ischemia in the apical wall. The findings were discussed with Dr. Kirby. Patient stress test did not show significant reversible ischemia however her heart cath does show severe disease in ostial and proximal LAD. With medical management alone patient has had multiple hospital admissions with NSTEMI and substernal chest pressure with minimal exertion with angina class IV symptoms. The findings were also discussed with Dr. Pendleton and he feels that it is a high risk intervention. Between surgical interventions, surgeons feel that patient has appropriate surgical profile and she would benefit from two-vessel CABG LAD and diagonal artery. Her WILLAM did not show any significant valvular dysfunction other than mild MR and mild AI. 08/02/2024 Patient is doing well from cardiovascular standpoint, no new cardiovascular events. Blood pressure is stable. 08/03 Patient seen and examined. Patient is on IV heparin. She is waiting for CABG this week. Blood pressure 100/66, heart rate 72, pulse ox 95% on room air. Repeat blood work reveals hemoglobin 12, creatinine 0.8. Potassium 4.8. AST 75, ALT 50, alkaline phosphatase 139. Repeat EKG sinus rhythm with LBBB. 08/04 Patient seen and examined. Patient is waiting for CABG to be scheduled this week. She states she did have a wave of chest pain. She is already on Imdur and Ranexa at 500 mg twice daily which we will increase to 1000 mg twice daily. PHYSICAL EXAM: HEENT: Head is normocephalic. Pupils are equal, round. Sclerae anicteric. Mucous membranes of the mouth are moist. Neck supple. No JVD or thyromegaly LUNGS: Respirations even and unlabored. Lungs essentially clear to auscultation bilaterally. HEART: Regular rate and rhythm. S1 and S2 heard. ABDOMEN: Soft. Nondistended. Nontender. EXTREMITIES: Normal range of motion. No clubbing or cyanosis. Peripheral pulses intact. No lower extremity edema NEUROLOGIC: Awake and alert. Oriented x 3. ASSESSMENT: NSTEMI Substernal chest pressure, likely related to NSTEMI scheduled for CABG on 08/[address] Velazquez Coronary artery disease with previous stenting. Acute heart failure with reduced EF Ischemic cardiomyopathy, 45% Known left bundle branch block Hypertension Hypothyroidism Obesity Echo EF 30 to 35%, Moderate mitral regurgitation, Moderate aortic regurgitation, mild aortic stenosis WILLAM showed mild MR, mild AI, mild aortic stenosis, calcific aortic valve PLAN: Continue aspirin, Coreg, losartan, Lipitor. Hold Plavix Continue IV heparin drip Continue Imdur to 60 mg daily, and increase Ranexa to 1000 mg twice daily Continue torsemide 10 mg daily for mildly elevated JVP and PND symptoms. Plan for CT surgery Saturday or . She could not afford Brilinta, SGLT2 and Entresto on outpatient basis. Not on Aldactone because of potassium of 5.2. Nurse practitioner note has been reviewed, I agree with documented findings and plan of care. Patient was seen and examined. Objective - Vital Signs Vital signs: Vital Signs Temp 98.8 F 08/03/24 20:29 Pulse 73 08/04/24 03:58 Resp 18 08/04/24 03:58 BP 131/82 08/04/24 03:58 Pulse Ox 94 L 08/04/24 03:58 FiO2 Intake & Output 08/03/24 08/04/24 08/04/24 18:59 06:59 18:59 Intake Total 368.000 Balance 368.000 Weight 81 kg Intake: Intake, IV Titration 250.000 Amount Heparin Sod,Pork in 0.45% 250.000 NaCl 25,000 unit In 0.45 % NaCl 1 250ml.bag @ 12 UNITS/KG/HR 9.768 mls/hr IV .Q24H [facility] Rx#: [id number] Oral 118 Other: Voiding Method Toilet # Voids 3 1 - Labs CBC & Chem 7: 08/04/24 06:26 08/04/24 06:26 Labs: Abnormal Lab Results - Last 24 Hours (Table) 08/03/24 08/04/24 08/04/24 Range/Units 15:04 06:26 06:26 MCHC 30.9 L (31.0-37.0) g/dL APTT 52.7 H 61.6 H (22.0-30.0) sec BUN (7-17) mg/dL Glucose (74-99) mg/dL AST (14-36) U/L ALT (4-34) U/L Alkaline Phosphatase (38-126) U/L 08/04/24 Range/Units 06:26 MCHC (31.0-37.0) g/dL APTT (22.0-30.0) sec BUN 21 H (7-17) mg/dL Glucose 100 H (74-99) mg/dL AST 57 H (14-36) U/L ALT 44 H (4-34) U/L Alkaline Phosphatase 132 H (38-126) U/L Microbiology - Last 24 Hours (Table) 07/31/24 01:29 Urine Culture - Final Urine,Voided Klebsiella pneumoniae
--- NOTE | 2024-08-04 15:12 | P.PN ---
Subjective Progress Note Date: 08/04/24 H&P Date: 07/29/24 Chief Complaint: Chest pain This is a 74-year-old female with past medical history significant for CAD, ischemic cardiomyopathy, recent NSTEMI with stenting of the mid LAD 05/13/2024 followed by cardiac catheterization on 07/10/2024 reporting no progression of disease with medical therapy maximized, left bundle branch block ,hypertension, hyperlipidemia, morbid obesity, prediabetic with hemoglobin A1c of 6.2 (07/21), hypothyroidism, prior nicotine dependence, and multiple other medical issues presented to the ER with complaints of radiating midsternal chest pain accompanied by diaphoresis and shortness of breath over the last 2 to 3 nights in a row. Admits to fluctuating chest pain since April 2024 as well as her last catheterization in June 2024. denies nausea, vomiting or diarrhea. Denies abdominal pain. Reports weight loss of 11 pounds since April 2024. Denies upper respiratory infections or known sick contacts. She started cardiac rehab yesterday. Reports pain initiates in her right hand travels up her right arm across to her mid sternum. Symptoms usually begin after dinner, progresses through the night, averaging a total of 3 nitro sublinguals each night. Afebrile, normal WBC. Chest x-ray reported nonacute. Hematology, coagulation panel unremarkable. Sodium 136, potassium 5.5, bicarb 21, BUN 25, creatinine 0.96, mag 2.0, T. bili 1.4, AST 77, ALT 42, alk phos WNL. Troponin 0.053. BNP 1870. EKG reported sinus rhythm with left bundle branch block. Anticoagulated on IV heparin drip. Echo ordered. 07/30/2024 serial enzymes 0.053, 0.033, 0.193.Echo reported severely impaired low ventricular systolic function, EF 30 to 35%, moderate mitral regurgitation, mild to moderate aortic regurgitation with mild aortic stenosis, mild tricuspid regurgitation. Reported she had another episode of right arm pain radiating up to midsternal chest pain during the night starting around 10:00, received morphine, pain subsided but developed nausea. Maintained on heparin drip., CTS consult recently placed, evaluation pending. 07/31/2024 patient was seen resting comfortably in bed with at bedside had a conversation with Dr. Kirby of cardiothoracic surgery and Dr. Tam of [facility] regarding her care is determined that we would undergo a nuclear stress test to determine if there is any exercise-induced ischemia. If there was then would proceed with further intervention she is okay with this plan she denies any shortness of breath she had minimum chest pain last evening she is currently on Imdur which has diminished her angina. 08/03/2024 patient seen today resting comfortably all test were discussed with patient cardiothoracic surgery has recommended revascularization procedure coronary artery bypass graft which will be done midweek. She continues on heparin, Plavix is on hold 5 to 7 days prior to surgery cardiology continues to follow patient remains on Imdur. 08/04/2024 maintained on ceftriaxone for UTI with Klebsiella. Afebrile, normal WBC. Plavix remains on hold. Scheduled for CABG on . Reports she did have a chest pain episode during the night, continues on Imdur and Ranexa with Ranexa increased as per cardiology. Objective - Vital Signs Vital signs: Vital Signs Temp 98.8 F 08/03/24 20:29 Pulse 73 08/04/24 03:58 Resp 18 08/04/24 03:58 BP 131/82 08/04/24 03:58 Pulse Ox 94 L 08/04/24 03:58 FiO2 Intake & Output 08/03/24 08/04/24 08/04/24 18:59 06:59 18:59 Intake Total 368.000 Balance 368.000 Weight 81 kg Intake: Intake, IV Titration 250.000 Amount Heparin Sod,Pork in 0.45% 250.000 NaCl 25,000 unit In 0.45 % NaCl 1 250ml.bag @ 12 UNITS/KG/HR 9.768 mls/hr IV .Q24H [facility] Rx#: [id number] Oral 118 Other: Voiding Method Toilet # Voids 3 1 - Exam VITAL SIGNS: [Reviewed] GENERAL: Alert and oriented x 3, laying in bed, no acute distress. THREE AFFILIATED. HEENT: Atraumatic, normocephalic, conjunctivae normal. eyes normal. NECK: Supple,no JVD. CARDIOVASCULAR: S1, S2. regular rate and rhythm. RESPIRATION: Unlabored, equal air entry, essentially clear to auscultation. ABDOMEN: Soft, nondistended, nontender . No guarding. no masses palpable. Positive bowel sounds. LEGS: No edema. no swelling. No calf tenderness. NERVOUS SYSTEM: Cranial N 2-12 grossly normal. No focal deficits. Strength and sensation grossly intact. Skin: Warm and dry, no rash. - Labs CBC & Chem 7: 08/04/24 06:26 08/04/24 06:26 Labs: Abnormal Lab Results - Last 24 Hours (Table) 08/03/24 08/04/24 08/04/24 Range/Units 15:04 06:26 06:26 MCHC 30.9 L (31.0-37.0) g/dL APTT 52.7 H 61.6 H (22.0-30.0) sec BUN (7-17) mg/dL Glucose (74-99) mg/dL AST (14-36) U/L ALT (4-34) U/L Alkaline Phosphatase (38-126) U/L 08/04/24 Range/Units 06:26 MCHC (31.0-37.0) g/dL APTT (22.0-30.0) sec BUN 21 H (7-17) mg/dL Glucose 100 H (74-99) mg/dL AST 57 H (14-36) U/L ALT 44 H (4-34) U/L Alkaline Phosphatase 132 H (38-126) U/L Microbiology - Last 24 Hours (Table) 07/31/24 01:29 Urine Culture - Final Urine,Voided Klebsiella pneumoniae Assessment and Plan Assessment: NSTEMI,in a patient with prior CAD, recent ID with stenting of the mid LAD 05/13/2024. 07/10/2024 cardiac catheterization completed reporting 30% distal left main disease, 70% ostial LAD disease, patent stents in the mid LAD, 70% diffuse distal LAD disease. 50% ostial and proximal left circumflex disease negative IFR performed on 05/18/2024. Cardiology reported no progression of CAD, comparing to heart cath of 05/18/2024.Per catheterization reports cardiology felt that the LAD intervention was complex and patient would benefit from optimization of cardiac medications and was started on Imdur therapy. If patient fails antianginal and optimize heart failure medication she would be considered for CABG. Acute systolic heart failure Ischemic cardiomyopathy, EF 30 to 35% Moderate mitral regurgitation Mild to moderate aortic regurgitation with mild aortic stenosis Mild tricuspid regurgitation Acute UTI with Klebsiella Hyperbilirubinemia with minimally elevated AST and ALT. History of abnormally thickened endometrium with vascularity concerning for endometrial carcinoma, reported per pelvic/transvaginal ultrasound 05/07/2024. Further outpatient workup in progress. Left bundle branch block Hypertension Hyperlipidemia Morbid obesity, BMI 35, reports 11 pound weight loss since 05/19 Prediabetic, hemoglobin A1c 6.2 (07/21), currently 6.1 Prior nicotine dependence, 1 pack/day x 10 years,quit 1978 Anxiety Depression Plan: Continue on current medication regimen ,monitoring and symptomatic treatment. CABG scheduled for August 07, 2024. Plavix remains on hold. anticoagulation with heparin drip. Aggressive pulmonary toileting with incentive spirometer reinforced. Continue ceftriaxone for UTI. The impression and plan of care has been dictated as directed. : I performed a history and examination of this patient, discussed the same with the dictator. I agree with the dictator's note ,documented as a scribe. Any ad ditional findings or plans will be noted.
[2024-08-04] MEDS: RANOLAZINE 500 MG TAB.ER.12H PO SCH (20:06)
[2024-08-05 01:05] LABS: Appearance,Urine Cloudy (Clear); Bacteria,Urine Rare /hpf; Bilirubin,Urine Negative (Negative); Blood,Urine Large (Negative); Color,Urine Yellow; Glucose,Urine (UA) Negative (Negative); Hyaline Casts,Urine 10 /lpf (0-2); Ketones,Urine Negative (Negative); Leukocyte Esterase,Urine Small (Negative); Mucus,Urine Rare /hpf; Nitrite,Urine Negative (Negative); PH, Urine 5.5 (5.0-8.0); Protein,Urine 1+ (Negative); RBC,Urine >182 /hpf (0-5); Specific Gravity,Urine 1.013 (1.001-1.035); Squamous Epithelial Cell,Urine 1 /hpf (0-4); Urobilinogen,Urine <2.0 mg/dL (<2.0); WBC,Urine 47 /hpf (0-5)
[2024-08-05 06:48] LABS: HCT 36.7 % (34.0-46.0); HGB 11.1 gm/dL (11.4-16.0); Hypochromasia Slight; MCHC 30.1 g/dL (31.0-37.0); MCV 92.9 fL (80.0-100.0); Mean Platelet Volume 8.1; Platelet Count 181 k/uL (150-450); RBC 3.95 m/uL (3.80-5.40); RDW 14.5 % (11.5-15.5); WBC 6.1 k/uL (3.8-10.6)
[2024-08-05 06:58] LABS: ALT 41 U/L (4-34); AST 57 U/L (14-36); African American GFR (CKD) 76 (>60 ml/min/1.73 sqM); Albumin 3.5 g/dL (3.5-5.0); Alkaline Phosphatase 131 U/L (38-126); Anion Gap 7 mmol/L; Blood Urea Nitrogen 20 mg/dL (7-17); Carbon Dioxide 25 mmol/L (22-30); Chloride 107 mmol/L (98-107); Glucose 88 mg/dL (74-99); Non-African American GFR(CKD) 66 (>60 ml/min/1.73 sqM); Potassium 4.7 mmol/L (3.5-5.1); Sodium 139 mmol/L (137-145); Total Bilirubin 1.1 mg/dL (0.2-1.3); Total Protein 6.5 g/dL (6.3-8.2)
--- NOTE | 2024-08-05 07:45 | P.PN ---
Subjective Progress Note Date: 08/05/24 Principal diagnosis: Coronary artery disease, non-ST elevated myocardial infarction this admission. Previuos medical history of coronary artery disease with non-STEMI and PCI to he r LAD in April 2024, ischemic cardiomyopathy, hypertension, hyperlipidemia, hypothyroid, known left bundle branch block, hard of hearing, obesity, mild restrictive lung disease, previous tobacco dependence with cessation over 40 years ago, and recent vaginal bleeding being followed by [facility]. Preoperative nasal swab positive for MSSA, preoperative urinary tract infection with Klebsiella, preoperative transaminitis, left internal carotid artery stenosis The patient was seen and examined laying in bed on the cardiac stepdown unit in no acute distress although she does state she had chest pain last night requiring sublingual nitro. Denies any chest pain currently, denies shortness of breath. Remains in sinus rhythm, hemodynamically stable. Remains on IV heparin. Our plan is for surgical myocardial revascularization tomorrow with Dr. Velazquez. No new questions. Objective - Vital Signs Vital signs: Vital Signs Temp 98.1 F 08/04/24 20:07 Pulse 75 08/05/24 04:20 Resp 17 08/05/24 04:20 BP 115/79 08/05/24 04:20 Pulse Ox 95 08/05/24 04:20 FiO2 Intake & Output 08/04/24 08/05/24 08/05/24 18:59 06:59 18:59 Intake Total 50 Output Total 200 Balance 50 -200 Weight 84 kg Intake: Intake, IV Titration 50 Amount cefTRIAXone 1 gm In 50 Sodium Chloride 0.9% 50 ml @ 100 mls/hr IVPB Q24HR [facility] Rx#:[id number] Output: Urine 200 Other: Voiding Method Toilet Toilet - Exam CONSTITUTIONAL: Appears comfortable, cooperative, no acute distress RESPIRATORY: Lungs sounds diminished bilaterally. Respirations even, nonlabored. Currently on room air with oxygen saturation 95% CARDIOVASCULAR: S1, S2 present. Regular rate and rhythm, sinus rhythm on telemetry. Palpable peripheral pulses bilaterally. No edema present. No calf pain or tenderness noted GASTROINTESTINAL: Abdomen soft, nontender, nondistended. Active bowel sounds present 4 quadrants. Tolerating diet. Positive bowel movement 08/04/24 patient although not documented in [facility] GENITOURINARY: Continues to void INTEGUMENTARY: Skin is warm and dry NEUROLOGIC: Cranial nerves II through XII intact MUSKULOSKELETAL: Able to move all extremities, strength equal bilaterally, gait normal PSYCHIATRIC: Alert and oriented to person place and time, appropriate affect, intact judgment and insight - Allied health notes Allied health notes reviewed: nursing - Labs CBC & Chem 7: 08/05/24 05:54 08/05/24 05:54 Labs: Abnormal Lab Results - Last 24 Hours (Table) 08/04/24 08/05/24 08/05/24 Range/Units 06:26 00:12 05:54 Hgb 11.1 L (11.4-16.0) gm/dL MCHC 30.1 L (31.0-37.0) g/dL APTT (22.0-30.0) sec BUN 21 H (7-17) mg/dL Glucose 100 H (74-99) mg/dL AST 57 H (14-36) U/L ALT 44 H (4-34) U/L Alkaline Phosphatase 132 H (38-126) U/L Urine Appearance Cloudy H (Clear) Urine Protein 1+ H (Negative) Urine Blood Large H (Negative) Ur Leukocyte Esterase Small H (Negative) Urine RBC >182 H (0-5) /hpf Urine WBC 47 H (0-5) /hpf Urine Bacteria Rare H (None) /hpf Hyaline Casts 10 H (0-2) /lpf Urine Mucus Rare H (None) /hpf 08/05/24 08/05/24 Range/Units 05:54 05:54 Hgb (11.4-16.0) gm/dL MCHC (31.0-37.0) g/dL APTT 50.2 H (22.0-30.0) sec BUN 20 H (7-17) mg/dL Glucose (74-99) mg/dL AST 57 H (14-36) U/L ALT 41 H (4-34) U/L Alkaline Phosphatase 131 H (38-126) U/L Urine Appearance (Clear) Urine Protein (Negative) Urine Blood (Negative) Ur Leukocyte Esterase (Negative) Urine RBC (0-5) /hpf Urine WBC (0-5) /hpf Urine Bacteria (None) /hpf Hyaline Casts (0-2) /lpf Urine Mucus (None) /hpf Assessment and Plan Assessment: Coronary artery disease, non-ST elevated myocardial infarction this admission Recent vaginal bleeding being followed by [facility] Preoperative nasal swab positive for MSSA, treated with nasal mupirocin Preoperative urinary tract infection with Klebsiella, treated with Rocephin Preoperative transaminitis Left internal carotid artery stenosis, 50 to 69% History of coronary artery disease with non-STEMI and PCI to her LAD in April 2024 Ischemic cardiomyopathy with EF 30-35% on TTE 07/29/24, preserved LV systolic function on WILLAM 07/31/24 Hypertension Hyperlipidemia, treated, cholesterol 112, LDL 56.5 Hypothyroid, TSH 2.66 Known left bundle branch block Obesity Mild restrictive lung disease, preoperative FEV1 66% of predicted Previous tobacco dependence with cessation over 40 years ago Plan: Continue to maximize medical therapy with aspirin, statin, beta-apolonia. Cont inue to hold Plavix, last dose 07/30/24 Continue Imdur, Ranexa, IV heparin, stop IV heparin 2 hours prior to surgery Our plan is for off-pump coronary artery bypass surgery with left internal mammary artery, endoscopic vein harvest, ligation of the left atrial appendage July by Dr. Velazquez N.p.o. after midnight Continue to reinforce preoperative teaching Encourage incentive spirometry use Medical management of other comorbidities per internal medicine, cardiology More recommendations to follow
[2024-08-05] MEDS: MD COMMUNICATION TO PHARMACY 1 EACH MISC PO ONE (07:47)
--- NOTE | 2024-08-05 09:15 | P.PN ---
Subjective Progress Note Date: 08/05/24 H&P Date: 07/29/24 Chief Complaint: Chest pain This is a 74-year-old female with past medical history significant for CAD, ischemic cardiomyopathy, recent NSTEMI with stenting of the mid LAD 05/13/2024 followed by cardiac catheterization on 07/10/2024 reporting no progression of disease with medical therapy maximized, left bundle branch block ,hypertension, hyperlipidemia, morbid obesity, prediabetic with hemoglobin A1c of 6.2 (07/21), hypothyroidism, prior nicotine dependence, and multiple other medical issues presented to the ER with complaints of radiating midsternal chest pain accompanied by diaphoresis and shortness of breath over the last 2 to 3 nights in a row. Admits to fluctuating chest pain since April 2024 as well as her last catheterization in June 2024. denies nausea, vomiting or diarrhea. Denies abdominal pain. Reports weight loss of 11 pounds since April 2024. Denies upper respiratory infections or known sick contacts. She started cardiac rehab yesterday. Reports pain initiates in her right hand travels up her right arm across to her mid sternum. Symptoms usually begin after dinner, progresses through the night, averaging a total of 3 nitro sublinguals each night. Afebrile, normal WBC. Chest x-ray reported nonacute. Hematology, coagulation panel unremarkable. Sodium 136, potassium 5.5, bicarb 21, BUN 25, creatinine 0.96, mag 2.0, T. bili 1.4, AST 77, ALT 42, alk phos WNL. Troponin 0.053. BNP 1870. EKG reported sinus rhythm with left bundle branch block. Anticoagulated on IV heparin drip. Echo ordered. 07/30/2024 serial enzymes 0.053, 0.033, 0.193.Echo reported severely impaired low ventricular systolic function, EF 30 to 35%, moderate mitral regurgitation, mild to moderate aortic regurgitation with mild aortic stenosis, mild tricuspid regurgitation. Reported she had another episode of right arm pain radiating up to midsternal chest pain during the night starting around 10:00, received morphine, pain subsided but developed nausea. Maintained on heparin drip., CTS consult recently placed, evaluation pending. 07/31/2024 patient was seen resting comfortably in bed with at bedside had a conversation with Dr. Kirby of cardiothoracic surgery and Dr. Tam of [facility] regarding her care is determined that we would undergo a nuclear stress test to determine if there is any exercise-induced ischemia. If there was then would proceed with further intervention she is okay with this plan she denies any shortness of breath she had minimum chest pain last evening she is currently on Imdur which has diminished her angina. 08/03/2024 patient seen today resting comfortably all test were discussed with patient cardiothoracic surgery has recommended revascularization procedure coronary artery bypass graft which will be done midweek. She continues on heparin, Plavix is on hold 5 to 7 days prior to surgery cardiology continues to follow patient remains on Imdur. 08/04/2024 maintained on ceftriaxone for UTI with Klebsiella. Afebrile, normal WBC. Plavix remains on hold. Scheduled for CABG on . Reports she did have a chest pain episode during the night, continues on Imdur with Ranexa dose increased as per cardiology. 08/05/2024 anticoagulated on heparin drip .reports another episode of chest pain during the night, relieved with sublingual nitro. Currently denies chest pain, palpitations or shortness of breath. Telemetry sinus rhythm. Tolerating diet, denies nausea, vomiting. Reports bowel movement yesterday scheduled for CABG tomorrow. Continues on ceftriaxone for Klebsiella UTI. UA repeated, reporting large blood, negative nitrates, small leukocytes, rare bacteria. Objective - Vital Signs Vital signs: Vital Signs Temp 98.1 F 08/04/24 20:07 Pulse 75 08/05/24 04:20 Resp 17 08/05/24 04:20 BP 115/79 08/05/24 04:20 Pulse Ox 95 08/05/24 04:20 FiO2 Intake & Output 08/04/24 08/05/24 08/05/24 18:59 06:59 18:59 Intake Total 50 240 Output Total 200 Balance 50 -200 240 Weight 84 kg Intake: Intake, IV Titration 50 Amount cefTRIAXone 1 gm In 50 Sodium Chloride 0.9% 50 ml @ 100 mls/hr IVPB Q24HR [facility] Rx#:[id number] Oral 240 Output: Urine 200 Other: Voiding Method Toilet Toilet - Exam VITAL SIGNS: [Reviewed] GENERAL: [place],Alert and oriented x 3, laying in bed, no acute distress. HEENT: Atraumatic, normocephalic, conjunctivae normal. eyes normal. NECK: Supple,no JVD. CARDIOVASCULAR: S1, S2. regular rate and rhythm. RESPIRATION: Unlabored, equal air entry, essentially clear to auscultation. ABDOMEN: Soft, nondistended, nontender . No guarding. Positive bowel sounds. LEGS: No edema. no swelling. No calf tenderness. NERVOUS SYSTEM: Cranial N 2-12 grossly normal. No focal deficits. Strength and sensation grossly intact. Skin: Warm and dry, no rash. - Labs CBC & Chem 7: 08/05/24 05:54 08/05/24 05:54 Labs: Abnormal Lab Results - Last 24 Hours (Table) 08/05/24 08/05/24 08/05/24 Range/Units 00:12 05:54 05:54 Hgb 11.1 L (11.4-16.0) gm/dL MCHC 30.1 L (31.0-37.0) g/dL APTT (22.0-30.0) sec BUN 20 H (7-17) mg/dL AST 57 H (14-36) U/L ALT 41 H (4-34) U/L Alkaline Phosphatase 131 H (38-126) U/L Urine Appearance Cloudy H (Clear) Urine Protein 1+ H (Negative) Urine Blood Large H (Negative) Ur Leukocyte Esterase Small H (Negative) Urine RBC >182 H (0-5) /hpf Urine WBC 47 H (0-5) /hpf Urine Bacteria Rare H (None) /hpf Hyaline Casts 10 H (0-2) /lpf Urine Mucus Rare H (None) /hpf 08/05/24 Range/Units 05:54 Hgb (11.4-16.0) gm/dL MCHC (31.0-37.0) g/dL APTT 50.2 H (22.0-30.0) sec BUN (7-17) mg/dL AST (14-36) U/L ALT (4-34) U/L Alkaline Phosphatase (38-126) U/L Urine Appearance (Clear) Urine Protein (Negative) Urine Blood (Negative) Ur Leukocyte Esterase (Negative) Urine RBC (0-5) /hpf Urine WBC (0-5) /hpf Urine Bacteria (None) /hpf Hyaline Casts (0-2) /lpf Urine Mucus (None) /hpf Assessment and Plan Assessment: NSTEMI,in a patient with prior CAD, recent DC with stenting of the mid LAD 05/13/2024. 07/10/2024 cardiac catheterization completed reporting 30% distal left main disease, 70% ostial LAD disease, patent stents in the mid LAD, 70% diffuse distal LAD disease. 50% ostial and proximal left circumflex disease negative IFR performed on 05/18/2024. Cardiology reported no progression of CAD, comparing to heart cath of 05/18/2024.Per catheterization reports cardiology fe lt that the LAD intervention was complex and patient would benefit from optimization of cardiac medications and was started on Imdur therapy. If patient fails antianginal and optimize heart failure medication she would be considered for CABG. Acute systolic heart failure Ischemic cardiomyopathy, EF 30 to 35% Moderate mitral regurgitation Mild to moderate aortic regurgitation with mild aortic stenosis Mild tricuspid regurgitation Acute UTI with Klebsiella Hyperbilirubinemia with minimally elevated AST and ALT. 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 Further outpatient workup in progress. Left bundle branch block Hypertension Hyperlipidemia Morbid obesity, BMI 35, reports 11 pound weight loss since 05/19 Prediabetic, hemoglobin A1c 6.2 (07/21), currently 6.1 Prior nicotine dependence, 1 pack/day x 10 years,quit 1978 Anxiety Depression Plan: Continue on current medication regimen ,monitoring and symptomatic treatment. Maintain ceftriaxone for UTI. CABG scheduled for tomorrow, August 07, 2024. Plavix remains on hold. anticoagulation with heparin drip. Aggressive p ulmonary toileting with incentive spirometer reinforced. The impression and plan of care has been dictated as directed. : I performed a history and examination of this patient, discussed the same with the dictator. I agree with the dictator's note ,documented as a scribe. Any additional findings or plans will be noted.
--- NOTE | 2024-08-05 13:19 | P.PN ---
Subjective Progress Note Date: 08/05/24 HISTORY OF PRESENT ILLNESS: This is a 74-year-old female with a past medical history significant for cor onary artery disease with previous stenting, ischemic cardiomyopathy, known left bundle branch block, hypertension, hypothyroidism, and obesity. Patient follows in the office with Dr. Tam. We have been asked to see the patient in consultation for chest pain. Patient examined at the bedside in the emergency room. Patient presented to the hospital with a chief complaint of chest discomfort. Patient states over the past 2 to 3 days she has been having chest discomfort. She states the pain starts in her right arm and then radiates into her chest. She states the pain just seems to be happening at night. She denies having any chest pain during the day with exertion. She states the pain feels similar to her previous admissions when she required stenting. Patient states she has been getting up to 2 times a night for the past few days and has been taking nitro. She also reports shortness of breath when she is laying flat. DIAGNOSTICS: - EKG reveals sinus mechanism with left bundle branch block. - Chest xray negative for acute process. - Laboratory data: WBC 6.5. Hemoglobin 12.6. Platelet count 197. Sodium 136. Potassium 5.2. BUN 25. Creatinine 0.96. Magnesium 2.0. Troponin 0.053. 0.033. proBNP 1870. - Current home cardiac medications include aspirin 81 mg daily, atorvastatin 80 mg at night, Plavix 75 mg daily, Imdur 30 mg daily, losartan 50 mg daily, Ranexa 500 mg twice a day, Aldactone 12.5 mg at night, carvedilol 6.25 mg twice a day - Most recent echocardiogram obtained in April 2024 revealed ejection fraction 45 to 50%, mid septal hypokinesis, apical septal hypokinesis, apical inferior hypokinesis, mild MR, mild AR, mild TR - Cardiac catheterization history: 07/10/2024 revealing 30% distal left main disease, 70% ostial LAD disease. Patent stent in the mid LAD. 70% diffuse distal LAD disease. 50% ostial and proximal left circumflex disease. Negative IFR performed on 05/18/2024. Medical management was recommended. Progress note 07/30/2024 BP 122/86, heart rate 60 bpm Few blood pressure readings in 100 systolic, Troponin up trended to 0.19 08/01/2024 Patient underwent a Lexiscan nuclear stress test which showed small area of primarily fixed with mildly erum-infarct ischemia in the apical wall. The findings were discussed with Dr. Kirby. Patient stress test did not show significant reversible ischemia however her heart cath does show severe disease in ostial and proximal LAD. With medical management alone patient has had multiple hospital admissions with NSTEMI and substernal chest pressure with minimal exertion with angina class IV symptoms. The findings were also discussed with Dr. Pendleton and he feels that it is a high risk intervention. Between surgical interventions, surgeons feel that patient has appropriate surgical profile and she would benefit from two-vessel CABG LAD and diagonal artery. Her WILLAM did not show any significant valvular dysfunction other than mild MR and mild AI. 08/02/2024 Patient is doing well from cardiovascular standpoint, no new cardiovascular events. Blood pressure is stable. 08/03 Patient seen and examined. Patient is on IV heparin. She is waiting for CABG this week. Blood pressure 100/66, heart rate 72, pulse ox 95% on room air. Repeat blood work reveals hemoglobin 12, creatinine 0.8. Potassium 4.8. AST 75, ALT 50, alkaline phosphatase 139. Repeat EKG sinus rhythm with LBBB. 08/04 Patient seen and examined. Patient is waiting for CABG to be scheduled this week. She states she did have a wave of chest pain. She is already on Imdur and Ranexa at 500 mg twice daily which we will increase to 1000 mg twice daily. 08/05 Patient seen and examined. No new complaints today. She denies chest pain. Yesterday we increased Ranexa to 1000 mg twice daily. She is scheduled for CABG tomorrow. Blood pressure 108/54, heart rate 64, pulse ox 95% on room air. Hemoglobin 11.1, creatinine 0.87. PHYSICAL EXAM: HEENT: Head is normocephalic. Pupils are equal, round. Sclerae anicteric. Mucous membranes of the mouth are moist. Neck supple. No JVD or thyromegaly LUNGS: Respirations even and unlabored. Lungs essentially clear to auscultation bilaterally. HEART: Regular rate and rhythm. S1 and S2 heard. ABDOMEN: Soft. Nondistended. Nontender. EXTREMITIES: Normal range of motion. No clubbing or cyanosis. Peripheral pulses intact. No lower extremity edema NEUROLOGIC: Awake and alert. Oriented x 3. ASSESSMENT: NSTEMI Substernal chest pressure, likely related to NSTEMI scheduled for CABG on 08/[address] Velazquez Coronary artery disease with previous stenting. Acute heart failure with reduced EF Ischemic cardiomyopathy, 45% Known left bundle branch block Hypertension Hypothyroidism Obesity Echo EF 30 to 35%, Moderate mitral regurgitation, Moderate aortic regurgitation, mild aortic stenosis WILLAM showed mild MR, mild AI, mild aortic stenosis, calcific aortic valve PLAN: Continue aspirin, Coreg, losartan, Lipitor. Hold Plavix Continue IV heparin drip Continue Imdur to 60 mg daily, and Ranexa 1000 mg twice daily Continue torsemide 10 mg daily for mildly elevated JVP and PND symptoms. She could not afford Brilinta, SGLT2 and Entresto on outpatient basis. Not on Aldactone because of potassium of 5.2. Nurse practitioner note has been reviewed, I agree with documented findings and plan of care. Patient was seen and examined. Objective - Vital Signs Vital signs: Vital Signs Temp 98.1 F 08/04/24 20:07 Pulse 75 08/05/24 04:20 Resp 17 08/05/24 04:20 BP 115/79 08/05/24 04:20 Pulse Ox 95 08/05/24 04:20 FiO2 Intake & Output 08/04/24 08/05/24 08/05/24 18:59 06:59 18:59 Intake Total 50 240 Output Total 200 Balance 50 -200 240 Weight 84 kg Intake: Intake, IV Titration 50 Amount cefTRIAXone 1 gm In 50 Sodium Chloride 0.9% 50 ml @ 100 mls/hr IVPB Q24HR [facility] Rx#:[id number] Oral 240 Output: Urine 200 Other: Voiding Method Toilet Toilet - Labs CBC & Chem 7: 08/05/24 05:54 08/05/24 05:54 Labs: Abnormal Lab Results - Last 24 Hours (Table) 08/05/24 08/05/24 08/05/24 Range/Units 00:12 05:54 05:54 Hgb 11.1 L (11.4-16.0) gm/dL MCHC 30.1 L (31.0-37.0) g/dL APTT (22.0-30.0) sec BUN 20 H (7-17) mg/dL AST 57 H (14-36) U/L ALT 41 H (4-34) U/L Alkaline Phosphatase 131 H (38-126) U/L Urine Appearance Cloudy H (Clear) Urine Protein 1+ H (Negative) Urine Blood Large H (Negative) Ur Leukocyte Esterase Small H (Negative) Urine RBC >182 H (0-5) /hpf Urine WBC 47 H (0-5) /hpf Urine Bacteria Rare H (None) /hpf Hyaline Casts 10 H (0-2) /lpf Urine Mucus Rare H (None) /hpf 08/05/24 Range/Units 05:54 Hgb (11.4-16.0) gm/dL MCHC (31.0-37.0) g/dL APTT 50.2 H (22.0-30.0) sec BUN (7-17) mg/dL AST (14-36) U/L ALT (4-34) U/L Alkaline Phosphatase (38-126) U/L Urine Appearance (Clear) Urine Protein (Negative) Urine Blood (Negative) Ur Leukocyte Esterase (Negative) Urine RBC (0-5) /hpf Urine WBC (0-5) /hpf Urine Bacteria (None) /hpf Hyaline Casts (0-2) /lpf Urine Mucus (None) /hpf
--- NOTE | 2024-08-05 17:21 | P.CNPUL ---
History of Present Illness Consult date: 08/05/24 Chief complaint: CAD, awaiting bypass surgery History of present illness: This is a 74-year-old female patient is going to have a coronary artery bypass surgery in a.m. The patient presented with acute non-ST segment elevation myocardial infarction. The patient is known to have coronary artery disease and she has undergone previous PCI to LAD back in April 2024 and she also has a component of ischemic cardiomyopathy, hypertension, hyperlipidemia and hypothyroidism. She is a former smoker. Her most recent heart catheterization was completed on July 10, 2024 which demonstrated a 30% stenosis to her distal left main coronary artery, a 70% ostial LAD disease, patent stent in the mid LAD, 70% diffuse distal LAD disease, 50% ostial and proximal left circumflex disease with negative IFR performed on May 18, 2024, when compared to the heart catheterization from 05/18/2024 there was no progression of the CAD. Post heart cath the patient was recommended for intensification and optimization of her antianginal and G DMT for her heart failure. Subsequently, due to the patient's presenting symptoms and results of her heart catheterization on July 10, 2024 a consult was placed to cardiothoracic surgery for further evaluation and treatment recommendations including myocardial vascularization surgery. WILLAM was done on 07/31/2024 showed a mild MR, mild to moderate central aortic regurgitation and calcification of the ascending aorta and aortic root. The patient also underwent a CT scan of the chest on 07/30/2024 that showed no evidence of any thoracic aortic aneurysm and hiatal hernia was noted. Lung parenchyma was essentially within normal limits. The patient is currently on room air oxygen. Denies having any chest pain. The white cell count is 6.1 with a hemoglobin 11.1 and a platelet count of 181. BUN is 20 with a creatinine of 0.8. Sodium level is 139. The patient's baseline spirometry done showed an FEV1 of 66% of predicted. She is a former smoker. Review of Systems Constitutional: Denies chills, Denies fever Eyes: denies as per HPI, denies blurred vision, denies bulging eye, denies decreased vision, denies diplopia, denies discharge, denies dry eye, denies irritation, denies itching, denies pain, denies photophobia, denies loss of peripheral vision, denies loss of vision, denies tunnel vision/blind spots Ears: deny: decreased hearing, ear discharge, earache, tinnitus Ears, nose, mouth and throat: Reports as per HPI Breasts: absent: as per HPI, change in shape, gynecomastia, masses, nipple discharge, pain, skin changes, swelling Cardiovascular: Reports decreased exercise tolerance Respiratory: Reports dyspnea Gastrointestinal: Reports as per HPI Genitourinary: Reports as per HPI Menstruation: Reports as per HPI Musculoskeletal: Reports as per HPI Musculoskeletal: absent: ankle pain, ankle stiffness, ankle swelling, as per HPI, elbow pain, elbow stiffness, elbow swelling, foot pain, foot stiffness, foot swelling, hand pain, hand stiffness, hand swelling, hip pain, hip stiffness, hip swelling, knee pain, knee stiffness, knee swelling, shoulder pain, shoulder stiffness, shoulder swelling, wrist pain, wrist stiffness, wrist swelling Integumentary: Reports as per HPI Neurological: Reports as per HPI Psychiatric: Reports as per HPI Endocrine: Reports as per HPI Hematologic/Lymphatic: Reports as per HPI Allergic/Immunologic: Reports as per HPI Past Medical History Past Medical History: Coronary Artery Disease (CAD), Heart Failure, GERD/Reflux, Hyperlipidemia, Hypertension, Myocardial Infarction ([place]), Thyroid Disorder Additional Past Medical History / Comment(s): hypothyroidism, Left internal carotid artery stenosis, 50 to 69% Last Myocardial Infarction Date:: apr 2024 History of Any Multi-Drug Resistant Organisms: None Reported Past Surgical History: Cholecystectomy, Heart Catheterization With Stent, Orthopedic Surgery Additional Past Surgical History / Comment(s): lt knee arthroscopy. bilateral cataracts. Past Anesthesia/Blood Transfusion Reactions: Motion Sickness Additional Past Anesthesia/Blood Transfusion Reaction / Comment(s): Patient states anesthesiologist usually gives her Zofran in her IV before surgery Date of Last Stent Placement:: 05/13/24 Past Psychological History: Anxiety, Depression Smoking Status: Former smoker Past Alcohol Use History: Occasional Past Drug Use History: None Reported - Past Family History Mother Family Medical History: No Reported History Father Family Medical History: Cancer Additional Family Medical History / Comment(s): at age 75 from cancer (pt believes possibly prostate cancer) Medications and Allergies Home Medications Medication Instructions Recorded Confirmed Type Calcium/Magnesium/Zinc 1 tab PO HS 11/29/20 07/29/24 History [Azozuwg-Heanzxwuq-Xmec Tablet] Escitalopram [Lexapro] 10 mg PO HS 11/29/20 07/29/24 History Levothyroxine Sodium [Synthroid] 112 mcg PO DAILY 05/12/24 07/29/24 History Atorvastatin [Lipitor] 80 mg PO HS #30 tab 05/15/24 07/29/24 Rx Nitroglycerin Sl Tabs [Nitrostat] 0.4 mg SUBLINGUAL Q5M PRN #100 tab 05/15/24 07/29/24 Rx Aspirin EC [Ecotrin Low Dose] 81 mg PO DAILY 30 Days #30 tab 05/20/24 07/29/24 Rx Cetirizine HCl [Zyrtec] 10 mg PO HS 07/09/24 07/29/24 History Clopidogrel [Plavix] 75 mg PO DAILY 07/09/24 07/29/24 History Losartan [Cozaar] 50 mg PO DAILY 07/09/24 07/29/24 History Multivitamins, Thera [Multivitamin 1 tab PO HS 07/09/24 07/29/24 History (formulary)] Pantoprazole [Protonix] 40 mg PO DAILY 07/09/24 07/29/24 History Isosorbide Mononitrate ER [Imdur] 30 mg PO DAILY #30 tab 07/11/24 07/29/24 Rx Ranolazine [Ranexa] 500 mg PO Q12HR #60 tab 07/11/24 07/29/24 Rx carvediloL [Coreg] 6.25 mg PO BID-W/MEALS #60 tab 07/11/24 07/29/24 Rx Spironolactone [Aldactone] 12.5 mg PO HS 07/29/24 07/29/24 History Allergies Allergy/AdvReac Type Severity Reaction Status Date / Time Sulfa (Sulfonamide Allergy Rash, RED Verified 07/29/24 07:49 Antibiotics) AND HOT SKIN Physical Exam Vitals: Vital Signs Temp Pulse Resp BP BP Pulse Ox 08/05/24 09:37 98/54 08/05/24 09:31 64 108/54 08/05/24 08:38 98.3 F 69 14 95/54 95 08/05/24 04:20 75 17 115/79 95 08/04/24 23:01 65 17 107/66 95 08/04/24 20:07 98.1 F 64 17 101/63 95 08/04/24 16:00 72 92/63 97 08/04/24 14:00 69 18 08/04/24 13:10 102/64 08/04/24 12:00 69 83/47 96 Intake and Output 08/04/24 08/05/24 08/05/24 22:59 06:59 14:59 Intake Total 50 250 Output Total 200 Balance 50 -200 250 Intake: IV 10 Invasive Line 2 10 Intake, IV Titration 50 Amount cefTRIAXone 1 gm In 50 Sodium Chloride 0.9% 50 ml @ 100 mls/hr IVPB Q24HR [facility] Rx#:[id number] Oral 240 Output: Urine 200 Other: Voiding Method Toilet Toilet Toilet # Voids 1 Weight 84 kg The patient appeared well nourished and normally developed. Vital signs as documented. Head exam is unremarkable. No scleral icterus or corneal arcus noted. Neck is without jugular venous distension, thyromegaly, or carotid bruits. Carotid upstrokes are brisk bilaterally. Lungs are clear to auscultation and percussion. Cardiac exam reveals the PMI to be normally sized and situated. Rhythm is regular. First and second heart sounds normal. No murmurs, rubs or gallops. Abdominal exam reveals normal bowel sounds, no masses, no organomegaly and no aortic enlargement. Extremities are nonedematous and both femoral and pedal pulses are normal. Examination of the skin revealed no evidence of significant rashes, suspicious appearing nevi or other concerning lesions. Neurologically, the patient is awake and alert and the patient does not have any focal neurological deficit. Cranial nerves are essentially intact. Results - Laboratory Findings CBC and BMP: 08/05/24 05:54 08/05/24 05:54 PT/INR, D-dimer PT 11.4 sec (10.0-12.5) 08/04/24 06:26 INR 1.0 (<1.2) 08/04/24 06:26 Abnormal lab findings: Abnormal Labs 07/29/24 07/29/24 07/29/24 03:37 03:37 08:20 Hgb MCHC APTT 30.2 H Sodium 136 L Potassium 5.5 H Chloride Carbon Dioxide 21 L BUN 25 H Glucose 103 H Hemoglobin A1c Total Bilirubin 1.4 H AST 77 H ALT 42 H Alkaline Phosphatase Troponin I 0.053 H* Albumin HDL Cholesterol Urine Appearance Urine Protein Urine Blood Ur Leukocyte Esterase Urine RBC Urine WBC Urine WBC Clumps Urine Bacteria Hyaline Casts Urine Mucus Crossmatch 07/29/24 07/29/24 07/29/24 08:20 11:30 11:30 Hgb MCHC APTT 38.4 H Sodium Potassium 5.2 H Chloride Carbon Dioxide BUN Glucose Hemoglobin A1c Total Bilirubin AST ALT Alkaline Phosphatase Troponin I 0.193 H* Albumin HDL Cholesterol Urine Appearance Urine Protein Urine Blood Ur Leukocyte Esterase Urine RBC Urine WBC Urine WBC Clumps Urine Bacteria Hyaline Casts Urine Mucus Crossmatch 07/29/24 07/30/24 07/30/24 17:45 00:15 07:13 Hgb MCHC APTT 88.0 H 73.3 H Sodium Potassium Chloride Carbon Dioxide BUN Glucose Hemoglobin A1c Total Bilirubin AST ALT Alkaline Phosphatase Troponin I Albumin HDL Cholesterol 36.60 L Urine Appearance Urine Protein Urine Blood Ur Leukocyte Esterase Urine RBC Urine WBC Urine WBC Clumps Urine Bacteria Hyaline Casts Urine Mucus Crossmatch 07/30/24 07/31/24 07/31/24 07:13 01:29 06:03 Hgb MCHC APTT 59.5 H Sodium Potassium Chloride Carbon Dioxide BUN 18 H Glucose Hemoglobin A1c Total Bilirubin 1.4 H AST 74 H ALT 44 H Alkaline Phosphatase 155 H Troponin I Albumin HDL Cholesterol Urine Appearance Cloudy H Urine Protein Trace H Urine Blood Large H Ur Leukocyte Esterase Large H Urine RBC 40 H Urine WBC >182 H Urine WBC Clumps Many H Urine Bacteria Many H Hyaline Casts Urine Mucus Crossmatch 07/31/24 08/01/24 08/01/24 06:20 07:08 07:08 Hgb MCHC 30.6 L APTT Sodium Potassium Chloride Carbon Dioxide BUN 19 H Glucose Hemoglobin A1c 6.1 H Total Bilirubin 1.4 H AST 77 H ALT 49 H Alkaline Phosphatase 133 H Troponin I Albumin 3.4 L HDL Cholesterol Urine Appearance Urine Protein Urine Blood Ur Leukocyte Esterase Urine RBC Urine WBC Urine WBC Clumps Urine Bacteria Hyaline Casts Urine Mucus Crossmatch 08/01/24 08/01/24 08/02/24 15:49 22:38 07:20 Hgb MCHC APTT 38.0 H 66.1 H Sodium Potassium Chloride 109 H Carbon Dioxide 21 L BUN 19 H Glucose Hemoglobin A1c Total Bilirubin AST 80 H ALT 48 H Alkaline Phosphatase 131 H Troponin I Albumin 3.4 L HDL Cholesterol Urine Appearance Urine Protein Urine Blood Ur Leukocyte Esterase Urine RBC Urine WBC Urine WBC Clumps Urine Bacteria Hyaline Casts Urine Mucus Crossmatch 08/02/24 08/02/24 08/02/24 07:20 15:04 21:24 Hgb MCHC APTT 90.4 H 32.5 H 55.6 H Sodium Potassium Chloride Carbon Dioxide BUN Glucose Hemoglobin A1c Total Bilirubin AST ALT Alkaline Phosphatase Troponin I Albumin HDL Cholesterol Urine Appearance Urine Protein Urine Blood Ur Leukocyte Esterase Urine RBC Urine WBC Urine WBC Clumps Urine Bacteria Hyaline Casts Urine Mucus Crossmatch 08/03/24 08/03/24 08/03/24 06:30 06:30 08:20 Hgb MCHC 30.4 L APTT 79.3 H Sodium Potassium Chloride Carbon Dioxide BUN 20 H Glucose Hemoglobin A1c Total Bilirubin AST 75 H ALT 50 H Alkaline Phosphatase 139 H Troponin I Albumin HDL Cholesterol Urine Appearance Urine Protein Urine Blood Ur Leukocyte Esterase Urine RBC Urine WBC Urine WBC Clumps Urine Bacteria Hyaline Casts Urine Mucus Crossmatch 08/03/24 08/04/24 08/04/24 15:04 06:26 06:26 Hgb MCHC 30.9 L APTT 52.7 H 61.6 H Sodium Potassium Chloride Carbon Dioxide BUN Glucose Hemoglobin A1c Total Bilirubin AST ALT Alkaline Phosphatase Troponin I Albumin HDL Cholesterol Urine Appearance Urine Protein Urine Blood Ur Leukocyte Esterase Urine RBC Urine WBC Urine WBC Clumps Urine Bacteria Hyaline Casts Urine Mucus Crossmatch 08/04/24 08/05/24 08/05/24 06:26 00:12 05:54 Hgb MCHC APTT Sodium Potassium Chloride Carbon Dioxide BUN 21 H Glucose 100 H Hemoglobin A1c Total Bilirubin AST 57 H ALT 44 H Alkaline Phosphatase 132 H Troponin I Albumin HDL Cholesterol Urine Appearance Cloudy H Urine Protein 1+ H Urine Blood Large H Ur Leukocyte Esterase Small H Urine RBC >182 H Urine WBC 47 H Urine WBC Clumps Urine Bacteria Rare H Hyaline Casts 10 H Urine Mucus Rare H Crossmatch See Detail 08/05/24 08/05/24 08/05/24 05:54 05:54 05:54 Hgb 11.1 L MCHC 30.1 L APTT 50.2 H Sodium Potassium Chloride Carbon Dioxide BUN 20 H Glucose Hemoglobin A1c Total Bilirubin AST 57 H ALT 41 H Alkaline Phosphatase 131 H Troponin I Albumin HDL Cholesterol Urine Appearance Urine Protein Urine Blood Ur Leukocyte Esterase Urine RBC Urine WBC Urine WBC Clumps Urine Bacteria Hyaline Casts Urine Mucus Crossmatch - Diagnostic Findings Chest x-ray: image reviewed CT scan - chest: image reviewed Assessment and Plan Plan: Coronary artery disease, non-ST elevated myocardial infarction, awaiting coronary bypass surgery. The patient is known to have coronary artery disease. The patient has undergone previous PCI to LAD back in April 2024. Furthermore heart catheterization was completed on July 10, 2024 which demonstrated a 30% stenosis to her distal left main coronary artery, a 70% ostial LAD disease, patent stent in the mid LAD, 70% diffuse distal LAD disease, 50% ostial and proximal left circumflex disease with negative IFR performed on May 18, 2024, when compared to the heart catheterization from 05/18/2024 there was no progression of the CAD urinary tract infection with Klebsiella, on 07/31/2024 treated with Rocephin Left internal carotid artery stenosis, 50 to 69% Ischemic cardiomyopathy with EF 30-35% on TTE 07/29/24, preserved LV systolic function on WILLAM 07/31/24 Hypertension Hyperlipidemia, treated, cholesterol 112, LDL 56.5 Hypothyroid, TSH 2.66 Left bundle branch block Obesity BMI of 36.2 Mild restrictive lung disease, preoperative FEV1 66% of predicted Previous tobacco dependence with cessation over 40 years ago Plan: Continue aspirin, statin, beta-apol[place] Plavix on hold Continue Imdur, Ranexa, IV heparin, stop IV heparin 2 hours prior to surgery The plan is off-pump coronary artery bypass surgery with left internal mammary artery, endoscopic vein harvest, ligation of the left atrial appendage July by Dr. Velazquez Will continue to follow. Will manage the respirator and intent for any postoperative pulmonary issues or complications. Encourage incentive spirometry use Currently on room air oxygen. Will continue to follow. Time with Patient: Greater than 30
[2024-08-06] MEDS ORDERED: NOREPINEPHRINE 4 MG in SODIUM CHLORIDE 0.9% 250 ML IV SCH (05:00)
[2024-08-06] MEDS ORDERED: INSULIN REGULAR 100 UNIT in SODIUM CHLORIDE 0.9% 100 ML IV SCH (05:00)
[2024-08-06] MEDS: ASPIRIN 325 MG TAB PO ONE (05:16)
[2024-08-06] MEDS: METOPROLOL TARTRATE 12.5 MG TAB PO ONE (05:16)
[2024-08-06] MEDS: ATORVASTATIN 10 MG TAB PO ONE (05:17)
[2024-08-06 05:54] LABS: Glucose,Whole Blood 106 mg/dL (70-110)
[2024-08-06] MEDS: LACTATED RINGERS 1,000 ML IV SCH (06:39)
[2024-08-06] MEDS: IV FLUID CONTINUATION 1,000 ML IV ONE (06:39)
[2024-08-06] MEDS ORDERED: HEPARIN SODIUM,PORCINE 10,000 UNIT/ML 1 ML VIAL ONE (07:47)
[2024-08-06] MEDS ORDERED: FUROSEMIDE 10 MG/ML 2 ML VIAL ONE (07:47)
[2024-08-06] MEDS ORDERED: MIDAZOLAM HCL 10 MG/10 ML VIAL ONE (07:47)
[2024-08-06] MEDS ORDERED: VECURONIUM 10 MG VIAL IV ONE (07:47)
[2024-08-06] MEDS ORDERED: PROPOFOL 10 MG/ML 20 ML VIAL IV ONE (07:47)
[2024-08-06] MEDS ORDERED: SODIUM CHLORIDE 0.9% IRRIG 1,000 ML BTL IRRIGATION ONE (07:47)
[2024-08-06] MEDS ORDERED: NITROGLYCERIN-D5W PMX 50 MG/250 ML BOTTLE IV ONE (07:47)
[2024-08-06] MEDS ORDERED: fentaNYL (PF) 50 MCG/ML 50 ML VIAL ONE (07:47)
[2024-08-06] MEDS ORDERED: HEPARIN SODIUM,PORCINE 5,000 UNIT/ML 1 ML VIAL ONE (07:47)
[2024-08-06] MEDS ORDERED: SODIUM BICARB 8.4% 50 ML SYR (1 MEQ/ML) ONE (07:47)
[2024-08-06] MEDS ORDERED: ALBUMIN HUMAN 5% (25gm) 500 ML VIAL IVPB ONE (07:47)
[2024-08-06] MEDS ORDERED: CALCIUM CHLORIDE 100 MG/ML 10 ML SYRINGE ONE (07:47)
[2024-08-06] MEDS ORDERED: LIDOCAINE 1% INJ 10MG/ML (20 ML MDV) ONE (07:47)
[2024-08-06] MEDS ORDERED: ATROPINE SULFATE 0.1 MG/ML 10ML SYRINGE ONE (07:47)
[2024-08-06] MEDS ORDERED: PROTAMINE SULFATE 10 MG/ML 5 ML VIAL ONE (07:47)
[2024-08-06 08:44] LABS: ABG Base Excess -3.6 mmol/L; ABG Glucose Whole Blood 88 mg/dL (75-99); ABG HCO3 22 mmol/L (21-25); ABG Hematocrit 27 % (34.0-46.0); ABG Ionized Calcium 4.7 mg/dL (4.5-5.3); ABG Lactic Acid Whole Blood 0.5 mmol/L (0.5-1.6); ABG Oxygen Saturation >99.4 % (94-97); ABG PCO2 43 mmHg (35-45); ABG PH 7.32 (7.35-7.45); ABG Sodium Whole Blood 141 mmol/L (135-146)
[2024-08-06 09:20] LABS: ABG Base Excess -3.3 mmol/L; ABG Glucose Whole Blood 92 mg/dL (75-99); ABG HCO3 22 mmol/L (21-25); ABG Hematocrit 27 % (34.0-46.0); ABG Ionized Calcium 4.7 mg/dL (4.5-5.3); ABG Lactic Acid Whole Blood 0.5 mmol/L (0.5-1.6); ABG PCO2 40 mmHg (35-45); ABG PH 7.35 (7.35-7.45); ABG PO2 230 mmHg (83-108); ABG Potassium Whole Blood 4.2 mmol/L (3.4-4.5); ABG Sodium Whole Blood 140 mmol/L (135-146); ABG TCO2 21 mmol/L (19-24)
--- NOTE | 2024-08-06 09:56 | P.ANPRN ---
Procedure Note - Anesthesia - Invasive Line Right Central Line Time Out Performed: Yes (726) Date of Procedure: 08/06/24 Time of Procedure: 07:27 Location of Patient: Phase I Preparation: Sterile Prep, Sterile Dressing Central Line Location: Internal Jugular (right ij cordis) Ultrasound Used: Yes Purpose - Visualization and Identification of Vasculature: Yes Needle Guage: 18g angio Narrative: Invasive line placement per sterile protocol utilized. Anesthesia note Procedure: Right internal jugular central venous catheter insertion: 8.5-[place] Cordis Sterile protocol followed. Right neck prepped. Ultrasound used. Lidocaine 1% used. Using ultrasound local anesthetic was instilled site over right Internal Jugular vein. Angiocath was used to gain access via ultrasound. Once free flow non-pulsatile blood flow was confirmed, 12 inch extension tubing was then placed on Angiocath. Once central venous pressure was confirmed, J-wire was then placed through Angiocath. Angiocath was then withdrawn. Local was instilled at J-wire site. Small skin ja was then made with provided sterile scalpel. 8.5- [place] Cordis was then inserted over the wire while maintaining control of wire at all times. Uneventful insertion with dilation. Free flow nonpulsatile blood flow through Cordis. Hooked up to IV tubing. Secured with suture. Dressings applied. Drapes Removed. Attempts x1.
--- NOTE | 2024-08-06 09:57 | P.ANPRN ---
Procedure Note - Anesthesia - Invasive Line Right Peetz Karen Time Out Performed: Yes ([id number]) Date of Procedure: 08/06/24 Time of Procedure: 07:41 Location of Patient: Phase I Preparation: Sterile Prep, Sterile Dressing Peetz Karen Line Location: Internal Jugular (right) Ultrasound Used: No Purpose - Visualization and Identification of Vasculature: No Image Stored and Saved: No Narrative: Invasive line placement per sterile protocol utilized. Anesthesia note Procedure right Peetz-Karen catheter placed through right internal jugular central venous catheter Sterile protocol maintained from previous procedure. Peetz-Karen catheter sterilely placed in sheath and flushed prior to insertion. After advancing 15 cm Peetz-Karen catheter was then slowly inserted with balloon up. Advanced through CVP, RV to PA waveform. Peetz-Karen catheter wedged around 50 cm. Balloon down. Catheter withdrawn 5 cm. . No wedge. Proximal and distal sites locked on sheath. Attempts x1. Sterile drapes removed and dressings applied.
--- NOTE | 2024-08-06 09:58 | P.ANPRN ---
Procedure Note - Anesthesia - Invasive Line Right Arterial Line Time Out Performed: Yes ([id number]) Date of Procedure: 08/06/24 Time of Procedure: 08:16 Location of Patient: OR Preparation: Sterile Prep, Sterile Dressing Arterial Line Location: Briachial (right) Ultrasound Used: Yes Purpose - Visualization and Identification of Vasculature: Yes Needle Guage: 20g Image Stored and Saved: Yes Narrative: Invasive line placement per sterile protocol utilized. Upon entering the room and talking the patient the right radial art line went bad. Decision made to go brachial ultrasound was brought in sterile protocol was followed. 20-gauge right brachial A-line was placed and 1 attempt. Lumen blood and flushed. Secured and dressed
--- NOTE | 2024-08-06 09:59 | P.ANPRN ---
Procedure Note - Anesthesia - WILLAM Intraop Pre Bypass WILLAM Intraop - Anesthesia Indication: cad off pump cabg Date of Procedure: 08/06/24 Pre-operative Diagnosis: cad Post-operative Diagnosis: same Surgeon: Brandi Velazquez Left Ventricle: wnl Ejection Fraction: Normal Regional Wall Motion Abnormalities: None Left Ventricle Hypertrophy: Yes (mild) R. Ventricle Function: Normal Anatomy: Trileaflet Aortic Stenosis: Mild (mean 16) Aortic Regurgitation: Mild Mitral Stenosis: None Mitral Regurgitation: Moderate (Mitral regurg seems mild to moderate. Is more dynamic with PA pressure) Tricuspid Stenosis: None Tricuspid Regurgitation: Trace Pulmonic Stenosis: None Pulmonic Regurgitation: None R. Atrial Dilation: No R. Atrial PFO: No L. Atrial Dilation: No Aortic Dissection: No Aortic Calcification: None Plural Effusion: None
[2024-08-06 10:02] LABS: ABG Base Excess -4.1 mmol/L; ABG Glucose Whole Blood 106 mg/dL (75-99); ABG HCO3 22 mmol/L (21-25); ABG Hematocrit 26 % (34.0-46.0); ABG Ionized Calcium 4.7 mg/dL (4.5-5.3); ABG Lactic Acid Whole Blood <0.4 mmol/L (0.5-1.6); ABG Oxygen Saturation 98.9 % (94-97); ABG PCO2 42 mmHg (35-45); ABG PH 7.32 (7.35-7.45); ABG PO2 205 mmHg (83-108); ABG Sodium Whole Blood 141 mmol/L (135-146); ABG TCO2 21 mmol/L (19-24)
[2024-08-06] MEDS: ceFAZolin 1,000 MG in SODIUM CHLORIDE 0.9% 1,000 ML IRRIGATION ONE (10:36)
[2024-08-06] MEDS: SODIUM CHLORIDE 0.9% 500 ML 500 ML with HEPARIN SODIUM,PORCINE (1 ML) 5,000 UNIT IV ONE (10:36)
[2024-08-06] MEDS: PAPAVERINE 360 MG in SODIUM CHLORIDE 0.9% 90 ML IV ONE (10:36)
[2024-08-06 11:40] LABS: ABG Base Excess -5.3 mmol/L; ABG Glucose Whole Blood 138 mg/dL (75-99); ABG HCO3 22 mmol/L (21-25); ABG Ionized Calcium 4.5 mg/dL (4.5-5.3); ABG Lactic Acid Whole Blood 0.6 mmol/L (0.5-1.6); ABG Oxygen Saturation 97.9 % (94-97); ABG PCO2 50 mmHg (35-45); ABG PH 7.24 (7.35-7.45); ABG PO2 117 mmHg (83-108); ABG Potassium Whole Blood 4.2 mmol/L (3.4-4.5); ABG Sodium Whole Blood 141 mmol/L (135-146); ABG TCO2 22 mmol/L (19-24)
[2024-08-06 11:50] LABS: ABG PO2 >420 mmHg (83-108); Allen Test Performed? no
[2024-08-06 11:54] LABS: ABG Hematocrit 19 % (34.0-46.0)
--- NOTE | 2024-08-06 11:58 | P.ANPRN ---
Procedure Note - Anesthesia - WILLAM Intraop Post Bypass WILLAM Intraop Post Bypass Procedure Performed: cad Ejection Fraction: Normal Regional Wall Motion Abnormalities: None R. Ventricle Function: Normal Aortic Valve: Unchanged Mitral Valve: MR now central trace to 1+ Tricuspid: Unchanged Pulmonic: Unchanged Aortic Dissection: No
[2024-08-06 12:00] LABS: ABG Base Excess -5.5 mmol/L; ABG Glucose Whole Blood 141 mg/dL (75-99); ABG HCO3 21 mmol/L (21-25); ABG Lactic Acid Whole Blood 0.6 mmol/L (0.5-1.6); ABG PCO2 44 mmHg (35-45); ABG PH 7.28 (7.35-7.45); ABG PO2 194 mmHg (83-108); ABG Sodium Whole Blood 141 mmol/L (135-146); ABG TCO2 21 mmol/L (19-24)
[2024-08-06 12:03] LABS: ABG Hematocrit 20 % (34.0-46.0); ABG Ionized Calcium 6.1 mg/dL (4.5-5.3)
[2024-08-06] MEDS ORDERED: hydrALAZINE HCL 20 MG/ML 1 ML VIAL IVP PRN (12:28)
[2024-08-06] MEDS ORDERED: CALCIUM GLUCONATE IN NACL 2 GM in SALINE 1 100ML.BAG IVPB PRN (12:28)
[2024-08-06] MEDS ORDERED: IPRATROPIUM-ALBUTEROL 3 ML NEB INHALATION PRN (12:28)
[2024-08-06] MEDS ORDERED: DEXTROSE 50% SYRINGE 50 ML IVP PRN ×2 (12:28)
[2024-08-06] MEDS ORDERED: Magnesium Replacement Protocol 1 EACH MISC MISCELLANE PRN (12:28)
[2024-08-06] MEDS ORDERED: CLEVIDIPINE BUTYRATE 25 MG in EMPTY BAG 1 BAG IV PRN (12:28)
[2024-08-06] MEDS ORDERED: DEXMEDETOMIDINE/0.9% NACL(PMX) 400 MCG in EMPTY BAG 1 BAG IV SCH (12:28)
[2024-08-06] MEDS ORDERED: DEXTROSE 5% IN WATER 100 ML with AMIODARONE 150 MG IV PRN (12:28)
[2024-08-06] MEDS ORDERED: BENZOCAINE/MENTHOL LOZENG 1 EACH LOZENGE MUCOUS MEM PRN (12:28)
[2024-08-06] MEDS ORDERED: MORPHINE SULFATE 2 MG/ML SYRINGE IVP PRN (12:28)
[2024-08-06] MEDS ORDERED: Potassium Replacement Protocol 1 EACH MISC MISCELLANE PRN (12:28)
[2024-08-06] MEDS: NOREPINEPHRINE 4 MG in SODIUM CHLORIDE 0.9% 250 ML IV SCH (12:33)
[2024-08-06] MEDS: NITROGLYCERIN-D5W PMX 50 MG in DEXTROSE/WATER 1 250ML.BAG IV SCH (12:35)
[2024-08-06] MEDS: SODIUM CHLORIDE 0.9% 1,000 ML IV SCH (12:35)
--- NOTE | 2024-08-06 12:37 | P.OP ---
Date of Procedure: 08/06/24 Preoperative Diagnosis: Coronary artery disease, non-ST elevation myocardial infarction, status post prior LAD stenting, moderate left ventricular dysfunction, left bundle branch block, hypertension, hyperlipidemia, mild mitral valve regurgitation on WILLAM, obesity Postoperative Diagnosis: Same with a very dynamic mitral valve regurgitation Procedure(s) Performed: 1Off pump single-vessel coronary artery bypass grafting using the in situ left internal mammary artery to the left anterior descending artery 2exclusion of the left atrial appendage using a 35mm AtriClip 3endoscopic harvesting of the left thigh greater saphenous vein that was not used. 4graft flow measurement using the [employer] Stix system 5intraoperative transesophageal echocardiogram and epiaortic scanning Implants: 35 mm AtriClip Surgeon: Brandi Velazquez Laundry Routeman #1: Jorge Ortega Laundry Routeman #2: Ingris Fermin (. The MRI) Pathology: none sent Condition: stable Disposition: ICU Indications for Procedure: Patient is a 74 years old lady with a prior LAD stenting in April 2024 with ischemic cardiomyopathy and known left bundle branch block admitted with chest pain and ruled in for non-ST elevation myocardial infarction. Her proBNP was around 1800. Initial 2D echo showed severe left ventricular dysfunction with what seems to be moderate mitral valve regurgitation. Patient underwent cardiac catheterization that showed proximal LAD disease and no other significant repor cj obstruction. There was a bit of jailing of the high diagonal branch with moderate in size. A WILLAM was performed to double check the mitral and that reportedly showed normal left ventricle function and mild mitral valve regurgitation. Operative Findings: Very dynamic functional ischemic mitral valve regurgitation with at least moderate left ventricular dysfunction and moderate pulmonary hypertension Description of Procedure: Patient in supine position in the preoperative holding area a [place]-Karen catheter was inserted via the right internal jugular vein and the right brachial arterial line was placed. Patient had a PA pressure 40/20 cardiac index 2.6. Subsequently she was brought to the operating room where general endotracheal anesthesia was induced uneventfully. Lomeli catheter was inserted. She received 2 g cefazolin intravenously. The chest abdomen both lower extremities were prepped and draped using ChloraPrep. Ioban was used to cover the skin. WILLAM showed mild to moderate left ventricular dysfunction and very dynamic functional mitral valve regurgitation as well as pulmonary artery pressures. With stable blood pressure patient PA pressure was oscillating between normal to moderate to severe and the MR will go from mild to at least moderate. With that I started low-dose Primacor and the patient in anticipation. Midline sternotomy was performed and no bone wax was used. The bone was mildly osteoporotic. The right pleura had a breach in it was and was drained with a 19 [place] Sunday drain. The left hemisternum was elevated and the left intramammary artery was harvested in a semiskeletonized fashion. The left pleura was intentionally open in this process and was drained with a 19 [place] Sunday drain. Patient was given 5008 of heparin and the mammary artery was double clipped distally and transected had excellent pulsatile flow in it and was around 1.5- minute in diameter. In the same setting the left greater saphenous vein was harvested endoscopically from groin to above knee level after administration of 2000 units of heparin. The [place] system was used to perform the surgery on the beating heart. The pericardium was opened in an inverted T fashion and pericardial cradle was created. I included a normal soft aorta a boggy pulmonary artery and overall normal-sized heart. We gave additional heparin to achieve an ACT above 250 seconds and the ACT was repeated every 15 minutes and additional heparin given if needed. At this point we proceeded quickly at excluding the left atrial appendage by deploying an AtriClip at its base which was 35mm in size. That maneuver alone which was very brief was responsible of transient hypotension to around 75 systolic. The PA pressure went up from around 25- 30 systolic to around 65 systolic and it took a while to regain good hemodynamics. With that understood that this lady looks a bit sicker than we thought. For that reason I decided to do the EVANS LAD first. The heart was gently displaced medially with a gauze without much compression. Hemodynamics were stable. The left anterior descending artery was identified in the mid aspect b eyond the stent and was around 1.5 m in diameter and soft. It was opened and a 1.5 mm shunt inserted. Subsequently left intramammary artery that passed in deep groove in the left pleuropericardial fat was anastomosed using running Prolene 7 0. This was done expeditiously and during anastomosis there started having trouble oxygenating the patient and froth coming from the ET tube. That required aggressive suctioning. By the time of finishing the anastomosis patient was becoming bradycardic. The heart was put back in place very quickly and it took some pharmacological intervention to regain to good hemodynamics. WILLAM showed good left ventricular function at this point. Using the 4 mm medistim probe and measured flows into the EVANS LAD and it was 29 mL/min, pulsatility index of 2.4 diastolic filling of 67% showing excellent functioning graft. The mammary artery was tacked to the epicardium with 2 Prolene sutures. We were still having problem with oxygenation and pulmonary edema. Patient was given Lasix. The hemodynamics stabilized. But in view of the problem oxygenating and ventilating we certainly decided not to pursue completing a potential vein graft to the high small to moderate size diagonal artery that was bit jailed by the stent and had actually disease in its mid aspect before it bifurcated. We gave 50 mg of protamine and the ACT came down to 150. x2 19 [place] Usnday drain were left substernally. After ensuring adequate hemostasis and hemodynamic, after correct sponge instrument and needle count the sternum was closed using 5 [id number] [place] cable after interposing fibrillar between the sternal edges. Irrigation with cefazolin followed. Vessel closure proceeded in layers. Skin glue was applied. Patient received 400 cc of Cell Saver blood. She was sent to the ICU 1.2 mics per kilogram per minute of Primacor with a cardiac index of 2.3 PA pressure of 25/14 CVP of 13 sinus around 80 with a mean arterial pressure of around 65.
[2024-08-06 12:45] LABS: Glucose,Whole Blood 162 mg/dL (70-110)
[2024-08-06] MEDS: INSULIN REGULAR 100 UNIT in SODIUM CHLORIDE 0.9% 100 ML IV SCH (12:45)
[2024-08-06] MEDS: ASPIRIN 300 MG SUPP RECTAL ONE (13:00)
[2024-08-06 13:20] LABS: Basophils % (A) 0 %; Eosinophils # (A) 0.2 k/uL (0-0.7); Eosinophils % (A) 2 %; HCT 22.9 % (34.0-46.0); Hypochromasia Moderate; Lymphocytes % (A) 11 %; MCH 29.7 pg (25.0-35.0); MCHC 31.5 g/dL (31.0-37.0); MCV 94.2 fL (80.0-100.0); Mean Platelet Volume 8.1; Monocytes # (A) 0.4 k/uL (0-1.0); Monocytes % (A) 4 %; Neutrophils # (A) 8.1 k/uL (1.3-7.7); Neutrophils % (A) 83 %; Platelet Count 117 k/uL (150-450); RBC 2.44 m/uL (3.80-5.40); RDW 14.4 % (11.5-15.5); WBC 9.8 k/uL (3.8-10.6)
[2024-08-06 13:24] LABS: ABG Base Excess -4.6 mmol/L; ABG HCO3 23 mmol/L (21-25); ABG Oxygen Saturation 94.2 % (94-97); ABG PCO2 52 mmHg (35-45); ABG PH 7.25 (7.35-7.45); ABG PO2 82 mmHg (83-108); ABG TCO2 24 mmol/L (19-24)
--- NOTE | 2024-08-06 13:26 | XR ---
EXAMINATION TYPE: XR chest 1V portable DATE OF EXAM: 08/06/2024 1:18 PM COMPARISON: Chest radiographs from 07/29/2024 CLINICAL INDICATION: Female, 74 years old with history of Post Operative Cardiac Surgery; [facility] TECHNIQUE: XR chest 1V portable Frontal view of the chest. FINDINGS: Lungs/Pleura: New consolidation changes right lower lung. There is no evidence of pleural effusion, o r pneumothorax. Pulmonary vascularity: Unremarkable. Heart/mediastinum: Cardiomediastinal silhouette is unremarkable. Musculoskeletal: No acute osseous pathology. Midline sternotomy wires are noted. Other findings: None Lines/Tubes: Endotracheal tube with distal tip 1.7 cm above the jeremie. Nasogastric tube with its distal tip and side-port projecting under the diaphragm. There is a [place]-Karen catheter with tip projecting over the spine. IMPRESSION: Consolidation changes the right lower lung correlate for pneumonia versus mucous plugging . [facility], , 08/06/2024 1:23 PM
[2024-08-06 13:27] LABS: Allen Test Performed? no
[2024-08-06 13:31] LABS: HGB 7.2 gm/dL (11.4-16.0)
[2024-08-06] MEDS: MILRINONE-D5W PMX 20 MG in DEXTROSE/WATER 1 100ML.BAG IV SCH ×2 (13:33→16:00)
[2024-08-06 13:35] LABS: INR 1.2 (<1.2); Prothrombin Time 12.5 sec (10.0-12.5)
[2024-08-06 13:37] LABS: Partial Thromboplastin Time 21.1 sec (22.0-30.0)
--- NOTE | 2024-08-06 13:41 | XR ---
EXAMINATION TYPE: XR chest 1V confirm line plcmt DATE OF EXAM: 08/06/2024 1:26 PM COMPARISON: Chest radiographs from 08/06/2024 CLINICAL INDICATION: Female, 74 years old with history of swan repositioned; [facility] TECHNIQUE: XR chest 1V confirm line plcmt Frontal view of the chest. FINDINGS: Lungs/Pleura: Airspace consolidation changes in the right mid-lower lung. There is no evidence of ple ural effusion, focal consolidation, or pneumothorax. Pulmonary vascularity: Unremarkable. Heart/mediastinum: Cardiomediastinal silhouette is unremarkable. Musculoskeletal: No acute osseous pathology. Midline sternotomy wires are noted. Other findings: None Lines/Tubes: Endotracheal tube with distal tip 2.0 cm above the jeremie. Nasogastric tube with its distal tip and side-port projecting under the diaphragm. There is a [place]-Karen catheter with tip projecting over the left pulmonary hiluma. Left thoracotomy tube is present without evidence of pneumothorax. Drainage tubes with tips projecting over the mediastinum. IMPRESSION: 1. [place]-Karen catheter with tip projecting over the spine previously over the right hilum. 2. There remains right lower lobe airspace consolidation. [facility], , 08/06/2024 1:39 PM
[2024-08-06 13:51] LABS: Glucose,Whole Blood 168 mg/dL (70-110)
[2024-08-06 13:54] LABS: ALT 37 U/L (4-34); AST 60 U/L (14-36); African American GFR (CKD) >90 (>60 ml/min/1.73 sqM); Albumin 2.9 g/dL (3.5-5.0); Alkaline Phosphatase 79 U/L (38-126); Anion Gap 7 mmol/L; Blood Urea Nitrogen 17 mg/dL (7-17); Calcium 8.5 mg/dL (8.4-10.2); Carbon Dioxide 22 mmol/L (22-30); Chloride 109 mmol/L (98-107); Glucose 144 mg/dL (74-99); Non-African American GFR(CKD) 78 (>60 ml/min/1.73 sqM); Potassium 4.3 mmol/L (3.5-5.1); Sodium 138 mmol/L (137-145); Total Bilirubin 1.1 mg/dL (0.2-1.3); Total Protein 4.8 g/dL (6.3-8.2)
--- NOTE | 2024-08-06 14:54 | XR ---
EXAMINATION TYPE: XR chest 1V portable DATE OF EXAM: 08/06/2024 2:46 PM COMPARISON: Chest radiographs from same day. CLINICAL INDICATION: Female, 74 years old with history of exchangin et tube; [facility] TECHNIQUE: XR chest 1V portable Frontal view of the chest. FINDINGS: Lungs/Pleura: Right upper quadrant dissection clips. Right mid and lower lung airspace opacities. The re is no evidence of pleural effusion, or pneumothorax. Pulmonary vascularity: Unremarkable. Heart/mediastinum: Cardiomediastinal silhouette is unremarkable. Musculoskeletal: No acute osseous pathology. Other findings: None Lines/Tubes: Endotracheal tube with distal tip 3.6cm above the jeremie. There is a [place]-Karen catheter with tip projecting over the spine. Drainage tubes with tips projecting over the mediastinum. Left thoracotomy tube is present without evidence of pneumothorax. IMPRESSION: Endotracheal tube in satisfactory position. Remainder of exam is unchanged from prior. [facility], , 08/06/2024 2:51 PM
[2024-08-06 15:24] LABS: Glucose,Whole Blood 130 mg/dL (70-110)
[2024-08-06 15:26] LABS: ABG Base Excess -3.7 mmol/L; ABG HCO3 21 mmol/L (21-25); ABG Oxygen Saturation 99.3 % (94-97); ABG PCO2 36 mmHg (35-45); ABG PH 7.37 (7.35-7.45); ABG PO2 134 mmHg (83-108); ABG TCO2 22 mmol/L (19-24)
[2024-08-06] MEDS: CISATRACURIUM 2 MG/ML 5 ML VIAL IV ONE (15:27)
[2024-08-06 15:28] LABS: Allen Test Performed? no
[2024-08-06] MEDS: IPRATROPIUM-ALBUTEROL 3 ML NEB INHALATION SCH ×2 (15:35→20:06)
[2024-08-06 15:54] LABS: Glucose,Whole Blood 123 mg/dL (70-110)
[2024-08-06] MEDS: AMIODARONE 450 MG in DEXTROSE 5% IN WATER 250 ML IV SCH (16:41)
[2024-08-06] MEDS: AMIODARONE 360 MG in DEXTROSE 5% IN WATER 200 ML IV ONE (16:41)
[2024-08-06 17:18] LABS: Glucose,Whole Blood 106 mg/dL (70-110)
[2024-08-06] MEDS: ACETAMINOPHEN IV (For NPO) 1,000 MG in EMPTY BAG 1 BAG IVPB SCH (17:19)
[2024-08-06 17:20] LABS: Basophils % (A) 0 %; Eosinophils % (A) 1 %; Lymphocytes # (A) 0.9 k/uL (1.0-4.8); Lymphocytes % (A) 9 %; MCH 28.9 pg (25.0-35.0); MCHC 31.9 g/dL (31.0-37.0); MCV 90.7 fL (80.0-100.0); Mean Platelet Volume 10.6; Monocytes # (A) 0.7 k/uL (0-1.0); Monocytes % (A) 7 %; Neutrophils # (A) 7.4 k/uL (1.3-7.7); Neutrophils % (A) 82 %; Platelet Count 120 k/uL (150-450); RDW 14.8 % (11.5-15.5); WBC 9.1 k/uL (3.8-10.6)
[2024-08-06 17:21] LABS: HGB 9.3 gm/dL (11.4-16.0)
[2024-08-06] MEDS: HEPARIN SODIUM,PORCINE 5,000 UNIT/ML 1 ML VIAL SQ SCH (17:33)
[2024-08-06 18:00] LABS: Glucose,Whole Blood 103 mg/dL (70-110)
[2024-08-06 18:00] LABS: ABG Base Excess -4.4 mmol/L; ABG HCO3 21 mmol/L (21-25); ABG Oxygen Saturation 94.5 % (94-97); ABG PCO2 41 mmHg (35-45); ABG PH 7.32 (7.35-7.45); ABG PO2 71 mmHg (83-108); ABG TCO2 23 mmol/L (19-24)
--- NOTE | 2024-08-06 18:04 | P.PN ---
Subjective Progress Note Date: 08/06/24 On 08/06/2024, the patient is being seen in the intensive care unit following her bypass surgery. Noted the patient underwent off-pump single-vessel bypass surgery with EVANS to LAD. The patient also underwent a left atrial appendage exclusion. Noted intraoperatively, the patient encountered increased hemoptysis and a total of 200 cc of blood was aspirated through the orotracheal tube. This was a complication related to the [place]-Karen catheter as the catheter was withdrawn later on. The chest x-ray shows an area of consolidation in the right lower lobe which is probably an area of intraparenchymal hemorrhage. After arriving to the intensive care unit, the patient was seen and evaluated. The pa tient was assist-control mode of mechanical ventilation at rate of 14, tidal volume of 400, FiO2 50% with a PEEP of 10. Blood gases showed a pH of 7.24 with a pCO2 of 52 and pO2 of 82. Based on that, the respiratory rate was increased up to 24. The hemodynamic parameters showed a cardiac output of 5 and an index of 2.8. PA pressures were 34/22. The patient was on milrinone running at 0.2 mcg/kg/h, nitroglycerin drip at 5 mcg/min and norepinephrine at 0.11 mcg/kg/min. The patient is also on normal citrate of 75 cc an hour and insulin drip at the rate of 3.5 units an hour. Cardiac rhythm was sinus. Discussed the case with cardiothoracic surgery. Performed a bedside bronchoscopy on this patient and copious amount of blood clots were aspirated from the airway. The completion of the bronchoscopy, the patient had no residual blood clots and full airway patency was established. Subsequently, the patient started having loss and volume, and the return tidal volumes were low and the patient had difficulties in maintaining the pressure in her orotracheal tube cuff. Based on that, I remove the orotracheal tube and replaced it by #8. Intubation was done in the intensive care unit. During the process, the patient had no significant hemodynamic instability. For now, the patient has a right pleural and left lower chest tube and mediastinal chest tube. No evidence of any air leak. Chest x-ray shows no evidence of any pneumothorax. Reviewed the series of x- rays done specially the 1 that was done post reintubation. ET tube was seen around 3 cm above the jeremie. The [place]-Karen catheter was projecting and appropriate location. Drainage tubes were in place. The blood work that was done postop showed a hemoglobin of 9.3, platelet count of 120, and the most recent blood gas showed a pH of 7.37 with pCO2 of 36 and pO2 of 134 and this was done FiO2 of 50%. The patient remains sedated on propofol. Cardiac rhythm is sinus. Objective - Vital Signs Vital signs: Vital Signs Temp 99.1 F 08/06/24 16:00 Pulse 81 08/06/24 16:50 Resp 24 08/06/24 16:50 BP 107/64 08/06/24 16:40 Pulse Ox 97 08/06/24 16:50 FiO2 40 08/06/24 16:15 Intake & Output 08/05/24 08/06/24 08/06/24 18:59 06:59 18:59 Intake Total 1030 10 490.913 Output Total 1905 Balance 1030 10 -1414.087 Weight 84 kg 81 kg Intake: IV 10 10 291.9 Cardiac Output (0.9 20 Sodium chloride) Invasive Line 2 10 Invasive Line 3 10 20 Milrinone-D5w Pmx 20 mg 15.9 In Dextrose/Water 1 100ml .bag @ Per Protocol IV . Q0M UMESH Rx#:[id number] Nitroglycerin-D5w Pmx 50 6.0 mg In Dextrose/Water 1 250ml.bag @ 5 MCG/MIN 1.5 mls/hr IV .Q24H UMESH Rx#: [id number] Pressure Bag (0.9 Sodium 27 Chloride) Sodium Chloride 0.9% 1, 200 000 ml @ 50 mls/hr IV . Q20H UMESH Rx#:[id number] Intake, IV Titration 199.013 Amount Insulin Regular 100 unit 9.469 In Sodium Chloride 0.9% 100 ml @ Per Protocol IV .Q0M UMESH Rx#:[id number] Norepinephrine 4 mg In 156.618 Sodium Chloride 0.9% 250 ml @ 0.02 MCG/KG/MIN 6. 172 mls/hr IV .Q24H UMESH Rx#:[id number] propofoL 1,000 mg In 32.926 Empty Bag 1 bag @ Titrate IV .Q0M UMESH Rx#: [id number] Oral 1020 Blood Product 0 Rc As-1 Unit 0 [id number] Output: Chest Tube Drainage 260 Chest Tube Bilateral 145 Mediastinal Chest Tube Left Lateral 80 Chest Chest Tube Right Lateral 35 Chest Urine 1295 Estimated Blood Loss 350 Other: Voiding Method Toilet Toilet Indwelling Catheter # Voids 2 0 ABP, PAP, CO, CI - Last Documented Arterial Blood Pressure 110/58 Pulmonary Artery Pressure 37/23 Cardiac Output 3.9 Cardiac Index 2.2 - Exam The patient appeared well nourished and normally developed. Vital signs as documented. The patient is sedated with propofol and the patient is calm and comfortable. Orotracheal orogastric tube are both in place. The patient has a right IJ Rugby-Karen catheter in place. Head exam is unremarkable. No scleral icterus or corneal arcus noted. Neck is without jugular venous distension, thyromegaly, or carotid bruits. Carotid upstrokes are brisk bilaterally. Lungs are clear to auscultation and percussion. The patient has a mediastinal and right and left pleural chest tube. Cardiac exam reveals the PMI to be normally sized and situated. Rhythm is regular. First and second heart sounds normal. No murmurs, rubs or gallops. Thoracotomy scar is dry clean and intact. Abdominal exam reveals normal bowel sounds, no masses, no organomegaly and no aortic enlargement. Extremities are nonedematous and both femoral and pedal pulses are normal. Examination of the skin revealed no evidence of significant rashes, suspicious appearing nevi or other concerning lesions. Neurologically, the patient is sedated. - Labs CBC & Chem 7: 08/06/24 15:55 08/06/24 12:43 Labs: Abnormal Lab Results - Last 24 Hours (Table) 08/05/24 08/06/24 08/06/24 Range/Units 05:54 07:47 09:05 RBC (3.80-5.40) m/uL Hgb (11.4-16.0) gm/dL Hct (34.0-46.0) % Plt Count (150-450) k/uL Neutrophils # (1.3-7.7) k/uL Lymphocytes # (1.0-4.8) k/uL INR (<1.2) APTT (22.0-30.0) sec ABG pH 7.32 L (7.35-7.45) ABG pCO2 (35-45) mmHg ABG pO2 >420 H 230 H (83-108) mmHg ABG O2 Saturation >99.4 H 99.0 H (94-97) % ABG Hematocrit 27 L 27 L (34.0-46.0) % ABG Ionized Calcium (4.5-5.3) mg/dL ABG Glucose (75-99) mg/dL ABG Lactic Acid (0.5-1.6) mmol/L Hemoglobin 8.8 L 8.6 L (11.4-16.0) gm/dL Chloride (98-107) mmol/L Glucose (74-99) mg/dL POC Glucose (mg/dL) (70-110) mg/dL AST (14-36) U/L ALT (4-34) U/L Total Protein (6.3-8.2) g/dL Albumin (3.5-5.0) g/dL Arterial Blood Glucose (75-99) mg/dL Crossmatch See Detail 08/06/24 08/06/24 08/06/24 Range/Units 09:38 10:43 12:03 RBC (3.80-5.40) m/uL Hgb (11.4-16.0) gm/dL Hct (34.0-46.0) % Plt Count (150-450) k/uL Neutrophils # (1.3-7.7) k/uL Lymphocytes # (1.0-4.8) k/uL INR (<1.2) APTT (22.0-30.0) sec ABG pH 7.32 L 7.24 L 7.28 L (7.35-7.45) ABG pCO2 50 H (35-45) mmHg ABG pO2 205 H 117 H 194 H (83-108) mmHg ABG O2 Saturation 98.9 H 97.9 H 99.0 H (94-97) % ABG Hematocrit 26 L 19 L* 20 L* (34.0-46.0) % ABG Ionized Calcium 6.1 H* (4.5-5.3) mg/dL ABG Glucose 106 H 138 H 141 H (75-99) mg/dL ABG Lactic Acid <0.4 L (0.5-1.6) mmol/L Hemoglobin 8.3 L 6.2 L* 6.5 L* (11.4-16.0) gm/dL Chloride (98-107) mmol/L Glucose (74-99) mg/dL POC Glucose (mg/dL) (70-110) mg/dL AST (14-36) U/L ALT (4-34) U/L Total Protein (6.3-8.2) g/dL Albumin (3.5-5.0) g/dL Arterial Blood Glucose 106 H 138 H 141 H (75-99) mg/dL Crossmatch 08/06/24 08/06/24 08/06/24 Range/Units 12:42 12:43 12:43 RBC 2.44 L (3.80-5.40) m/uL Hgb 7.2 L D (11.4-16.0) gm/dL Hct 22.9 L (34.0-46.0) % Plt Count 117 L (150-450) k/uL Neutrophils # 8.1 H (1.3-7.7) k/uL Lymphocytes # (1.0-4.8) k/uL INR 1.2 H (<1.2) APTT 21.1 L (22.0-30.0) sec ABG pH (7.35-7.45) ABG pCO2 (35-45) mmHg ABG pO2 (83-108) mmHg ABG O2 Saturation (94-97) % ABG Hematocrit (34.0-46.0) % ABG Ionized Calcium (4.5-5.3) mg/dL ABG Glucose (75-99) mg/dL ABG Lactic Acid (0.5-1.6) mmol/L Hemoglobin (11.4-16.0) gm/dL Chloride (98-107) mmol/L Glucose (74-99) mg/dL POC Glucose (mg/dL) 162 H (70-110) mg/dL AST (14-36) U/L ALT (4-34) U/L Total Protein (6.3-8.2) g/dL Albumin (3.5-5.0) g/dL Arterial Blood Glucose (75-99) mg/dL Crossmatch 08/06/24 08/06/24 08/06/24 Range/Units 12:43 13:05 13:49 RBC (3.80-5.40) m/uL Hgb (11.4-16.0) gm/dL Hct (34.0-46.0) % Plt Count (150-450) k/uL Neutrophils # (1.3-7.7) k/uL Lymphocytes # (1.0-4.8) k/uL INR (<1.2) APTT (22.0-30.0) sec ABG pH 7.25 L (7.35-7.45) ABG pCO2 52 H (35-45) mmHg ABG pO2 82 L (83-108) mmHg ABG O2 Saturation (94-97) % ABG Hematocrit (34.0-46.0) % ABG Ionized Calcium (4.5-5.3) mg/dL ABG Glucose (75-99) mg/dL ABG Lactic Acid (0.5-1.6) mmol/L Hemoglobin 7.5 L (11.4-16.0) gm/dL Chloride 109 H (98-107) mmol/L Glucose 144 H (74-99) mg/dL POC Glucose (mg/dL) 168 H (70-110) mg/dL AST 60 H (14-36) U/L ALT 37 H (4-34) U/L Total Protein 4.8 L (6.3-8.2) g/dL Albumin 2.9 L (3.5-5.0) g/dL Arterial Blood Glucose (75-99) mg/dL Crossmatch 08/06/24 08/06/24 08/06/24 Range/Units 15:21 15:23 15:53 RBC (3.80-5.40) m/uL Hgb (11.4-16.0) gm/dL Hct (34.0-46.0) % Plt Count (150-450) k/uL Neutrophils # (1.3-7.7) k/uL Lymphocytes # (1.0-4.8) k/uL INR (<1.2) APTT (22.0-30.0) sec ABG pH (7.35-7.45) ABG pCO2 (35-45) mmHg ABG pO2 134 H (83-108) mmHg ABG O2 Saturation 99.3 H (94-97) % ABG Hematocrit (34.0-46.0) % ABG Ionized Calcium (4.5-5.3) mg/dL ABG Glucose (75-99) mg/dL ABG Lactic Acid (0.5-1.6) mmol/L Hemoglobin 9.1 L (11.4-16.0) gm/dL Chloride (98-107) mmol/L Glucose (74-99) mg/dL POC Glucose (mg/dL) 130 H 123 H (70-110) mg/dL AST (14-36) U/L ALT (4-34) U/L Total Protein (6.3-8.2) g/dL Albumin (3.5-5.0) g/dL Arterial Blood Glucose (75-99) mg/dL Crossmatch 08/06/24 Range/Units 15:55 RBC 3.20 L (3.80-5.40) m/uL Hgb 9.3 L D (11.4-16.0) gm/dL Hct 29.0 L (34.0-46.0) % Plt Count 120 L (150-450) k/uL Neutrophils # (1.3-7.7) k/uL Lymphocytes # 0.9 L (1.0-4.8) k/uL INR (<1.2) APTT (22.0-30.0) sec ABG pH (7.35-7.45) ABG pCO2 (35-45) mmHg ABG pO2 (83-108) mmHg ABG O2 Saturation (94-97) % ABG Hematocrit (34.0-46.0) % ABG Ionized Calcium (4.5-5.3) mg/dL ABG Glucose (75-99) mg/dL ABG Lactic Acid (0.5-1.6) mmol/L Hemoglobin (11.4-16.0) gm/dL Chloride (98-107) mmol/L Glucose (74-99) mg/dL POC Glucose (mg/dL) (70-110) mg/dL AST (14-36) U/L ALT (4-34) U/L Total Protein (6.3-8.2) g/dL Albumin (3.5-5.0) g/dL Arterial Blood Glucose (75-99) mg/dL Crossmatch Microbiology - Last 24 Hours (Table) 08/05/24 00:12 Urine Culture - Final Urine,Voided Assessment and Plan Plan: Coronary artery disease, non-ST elevated myocardial infarction, awaiting coronary bypass surgery. The patient is known to have coronary artery disease. The patient has undergone previous PCI to LAD back in April 2024. Furthermore heart catheterization was completed on July 10, 2024 which demonstrated a 30% stenosis to her distal left main coronary artery, a 70% ostial LAD disease, patent stent in the mid LAD, 70% diffuse distal LAD disease, 50% ostial and proximal left circumflex disease with negative IFR performed on May 18, 2024, when compared to the heart catheterization from 05/18/2024 there was no progression of the CAD. The patient is status post off-pump single-vessel bypass surgery with EVANS to LAD. The patient is currently postop day #0. The patient remains on a combination of milrinone and norepinephrine and nitroglycerin drip. Thoracotomy, remains intubated on mechanical ventilator. The orotracheal tube was exchanged and the patient is demonstrating adequate oxygenation and ventilation for now. No evidence of any air leak in the chest tubes are in place. Chest x-ray and blood gas were noted Right lung parenchymal hemorrhage involving the right lower lobe in addition to hemoptysis and endobronchial hemorrhage, most likely a complication of Rugby-Karen catheter and the catheter has been repositioned. Bronchoscopy was also done with evacuation of copious amount of residual blood clots retained in the patient's airways. urinary tract infection with Klebsiella, on 07/31/2024 treated with Rocephin Left internal carotid artery stenosis, 50 to 69% Ischemic cardiomyopathy with EF 30-35% on TTE 07/29/24, preserved LV systolic function on WILLAM 07/31/24 Hypertension Hyperlipidemia, treated, cholesterol 112, LDL 56.5 Hypothyroid, TSH 2.66 Left bundle branch block Obesity BMI of 36.2 Mild restrictive lung disease, preoperative FEV1 66% of predicted Previous tobacco dependence with cessation over 40 years ago Plan: Keep the patient sedated on propofol Wean down FiO2 as tolerated to maintain saturation above 90% Appropriate adjustments in the blood gas was done Bronchoscopy was performed in the intensive care unit and the blood clots from the airways were removed. Orotracheal tube was replaced The patient remains on a combination of milrinone and norepinephrine I will continue monitoring the hemodynamic parameters Continue nitroglycerin drip Cardiac rhythm is sinus Continue insulin drip for blood sugar control Monitor urine output Labs were noted We will continue to follow. Condition is critical. This evaluation was done and 50 minutes. Case was discussed with cardiothoracic surgery. Time with Patient: Greater than 30
--- NOTE | 2024-08-06 18:06 | P.PCN ---
Date of Procedure: 08/06/24 Preoperative Diagnosis: Endobronchial hemorrhage Postoperative Diagnosis: No active endobronchial bleeding. The patient had retained blood clots throughout the airway and the clots were aspirated without any major difficulties using a flexible bronchoscope. Procedure(s) Performed: Flexible bronchoscopy, removal of blood clots Anesthesia: MAC Surgeon: Rick Roa Estimated Blood Loss (ml): 0 Pathology: other Condition: critical Disposition: ICU Operative Findings: This procedure was done in the intensive care unit. The patient was already intubated on mechanical ventilator. The patient had encountered endobronchial bleeding and a total of 200 cc of blood loss was reported in the operating room. The flexible bronchoscope was introduced through the orotracheal tube. Immediately, clots were seen at the distal edge of the orotracheal tube. Similar clots were also noted in the distal trachea and ejremie. More clots were seen in the right lower lobe and there was another large piece of blood clot occupying the left mainstem bronchus. The clots were manipulated using the flexible bronchoscope. The clots were irrigated with saline. Therapeutic airway suctioning was done and there was successful removal of the blood clots and at the completion of the procedure, the airway patency was fully restored. No evidence of any active hemorrhaging noted. The patient tolerated the procedure well. Oxygenation remained stable. No complications.
--- NOTE | 2024-08-06 18:08 | P.PCN ---
Date of Procedure: 08/06/24 Preoperative Diagnosis: Cuff leak around the endotracheal tube Postoperative Diagnosis: Same Procedure(s) Performed: Intubation Anesthesia: LAVONNEA Surgeon: Rick Roa Estimated Blood Loss (ml): 0 Pathology: other Condition: critical Disposition: ICU Operative Findings: Indication: Cuff leak A time-out was completed verifying correct patient, procedure, site, positioning, and implant(s) or special equipment if applicable. The previously inserted orotracheal tube was removed. There was some loose respiratory secretions and gastric juice noted in the posterior oropharynx and those were easily aspirated. Following that, the patient was reintubated. The patient was positioned appropriately and a #8 endotracheal tube was placed under direct laryngoscopy. The tube was anchored at 22 cm at the teeth. Correct placement was confirmed by presence of bilateral breath sounds without air sounds in the abdomen on auscultation. An end-tidal CO2 monitor was also used to confirm tracheal placement of the ET tube. A chest x-ray was ordered to assess for pneumothorax and verify endotracheal tube placement. The patient tolerated the procedure well and there were no complications.
[2024-08-06 18:13] LABS: Allen Test Performed? no
[2024-08-06 19:11] LABS: Glucose,Whole Blood 113 mg/dL (70-110)
[2024-08-06 19:37] LABS: Basophils % (A) 0 %; Eosinophils % (A) 0 %; HCT 29.8 % (34.0-46.0); HGB 9.3 gm/dL (11.4-16.0); Hypochromasia Slight; Lymphocytes # (A) 0.6 k/uL (1.0-4.8); Lymphocytes % (A) 7 %; MCH 28.9 pg (25.0-35.0); MCHC 31.4 g/dL (31.0-37.0); MCV 92.1 fL (80.0-100.0); Mean Platelet Volume 8.8; Monocytes # (A) 0.5 k/uL (0-1.0); Monocytes % (A) 6 %; Neutrophils % (A) 86 %; Platelet Count 110 k/uL (150-450); RBC 3.23 m/uL (3.80-5.40); WBC 8.2 k/uL (3.8-10.6)
[2024-08-06 20:04] LABS: Glucose,Whole Blood 122 mg/dL (70-110)
[2024-08-06] MEDS: SENNOSIDES-DOCUSATE SODIUM 1 EACH TAB PO SCH (21:06)
[2024-08-06] MEDS: MUPIROCIN 2% OINT 22 GM TUBE NASAL SCH (21:06)
[2024-08-06 21:12] LABS: Glucose,Whole Blood 123 mg/dL (70-110)
[2024-08-06 22:29] LABS: Glucose,Whole Blood 116 mg/dL (70-110)
[2024-08-06 23:18] LABS: Glucose,Whole Blood 115 mg/dL (70-110)
[2024-08-07 00:22] LABS: Glucose,Whole Blood 119 mg/dL (70-110)
[2024-08-07 01:20] LABS: Glucose,Whole Blood 115 mg/dL (70-110)
[2024-08-07 03:41] LABS: Glucose,Whole Blood 122 mg/dL (70-110)
[2024-08-07 04:20] LABS: Glucose,Whole Blood 109 mg/dL (70-110)
[2024-08-07 04:23] LABS: Basophils % (A) 0 %; Eosinophils % (A) 0 %; HCT 30.1 % (34.0-46.0); HGB 9.4 gm/dL (11.4-16.0); Hypochromasia Moderate; Lymphocytes # (A) 1.2 k/uL (1.0-4.8); Lymphocytes % (A) 11 %; MCH 29.2 pg (25.0-35.0); MCHC 31.4 g/dL (31.0-37.0); MCV 93.2 fL (80.0-100.0); Mean Platelet Volume 9.3; Monocytes # (A) 0.8 k/uL (0-1.0); Monocytes % (A) 7 %; Neutrophils # (A) 8.7 k/uL (1.3-7.7); Neutrophils % (A) 81 %; Platelet Count 131 k/uL (150-450); RBC 3.23 m/uL (3.80-5.40); RDW 14.7 % (11.5-15.5); WBC 10.8 k/uL (3.8-10.6)
[2024-08-07 04:27] LABS: Ionized Calcium 4.8 mg/dL (4.5-5.3)
[2024-08-07 04:35] LABS: AST 56 U/L (14-36); African American GFR (CKD) 59 (>60 ml/min/1.73 sqM); Albumin 3.4 g/dL (3.5-5.0); Anion Gap 12 mmol/L; Blood Urea Nitrogen 21 mg/dL (7-17); Calcium 8.5 mg/dL (8.4-10.2); Carbon Dioxide 18 mmol/L (22-30); Chloride 107 mmol/L (98-107); Glucose 110 mg/dL (74-99); Magnesium 1.8 mg/dL (1.6-2.3); Non-African American GFR(CKD) 51 (>60 ml/min/1.73 sqM); Potassium 4.7 mmol/L (3.5-5.1); Sodium 137 mmol/L (137-145); Total Bilirubin 0.9 mg/dL (0.2-1.3); Total Protein 5.5 g/dL (6.3-8.2)
[2024-08-07 04:36] LABS: ALT 32 U/L (4-34); Alkaline Phosphatase 85 U/L (38-126)
[2024-08-07] MEDS: MAGNESIUM SULFATE-D5W PMX 1 GM in DEXTROSE/WATER 1 100ML.BAG IVPB ONE (06:19)
[2024-08-07] MEDS: METOCLOPRAMIDE 5 MG/ML 2 ML VIAL IVP PRN (06:20)
[2024-08-07 06:38] LABS: Glucose,Whole Blood 142 mg/dL (70-110)
[2024-08-07 07:14] LABS: Glucose,Whole Blood 151 mg/dL (70-110)
--- NOTE | 2024-08-07 07:55 | XR ---
EXAMINATION TYPE: XR chest 1V portable DATE OF EXAM: 08/07/2024 5:33 AM COMPARISON: Chest radiograph from one day prior. CLINICAL INDICATION: Female, 74 years old with history of Post Operative Cardiac Surgery; [facility] TECHNIQUE: XR chest 1V portable Frontal view of the chest. FINDINGS: Lungs/Pleura: Right upper quadrant dissection clips. Right mid and lower lung airspace opacities. The re is no evidence of pleural effusion, or pneumothorax. Pulmonary vascularity: Unremarkable. Heart/mediastinum: Cardiomediastinal silhouette is unremarkable. Musculoskeletal: No acute osseous pathology. Other findings: None Lines/Tubes: Interval removal of the endotracheal tube. There is a [place]-Karen catheter with tip projecting over the spine. Drainage tubes with tips projecting over the mediastinum. Left thoracotomy tube is present without evidence of pneumothorax. IMPRESSION: 1. Similar exam given patient rotation. 2. Removal of endotracheal tube. 3. Similar right lower lobe consolidation. [facility], , 08/07/2024 7:52 AM
[2024-08-07 08:07] LABS: Glucose,Whole Blood 179 mg/dL (70-110)
[2024-08-07] MEDS: AMIODARONE 200 MG TAB PO SCH (08:42)
[2024-08-07] MEDS: METOPROLOL TARTRATE 12.5 MG TAB PO SCH (08:44)
[2024-08-07] MEDS: ATORVASTATIN 40 MG TAB PO SCH (08:44)
[2024-08-07] MEDS: PANTOPRAZOLE 40 MG/10 ML VIAL IVP SCH (08:45)
[2024-08-07] MEDS ORDERED: ASPIRIN 81 MG PO SCH (09:00)
[2024-08-07 09:08] LABS: Glucose,Whole Blood 154 mg/dL (70-110)
[2024-08-07 10:01] VITALS: BMI 37.1
[2024-08-07] MEDS: ALBUMIN HUMAN 5% 250 ML in EMPTY BAG 1 BAG IVPB PRN (10:03)
[2024-08-07] MEDS: CLOPIDOGREL 75 MG TAB PO SCH (10:03)
[2024-08-07] MEDS: ASPIRIN 325 MG TAB PO SCH (10:04)
[2024-08-07 10:11] LABS: Glucose,Whole Blood 133 mg/dL (70-110)
--- NOTE | 2024-08-07 10:18 | P.PN ---
Subjective Progress Note Date: 08/07/24 Principal diagnosis: Coronary artery disease, non-ST elevated myocardial infarction this admission, very dynamic mitral valve regurgitation. Previuos medical history of coronary ar abena disease with non-STEMI and PCI to her LAD in April 2024, ischemic cardiomyopathy, hypertension, hyperlipidemia, hypothyroid, known left bundle branch block, hard of hearing, obesity, mild restrictive lung disease, previous tobacco dependence with cessation over 40 years ago, and recent vaginal bleeding being followed by [facility]. Preoperative nasal swab positive for MSSA, preoperative urinary tract infection with Klebsiella, preoperative transaminitis, left internal carotid artery stenosis POD #1 off pump single-vessel coronary artery bypass grafting using the in situ left internal mammary artery to the left anterior descending artery, exclusion of the left atrial appendage using a 35mm AtriClip, endoscopic harvesting of the left thigh greater saphenous vein that was not used, graft flow measurement using the Onaroim system, intraoperative transesophageal echocardiogram and epiaortic scanning Postoperative acute blood loss anemia and thrombocytopenia, expected given hemodilution Endobronchial hemorrhage with retained blood clots, status post flexible bronchoscopy with removal of blood clots The patient was seen and examined this morning sitting up in recliner in the intensive care unit in no acute distress. She had had some endobronchial bleeding in the operating room and when transferred to the intensive care unit after surgery she underwent bronchoscopy by Dr. Roa with removal of blood clots. She did get 1 unit packed red blood cells. She was successfully e xtubated last night at 18:30. Remains in sinus rhythm, hemodynamically stable, remains on low-dose IV Primacor. Currently on 2 L nasal cannula with oxygen saturation in the low to mid 90s. States pain is controlled on current medication regimen, denies shortness of breath. Labs, chest x-ray reviewed with Dr. Velazquez. Left internal jugular [place]/Cordis, right radial arterial line, mediastinal/left/right pleural chest tubes, left EVH TRISHA drain all present. No other new concerns. Objective - Vital Signs Vital signs: Vital Signs Temp 98.6 F 08/07/24 04:00 Pulse 81 08/07/24 09:00 Resp 18 08/07/24 09:00 BP 105/64 08/07/24 09:00 Pulse Ox 93 L 08/07/24 09:00 FiO2 40 08/06/24 18:00 Intake & Output 08/06/24 08/07/24 08/07/24 18:59 06:59 18:59 Intake Total 772.179 0283.227 488.113 Output Total 2095 915 105 Balance -1298.287 99.227 383.113 Weight 86.3 kg Intake: IV 597.7 1004.8 210.9 ACETAMINOPHEN IV (For NPO 100 100 ) 1,000 mg In Empty Bag 1 bag @ 400 mls/hr IVPB Q6HR [facility] Rx#:[id number] Cardiac Output (0.9 100 120 20 Sodium chloride) Invasive Line 3 20 30 10 Milrinone-D5w Pmx 20 mg 20.7 28.8 2.4 In Dextrose/Water 1 100ml .bag @ Per Protocol IV . Q0M [facility] Rx#:[id number] Nitroglycerin-D5w Pmx 50 9.0 18.0 1.5 mg In Dextrose/Water 1 250ml.bag @ 5 MCG/MIN 1.5 mls/hr IV .Q24H [facility] Rx#: [id number] Pressure Bag (0.9 Sodium 45 108 27 Chloride) Sodium Chloride 0.9% 1, 300 600 150 000 ml @ 30 mls/hr IV . Q24H [facility] Rx#:[id number] Intake, IV Titration 199.013 9.427 77.213 Amount Insulin Regular 100 unit 9.469 9.427 5.361 In Sodium Chloride 0.9% 100 ml @ Per Protocol IV .Q0M [facility] Rx#:[id number] Milrinone-D5w Pmx 20 mg 42.202 In Dextrose/Water 1 100ml .bag @ 0.1 MCG/KG/MIN 2. 43 mls/hr IV .Q24H [facility] Rx #:[id number] Nitroglycerin-D5w Pmx 50 29.65 mg In Dextrose/Water 1 250ml.bag @ 5 MCG/MIN 1.5 mls/hr IV .Q24H [facility] Rx#: [id number] Norepinephrine 4 mg In 156.618 Sodium Chloride 0.9% 250 ml @ 0.02 MCG/KG/MIN 6. 172 mls/hr IV .Q24H [facility] Rx#:[id number] propofoL 1,000 mg In 32.926 Empty Bag 1 bag @ Titrate IV .Q0M [facility] Rx#: [id number] Oral 200 Blood Product 0 Rc As-1 Unit 0 [id number] Output: Chest Tube Drainage 355 500 40 Chest Tube Bilateral 185 190 0 Mediastinal Chest Tube Left Lateral 110 210 10 Chest Chest Tube Right Lateral 60 100 30 Chest Drainage 40 Left Calf 40 Urine 1390 375 65 Estimated Blood Loss 350 Other: Voiding Method Indwelling Catheter Indwelling Catheter ABP, PAP, CO, CI - Last Documented Arterial Blood Pressure 106/38 Pulmonary Artery Pressure 20/4 Cardiac Output 4.7 Cardiac Index 2.6 - Exam CONSTITUTIONAL: Appears comfortable, cooperative, no acute distress RESPIRATORY: Lungs sounds diminished in the bases bilaterally. Respirations even, nonlabored. Currently on 2 L nasal cannula with oxygen saturation 93%. Able to achieve 500 mL on incentive spirometry. Strong nonproductive cough. CARDIOVASCULAR: S1, S2 present. Regular rate and rhythm, sinus rhythm on telemetry. Sternum stable. Palpable peripheral pulses bilaterally. Trace bilateral lower extremity edema present. No calf pain or tenderness noted. Heart hugger in place with patient demonstrating appropriate use. Antiembolism stockings, SCDs present. GASTROINTESTINAL: Abdomen soft, nontender, nondistended. Hypoactive bowel sounds present 4 quadrants. Tolerating clear liquids. Positive flatus GENITOURINARY: Lomeli present draining clear, yellow urine. Output overnight 25-30 mL per hour INTEGUMENTARY: Skin is warm and dry with evidence of good perfusion. Anterior chest incision well approximated and covered with dry intact dressing. Left lo wer extremity EVH site well approximated without redness , TRISHA drain present with minimal drainage NEUROLOGIC: Cranial nerves II through XII intact MUSKULOSKELETAL: Able to move all extremities, strength equal bilaterally, gait normal PSYCHIATRIC: Alert and oriented to person place and time, appropriate affect, intact judgment and insight INVASIVE LINES AND TUBES: Mediastinal/left/right pleural chest tubes present and connected to wall suction, no air leaks present. Mediastinal tube with 90 mL serosanguineous drainage overnight, 400 mL since surgery. Left pleural chest tube with 125 mL serosanguineous drainage overnight, 350 mL since surgery. Right pleural chest tube with 70 mL serosanguineous drainage overnight, 150 mL since surgery. Right internal jugular [place]/Cordis, right radial arterial line present. Last CO/CI 4.5/2.5, PA 24/10, CVP 6. - Allied health notes Allied health notes reviewed: nursing - Labs CBC & Chem 7: 08/07/24 04:10 08/07/24 04:10 Labs: Abnormal Lab Results - Last 24 Hours (Table) 08/05/24 08/06/24 08/06/24 Range/Units 05:54 07:47 09:05 WBC (3.8-10.6) k/uL RBC (3.80-5.40) m/uL Hgb (11.4-16.0) gm/dL Hct (34.0-46.0) % Plt Count (150-450) k/uL Neutrophils # (1.3-7.7) k/uL Lymphocytes # (1.0-4.8) k/uL INR (<1.2) APTT (22.0-30.0) sec ABG pH 7.32 L (7.35-7.45) ABG pCO2 (35-45) mmHg ABG pO2 >420 H 230 H (83-108) mmHg ABG O2 Saturation >99.4 H 99.0 H (94-97) % ABG Hematocrit 27 L 27 L (34.0-46.0) % ABG Ionized Calcium (4.5-5.3) mg/dL ABG Glucose (75-99) mg/dL ABG Lactic Acid (0.5-1.6) mmol/L Hemoglobin 8.8 L 8.6 L (11.4-16.0) gm/dL Chloride (98-107) mmol/L Carbon Dioxide (22-30) mmol/L BUN (7-17) mg/dL Creatinine (0.52-1.04) mg/dL Glucose (74-99) mg/dL POC Glucose (mg/dL) (70-110) mg/dL AST (14-36) U/L ALT (4-34) U/L Total Protein (6.3-8.2) g/dL Albumin (3.5-5.0) g/dL Arterial Blood Glucose (75-99) mg/dL Crossmatch See Detail 08/06/24 08/06/24 08/06/24 Range/Units 09:38 10:43 12:03 WBC (3.8-10.6) k/uL RBC (3.80-5.40) m/uL Hgb (11.4-16.0) gm/dL Hct (34.0-46.0) % Plt Count (150-450) k/uL Neutrophils # (1.3-7.7) k/uL Lymphocytes # (1.0-4.8) k/uL INR (<1.2) APTT (22.0-30.0) sec ABG pH 7.32 L 7.24 L 7.28 L (7.35-7.45) ABG pCO2 50 H (35-45) mmHg ABG pO2 205 H 117 H 194 H (83-108) mmHg ABG O2 Saturation 98.9 H 97.9 H 99.0 H (94-97) % ABG Hematocrit 26 L 19 L* 20 L* (34.0-46.0) % ABG Ionized Calcium 6.1 H* (4.5-5.3) mg/dL ABG Glucose 106 H 138 H 141 H (75-99) mg/dL ABG Lactic Acid <0.4 L (0.5-1.6) mmol/L Hemoglobin 8.3 L 6.2 L* 6.5 L* (11.4-16.0) gm/dL Chloride (98-107) mmol/L Carbon Dioxide (22-30) mmol/L BUN (7-17) mg/dL Creatinine (0.52-1.04) mg/dL Glucose (74-99) mg/dL POC Glucose (mg/dL) (70-110) mg/dL AST (14-36) U/L ALT (4-34) U/L Total Protein (6.3-8.2) g/dL Albumin (3.5-5.0) g/dL Arterial Blood Glucose 106 H 138 H 141 H (75-99) mg/dL Crossmatch 08/06/24 08/06/24 08/06/24 Range/Units 12:42 12:43 12:43 WBC (3.8-10.6) k/uL RBC 2.44 L (3.80-5.40) m/uL Hgb 7.2 L D (11.4-16.0) gm/dL Hct 22.9 L (34.0-46.0) % Plt Count 117 L (150-450) k/uL Neutrophils # 8.1 H (1.3-7.7) k/uL Lymphocytes # (1.0-4.8) k/uL INR 1.2 H (<1.2) APTT 21.1 L (22.0-30.0) sec ABG pH (7.35-7.45) ABG pCO2 (35-45) mmHg ABG pO2 (83-108) mmHg ABG O2 Saturation (94-97) % ABG Hematocrit (34.0-46.0) % ABG Ionized Calcium (4.5-5.3) mg/dL ABG Glucose (75-99) mg/dL ABG Lactic Acid (0.5-1.6) mmol/L Hemoglobin (11.4-16.0) gm/dL Chloride (98-107) mmol/L Carbon Dioxide (22-30) mmol/L BUN (7-17) mg/dL Creatinine (0.52-1.04) mg/dL Glucose (74-99) mg/dL POC Glucose (mg/dL) 162 H (70-110) mg/dL AST (14-36) U/L ALT (4-34) U/L Total Protein (6.3-8.2) g/dL Albumin (3.5-5.0) g/dL Arterial Blood Glucose (75-99) mg/dL Crossmatch 08/06/24 08/06/24 08/06/24 Range/Units 12:43 13:05 13:49 WBC (3.8-10.6) k/uL RBC (3.80-5.40) m/uL Hgb (11.4-16.0) gm/dL Hct (34.0-46.0) % Plt Count (150-450) k/uL Neutrophils # (1.3-7.7) k/uL Lymphocytes # (1.0-4.8) k/uL INR (<1.2) APTT (22.0-30.0) sec ABG pH 7.25 L (7.35-7.45) ABG pCO2 52 H (35-45) mmHg ABG pO2 82 L (83-108) mmHg ABG O2 Saturation (94-97) % ABG Hematocrit (34.0-46.0) % ABG Ionized Calcium (4.5-5.3) mg/dL ABG Glucose (75-99) mg/dL ABG Lactic Acid (0.5-1.6) mmol/L Hemoglobin 7.5 L (11.4-16.0) gm/dL Chloride 109 H (98-107) mmol/L Carbon Dioxide (22-30) mmol/L BUN (7-17) mg/dL Creatinine (0.52-1.04) mg/dL Glucose 144 H (74-99) mg/dL POC Glucose (mg/dL) 168 H (70-110) mg/dL AST 60 H (14-36) U/L ALT 37 H (4-34) U/L Total Protein 4.8 L (6.3-8.2) g/dL Albumin 2.9 L (3.5-5.0) g/dL Arterial Blood Glucose (75-99) mg/dL Crossmatch 08/06/24 08/06/24 08/06/24 Range/Units 15:21 15:23 15:53 WBC (3.8-10.6) k/uL RBC (3.80-5.40) m/uL Hgb (11.4-16.0) gm/dL Hct (34.0-46.0) % Plt Count (150-450) k/uL Neutrophils # (1.3-7.7) k/uL Lymphocytes # (1.0-4.8) k/uL INR (<1.2) APTT (22.0-30.0) sec ABG pH (7.35-7.45) ABG pCO2 (35-45) mmHg ABG pO2 134 H (83-108) mmHg ABG O2 Saturation 99.3 H (94-97) % ABG Hematocrit (34.0-46.0) % ABG Ionized Calcium (4.5-5.3) mg/dL ABG Glucose (75-99) mg/dL ABG Lactic Acid (0.5-1.6) mmol/L Hemoglobin 9.1 L (11.4-16.0) gm/dL Chloride (98-107) mmol/L Carbon Dioxide (22-30) mmol/L BUN (7-17) mg/dL Creatinine (0.52-1.04) mg/dL Glucose (74-99) mg/dL POC Glucose (mg/dL) 130 H 123 H (70-110) mg/dL AST (14-36) U/L ALT (4-34) U/L Total Protein (6.3-8.2) g/dL Albumin (3.5-5.0) g/dL Arterial Blood Glucose (75-99) mg/dL Crossmatch 08/06/24 08/06/24 08/06/24 Range/Units 15:55 17:57 19:08 WBC (3.8-10.6) k/uL RBC 3.20 L (3.80-5.40) m/uL Hgb 9.3 L D (11.4-16.0) gm/dL Hct 29.0 L (34.0-46.0) % Plt Count 120 L (150-450) k/uL Neutrophils # (1.3-7.7) k/uL Lymphocytes # 0.9 L (1.0-4.8) k/uL INR (<1.2) APTT (22.0-30.0) sec ABG pH 7.32 L (7.35-7.45) ABG pCO2 (35-45) mmHg ABG pO2 71 L (83-108) mmHg ABG O2 Saturation (94-97) % ABG Hematocrit (34.0-46.0) % ABG Ionized Calcium (4.5-5.3) mg/dL ABG Glucose (75-99) mg/dL ABG Lactic Acid (0.5-1.6) mmol/L Hemoglobin 9.1 L (11.4-16.0) gm/dL Chloride (98-107) mmol/L Carbon Dioxide (22-30) mmol/L BUN (7-17) mg/dL Creatinine (0.52-1.04) mg/dL Glucose (74-99) mg/dL POC Glucose (mg/dL) 113 H (70-110) mg/dL AST (14-36) U/L ALT (4-34) U/L Total Protein (6.3-8.2) g/dL Albumin (3.5-5.0) g/dL Arterial Blood Glucose (75-99) mg/dL Crossmatch 08/06/24 08/06/24 08/06/24 Range/Units 19:20 20:03 21:10 WBC (3.8-10.6) k/uL RBC 3.23 L (3.80-5.40) m/uL Hgb 9.3 L (11.4-16.0) gm/dL Hct 29.8 L (34.0-46.0) % Plt Count 110 L (150-450) k/uL Neutrophils # (1.3-7.7) k/uL Lymphocytes # 0.6 L (1.0-4.8) k/uL INR (<1.2) APTT (22.0-30.0) sec ABG pH (7.35-7.45) ABG pCO2 (35-45) mmHg ABG pO2 (83-108) mmHg ABG O2 Saturation (94-97) % ABG Hematocrit (34.0-46.0) % ABG Ionized Calcium (4.5-5.3) mg/dL ABG Glucose (75-99) mg/dL ABG Lactic Acid (0.5-1.6) mmol/L Hemoglobin (11.4-16.0) gm/dL Chloride (98-107) mmol/L Carbon Dioxide (22-30) mmol/L BUN (7-17) mg/dL Creatinine (0.52-1.04) mg/dL Glucose (74-99) mg/dL POC Glucose (mg/dL) 122 H 123 H (70-110) mg/dL AST (14-36) U/L ALT (4-34) U/L Total Protein (6.3-8.2) g/dL Albumin (3.5-5.0) g/dL Arterial Blood Glucose (75-99) mg/dL Crossmatch 08/06/24 08/06/24 08/07/24 Range/Units 22:28 23:16 00:21 WBC (3.8-10.6) k/uL RBC (3.80-5.40) m/uL Hgb (11.4-16.0) gm/dL Hct (34.0-46.0) % Plt Count (150-450) k/uL Neutrophils # (1.3-7.7) k/uL Lymphocytes # (1.0-4.8) k/uL INR (<1.2) APTT (22.0-30.0) sec ABG pH (7.35-7.45) ABG pCO2 (35-45) mmHg ABG pO2 (83-108) mmHg ABG O2 Saturation (94-97) % ABG Hematocrit (34.0-46.0) % ABG Ionized Calcium (4.5-5.3) mg/dL ABG Glucose (75-99) mg/dL ABG Lactic Acid (0.5-1.6) mmol/L Hemoglobin (11.4-16.0) gm/dL Chloride (98-107) mmol/L Carbon Dioxide (22-30) mmol/L BUN (7-17) mg/dL Creatinine (0.52-1.04) mg/dL Glucose (74-99) mg/dL POC Glucose (mg/dL) 116 H 115 H 119 H (70-110) mg/dL AST (14-36) U/L ALT (4-34) U/L Total Protein (6.3-8.2) g/dL Albumin (3.5-5.0) g/dL Arterial Blood Glucose (75-99) mg/dL Crossmatch 08/07/24 08/07/24 08/07/24 Range/Units 01:18 03:39 04:10 WBC 10.8 H (3.8-10.6) k/uL RBC 3.23 L (3.80-5.40) m/uL Hgb 9.4 L (11.4-16.0) gm/dL Hct 30.1 L (34.0-46.0) % Plt Count 131 L (150-450) k/uL Neutrophils # 8.7 H (1.3-7.7) k/uL Lymphocytes # (1.0-4.8) k/uL INR (<1.2) APTT (22.0-30.0) sec ABG pH (7.35-7.45) ABG pCO2 (35-45) mmHg ABG pO2 (83-108) mmHg ABG O2 Saturation (94-97) % ABG Hematocrit (34.0-46.0) % ABG Ionized Calcium (4.5-5.3) mg/dL ABG Glucose (75-99) mg/dL ABG Lactic Acid (0.5-1.6) mmol/L Hemoglobin (11.4-16.0) gm/dL Chloride (98-107) mmol/L Carbon Dioxide (22-30) mmol/L BUN (7-17) mg/dL Creatinine (0.52-1.04) mg/dL Glucose (74-99) mg/dL POC Glucose (mg/dL) 115 H 122 H (70-110) mg/dL AST (14-36) U/L ALT (4-34) U/L Total Protein (6.3-8.2) g/dL Albumin (3.5-5.0) g/dL Arterial Blood Glucose (75-99) mg/dL Crossmatch 08/07/24 08/07/24 08/07/24 Range/Units 04:10 06:36 07:13 WBC (3.8-10.6) k/uL RBC (3.80-5.40) m/uL Hgb (11.4-16.0) gm/dL Hct (34.0-46.0) % Plt Count (150-450) k/uL Neutrophils # (1.3-7.7) k/uL Lymphocytes # (1.0-4.8) k/uL INR (<1.2) APTT (22.0-30.0) sec ABG pH (7.35-7.45) ABG pCO2 (35-45) mmHg ABG pO2 (83-108) mmHg ABG O2 Saturation (94-97) % ABG Hematocrit (34.0-46.0) % ABG Ionized Calcium (4.5-5.3) mg/dL ABG Glucose (75-99) mg/dL ABG Lactic Acid (0.5-1.6) mmol/L Hemoglobin (11.4-16.0) gm/dL Chloride (98-107) mmol/L Carbon Dioxide 18 L (22-30) mmol/L BUN 21 H (7-17) mg/dL Creatinine 1.07 H (0.52-1.04) mg/dL Glucose 110 H (74-99) mg/dL POC Glucose (mg/dL) 142 H 151 H (70-110) mg/dL AST 56 H (14-36) U/L ALT (4-34) U/L Total Protein 5.5 L (6.3-8.2) g/dL Albumin 3.4 L (3.5-5.0) g/dL Arterial Blood Glucose (75-99) mg/dL Crossmatch 08/07/24 08/07/24 Range/Units 08:05 09:07 WBC (3.8-10.6) k/uL RBC (3.80-5.40) m/uL Hgb (11.4-16.0) gm/dL Hct (34.0-46.0) % Plt Count (150-450) k/uL Neutrophils # (1.3-7.7) k/uL Lymphocytes # (1.0-4.8) k/uL INR (<1.2) APTT (22.0-30.0) sec ABG pH (7.35-7.45) ABG pCO2 (35-45) mmHg ABG pO2 (83-108) mmHg ABG O2 Saturation (94-97) % ABG Hematocrit (34.0-46.0) % ABG Ionized Calcium (4.5-5.3) mg/dL ABG Glucose (75-99) mg/dL ABG Lactic Acid (0.5-1.6) mmol/L Hemoglobin (11.4-16.0) gm/dL Chloride (98-107) mmol/L Carbon Dioxide (22-30) mmol/L BUN (7-17) mg/dL Creatinine (0.52-1.04) mg/dL Glucose (74-99) mg/dL POC Glucose (mg/dL) 179 H 154 H (70-110) mg/dL AST (14-36) U/L ALT (4-34) U/L Total Protein (6.3-8.2) g/dL Albumin (3.5-5.0) g/dL Arterial Blood Glucose (75-99) mg/dL Crossmatch Microbiology - Last 24 Hours (Table) 08/05/24 00:12 Urine Culture - Final Urine,Voided - Imaging and Cardiology Chest x-ray: report reviewed, image reviewed Assessment and Plan Assessment: Coronary artery disease, non-ST elevated myocardial infarction this admission, status post single-vessel off-pump CABG Very dynamic mitral valve regurgitation Recent vaginal bleeding being followed by [facility] Preoperative nasal swab positive for MSSA, treated with nasal mupirocin Preoperative urinary tract infection with Klebsiella, treated with Rocephin Preoperative transaminitis Left internal carotid artery stenosis, 50 to 69% Postoperative acute blood loss anemia and thrombocytopenia, expected given hemodilution Endobronchial hemorrhage with retained blood clots, status post flexible bronchoscopy with removal of blood clots History of coronary artery disease with non-STEMI and PCI to her LAD in April 2024 Ischemic cardiomyopathy with EF 30-35% on TTE 07/29/24, preserved LV systolic function on WILLAM 07/31/24 Hypertension Hyperlipidemia, treated, cholesterol 112, LDL 56.5 Hypothyroid, TSH 2.66 Known left bundle branch block Obesity Mild restrictive lung disease, preoperative FEV1 66% of predicted Previous tobacco dependence with cessation over 40 years ago Plan: Continue to maximize medical therapy with aspirin, statin, Plavix, beta-apolonia therapy. Will increase beta-apolonia therapy as tolerated. Discontinue IV nitro Discontinue Primacor Continue amiodarone for A-fib prophylaxis. Patient has had no atrial fibrillation up to this point Wean oxygen as tolerated. Encourage incentive spirometry use 10 times every hour while awake. Bronchodilators per pulmonology Increase activity, ambulate as tolerated. PT/OT/cardiac rehab consulted Will monitor daily labs and x-rays, electrolyte replacement per protocol. GI/DVT prophylaxis Insulin management per internal medicine. Patient is not diabetic, preoperative hemoglobin A1c 6.1%. Patient should continue on IV insulin for 48 hours, then may transition to subcutaneous per protocol Pain control per current medication regimen Will discontinue [place], connect Cordis to continuous CVP monitoring Continue chest tubes for another 24 hours, monitor and record output Continue Lomeli catheter for another 24 hours, continue to monitor record strict accurate intake and output Will discontinue TRISHA drain More recommendations to follow as patient progresses
[2024-08-07 11:04] LABS: Glucose,Whole Blood 115 mg/dL (70-110)
[2024-08-07 11:56] LABS: Glucose,Whole Blood 101 mg/dL (70-110)
[2024-08-07 13:20] LABS: Glucose,Whole Blood 139 mg/dL (70-110)
[2024-08-07 14:01] LABS: Glucose,Whole Blood 148 mg/dL (70-110)
[2024-08-07 15:04] LABS: Glucose,Whole Blood 138 mg/dL (70-110)
--- NOTE | 2024-08-07 15:57 | P.PN ---
Subjective Progress Note Date: 08/07/24 On 08/06/2024, the patient is being seen in the intensive care unit following her bypass surgery. Noted the patient underwent off-pump single-vessel bypass surgery with EVANS to LAD. The patient also underwent a left atrial appendage exclusion. Noted intraoperatively, the patient encountered increased hemoptysis and a total of 200 cc of blood was aspirated through the orotracheal tube. This was a complication related to the Parker-Karen catheter as the catheter was withdrawn later on. The chest x-ray shows an area of consolidation in the right lower lobe which is probably an area of intraparenchymal hemorrhage. After arriving to the intensive care unit, the patient was seen and evaluated. The pa tient was assist-control mode of mechanical ventilation at rate of 14, tidal volume of 400, FiO2 50% with a PEEP of 10. Blood gases showed a pH of 7.24 with a pCO2 of 52 and pO2 of 82. Based on that, the respiratory rate was increased up to 24. The hemodynamic parameters showed a cardiac output of 5 and an index of 2.8. PA pressures were 34/22. The patient was on milrinone running at 0.2 mcg/kg/h, nitroglycerin drip at 5 mcg/min and norepinephrine at 0.11 mcg/kg/min. The patient is also on normal citrate of 75 cc an hour and insulin drip at the rate of 3.5 units an hour. Cardiac rhythm was sinus. Discussed the case with cardiothoracic surgery. Performed a bedside bronchoscopy on this patient and copious amount of blood clots were aspirated from the airway. The completion of the bronchoscopy, the patient had no residual blood clots and full airway patency was established. Subsequently, the patient started having loss and volume, and the return tidal volumes were low and the patient had difficulties in maintaining the pressure in her orotracheal tube cuff. Based on that, I remove the orotracheal tube and replaced it by #8. Intubation was done in the intensive care unit. During the process, the patient had no significant hemodynamic instability. For now, the patient has a right pleural and left lower chest tube and mediastinal chest tube. No evidence of any air leak. Chest x-ray shows no evidence of any pneumothorax. Reviewed the series of x- rays done specially the 1 that was done post reintubation. ET tube was seen around 3 cm above the jeremie. The Parker-Karen catheter was projecting and appropriate location. Drainage tubes were in place. The blood work that was done postop showed a hemoglobin of 9.3, platelet count of 120, and the most recent blood gas showed a pH of 7.37 with pCO2 of 36 and pO2 of 134 and this was done FiO2 of 50%. The patient remains sedated on propofol. Cardiac rhythm is sinus. On today's evaluation of 08/07/2024, the patient is being seen for a follow-up. The patient was weaned off mechanical ventilator and the patient was extubated today without any major difficulties. This morning, she is sitting up in a chair and she is calm and comfortable and denies having any specific complaints. She is currently on 2 L of oxygen by nasal cannula. The patient is currently off milrinone. The cardiac output Is at 4.5 with an index of 2.5. PA pressures are 24/10 and a CVP is at 6. The patient has mediastinal chest tube x 2, left pleural and right pleural chest tube. Mediastinal chest tube is produced 90 cc over the past 8 hours) since surgery. Left pleural tube has produced 125 cc overnight) 50 cc since surgery. Right lower chest tube is produced 70 cc over the past 8 hours and 150 cc overnight. The cardiac rhythm is sinus. Urine output is adequate. There is an order of 30 cc an hour. The patient remains on insulin drip at 2.5 units an hour. No other significant events overnight. In terms of the labs, the patient's blood work showed a hemoglobin of 9.4, white cell count of 10.5, platelet count of 131. The BUN is 21 with a creatinine 1.07. Electrolytes are all stable. Serum bicarb is at 18. LFTs are normal. No other significant events overnight. Objective - Vital Signs Vital signs: Vital Signs Temp 98.6 F 08/07/24 04:00 Pulse 81 08/07/24 09:00 Resp 18 08/07/24 09:00 BP 105/64 08/07/24 09:00 Pulse Ox 93 L 08/07/24 09:00 FiO2 40 08/06/24 18:00 Intake & Output 08/06/24 08/07/24 08/07/24 18:59 06:59 18:59 Intake Total 537.399 2840.227 229.113 Output Total 2095 915 94 Balance -1298.287 99.227 135.113 Weight 86.3 kg Intake: IV 597.7 1004.8 151.9 ACETAMINOPHEN IV (For NPO 100 100 ) 1,000 mg In Empty Bag 1 bag @ 400 mls/hr IVPB Q6HR [facility] Rx#:[id number] Cardiac Output (0.9 100 120 20 Sodium chloride) Invasive Line 3 20 30 10 Milrinone-D5w Pmx 20 mg 20.7 28.8 2.4 In Dextrose/Water 1 100ml .bag @ Per Protocol IV . Q0M [facility] Rx#:[id number] Nitroglycerin-D5w Pmx 50 9.0 18.0 1.5 mg In Dextrose/Water 1 250ml.bag @ 5 MCG/MIN 1.5 mls/hr IV .Q24H [facility] Rx#: [id number] Pressure Bag (0.9 Sodium 45 108 18 Chloride) Sodium Chloride 0.9% 1, 300 600 100 000 ml @ 30 mls/hr IV . Q24H [facility] Rx#:[id number] Intake, IV Titration 199.013 9.427 77.213 Amount Insulin Regular 100 unit 9.469 9.427 5.361 In Sodium Chloride 0.9% 100 ml @ Per Protocol IV .Q0M [facility] Rx#:[id number] Milrinone-D5w Pmx 20 mg 42.202 In Dextrose/Water 1 100ml .bag @ 0.1 MCG/KG/MIN 2. 43 mls/hr IV .Q24H [facility] Rx #:[id number] Nitroglycerin-D5w Pmx 50 29.65 mg In Dextrose/Water 1 250ml.bag @ 5 MCG/MIN 1.5 mls/hr IV .Q24H [facility] Rx#: [id number] Norepinephrine 4 mg In 156.618 Sodium Chloride 0.9% 250 ml @ 0.02 MCG/KG/MIN 6. 172 mls/hr IV .Q24H [facility] Rx#:[id number] propofoL 1,000 mg In 32.926 Empty Bag 1 bag @ Titrate IV .Q0M [facility] Rx#: [id number] Blood Product 0 Rc As-1 Unit 0 [id number] Output: Chest Tube Drainage 355 500 34 Chest Tube Bilateral 185 190 0 Mediastinal Chest Tube Left Lateral 110 210 10 Chest Chest Tube Right Lateral 60 100 24 Chest Drainage 40 Left Calf 40 Urine 1390 375 60 Estimated Blood Loss 350 Other: Voiding Method Indwelling Catheter Indwelling Catheter ABP, PAP, CO, CI - Last Documented Arterial Blood Pressure 106/38 Pulmonary Artery Pressure 20/4 Cardiac Output 4.7 Cardiac Index 2.6 - Exam CONSTITUTIONAL: Appears comfortable, cooperative, no acute distress RESPIRATORY: Lungs sounds diminished in the bases bilaterally. Respirations even, nonlabored. Currently on 2 L nasal cannula with oxygen saturation 93%. Able to achieve 500 mL on incentive spirometry. Strong nonproductive cough. CARDIOVASCULAR: S1, S2 present. Regular rate and rhythm, sinus rhythm on telemetry. Sternum stable. Palpable peripheral pulses bilaterally. Trace bilateral lower extremity edema present. No calf pain or tenderness noted. Heart hugger in place with patient demonstrating appropriate use. Antiembolism stockings, SCDs present. GASTROINTESTINAL: Abdomen soft, nontender, nondistended. Hypoactive bowel sounds present 4 quadrants. Tolerating clear liquids. Positive flatus GENITOURINARY: Lomeli present draining clear, yellow urine. Output overnight 25-30 mL per hour INTEGUMENTARY: Skin is warm and dry with evidence of good perfusion. Anterior chest incision well approximated and covered with dry intact dressing. Left lower extremity EVH site well approximated without redness , TRISHA drain present with minimal drainage NEUROLOGIC: Cranial nerves II through XII intact MUSKULOSKELETAL: Able to move all extremities, strength equal bilaterally, gait normal PSYCHIATRIC: Alert and oriented to person place and time, appropriate affect, intact judgment and insight INVASIVE LINES AND TUBES: Mediastinal/left/right pleural chest tubes present and connected to wall suction, no air leaks present. Mediastinal tube with 90 mL serosanguineous drainage overnight, 400 mL since surgery. Left pleural chest tube with 125 mL serosanguineous drainage overnight, 350 mL since surgery. Right pleural chest tube with 70 mL serosanguineous drainage overnight, 150 mL since surgery. Right internal jugular Parker/Cordis, right radial arterial line present. Last CO/CI 4.5/2.5, PA 19/03, CVP 6. - Labs CBC & Chem 7: 08/07/24 04:10 08/07/24 04:10 Labs: Abnormal Lab Results - Last 24 Hours (Table) 08/05/24 08/06/24 08/06/24 Range/Units 05:54 07:47 09:05 WBC (3.8-10.6) k/uL RBC (3.80-5.40) m/uL Hgb (11.4-16.0) gm/dL Hct (34.0-46.0) % Plt Count (150-450) k/uL Neutrophils # (1.3-7.7) k/uL Lymphocytes # (1.0-4.8) k/uL INR (<1.2) APTT (22.0-30.0) sec ABG pH 7.32 L (7.35-7.45) ABG pCO2 (35-45) mmHg ABG pO2 >420 H 230 H (83-108) mmHg ABG O2 Saturation >99.4 H 99.0 H (94-97) % ABG Hematocrit 27 L 27 L (34.0-46.0) % ABG Ionized Calcium (4.5-5.3) mg/dL ABG Glucose (75-99) mg/dL ABG Lactic Acid (0.5-1.6) mmol/L Hemoglobin 8.8 L 8.6 L (11.4-16.0) gm/dL Chloride (98-107) mmol/L Carbon Dioxide (22-30) mmol/L BUN (7-17) mg/dL Creatinine (0.52-1.04) mg/dL Glucose (74-99) mg/dL POC Glucose (mg/dL) (70-110) mg/dL AST (14-36) U/L ALT (4-34) U/L Total Protein (6.3-8.2) g/dL Albumin (3.5-5.0) g/dL Arterial Blood Glucose (75-99) mg/dL Crossmatch See Detail 08/06/24 08/06/24 08/06/24 Range/Units 09:38 10:43 12:03 WBC (3.8-10.6) k/uL RBC (3.80-5.40) m/uL Hgb (11.4-16.0) gm/dL Hct (34.0-46.0) % Plt Count (150-450) k/uL Neutrophils # (1.3-7.7) k/uL Lymphocytes # (1.0-4.8) k/uL INR (<1.2) APTT (22.0-30.0) sec ABG pH 7.32 L 7.24 L 7.28 L (7.35-7.45) ABG pCO2 50 H (35-45) mmHg ABG pO2 205 H 117 H 194 H (83-108) mmHg ABG O2 Saturation 98.9 H 97.9 H 99.0 H (94-97) % ABG Hematocrit 26 L 19 L* 20 L* (34.0-46.0) % ABG Ionized Calcium 6.1 H* (4.5-5.3) mg/dL ABG Glucose 106 H 138 H 141 H (75-99) mg/dL ABG Lactic Acid <0.4 L (0.5-1.6) mmol/L Hemoglobin 8.3 L 6.2 L* 6.5 L* (11.4-16.0) gm/dL Chloride (98-107) mmol/L Carbon Dioxide (22-30) mmol/L BUN (7-17) mg/dL Creatinine (0.52-1.04) mg/dL Glucose (74-99) mg/dL POC Glucose (mg/dL) (70-110) mg/dL AST (14-36) U/L ALT (4-34) U/L Total Protein (6.3-8.2) g/dL Albumin (3.5-5.0) g/dL Arterial Blood Glucose 106 H 138 H 141 H (75-99) mg/dL Crossmatch 08/06/24 08/06/24 08/06/24 Range/Units 12:42 12:43 12:43 WBC (3.8-10.6) k/uL RBC 2.44 L (3.80-5.40) m/uL Hgb 7.2 L D (11.4-16.0) gm/dL Hct 22.9 L (34.0-46.0) % Plt Count 117 L (150-450) k/uL Neutrophils # 8.1 H (1.3-7.7) k/uL Lymphocytes # (1.0-4.8) k/uL INR 1.2 H (<1.2) APTT 21.1 L (22.0-30.0) sec ABG pH (7.35-7.45) ABG pCO2 (35-45) mmHg ABG pO2 (83-108) mmHg ABG O2 Saturation (94-97) % ABG Hematocrit (34.0-46.0) % ABG Ionized Calcium (4.5-5.3) mg/dL ABG Glucose (75-99) mg/dL ABG Lactic Acid (0.5-1.6) mmol/L Hemoglobin (11.4-16.0) gm/dL Chloride (98-107) mmol/L Carbon Dioxide (22-30) mmol/L BUN (7-17) mg/dL Creatinine (0.52-1.04) mg/dL Glucose (74-99) mg/dL POC Glucose (mg/dL) 162 H (70-110) mg/dL AST (14-36) U/L ALT (4-34) U/L Total Protein (6.3-8.2) g/dL Albumin (3.5-5.0) g/dL Arterial Blood Glucose (75-99) mg/dL Crossmatch 08/06/24 08/06/24 08/06/24 Range/Units 12:43 13:05 13:49 WBC (3.8-10.6) k/uL RBC (3.80-5.40) m/uL Hgb (11.4-16.0) gm/dL Hct (34.0-46.0) % Plt Count (150-450) k/uL Neutrophils # (1.3-7.7) k/uL Lymphocytes # (1.0-4.8) k/uL INR (<1.2) APTT (22.0-30.0) sec ABG pH 7.25 L (7.35-7.45) ABG pCO2 52 H (35-45) mmHg ABG pO2 82 L (83-108) mmHg ABG O2 Saturation (94-97) % ABG Hematocrit (34.0-46.0) % ABG Ionized Calcium (4.5-5.3) mg/dL ABG Glucose (75-99) mg/dL ABG Lactic Acid (0.5-1.6) mmol/L Hemoglobin 7.5 L (11.4-16.0) gm/dL Chloride 109 H (98-107) mmol/L Carbon Dioxide (22-30) mmol/L BUN (7-17) mg/dL Creatinine (0.52-1.04) mg/dL Glucose 144 H (74-99) mg/dL POC Glucose (mg/dL) 168 H (70-110) mg/dL AST 60 H (14-36) U/L ALT 37 H (4-34) U/L Total Protein 4.8 L (6.3-8.2) g/dL Albumin 2.9 L (3.5-5.0) g/dL Arterial Blood Glucose (75-99) mg/dL Crossmatch 08/06/24 08/06/24 08/06/24 Range/Units 15:21 15:23 15:53 WBC (3.8-10.6) k/uL RBC (3.80-5.40) m/uL Hgb (11.4-16.0) gm/dL Hct (34.0-46.0) % Plt Count (150-450) k/uL Neutrophils # (1.3-7.7) k/uL Lymphocytes # (1.0-4.8) k/uL INR (<1.2) APTT (22.0-30.0) sec ABG pH (7.35-7.45) ABG pCO2 (35-45) mmHg ABG pO2 134 H (83-108) mmHg ABG O2 Saturation 99.3 H (94-97) % ABG Hematocrit (34.0-46.0) % ABG Ionized Calcium (4.5-5.3) mg/dL ABG Glucose (75-99) mg/dL ABG Lactic Acid (0.5-1.6) mmol/L Hemoglobin 9.1 L (11.4-16.0) gm/dL Chloride (98-107) mmol/L Carbon Dioxide (22-30) mmol/L BUN (7-17) mg/dL Creatinine (0.52-1.04) mg/dL Glucose (74-99) mg/dL POC Glucose (mg/dL) 130 H 123 H (70-110) mg/dL AST (14-36) U/L ALT (4-34) U/L Total Protein (6.3-8.2) g/dL Albumin (3.5-5.0) g/dL Arterial Blood Glucose (75-99) mg/dL Crossmatch 03/08/06/24 08/06/24 Range/Units 15:55 17:57 19:08 WBC (3.8-10.6) k/uL RBC 3.20 L (3.80-5.40) m/uL Hgb 9.3 L D (11.4-16.0) gm/dL Hct 29.0 L (34.0-46.0) % Plt Count 120 L (150-450) k/uL Neutrophils # (1.3-7.7) k/uL Lymphocytes # 0.9 L (1.0-4.8) k/uL INR (<1.2) APTT (22.0-30.0) sec ABG pH 7.32 L (7.35-7.45) ABG pCO2 (35-45) mmHg ABG pO2 71 L (83-108) mmHg ABG O2 Saturation (94-97) % ABG Hematocrit (34.0-46.0) % ABG Ionized Calcium (4.5-5.3) mg/dL ABG Glucose (75-99) mg/dL ABG Lactic Acid (0.5-1.6) mmol/L Hemoglobin 9.1 L (11.4-16.0) gm/dL Chloride (98-107) mmol/L Carbon Dioxide (22-30) mmol/L BUN (7-17) mg/dL Creatinine (0.52-1.04) mg/dL Glucose (74-99) mg/dL POC Glucose (mg/dL) 113 H (70-110) mg/dL AST (14-36) U/L ALT (4-34) U/L Total Protein (6.3-8.2) g/dL Albumin (3.5-5.0) g/dL Arterial Blood Glucose (75-99) mg/dL Crossmatch 08/06/24 08/06/24 08/06/24 Range/Units 19:20 20:03 21:10 WBC (3.8-10.6) k/uL RBC 3.23 L (3.80-5.40) m/uL Hgb 9.3 L (11.4-16.0) gm/dL Hct 29.8 L (34.0-46.0) % Plt Count 110 L (150-450) k/uL Neutrophils # (1.3-7.7) k/uL Lymphocytes # 0.6 L (1.0-4.8) k/uL INR (<1.2) APTT (22.0-30.0) sec ABG pH (7.35-7.45) ABG pCO2 (35-45) mmHg ABG pO2 (83-108) mmHg ABG O2 Saturation (94-97) % ABG Hematocrit (34.0-46.0) % ABG Ionized Calcium (4.5-5.3) mg/dL ABG Glucose (75-99) mg/dL ABG Lactic Acid (0.5-1.6) mmol/L Hemoglobin (11.4-16.0) gm/dL Chloride (98-107) mmol/L Carbon Dioxide (22-30) mmol/L BUN (7-17) mg/dL Creatinine (0.52-1.04) mg/dL Glucose (74-99) mg/dL POC Glucose (mg/dL) 122 H 123 H (70-110) mg/dL AST (14-36) U/L ALT (4-34) U/L Total Protein (6.3-8.2) g/dL Albumin (3.5-5.0) g/dL Arterial Blood Glucose (75-99) mg/dL Crossmatch 08/06/24 08/06/24 08/07/24 Range/Units 22:28 23:16 00:21 WBC (3.8-10.6) k/uL RBC (3.80-5.40) m/uL Hgb (11.4-16.0) gm/dL Hct (34.0-46.0) % Plt Count (150-450) k/uL Neutrophils # (1.3-7.7) k/uL Lymphocytes # (1.0-4.8) k/uL INR (<1.2) APTT (22.0-30.0) sec ABG pH (7.35-7.45) ABG pCO2 (35-45) mmHg ABG pO2 (83-108) mmHg ABG O2 Saturation (94-97) % ABG Hematocrit (34.0-46.0) % ABG Ionized Calcium (4.5-5.3) mg/dL ABG Glucose (75-99) mg/dL ABG Lactic Acid (0.5-1.6) mmol/L Hemoglobin (11.4-16.0) gm/dL Chloride (98-107) mmol/L Carbon Dioxide (22-30) mmol/L BUN (7-17) mg/dL Creatinine (0.52-1.04) mg/dL Glucose (74-99) mg/dL POC Glucose (mg/dL) 116 H 115 H 119 H (70-110) mg/dL AST (14-36) U/L ALT (4-34) U/L Total Protein (6.3-8.2) g/dL Albumin (3.5-5.0) g/dL Arterial Blood Glucose (75-99) mg/dL Crossmatch 08/07/24 08/07/24 08/07/24 Range/Units 01:18 03:39 04:10 WBC 10.8 H (3.8-10.6) k/uL RBC 3.23 L (3.80-5.40) m/uL Hgb 9.4 L (11.4-16.0) gm/dL Hct 30.1 L (34.0-46.0) % Plt Count 131 L (150-450) k/uL Neutrophils # 8.7 H (1.3-7.7) k/uL Lymphocytes # (1.0-4.8) k/uL INR (<1.2) APTT (22.0-30.0) sec ABG pH (7.35-7.45) ABG pCO2 (35-45) mmHg ABG pO2 (83-108) mmHg ABG O2 Saturation (94-97) % ABG Hematocrit (34.0-46.0) % ABG Ionized Calcium (4.5-5.3) mg/dL ABG Glucose (75-99) mg/dL ABG Lactic Acid (0.5-1.6) mmol/L Hemoglobin (11.4-16.0) gm/dL Chloride (98-107) mmol/L Carbon Dioxide (22-30) mmol/L BUN (7-17) mg/dL Creatinine (0.52-1.04) mg/dL Glucose (74-99) mg/dL POC Glucose (mg/dL) 115 H 122 H (70-110) mg/dL AST (14-36) U/L ALT (4-34) U/L Total Protein (6.3-8.2) g/dL Albumin (3.5-5.0) g/dL Arterial Blood Glucose (75-99) mg/dL Crossmatch 08/07/24 08/07/24 08/07/24 Range/Units 04:10 06:36 07:13 WBC (3.8-10.6) k/uL RBC (3.80-5.40) m/uL Hgb (11.4-16.0) gm/dL Hct (34.0-46.0) % Plt Count (150-450) k/uL Neutrophils # (1.3-7.7) k/uL Lymphocytes # (1.0-4.8) k/uL INR (<1.2) APTT (22.0-30.0) sec ABG pH (7.35-7.45) ABG pCO2 (35-45) mmHg ABG pO2 (83-108) mmHg ABG O2 Saturation (94-97) % ABG Hematocrit (34.0-46.0) % ABG Ionized Calcium (4.5-5.3) mg/dL ABG Glucose (75-99) mg/dL ABG Lactic Acid (0.5-1.6) mmol/L Hemoglobin (11.4-16.0) gm/dL Chloride (98-107) mmol/L Carbon Dioxide 18 L (22-30) mmol/L BUN 21 H (7-17) mg/dL Creatinine 1.07 H (0.52-1.04) mg/dL Glucose 110 H (74-99) mg/dL POC Glucose (mg/dL) 142 H 151 H (70-110) mg/dL AST 56 H (14-36) U/L ALT (4-34) U/L Total Protein 5.5 L (6.3-8.2) g/dL Albumin 3.4 L (3.5-5.0) g/dL Arterial Blood Glucose (75-99) mg/dL Crossmatch 08/07/24 08/07/24 Range/Units 08:05 09:07 WBC (3.8-10.6) k/uL RBC (3.80-5.40) m/uL Hgb (11.4-16.0) gm/dL Hct (34.0-46.0) % Plt Count (150-450) k/uL Neutrophils # (1.3-7.7) k/uL Lymphocytes # (1.0-4.8) k/uL INR (<1.2) APTT (22.0-30.0) sec ABG pH (7.35-7.45) ABG pCO2 (35-45) mmHg ABG pO2 (83-108) mmHg ABG O2 Saturation (94-97) % ABG Hematocrit (34.0-46.0) % ABG Ionized Calcium (4.5-5.3) mg/dL ABG Glucose (75-99) mg/dL ABG Lactic Acid (0.5-1.6) mmol/L Hemoglobin (11.4-16.0) gm/dL Chloride (98-107) mmol/L Carbon Dioxide (22-30) mmol/L BUN (7-17) mg/dL Creatinine (0.52-1.04) mg/dL Glucose (74-99) mg/dL POC Glucose (mg/dL) 179 H 154 H (70-110) mg/dL AST (14-36) U/L ALT (4-34) U/L Total Protein (6.3-8.2) g/dL Albumin (3.5-5.0) g/dL Arterial Blood Glucose (75-99) mg/dL Crossmatch Microbiology - Last 24 Hours (Table) 08/05/24 00:12 Urine Culture - Final Urine,Voided Assessment and Plan Plan: Coronary artery disease, non-ST elevated myocardial infarction, awaiting pete nary bypass surgery. The patient is known to have coronary artery disease. The patient has undergone previous PCI to LAD back in April 2024. Furthermore heart catheterization was completed on July 10, 2024 which demonstrated a 30% stenosis to her distal left main coronary artery, a 70% ostial LAD disease, patent stent in the mid LAD, 70% diffuse distal LAD disease, 50% ostial and proximal left circumflex disease with negative IFR performed on May 18, 2024, when compared to the heart catheterization from 05/18/2024 there was no progression of the CAD. The patient is status post off-pump single-vessel bypass surgery with EVANS to LAD. The patient is currently postop day #1. The patient is hemodynamically stable and the patient is currently off pressors. Adequate cardiac output and index and adequate urine output. Thoracotomy, remains intubated on mechanical ventilator. Extubated to 2 L of oxygen nasal cannula and the chest tubes are still in place and the patient has no evidence of any air leak in the chest tubes are in place. Chest x-ray and blood gas were noted Right lung parenchymal hemorrhage involving the right lower lobe in addition to hemoptysis and endobronchial hemorrhage, most likely a complication of Parker-Karen catheter and the catheter has been repositioned. Bronchoscopy was also done with evacuation of copious amount of residual blood clots retained in the patient's airways. urinary tract infection with Klebsiella, on 07/31/2024 treated with Rocephin Left internal carotid artery stenosis, 50 to 69% Ischemic cardiomyopathy with EF 30-35% on TTE 07/29/24, preserved LV systolic function on WILLAM 07/31/24 Hypertension Hyperlipidemia, treated, cholesterol 112, LDL 56.5 Hypothyroid, TSH 2.66 Left bundle branch block Obesity BMI of 36.2 Mild restrictive lung disease, preoperative FEV1 66% of predicted Previous tobacco dependence with cessation over 40 years ago Plan: Extubated and patient is currently on 2 L of oxygen by nasal cannula Wean down FiO2 as tolerated to maintain saturation above 90% Bronchoscopy was performed on 08/06/2024 in the intensive care unit and the blood clots from the airways were removed. Patient is currently off pressors Cardiac rhythm is sinus Continue insulin drip for blood sugar control Monitor urine output Continue aspirin and Plavix Start the patient on metoprolol 12.5 mg p.o. twice a day Lipitor 40 mg p.o. daily Amiodarone 4 mg p.o. twice a day Keep the chest tube in place for today Labs were noted We will continue to follow. Evaluation was done and 31 minutes. Time with Patient: Greater than 30
[2024-08-07 16:03] LABS: Glucose,Whole Blood 126 mg/dL (70-110)
[2024-08-07 17:07] LABS: Glucose,Whole Blood 101 mg/dL (70-110)
[2024-08-07 18:03] LABS: Glucose,Whole Blood 78 mg/dL (70-110)
[2024-08-07 19:05] LABS: Glucose,Whole Blood 245 mg/dL (70-110)
[2024-08-07 20:14] LABS: Glucose,Whole Blood 162 mg/dL (70-110)
[2024-08-07 21:03] LABS: Glucose,Whole Blood 84 mg/dL (70-110)
[2024-08-07 22:12] LABS: Glucose,Whole Blood 87 mg/dL (70-110)
--- NOTE | 2024-08-07 22:38 | PN ---
PROGRESS NOTE SUBJECTIVE: Aidee is a 74-year-old lady, who has CAD, underwent bypass surgery, today is postop day #1. MEDICATIONS: She is currently on, 1. Amiodarone 400 b.i.d. 2. Lipitor 40 daily. 3. Synthroid. 4. Lopressor 12.5 b.i.d. OBJECTIVE: VITAL SIGNS: Heart rate is 74 beats per minute, blood pressure is 89/58, O2 saturation is 97% on 3L. CHEST: Reveals good air entry bilaterally. HEART: Reveals first and second heart sounds. No gallop. ABDOMEN: Soft. EXTREMITIES: Did not reveal any edema. Peripheral pulses are felt. ASSESSMENT: Coronary artery disease, status post coronary artery bypass graft, postop day #1. PLAN: Advise the patient to continue with incentive spirometry. Continue rest of her medications. MMODL / IJN: [id number] /
[2024-08-07 23:31] LABS: Glucose,Whole Blood 98 mg/dL (70-110)
[2024-08-08 00:05] LABS: Glucose,Whole Blood 105 mg/dL (70-110)
[2024-08-08 01:00] LABS: Glucose,Whole Blood 108 mg/dL (70-110)
[2024-08-08 01:56] LABS: Glucose,Whole Blood 112 mg/dL (70-110)
[2024-08-08 03:12] LABS: Glucose,Whole Blood 107 mg/dL (70-110)
[2024-08-08 03:57] LABS: Glucose,Whole Blood 132 mg/dL (70-110)
[2024-08-08 04:51] LABS: Glucose,Whole Blood 141 mg/dL (70-110)
[2024-08-08 05:12] LABS: Basophils % (A) 0 %; Eosinophils % (A) 0 %; HCT 25.1 % (34.0-46.0); Hypochromasia Slight; Lymphocytes # (A) 1.4 k/uL (1.0-4.8); Lymphocytes % (A) 10 %; MCH 28.8 pg (25.0-35.0); MCHC 31.1 g/dL (31.0-37.0); MCV 92.6 fL (80.0-100.0); Monocytes # (A) 0.9 k/uL (0-1.0); Monocytes % (A) 6 %; Neutrophils # (A) 11.7 k/uL (1.3-7.7); Neutrophils % (A) 82 %; Platelet Count 112 k/uL (150-450); RBC 2.71 m/uL (3.80-5.40); RDW 15.3 % (11.5-15.5); WBC 14.3 k/uL (3.8-10.6)
[2024-08-08 05:19] LABS: HGB 7.8 gm/dL (11.4-16.0)
[2024-08-08 05:30] LABS: Ionized Calcium 4.8 mg/dL (4.5-5.3)
[2024-08-08 05:40] LABS: ALT 14 U/L (4-34); AST 43 U/L (14-36); African American GFR (CKD) 39 (>60 ml/min/1.73 sqM); Albumin 3.3 g/dL (3.5-5.0); Alkaline Phosphatase 72 U/L (38-126); Anion Gap 8 mmol/L; Blood Urea Nitrogen 28 mg/dL (7-17); Calcium 8.4 mg/dL (8.4-10.2); Carbon Dioxide 19 mmol/L (22-30); Chloride 105 mmol/L (98-107); Glucose 126 mg/dL (74-99); Non-African American GFR(CKD) 34 (>60 ml/min/1.73 sqM); Sodium 132 mmol/L (137-145); Total Bilirubin 1.4 mg/dL (0.2-1.3); Total Protein 5.5 g/dL (6.3-8.2)
[2024-08-08 06:15] LABS: Glucose,Whole Blood 116 mg/dL (70-110)
[2024-08-08] MEDS: PANTOPRAZOLE 40 MG TABLET PO SCH (06:35)
[2024-08-08 07:03] LABS: Glucose,Whole Blood 142 mg/dL (70-110)
--- NOTE | 2024-08-08 07:17 | XR ---
EXAMINATION TYPE: XR chest 1V portable DATE OF EXAM: 08/08/2024 4:38 AM COMPARISON: Multiple radiographs, with the most recent on 08/07/2024 TECHNIQUE: XR chest 1V portable Portable AP radiograph of the chest. CLINICAL INDICATION:Female, 74 years old with history of Post Operative Cardiac Surgery; FINDINGS: Lungs/Pleura: No sizable pneumothorax or pleural effusion. Similar right mid to lower lung patchy con solidation changes. Linear atelectasis within the left midlung. Pulmonary vascularity: Unremarkable. Heart/mediastinum: Cardiomediastinal silhouette is enlarged and stable. Post-CABG changes. Left atri al appendage occlusion devices present. Musculoskeletal: No acute osseous pathology. Midline sternotomy wires are noted and stable. Other findings: None Lines/Tubes: Stable position of left chest tube. Right IJ vascular sheath with removal of [place]-Karen catheter. IMPRESSION: 1. Post cardiac surgical changes without sizable pneumothorax. Stable left chest tube. 2. Similar patchy consolidation opacity within the right mid to lower lung. May represent atelectasi s versus pneumonia. [facility], , 08/08/2024 7:15 AM
[2024-08-08 08:02] LABS: Glucose,Whole Blood 188 mg/dL (70-110)
--- NOTE | 2024-08-08 08:24 | P.PN ---
Subjective Progress Note Date: 08/08/24 Principal diagnosis: Coronary artery disease, non-ST elevated myocardial infarction this admission, very dynamic mitral valve regurgitation. Previuos medical history of coronary ar abena disease with non-STEMI and PCI to her LAD in April 2024, ischemic cardiomyopathy, hypertension, hyperlipidemia, hypothyroid, known left bundle branch block, hard of hearing, obesity, mild restrictive lung disease, previous tobacco dependence with cessation over 40 years ago, and recent vaginal bleeding being followed by [facility]. Preoperative nasal swab positive for MSSA, preoperative urinary tract infection with Klebsiella, preoperative transaminitis, left internal carotid artery stenosis POD #2 off pump single-vessel coronary artery bypass grafting using the in situ left internal mammary artery to the left anterior descending artery, exclusion of the left atrial appendage using a 35mm AtriClip, endoscopic harvesting of the left thigh greater saphenous vein that was not used, graft flow measurement using the [employer] system, intraoperative transesophageal echocardiogram and epiaortic scanning Postoperative acute blood loss anemia and thrombocytopenia, expected given hemodilution Endobronchial hemorrhage with retained blood clots, status post flexible bronchoscopy with removal of blood clots The patient was seen and examined this morning sitting up in recliner in the intensive care unit in no acute distress. Remains in sinus rhythm, hemodynamically stable. Currently on 3 L nasal cannula with oxygen saturation in the high 90s. States pain is controlled on current medication regimen, denies shortness of breath. Labs, chest x-ray reviewed. Left internal jugular cordis, right radial arterial line, mediastinal/left/right pleural chest tubes all present. She was ambulatory out to the hallway yesterday with assistance. No other new concerns. Objective - Vital Signs Vital signs: Vital Signs Temp 98.5 F 08/08/24 04:00 Pulse 72 08/08/24 07:00 Resp 21 08/08/24 07:00 BP 89/52 08/08/24 07:00 Pulse Ox 97 08/08/24 07:00 FiO2 40 08/06/24 18:00 Intake & Output 08/07/24 08/08/24 08/08/24 18:59 06:59 18:59 Intake Total 2533.293 975.383 48.079 Output Total 498 615 20 Balance 2035.293 360.383 28.079 Weight 86.3 kg 84.1 kg Intake: IV 1443.9 462 46 Albumin Human 5% 250 ml 750 In Empty Bag 1 bag @ 250 mls/hr IVPB Q1HR PRN Rx#: [id number] Cardiac Output (0.9 80 Sodium chloride) Invasive Line 3 40 30 10 Milrinone-D5w Pmx 20 mg 2.4 In Dextrose/Water 1 100ml .bag @ Per Protocol IV . Q0M [facility] Rx#:[id number] Nitroglycerin-D5w Pmx 50 1.5 mg In Dextrose/Water 1 250ml.bag @ 5 MCG/MIN 1.5 mls/hr IV .Q24H [facility] Rx#: [id number] Pressure Bag (0.9 Sodium 90 72 6 Chloride) Sodium Chloride 0.9% 1, 480 360 30 000 ml @ 30 mls/hr IV . Q24H [facility] Rx#:[id number] Intake, IV Titration 89.393 13.383 2.079 Amount Insulin Regular 100 unit 17.541 13.383 2.079 In Sodium Chloride 0.9% 100 ml @ Per Protocol IV .Q0M [facility] Rx#:[id number] Milrinone-D5w Pmx 20 mg 42.202 In Dextrose/Water 1 100ml .bag @ 0.1 MCG/KG/MIN 2. 43 mls/hr IV .Q24H [facility] Rx #:[id number] Nitroglycerin-D5w Pmx 50 29.65 mg In Dextrose/Water 1 250ml.bag @ 5 MCG/MIN 1.5 mls/hr IV .Q24H [facility] Rx#: [id number] Oral 1000 500 Output: Chest Tube Drainage 228 370 Chest Tube Bilateral 80 110 Mediastinal Chest Tube Left Lateral 80 170 Chest Chest Tube Right Lateral 68 90 Chest Urine 270 245 20 Other: Voiding Method Indwelling Catheter Indwelling Catheter ABP, PAP, CO, CI - Last Documented Arterial Blood Pressure 106/42 Pulmonary Artery Pressure 30/10 Cardiac Output 5.2 Cardiac Index 2.9 - Exam CONSTITUTIONAL: Appears comfortable, cooperative, no acute distress RESPIRATORY: Lungs sounds diminished in the bases bilaterally. Respirations even, nonlabored. Currently on 3 L nasal cannula with oxygen saturation 97%. Able to achieve 750 mL on incentive spirometry. Strong nonproductive cough. CARDIOVASCULAR: S1, S2 present. Regular rate and rhythm, sinus rhythm on telemetry. Sternum stable. Palpable peripheral pulses bilaterally. Trace generalized edema present. No calf pain or tenderness noted. Heart hugger in place with patient demonstrating appropriate use. Antiembolism stockings, SCDs present. GASTROINTESTINAL: Abdomen soft, nontender, nondistended. Active bowel sounds present 4 quadrants. Tolerating clear liquids. Positive flatus GENITOURINARY: Lomeli present draining clear, yellow urine. Output overnight 10-30 mL per hour, 515 mL in the last 24 hours INTEGUMENTARY: Skin is warm and dry with evidence of good perfusion. Anterior chest incision well approximated and covered with dry intact dressing. Left lower extremity EVH site well approximated without redness NEUROLOGIC: Cranial nerves II through XII intact MUSKULOSKELETAL: Able to move all extremities, strength equal bilaterally, gait normal PSYCHIATRIC: Alert and oriented to person place and time, appropriate affect, intact judgment and insight INVASIVE LINES AND TUBES: Mediastinal/left/right pleural chest tubes present and connected to wall suction, no air leaks present. Mediastinal tube with 80 mL serosanguineous drainage overnight, 150 mL in the last 24 hours. Left pleural chest tube with 130 mL serosanguineous drainage overnight, 260 mL in the last 24 hours. Right pleural chest tube with 80 mL serosanguineous drainage overnight, 150 mL in the last 24 hours. Right internal jugular cordis, right radial arterial line present. Last CVP 12. - Allied health notes Allied health notes reviewed: nursing - Labs CBC & Chem 7: 08/08/24 04:55 08/08/24 04:55 Labs: Abnormal Lab Results - Last 24 Hours (Table) 08/07/24 08/07/24 08/07/24 Range/Units 09:07 10:10 11:03 WBC (3.8-10.6) k/uL RBC (3.80-5.40) m/uL Hgb (11.4-16.0) gm/dL Hct (34.0-46.0) % Plt Count (150-450) k/uL Neutrophils # (1.3-7.7) k/uL Sodium (137-145) mmol/L Carbon Dioxide (22-30) mmol/L BUN (7-17) mg/dL Creatinine (0.52-1.04) mg/dL Glucose (74-99) mg/dL POC Glucose (mg/dL) 154 H 133 H 115 H (70-110) mg/dL Total Bilirubin (0.2-1.3) mg/dL AST (14-36) U/L Total Protein (6.3-8.2) g/dL Albumin (3.5-5.0) g/dL 08/07/24 08/07/24 08/07/24 Range/Units 13:18 14:00 15:02 WBC (3.8-10.6) k/uL RBC (3.80-5.40) m/uL Hgb (11.4-16.0) gm/dL Hct (34.0-46.0) % Plt Count (150-450) k/uL Neutrophils # (1.3-7.7) k/uL Sodium (137-145) mmol/L Carbon Dioxide (22-30) mmol/L BUN (7-17) mg/dL Creatinine (0.52-1.04) mg/dL Glucose (74-99) mg/dL POC Glucose (mg/dL) 139 H 148 H 138 H (70-110) mg/dL Total Bilirubin (0.2-1.3) mg/dL AST (14-36) U/L Total Protein (6.3-8.2) g/dL Albumin (3.5-5.0) g/dL 08/07/24 08/07/24 08/07/24 Range/Units 16:02 19:03 20:13 WBC (3.8-10.6) k/uL RBC (3.80-5.40) m/uL Hgb (11.4-16.0) gm/dL Hct (34.0-46.0) % Plt Count (150-450) k/uL Neutrophils # (1.3-7.7) k/uL Sodium (137-145) mmol/L Carbon Dioxide (22-30) mmol/L BUN (7-17) mg/dL Creatinine (0.52-1.04) mg/dL Glucose (74-99) mg/dL POC Glucose (mg/dL) 126 H 245 H 162 H (70-110) mg/dL Total Bilirubin (0.2-1.3) mg/dL AST (14-36) U/L Total Protein (6.3-8.2) g/dL Albumin (3.5-5.0) g/dL 08/08/24 08/08/24 08/08/24 Range/Units 01:54 03:56 04:50 WBC (3.8-10.6) k/uL RBC (3.80-5.40) m/uL Hgb (11.4-16.0) gm/dL Hct (34.0-46.0) % Plt Count (150-450) k/uL Neutrophils # (1.3-7.7) k/uL Sodium (137-145) mmol/L Carbon Dioxide (22-30) mmol/L BUN (7-17) mg/dL Creatinine (0.52-1.04) mg/dL Glucose (74-99) mg/dL POC Glucose (mg/dL) 112 H 132 H 141 H (70-110) mg/dL Total Bilirubin (0.2-1.3) mg/dL AST (14-36) U/L Total Protein (6.3-8.2) g/dL Albumin (3.5-5.0) g/dL 08/08/24 08/08/24 08/08/24 Range/Units 04:55 04:55 06:14 WBC 14.3 H (3.8-10.6) k/uL RBC 2.71 L (3.80-5.40) m/uL Hgb 7.8 L D (11.4-16.0) gm/dL Hct 25.1 L (34.0-46.0) % Plt Count 112 L (150-450) k/uL Neutrophils # 11.7 H (1.3-7.7) k/uL Sodium 132 L (137-145) mmol/L Carbon Dioxide 19 L (22-30) mmol/L BUN 28 H (7-17) mg/dL Creatinine 1.50 H (0.52-1.04) mg/dL Glucose 126 H (74-99) mg/dL POC Glucose (mg/dL) 116 H (70-110) mg/dL Total Bilirubin 1.4 H (0.2-1.3) mg/dL AST 43 H (14-36) U/L Total Protein 5.5 L (6.3-8.2) g/dL Albumin 3.3 L (3.5-5.0) g/dL 08/08/24 08/08/24 Range/Units 07:02 07:59 WBC (3.8-10.6) k/uL RBC (3.80-5.40) m/uL Hgb (11.4-16.0) gm/dL Hct (34.0-46.0) % Plt Count (150-450) k/uL Neutrophils # (1.3-7.7) k/uL Sodium (137-145) mmol/L Carbon Dioxide (22-30) mmol/L BUN (7-17) mg/dL Creatinine (0.52-1.04) mg/dL Glucose (74-99) mg/dL POC Glucose (mg/dL) 142 H 188 H (70-110) mg/dL Total Bilirubin (0.2-1.3) mg/dL AST (14-36) U/L Total Protein (6.3-8.2) g/dL Albumin (3.5-5.0) g/dL - Imaging and Cardiology Chest x-ray: report reviewed, image reviewed Assessment and Plan Assessment: Coronary artery disease, non-ST elevated myocardial infarction this admission, status post single-vessel off-pump CABG Very dynamic mitral valve regurgitation Recent vaginal bleeding being followed by [facility] Preoperative nasal swab positive for MSSA, treated with nasal mupirocin Preoperative urinary tract infection with Klebsiella, treated with Rocephin Preoperative transaminitis Left internal carotid artery stenosis, 50 to 69% Postoperative acute blood loss anemia and thrombocytopenia, expected given hemodilution Endobronchial hemorrhage with retained blood clots, status post flexible bronchoscopy with removal of blood clots History of coronary artery disease with non-STEMI and PCI to her LAD in April 2024 Ischemic cardiomyopathy with EF 30-35% on TTE 07/29/24, preserved LV systolic function on WILLAM 07/31/24 Hypertension Hyperlipidemia, treated, cholesterol 112, LDL 56.5 Hypothyroid, TSH 2.66 Known left bundle branch block Obesity Mild restrictive lung disease, preoperative FEV1 66% of predicted Previous tobacco dependence with cessation over 40 years ago Plan: Continue to maximize medical therapy with aspirin, statin, Plavix, beta-apolonia therapy. Will increase beta-apolonia therapy as tolerated Continue amiodarone for A-fib prophylaxis. Patient has had no atrial fibrillation up to this point Wean oxygen as tolerated. Encourage incentive spirometry use 10 times every hour while awake. Bronchodilators per pulmonology Increase activity, ambulate as tolerated. PT/OT/cardiac rehab following Will monitor daily labs and x-rays, electrolyte replacement per protocol. Will give 40 mg IV push Lasix today GI/DVT prophylaxis Insulin management per internal medicine. Patient is not diabetic, preoperative hemoglobin A1c 6.1% Pain control per current medication regimen Continue Cordis to continuous CVP monitoring Will discontinue mediastinal chest tube, continue pleural chest tubes for another 24 hours, monitor and record output Continue Lomeli catheter for another 24 hours, continue to monitor record strict accurate intake and output More recommendations to follow as patient progresses
[2024-08-08] MEDS: FUROSEMIDE 10 MG/ML 4 ML VIAL IV STA (08:38)
[2024-08-08 09:13] LABS: Glucose,Whole Blood 149 mg/dL (70-110)
[2024-08-08] MEDS ORDERED: DEXTROSE 50% SYRINGE 50 ML IVP PRN ×2 (09:23)
[2024-08-08 10:11] LABS: Glucose,Whole Blood 129 mg/dL (70-110)
[2024-08-08] MEDS: INSULIN GLARGINE (LANTUS) 100 UNIT/ML SYR SQ SCH (10:37)
[2024-08-08] MEDS: INSULIN LISPRO (HumaLOG) 100 UNIT/ML 10 mL VL SQ SCH (11:26)
[2024-08-08 11:27] LABS: Glucose,Whole Blood 120 mg/dL (70-110)
[2024-08-08] MEDS: ALBUMIN HUMAN 25% 50 ML in EMPTY BAG 1 BAG IVPB ONE (11:31)
--- NOTE | 2024-08-08 12:47 | P.PN ---
Subjective Progress Note Date: 08/08/24 On 08/06/2024, the patient is being seen in the intensive care unit following her bypass surgery. Noted the patient underwent off-pump single-vessel bypass surgery with EVANS to LAD. The patient also underwent a left atrial appendage exclusion. Noted intraoperatively, the patient encountered increased hemoptysis and a total of 200 cc of blood was aspirated through the orotracheal tube. This was a complication related to the Monette-Karen catheter as the catheter was withdrawn later on. The chest x-ray shows an area of consolidation in the right lower lobe which is probably an area of intraparenchymal hemorrhage. After arriving to the intensive care unit, the patient was seen and evaluated. The pa tient was assist-control mode of mechanical ventilation at rate of 14, tidal volume of 400, FiO2 50% with a PEEP of 10. Blood gases showed a pH of 7.24 with a pCO2 of 52 and pO2 of 82. Based on that, the respiratory rate was increased up to 24. The hemodynamic parameters showed a cardiac output of 5 and an index of 2.8. PA pressures were 34/22. The patient was on milrinone running at 0.2 mcg/kg/h, nitroglycerin drip at 5 mcg/min and norepinephrine at 0.11 mcg/kg/min. The patient is also on normal citrate of 75 cc an hour and insulin drip at the rate of 3.5 units an hour. Cardiac rhythm was sinus. Discussed the case with cardiothoracic surgery. Performed a bedside bronchoscopy on this patient and copious amount of blood clots were aspirated from the airway. The completion of the bronchoscopy, the patient had no residual blood clots and full airway patency was established. Subsequently, the patient started having loss and volume, and the return tidal volumes were low and the patient had difficulties in maintaining the pressure in her orotracheal tube cuff. Based on that, I remove the orotracheal tube and replaced it by #8. Intubation was done in the intensive care unit. During the process, the patient had no significant hemodynamic instability. For now, the patient has a right pleural and left lower chest tube and mediastinal chest tube. No evidence of any air leak. Chest x-ray shows no evidence of any pneumothorax. Reviewed the series of x- rays done specially the 1 that was done post reintubation. ET tube was seen around 3 cm above the jeremie. The Monette-Akren catheter was projecting and appropriate location. Drainage tubes were in place. The blood work that was done postop showed a hemoglobin of 9.3, platelet count of 120, and the most recent blood gas showed a pH of 7.37 with pCO2 of 36 and pO2 of 134 and this was done FiO2 of 50%. The patient remains sedated on propofol. Cardiac rhythm is sinus. On today's evaluation of 08/07/2024, the patient is being seen for a follow-up. The patient was weaned off mechanical ventilator and the patient was extubated today without any major difficulties. This morning, she is sitting up in a chair and she is calm and comfortable and denies having any specific complaints. She is currently on 2 L of oxygen by nasal cannula. The patient is currently off milrinone. The cardiac output Is at 4.5 with an index of 2.5. PA pressures are 24/10 and a CVP is at 6. The patient has mediastinal chest tube x 2, left pleural and right pleural chest tube. Mediastinal chest tube is produced 90 cc over the past 8 hours) since surgery. Left pleural tube has produced 125 cc overnight) 50 cc since surgery. Right lower chest tube is produced 70 cc over the past 8 hours and 150 cc overnight. The cardiac rhythm is sinus. Urine output is adequate. There is an order of 30 cc an hour. The patient remains on insulin drip at 2.5 units an hour. No other significant events overnight. In terms of the labs, the patient's blood work showed a hemoglobin of 9.4, white cell count of 10.5, platelet count of 131. The BUN is 21 with a creatinine 1.07. Electrolytes are all stable. Serum bicarb is at 18. LFTs are normal. No other significant events overnight. On 08/08/2024, the patient is being seen for a follow-up. The patient is post single-vessel bypass surgery. The patient is currently on 3 Suboxone by nasal cannula. Cardiac rhythm is sinus. Urine output is in order of 5 to 25 cc an hour. The patient was given 40 mg IV Lasix x 1. She is awake and alert. Chest tubes are still in place. The follow-up chest x-ray from today shows evidence of area of consolidation in the right mid/lower lung area which is representation of a pulmonary hemorrhage that occurred at time of surgery. Chest tubes are still in place. Blood work from today shows a white cell count of 14.3, hemoglobin 7.8 and a platelet count of 112. Sodium is at 132, BUN 23 creatinine is 1.5. Potassium level is at 4.0. Serum bicarb is at 19. The patient sustained an acute kidney injury. Note that she has been treated for a Klebsiella urinary tract infection preoperatively. For now, the patient is on metoprolol 12.5 mg p.o. twice a day. She is on aspirin. She is on Plavix. She is on amiodarone 4 mg p.o. twice a day. She remains on insulin drip for blood sugar control. Objective - Vital Signs Vital signs: Vital Signs Temp 98.5 F 08/08/24 04:00 Pulse 82 08/08/24 08:59 Resp 21 08/08/24 07:00 BP 89/52 08/08/24 07:00 Pulse Ox 97 08/08/24 07:00 FiO2 40 08/06/24 18:00 Intake & Output 08/07/24 08/08/24 08/08/24 18:59 06:59 18:59 Intake Total 2533.293 975.383 48.079 Output Total 498 615 20 Balance 2035.293 360.383 28.079 Weight 86.3 kg 84.1 kg Intake: IV 1443.9 462 46 Albumin Human 5% 250 ml 750 In Empty Bag 1 bag @ 250 mls/hr IVPB Q1HR PRN Rx#: [id number] Cardiac Output (0.9 80 Sodium chloride) Invasive Line 3 40 30 10 Milrinone-D5w Pmx 20 mg 2.4 In Dextrose/Water 1 100ml .bag @ Per Protocol IV . Q0M [facility] Rx#:[id number] Nitroglycerin-D5w Pmx 50 1.5 mg In Dextrose/Water 1 250ml.bag @ 5 MCG/MIN 1.5 mls/hr IV .Q24H [facility] Rx#: [id number] Pressure Bag (0.9 Sodium 90 72 6 Chloride) Sodium Chloride 0.9% 1, 480 360 30 000 ml @ 30 mls/hr IV . Q24H [facility] Rx#:[id number] Intake, IV Titration 89.393 13.383 2.079 Amount Insulin Regular 100 unit 17.541 13.383 2.079 In Sodium Chloride 0.9% 100 ml @ Per Protocol IV .Q0M [facility] Rx#:[id number] Milrinone-D5w Pmx 20 mg 42.202 In Dextrose/Water 1 100ml .bag @ 0.1 MCG/KG/MIN 2. 43 mls/hr IV .Q24H [facility] Rx #:[id number] Nitroglycerin-D5w Pmx 50 29.65 mg In Dextrose/Water 1 250ml.bag @ 5 MCG/MIN 1.5 mls/hr IV .Q24H [facility] Rx#: [id number] Oral 1000 500 Output: Chest Tube Drainage 228 370 Chest Tube Bilateral 80 110 Mediastinal Chest Tube Left Lateral 80 170 Chest Chest Tube Right Lateral 68 90 Chest Urine 270 245 20 Other: Voiding Method Indwelling Catheter Indwelling Catheter ABP, PAP, CO, CI - Last Documented Arterial Blood Pressure 106/42 Pulmonary Artery Pressure 30/10 Cardiac Output 5.2 Cardiac Index 2.9 - Exam CONSTITUTIONAL: Appears comfortable, cooperative, no acute distress RESPIRATORY: Lungs sounds diminished in the bases bilaterally. Respirations even, nonlabored. Currently on 3 L nasal cannula with oxygen saturation 97%. Able to achieve 750 mL on incentive spirometry. Strong nonproductive cough. CARDIOVASCULAR: S1, S2 present. Regular rate and rhythm, sinus rhythm on telemetry. Sternum stable. Palpable peripheral pulses bilaterally. Trace generalized edema present. No calf pain or tenderness noted. Heart hugger in place with patient demonstrating appropriate use. Antiembolism stockings, SCDs present. GASTROINTESTINAL: Abdomen soft, nontender, nondistended. Active bowel sounds present 4 quadrants. Tolerating clear liquids. Positive flatus GENITOURINARY: Lomeli present draining clear, yellow urine. Output overnight 10-30 mL per hour, 515 mL in the last 24 hours INTEGUMENTARY: Skin is warm and dry with evidence of good perfusion. Anterior chest incision well approximated and covered with dry intact dressing. Left lower extremity EVH site well approximated without redness NEUROLOGIC: Cranial nerves II through XII intact MUSKULOSKELETAL: Able to move all extremities, strength equal bilaterally, gait normal PSYCHIATRIC: Alert and oriented to person place and time, appropriate affect, intact judgment and insight INVASIVE LINES AND TUBES: Mediastinal/left/right pleural chest tubes present and connected to wall suction, no air leaks present. Mediastinal tube with 80 mL serosanguineous drainage overnight, 150 mL in the last 24 hours. Left pleural chest tube with 130 mL serosanguineous drainage overnight, 260 mL in the last 24 hours. Right pleural chest tube with 80 mL serosanguineous drainage overnight, 150 mL in the last 24 hours. Right internal jugular cordis, right ra dial arterial line present. Last CVP 12. - Labs CBC & Chem 7: 08/08/24 04:55 08/08/24 04:55 Labs: Abnormal Lab Results - Last 24 Hours (Table) 08/07/24 08/07/24 08/07/24 Range/Units 09:07 10:10 11:03 WBC (3.8-10.6) k/uL RBC (3.80-5.40) m/uL Hgb (11.4-16.0) gm/dL Hct (34.0-46.0) % Plt Count (150-450) k/uL Neutrophils # (1.3-7.7) k/uL Sodium (137-145) mmol/L Carbon Dioxide (22-30) mmol/L BUN (7-17) mg/dL Creatinine (0.52-1.04) mg/dL Glucose (74-99) mg/dL POC Glucose (mg/dL) 154 H 133 H 115 H (70-110) mg/dL Total Bilirubin (0.2-1.3) mg/dL AST (14-36) U/L Total Protein (6.3-8.2) g/dL Albumin (3.5-5.0) g/dL 08/07/24 08/07/24 08/07/24 Range/Units 13:18 14:00 15:02 WBC (3.8-10.6) k/uL RBC (3.80-5.40) m/uL Hgb (11.4-16.0) gm/dL Hct (34.0-46.0) % Plt Count (150-450) k/uL Neutrophils # (1.3-7.7) k/uL Sodium (137-145) mmol/L Carbon Dioxide (22-30) mmol/L BUN (7-17) mg/dL Creatinine (0.52-1.04) mg/dL Glucose (74-99) mg/dL POC Glucose (mg/dL) 139 H 148 H 138 H (70-110) mg/dL Total Bilirubin (0.2-1.3) mg/dL AST (14-36) U/L Total Protein (6.3-8.2) g/dL Albumin (3.5-5.0) g/dL 08/07/24 08/07/24 08/07/24 Range/Units 16:02 19:03 20:13 WBC (3.8-10.6) k/uL RBC (3.80-5.40) m/uL Hgb (11.4-16.0) gm/dL Hct (34.0-46.0) % Plt Count (150-450) k/uL Neutrophils # (1.3-7.7) k/uL Sodium (137-145) mmol/L Carbon Dioxide (22-30) mmol/L BUN (7-17) mg/dL Creatinine (0.52-1.04) mg/dL Glucose (74-99) mg/dL POC Glucose (mg/dL) 126 H 245 H 162 H (70-110) mg/dL Total Bilirubin (0.2-1.3) mg/dL AST (14-36) U/L Total Protein (6.3-8.2) g/dL Albumin (3.5-5.0) g/dL 08/08/24 08/08/24 08/08/24 Range/Units 01:54 03:56 04:50 WBC (3.8-10.6) k/uL RBC (3.80-5.40) m/uL Hgb (11.4-16.0) gm/dL Hct (34.0-46.0) % Plt Count (150-450) k/uL Neutrophils # (1.3-7.7) k/uL Sodium (137-145) mmol/L Carbon Dioxide (22-30) mmol/L BUN (7-17) mg/dL Creatinine (0.52-1.04) mg/dL Glucose (74-99) mg/dL POC Glucose (mg/dL) 112 H 132 H 141 H (70-110) mg/dL Total Bilirubin (0.2-1.3) mg/dL AST (14-36) U/L Total Protein (6.3-8.2) g/dL Albumin (3.5-5.0) g/dL 08/08/24 08/08/24 08/08/24 Range/Units 04:55 04:55 06:14 WBC 14.3 H (3.8-10.6) k/uL RBC 2.71 L (3.80-5.40) m/uL Hgb 7.8 L D (11.4-16.0) gm/dL Hct 25.1 L (34.0-46.0) % Plt Count 112 L (150-450) k/uL Neutrophils # 11.7 H (1.3-7.7) k/uL Sodium 132 L (137-145) mmol/L Carbon Dioxide 19 L (22-30) mmol/L BUN 28 H (7-17) mg/dL Creatinine 1.50 H (0.52-1.04) mg/dL Glucose 126 H (74-99) mg/dL POC Glucose (mg/dL) 116 H (70-110) mg/dL Total Bilirubin 1.4 H (0.2-1.3) mg/dL AST 43 H (14-36) U/L Total Protein 5.5 L (6.3-8.2) g/dL Albumin 3.3 L (3.5-5.0) g/dL 08/08/24 08/08/24 Range/Units 07:02 07:59 WBC (3.8-10.6) k/uL RBC (3.80-5.40) m/uL Hgb (11.4-16.0) gm/dL Hct (34.0-46.0) % Plt Count (150-450) k/uL Neutrophils # (1.3-7.7) k/uL Sodium (137-145) mmol/L Carbon Dioxide (22-30) mmol/L BUN (7-17) mg/dL Creatinine (0.52-1.04) mg/dL Glucose (74-99) mg/dL POC Glucose (mg/dL) 142 H 188 H (70-110) mg/dL Total Bilirubin (0.2-1.3) mg/dL AST (14-36) U/L Total Protein (6.3-8.2) g/dL Albumin (3.5-5.0) g/dL Assessment and Plan Plan: Coronary artery disease, non-ST elevated myocardial infarction, awaiting coronary bypass surgery. The patient is known to have coronary artery disease. The patient has undergone previous PCI to LAD back in April 2024. Furthermore heart catheterization was completed on July 10, 2024 which demonstrated a 30% stenosis to her distal left main coronary artery, a 70% ostial LAD disease, patent stent in the mid LAD, 70% diffuse distal LAD disease, 50% ostial and proximal left circumflex disease with negative IFR performed on May 18, 2024, when compared to the heart catheterization from 05/18/2024 there was no progression of the CAD. The patient is status post off-pump single-vessel bypass surgery with EVANS to LAD. The patient is currently postop day # 2. The patient is hemodynamically stable and the patient is currently off pressors. Urine output has dropped over the past 24 hours. Thoracotomy, remains intubated on mechanical ventilator. Extubated to 2 L of oxygen nasal cannula and the chest tubes are still in place and the patient has no evidence of any air leak in the chest tubes are in place. Right lung parenchymal hemorrhage involving the right lower lobe in addition to hemoptysis and endobronchial hemorrhage, most likely a complication of Monette-Karen catheter and the catheter has been repositioned. Bronchoscopy was also done with evacuation of copious amount of residual blood clots retained in the patient's airways. Chest x-ray findings are unchanged Acute kidney injury with oliguria urinary tract infection with Klebsiella, on 07/31/2024 treated with Rocephin Left internal carotid artery stenosis, 50 to 69% Ischemic cardiomyopathy with EF 30-35% on TTE 07/29/24, preserved LV systolic function on WILLAM 07/31/24 Hypertension Hyperlipidemia, treated, cholesterol 112, LDL 56.5 Hypothyroid, TSH 2.66 Left bundle branch block Obesity BMI of 36.2 Mild restrictive lung disease, preoperative FEV1 66% of predicted Previous tobacco dependence with cessation over 40 years ago Plan: Extubated and patient is currently on 2 L of oxygen by nasal cannula Wean down FiO2 as tolerated to maintain saturation above 90% Bronchoscopy was performed on 08/06/2024 in the intensive care unit and the blood clots from the airways were removed. Patient is currently off pressors Cardiac rhythm is sinus Discontinue insulin drip and start the patient on Lantus insulin 10 units along with insulin scale coverage Monitor urine output Continue aspirin and Plavix metoprolol 12.5 mg p.o. twice a day Amiodarone 4 mg p.o. twice a day Lipitor 40 mg p.o. daily Keep the chest tube in place for today, chest tube management as per cardiothoracic surgery Labs were noted, monitor renal function Lasix 40 mg IV push was given today We will continue to follow. Evaluation was done and 31 minutes. Time with Patient: Greater than 30
--- NOTE | 2024-08-08 14:39 | P.PN ---
Subjective Progress Note Date: 08/08/24 74-year-old female with past medical history significant for CAD, ischemic cardiomyopathy, recent NSTEMI with stenting of the mid LAD 05/13/2024 followed by cardiac catheterization on 07/10/2024 reporting no progression of disease with medical therapy maximized, left bundle branch block ,hypertension, hyp erlipidemia, morbid obesity, prediabetic with hemoglobin A1c of 6.2 (07/21), hypothyroidism, prior nicotine dependence, and multiple other medical issues presented to the ER with complaints of radiating midsternal chest pain accompanied by diaphoresis and shortness of breath over the last 2 to 3 nights in a row. Admits to fluctuating chest pain since April 2024 as well as her last catheterization in June 2024. denies nausea, vomiting or diarrhea. Denies abdominal pain. Reports weight loss of 11 pounds since April 2024. Denies upper respiratory infections or known sick contacts. She started cardiac rehab yesterday. Reports pain initiates in her right hand travels up her right arm across to her mid sternum. Symptoms usually begin after dinner, progresses through the night, averaging a total of 3 nitro sublinguals each night. Afebrile, normal WBC. Chest x-ray reported nonacute. Hematology, coagulation panel unremarkable. Sodium 136, potassium 5.5, bicarb 21, BUN 25, creatinine 0.96, mag 2.0, T. bili 1.4, AST 77, ALT 42, alk phos WNL. Troponin 0.053. BNP 1870. EKG reported sinus rhythm with left bundle branch block. Objective - Vital Signs Vital signs: Vital Signs Temp 98.1 F 08/08/24 08:00 Pulse 69 08/08/24 09:15 Resp 20 08/08/24 09:15 BP 97/52 08/08/24 09:15 Pulse Ox 96 08/08/24 09:15 FiO2 40 08/06/24 18:00 Intake & Output 08/07/24 08/08/24 08/08/24 18:59 06:59 18:59 Intake Total 2533.293 975.383 553.412 Output Total 498 615 68 Balance 2035.293 360.383 485.412 Weight 86.3 kg 84.1 kg Intake: IV 1443.9 462 138 0.9 10cc/hr 20 Albumin Human 5% 250 ml 750 In Empty Bag 1 bag @ 250 mls/hr IVPB Q1HR PRN Rx#: [id number] Cardiac Output (0.9 80 Sodium chloride) Invasive Line 3 40 30 10 Milrinone-D5w Pmx 20 mg 2.4 In Dextrose/Water 1 100ml .bag @ Per Protocol IV . Q0M [facility] Rx#:[id number] Nitroglycerin-D5w Pmx 50 1.5 mg In Dextrose/Water 1 250ml.bag @ 5 MCG/MIN 1.5 mls/hr IV .Q24H [facility] Rx#: [id number] Pressure Bag (0.9 Sodium 90 72 18 Chloride) Sodium Chloride 0.9% 1, 480 360 90 000 ml @ 30 mls/hr IV . Q24H [facility] Rx#:[id number] Intake, IV Titration 89.393 13.383 5.412 Amount Insulin Regular 100 unit 17.541 13.383 5.412 In Sodium Chloride 0.9% 100 ml @ Per Protocol IV .Q0M [facility] Rx#:[id number] Milrinone-D5w Pmx 20 mg 42.202 In Dextrose/Water 1 100ml .bag @ 0.1 MCG/KG/MIN 2. 43 mls/hr IV .Q24H [facility] Rx #:[id number] Nitroglycerin-D5w Pmx 50 29.65 mg In Dextrose/Water 1 250ml.bag @ 5 MCG/MIN 1.5 mls/hr IV .Q24H [facility] Rx#: [id number] Oral 1000 500 410 Output: Chest Tube Drainage 228 370 18 Chest Tube Bilateral 80 110 0 Mediastinal Chest Tube Left Lateral 80 170 12 Chest Chest Tube Right Lateral 68 90 6 Chest Urine 270 245 50 Other: Voiding Method Indwelling Catheter Indwelling Catheter # Bowel Movements 0 ABP, PAP, CO, CI - Last Documented Arterial Blood Pressure 96/42 Pulmonary Artery Pressure 30/10 Cardiac Output 5.2 Cardiac Index 2.9 - Exam GENERAL: [place],Alert and oriented x 3, laying in bed, no acute distress. HEENT: Atraumatic, normocephalic, conjunctivae normal. eyes normal. NECK: Supple,no JVD. CARDIOVASCULAR: S1, S2. regular rate and rhythm. RESPIRATION: Unlabored, equal air entry, essentially clear to auscultation. ABDOMEN: Soft, nondistended, nontender . No guarding. Positive bowel sounds. LEGS: No edema. no swelling. No calf tenderness. NERVOUS SYSTEM: Cranial N 2-12 grossly normal. No focal deficits. Strength and sensation grossly intact. Skin: Warm and dry, no rash. - Labs CBC & Chem 7: 08/08/24 04:55 08/08/24 04:55 Labs: Abnormal Lab Results - Last 24 Hours (Table) 08/07/24 08/07/24 08/07/24 Range/Units 10:10 11:03 13:18 WBC (3.8-10.6) k/uL RBC (3.80-5.40) m/uL Hgb (11.4-16.0) gm/dL Hct (34.0-46.0) % Plt Count (150-450) k/uL Neutrophils # (1.3-7.7) k/uL Sodium (137-145) mmol/L Carbon Dioxide (22-30) mmol/L BUN (7-17) mg/dL Creatinine (0.52-1.04) mg/dL Glucose (74-99) mg/dL POC Glucose (mg/dL) 133 H 115 H 139 H (70-110) mg/dL Total Bilirubin (0.2-1.3) mg/dL AST (14-36) U/L Total Protein (6.3-8.2) g/dL Albumin (3.5-5.0) g/dL 08/07/24 08/07/24 08/07/24 Range/Units 14:00 15:02 16:02 WBC (3.8-10.6) k/uL RBC (3.80-5.40) m/uL Hgb (11.4-16.0) gm/dL Hct (34.0-46.0) % Plt Count (150-450) k/uL Neutrophils # (1.3-7.7) k/uL Sodium (137-145) mmol/L Carbon Dioxide (22-30) mmol/L BUN (7-17) mg/dL Creatinine (0.52-1.04) mg/dL Glucose (74-99) mg/dL POC Glucose (mg/dL) 148 H 138 H 126 H (70-110) mg/dL Total Bilirubin (0.2-1.3) mg/dL AST (14-36) U/L Total Protein (6.3-8.2) g/dL Albumin (3.5-5.0) g/dL 08/07/24 08/07/24 08/08/24 Range/Units 19:03 20:13 01:54 WBC (3.8-10.6) k/uL RBC (3.80-5.40) m/uL Hgb (11.4-16.0) gm/dL Hct (34.0-46.0) % Plt Count (150-450) k/uL Neutrophils # (1.3-7.7) k/uL Sodium (137-145) mmol/L Carbon Dioxide (22-30) mmol/L BUN (7-17) mg/dL Creatinine (0.52-1.04) mg/dL Glucose (74-99) mg/dL POC Glucose (mg/dL) 245 H 162 H 112 H (70-110) mg/dL Total Bilirubin (0.2-1.3) mg/dL AST (14-36) U/L Total Protein (6.3-8.2) g/dL Albumin (3.5-5.0) g/dL 08/08/24 08/08/24 08/08/24 Range/Units 03:56 04:50 04:55 WBC 14.3 H (3.8-10.6) k/uL RBC 2.71 L (3.80-5.40) m/uL Hgb 7.8 L D (11.4-16.0) gm/dL Hct 25.1 L (34.0-46.0) % Plt Count 112 L (150-450) k/uL Neutrophils # 11.7 H (1.3-7.7) k/uL Sodium (137-145) mmol/L Carbon Dioxide (22-30) mmol/L BUN (7-17) mg/dL Creatinine (0.52-1.04) mg/dL Glucose (74-99) mg/dL POC Glucose (mg/dL) 132 H 141 H (70-110) mg/dL Total Bilirubin (0.2-1.3) mg/dL AST (14-36) U/L Total Protein (6.3-8.2) g/dL Albumin (3.5-5.0) g/dL 03/08/08/24 08/08/24 Range/Units 04:55 06:14 07:02 WBC (3.8-10.6) k/uL RBC (3.80-5.40) m/uL Hgb (11.4-16.0) gm/dL Hct (34.0-46.0) % Plt Count (150-450) k/uL Neutrophils # (1.3-7.7) k/uL Sodium 132 L (137-145) mmol/L Carbon Dioxide 19 L (22-30) mmol/L BUN 28 H (7-17) mg/dL Creatinine 1.50 H (0.52-1.04) mg/dL Glucose 126 H (74-99) mg/dL POC Glucose (mg/dL) 116 H 142 H (70-110) mg/dL Total Bilirubin 1.4 H (0.2-1.3) mg/dL AST 43 H (14-36) U/L Total Protein 5.5 L (6.3-8.2) g/dL Albumin 3.3 L (3.5-5.0) g/dL 08/08/24 08/08/24 Range/Units 07:59 09:11 WBC (3.8-10.6) k/uL RBC (3.80-5.40) m/uL Hgb (11.4-16.0) gm/dL Hct (34.0-46.0) % Plt Count (150-450) k/uL Neutrophils # (1.3-7.7) k/uL Sodium (137-145) mmol/L Carbon Dioxide (22-30) mmol/L BUN (7-17) mg/dL Creatinine (0.52-1.04) mg/dL Glucose (74-99) mg/dL POC Glucose (mg/dL) 188 H 149 H (70-110) mg/dL Total Bilirubin (0.2-1.3) mg/dL AST (14-36) U/L Total Protein (6.3-8.2) g/dL Albumin (3.5-5.0) g/dL Assessment and Plan Assessment: NSTEMI,in a patient with prior CAD, recent [place] with stenting of the mid LAD 05/13/2024. 07/10/2024 cardiac catheterization completed reporting 30% distal left main disease, 70% ostial LAD disease, patent stents in the mid LAD, 70% diffuse distal LAD disease. 50% ostial and proximal left circumflex disease negative IFR performed on 05/18/2024. Cardiology reported no progression of CAD, comparing to heart cath of 05/18/2024.Per catheterization reports cardiology felt that the LAD intervention was complex and patient would benefit from optimization of cardiac medications and was started on Imdur therapy. If patient fails antianginal and optimize heart failure medication she would be considered for CABG. Acute systolic heart failure Ischemic cardiomyopathy, EF 30 to 35% Moderate mitral regurgitation Mild to moderate aortic regurgitation with mild aortic stenosis Mild tricuspid regurgitation Acute UTI with Klebsiella Hyperbilirubinemia with minimally elevated AST and ALT. History of abnormally thickened endometrium with vascularity concerning for endometrial carcinoma, reported per pelvic/transvaginal ultrasound 05/07/2024. Further outpatient workup in progress. Left bundle branch block Hypertension Hyperlipidemia Morbid obesity, BMI 35, reports 11 pound weight loss since 05/19 Prediabetic, hemoglobin A1c 6.2 (07/21), currently 6.1 Prior nicotine dependence, 1 pack/day x 10 years,quit 1978 Anxiety Depression
[2024-08-08] MEDS: DEXTROSE/WATER 1 250ML.BAG with DOPamine DRIP 800 MG IV SCH (15:49)
[2024-08-08 17:11] LABS: Glucose,Whole Blood 169 mg/dL (70-110)
[2024-08-08] MEDS: ALBUMIN HUMAN 5% 250 ML in EMPTY BAG 1 BAG IVPB STA (18:22)
--- NOTE | 2024-08-08 20:04 | PN ---
PROGRESS NOTE SUBJECTIVE: Aidee is a 74-year-old lady, who underwent bypass surgery. Today is postop day #2. She is free of symptoms other than the musculoskeletal pain at the surgical site. Her surgery involved EVANS to LAD, and she had exclusion of the left atrial appendage. PHYSICAL EXAMINATION: VITAL SIGNS: Heart rate is 69 beats per minute, blood pressure is 97/50, respiratory rate is 18, O2 saturation is 96% on 3 L. CHEST: Reveals good air entry bilaterally. HEART: Reveals first and second heart sounds. Irregular rhythm. ABDOMEN: Soft. EXTREMITIES: Reveal mild edema. Peripheral pulses are felt. MEDICATIONS: The patient is on: 1. Amiodarone 400 b.i.d. 2. Aspirin. 3. Lipitor. 4. Plavix. 5. Lopressor 12.5 b.i.d. IMAGING DATA: EKG shows sinus rhythm. LABORATORY DATA: Shows that the hemoglobin is 7.4. This has dropped from an admission hemoglobin of around 12. Potassium is 4, creatinine is 1.5. ASSESSMENT: 1. Coronary artery disease, status post coronary artery bypass graft. 2. Ischemic cardiomyopathy. 3. Hypotension, probably related to blood loss anemia. PLAN: Continue with current medications. Continue with incentive spirometry. MMODL / IJN: [id number] /
[2024-08-08 20:53] LABS: Glucose,Whole Blood 141 mg/dL (70-110)
[2024-08-08] MEDS: ACETAMINOPHEN TAB 325 MG TAB PO PRN (20:57)
[2024-08-08 22:23] LABS: Glucose,Whole Blood 139 mg/dL (70-110)
[2024-08-09 02:26] LABS: Glucose,Whole Blood 134 mg/dL (70-110)
[2024-08-09 06:03] LABS: Basophils % (A) 0 %; Eosinophils # (A) 0.3 k/uL (0-0.7); Eosinophils % (A) 3 %; HCT 24.9 % (34.0-46.0); Hypochromasia Slight; Lymphocytes # (A) 1.6 k/uL (1.0-4.8); Lymphocytes % (A) 13 %; MCH 30.2 pg (25.0-35.0); MCHC 32.3 g/dL (31.0-37.0); MCV 93.6 fL (80.0-100.0); Mean Platelet Volume 9.2; Monocytes # (A) 0.7 k/uL (0-1.0); Monocytes % (A) 5 %; Neutrophils # (A) 9.8 k/uL (1.3-7.7); Neutrophils % (A) 77 %; Platelet Count 145 k/uL (150-450); RBC 2.66 m/uL (3.80-5.40); RDW 15.3 % (11.5-15.5); WBC 12.7 k/uL (3.8-10.6)
[2024-08-09 06:14] LABS: ALT 13 U/L (4-34); AST 39 U/L (14-36); African American GFR (CKD) 48 (>60 ml/min/1.73 sqM); Albumin 3.3 g/dL (3.5-5.0); Alkaline Phosphatase 80 U/L (38-126); Anion Gap 11 mmol/L; Blood Urea Nitrogen 36 mg/dL (7-17); Calcium 8.5 mg/dL (8.4-10.2); Carbon Dioxide 18 mmol/L (22-30); Chloride 105 mmol/L (98-107); Glucose 122 mg/dL (74-99); Non-African American GFR(CKD) 41 (>60 ml/min/1.73 sqM); Sodium 134 mmol/L (137-145); Total Bilirubin 1.7 mg/dL (0.2-1.3); Total Protein 5.6 g/dL (6.3-8.2)
[2024-08-09 07:33] LABS: Glucose,Whole Blood 124 mg/dL (70-110)
--- NOTE | 2024-08-09 07:44 | XR ---
EXAMINATION TYPE: XR chest 1V portable DATE OF EXAM: 08/09/2024 4:34 AM COMPARISON: Multiple radiographs, with the most recent on 08/08/2024 TECHNIQUE: XR chest 1V portable Portable AP radiograph of the chest. CLINICAL INDICATION:Female, 74 years old with history of post cardiac surgery; FINDINGS: Lungs/Pleura: No sizable pneumothorax or pleural effusion. Left apical pleural thickening. Increasing right mid to lower lung patchy consolidation. Linear atelectasis within the left midlung. Pulmonary vascularity: Unremarkable. Heart/mediastinum: Cardiomediastinal silhouette is enlarged and stable. Post-CABG changes. Left atri al appendage occlusion devices present. Musculoskeletal: No acute osseous pathology. Midline sternotomy wires are noted and stable. Other findings: None Lines/Tubes: Stable position of left chest tube. Right IJ vascular sheath. IMPRESSION: 1. Post cardiac surgical changes without sizable pneumothorax. Stable left chest tube. 2. Increasing consolidation within the right mid to lower lung. May represent atelectasis versus pne umonia. [facility], , 08/09/2024 7:42 AM
--- NOTE | 2024-08-09 08:09 | P.PN ---
Subjective Progress Note Date: 08/09/24 Principal diagnosis: Coronary artery disease, non-ST elevated myocardial infarction this admission, very dynamic mitral valve regurgitation. Previuos medical history of coronary ar abena disease with non-STEMI and PCI to her LAD in April 2024, ischemic cardiomyopathy, hypertension, hyperlipidemia, hypothyroid, known left bundle branch block, hard of hearing, obesity, mild restrictive lung disease, previous tobacco dependence with cessation over 40 years ago, and recent vaginal bleeding being followed by [facility]. Preoperative nasal swab positive for MSSA, preoperative urinary tract infection with Klebsiella, preoperative transaminitis, left internal carotid artery stenosis POD #3 off pump single-vessel coronary artery bypass grafting using the in situ left internal mammary artery to the left anterior descending artery, exclusion of the left atrial appendage using a 35mm AtriClip, endoscopic harvesting of the left thigh greater saphenous vein that was not used, graft flow measurement using the [employer] system, intraoperative transesophageal echocardiogram and epiaortic scanning Postoperative acute blood loss anemia and thrombocytopenia, expected given hemodilution Endobronchial hemorrhage with retained blood clots, status post flexible bronchoscopy with removal of blood clots The patient was seen and examined this morning sitting up in recliner in the intensive care unit in no acute distress. Remains in sinus rhythm, hemodynamically stable. Currently on 2 L nasal cannula with oxygen saturation in the high 90s. States pain is controlled on current medication regimen, denies shortness of breath. She was given IV Lasix yesterday without significant urine output and borderline hypotension. Subsequently she was given concentrated albumin and later in the day was given 5% albumin. Last night she was started on IV dopamine with improvement in blood pressure and urine output. Remains on IV dopamine this morning. Labs, chest x-ray reviewed. Left internal jugular cordis, right brachial arterial line, left/right pleural chest tubes all present. She was ambulatory out to the hallway yesterday with assistance. No other new concerns. Objective - Vital Signs Vital signs: Vital Signs Temp 98 F 08/08/24 20:00 Pulse 70 08/09/24 07:48 Resp 24 08/09/24 07:00 BP 75/46 08/09/24 07:00 Pulse Ox 98 08/09/24 07:00 FiO2 40 08/06/24 18:00 Intake & Output 08/08/24 08/09/24 08/09/24 18:59 06:59 18:59 Intake Total 1565.483 698 Output Total 380 643 Balance 1185.483 55 Weight 86.6 kg Intake: IV 792 498 0.9 10cc/hr 30 Albumin Human 25% 50 ml 50 In Empty Bag 1 bag @ 50 mls/hr IVPB ONCE ONE Rx#: [id number] Albumin Human 5% 250 ml 250 In Empty Bag 1 bag @ 250 mls/hr IVPB ONCE STA Rx#: [id number] Invasive Line 3 30 30 Pressure Bag (0.9 Sodium 72 78 Chloride) Sodium Chloride 0.9% 1, 360 390 000 ml @ 30 mls/hr IV . Q24H [facility] Rx#:[id number] Intake, IV Titration 7.483 Amount Insulin Regular 100 unit 7.483 In Sodium Chloride 0.9% 100 ml @ Per Protocol IV .Q0M [facility] Rx#:[id number] Oral 766 200 Output: Chest Tube Drainage 230 208 Chest Tube Bilateral 0 Mediastinal Chest Tube Left Lateral 150 120 Chest Chest Tube Right Lateral 80 88 Chest Urine 150 435 Other: Voiding Method Indwelling Catheter Indwelling Catheter # Bowel Movements 0 0 ABP, PAP, CO, CI - Last Documented Arterial Blood Pressure 102/33 Pulmonary Artery Pressure 30/10 Cardiac Output 5.2 Cardiac Index 2.9 - Exam CONSTITUTIONAL: Appears comfortable, cooperative, no acute distress RESPIRATORY: Lungs sounds diminished in the bases bilaterally. Respirations even, nonlabored. Currently on 2 L nasal cannula with oxygen saturation 98%. Able to achieve 750 mL on incentive spirometry. Strong nonproductive cough. CARDIOVASCULAR: S1, S2 present. Regular rate and rhythm, sinus rhythm on telemetry. Sternum stable. Palpable peripheral pulses bilaterally. Trace generalized edema present. No calf pain or tenderness noted. Heart hugger in place with patient demonstrating appropriate use. Antiembolism stockings, SCDs present. GASTROINTESTINAL: Abdomen soft, nontender, nondistended. Active bowel sounds present 4 quadrants. Tolerating diet. Positive flatus GENITOURINARY: Lomeli present draining clear, yellow urine. Output overnight 25-40 mL per hour, 560 mL in the last 24 hours INTEGUMENTARY: Skin is warm and dry with evidence of good perfusion. Anterior chest incision well approximated and covered with dry intact dressing. Left lower extremity EVH site well approximated without redness NEUROLOGIC: Cranial nerves II through XII intact MUSKULOSKELETAL: Able to move all extremities, strength equal bilaterally, gait normal PSYCHIATRIC: Alert and oriented to person place and time, appropriate affect, intact judgment and insight INVASIVE LINES AND TUBES: Left/right pleural chest tubes present and connected to wall suction, no air leaks present. Left pleural chest tube with 80 mL serosanguineous drainage overnight, 250 mL in the last 24 hours. Right pleural chest tube with 80 mL serosanguineous drainage overnight, 120 mL in the last 24 hours. Right internal jugular cordis, right radial arterial line present. Last CVP 13. - Allied health notes Allied health notes reviewed: nursing - Labs CBC & Chem 7: 08/09/24 05:55 08/09/24 05:55 Labs: Abnormal Lab Results - Last 24 Hours (Table) 08/08/24 08/08/24 08/08/24 Range/Units 07:59 09:11 10:10 WBC (3.8-10.6) k/uL RBC (3.80-5.40) m/uL Hgb (11.4-16.0) gm/dL Hct (34.0-46.0) % Plt Count (150-450) k/uL Neutrophils # (1.3-7.7) k/uL Sodium (137-145) mmol/L Carbon Dioxide (22-30) mmol/L BUN (7-17) mg/dL Creatinine (0.52-1.04) mg/dL Glucose (74-99) mg/dL POC Glucose (mg/dL) 188 H 149 H 129 H (70-110) mg/dL Total Bilirubin (0.2-1.3) mg/dL AST (14-36) U/L Total Protein (6.3-8.2) g/dL Albumin (3.5-5.0) g/dL 08/08/24 08/08/24 08/08/24 Range/Units 11:26 17:09 20:51 WBC (3.8-10.6) k/uL RBC (3.80-5.40) m/uL Hgb (11.4-16.0) gm/dL Hct (34.0-46.0) % Plt Count (150-450) k/uL Neutrophils # (1.3-7.7) k/uL Sodium (137-145) mmol/L Carbon Dioxide (22-30) mmol/L BUN (7-17) mg/dL Creatinine (0.52-1.04) mg/dL Glucose (74-99) mg/dL POC Glucose (mg/dL) 120 H 169 H 141 H (70-110) mg/dL Total Bilirubin (0.2-1.3) mg/dL AST (14-36) U/L Total Protein (6.3-8.2) g/dL Albumin (3.5-5.0) g/dL 08/08/24 08/09/24 08/09/24 Range/Units 22:20 02:23 05:55 WBC 12.7 H (3.8-10.6) k/uL RBC 2.66 L (3.80-5.40) m/uL Hgb 8.0 L (11.4-16.0) gm/dL Hct 24.9 L (34.0-46.0) % Plt Count 145 L (150-450) k/uL Neutrophils # 9.8 H (1.3-7.7) k/uL Sodium (137-145) mmol/L Carbon Dioxide (22-30) mmol/L BUN (7-17) mg/dL Creatinine (0.52-1.04) mg/dL Glucose (74-99) mg/dL POC Glucose (mg/dL) 139 H 134 H (70-110) mg/dL Total Bilirubin (0.2-1.3) mg/dL AST (14-36) U/L Total Protein (6.3-8.2) g/dL Albumin (3.5-5.0) g/dL 08/09/24 08/09/24 Range/Units 05:55 07:31 WBC (3.8-10.6) k/uL RBC (3.80-5.40) m/uL Hgb (11.4-16.0) gm/dL Hct (34.0-46.0) % Plt Count (150-450) k/uL Neutrophils # (1.3-7.7) k/uL Sodium 134 L (137-145) mmol/L Carbon Dioxide 18 L (22-30) mmol/L BUN 36 H (7-17) mg/dL Creatinine 1.27 H (0.52-1.04) mg/dL Glucose 122 H (74-99) mg/dL POC Glucose (mg/dL) 124 H (70-110) mg/dL Total Bilirubin 1.7 H (0.2-1.3) mg/dL AST 39 H (14-36) U/L Total Protein 5.6 L (6.3-8.2) g/dL Albumin 3.3 L (3.5-5.0) g/dL - Imaging and Cardiology Chest x-ray: report reviewed, image reviewed Assessment and Plan Assessment: Coronary artery disease, non-ST elevated myocardial infarction this admission, status post single-vessel off-pump CABG Very dynamic mitral valve regurgitation Recent vaginal bleeding being followed by [facility] Preoperative nasal swab positive for MSSA, treated with nasal mupirocin Preoperative urinary tract infection with Klebsiella, treated with Rocephin Preoperative transaminitis Left internal carotid artery stenosis, 50 to 69% Postoperative acute blood loss anemia and thrombocytopenia, expected given hemodilution Endobronchial hemorrhage with retained blood clots, status post flexible bronchoscopy with removal of blood clots History of coronary artery disease with non-STEMI and PCI to her LAD in April 2024 Ischemic cardiomyopathy with EF 30-35% on TTE 07/29/24, preserved LV systolic function on WILLAM 07/31/24 Hypertension Hyperlipidemia, treated, cholesterol 112, LDL 56.5 Hypothyroid, TSH 2.66 Known left bundle branch block Obesity Mild restrictive lung disease, preoperative FEV1 66% of predicted Previous tobacco dependence with cessation over 40 years ago Plan: Continue to maximize medical therapy with aspirin, statin, Plavix, beta-apolonia therapy. Will increase beta-apolonia therapy as tolerated, patient did not receive second dose of beta-apolonia yesterday due to hypotension Continue amiodarone for A-fib prophylaxis. Patient has had no atrial fibrillation up to this point Wean oxygen as tolerated. Encourage incentive spirometry use 10 times every hour while awake. Bronchodilators per pulmonology Increase activity, ambulate as tolerated. PT/OT/cardiac rehab following Will monitor daily labs and x-rays, electrolyte replacement per protocol. Will give 40 mg IV push Lasix today GI/DVT prophylaxis Insulin management per internal medicine. Patient is not diabetic, preoperative hemoglobin A1c 6.1% Pain control per current medication regimen Continue Cordis to continuous CVP monitoring Continue pleural chest tubes for another 24 hours, monitor and record output Continue Lomeli catheter for another 24 hours, continue to monitor record strict accurate intake and output More recommendations to follow as patient progresses
[2024-08-09] MEDS: FUROSEMIDE 10 MG/ML 4 ML VIAL IV STA (10:11)
[2024-08-09] MEDS: bisacodyL 10 MG SUPP RECTAL PRN (10:17)
[2024-08-09] MEDS: MAGNESIUM HYDROXIDE 2,400 MG/30 ML CUP PO PRN (10:17)
[2024-08-09 11:03] LABS: Glucose,Whole Blood 155 mg/dL (70-110)
[2024-08-09] MEDS: MD COMMUNICATION TO PHARMACY 1 EACH MISC PO ONE (11:52)
[2024-08-09] MEDS: ALBUMIN HUMAN 25% 50 ML in EMPTY BAG 1 BAG IVPB ONE (11:53)
[2024-08-09] MEDS: ALBUMIN HUMAN 5% 500 ML in EMPTY BAG 1 BAG IVPB ONE ×6 (11:53→11:54)
[2024-08-09] MEDS: CALCIUM CHLORIDE 100 MG/ML 10 ML SYRINGE IVP ONE (11:54)
[2024-08-09] MEDS: ELECTROLYTE-A SOLUTION 1,000 ML with POTASSIUM CHLORIDE 100 MEQ, MAGNESIUM SULFATE 16 M... IV ONE (11:55)
[2024-08-09] MEDS: HEPARIN SODIUM 1,000 UN/ML (10ML VL) IV ONE (11:55)
[2024-08-09] MEDS: ceFAZolin 1,000 MG in SODIUM CHLORIDE 0.9% IRRIGATIO 1,000 ML IRRIGATION ONE (11:55)
[2024-08-09] MEDS: CLEVIDIPINE BUTYRATE 25 MG in EMPTY BAG 1 BAG IV SCH (11:55)
[2024-08-09] MEDS: ELECTROLYTE-A SOLUTION 1,000 ML with POTASSIUM CHLORIDE 40 MEQ, MAGNESIUM SULFATE 16 ME... IV ONE (11:55)
[2024-08-09] MEDS: CHLORHEXIDINE GLUCONATE 15 ML CUP MUCOUS MEM ONE (11:55)
[2024-08-09] MEDS: HEPARIN SODIUM,PORCINE (1 ML) 5,000 UNIT in SODIUM CHLORIDE 0.9% 500 ML 500 ML IV ONE (11:56)
[2024-08-09] MEDS: MAGNESIUM SULFATE 16.24 MEQ in EMPTY SYRINGE 1 SYR IV ONE (11:56)
[2024-08-09] MEDS: MANNITOL 25% 12.5 GM/50 ML VIAL IV ONE ×2 (11:56→11:57)
[2024-08-09] MEDS: PHENYLEPHRINE 40 MG in SODIUM CHLORIDE 0.9% 250 ML IV ONE (11:57)
[2024-08-09] MEDS: PROTAMINE SULFATE 10 MG/ML 25 ML VIAL IV ONE (11:57)
[2024-08-09] MEDS: PAPAVERINE 360 MG in SODIUM CHLORIDE 0.9% 90 ML IV ONE (11:57)
[2024-08-09] MEDS: NITROGLYCERIN-D5W PMX 25 MG/250 ML BTL IV ONE (11:57)
[2024-08-09] MEDS: NITROGLYCERIN-D5W PMX 50 MG in DEXTROSE/WATER 1 250ML.BAG IV SCH (11:57)
[2024-08-09] MEDS: TRANEXAMIC ACID 2,000 MG in SODIUM CHLORIDE 0.9% 80 ML IV ONE (11:58)
[2024-08-09] MEDS: SODIUM BICARB 8.4% 50 ML SYR (1 MEQ/ML) IV ONE (11:58)
[2024-08-09] MEDS: PROTAMINE SULFATE 250 MG in EMPTY BAG 1 BAG IV ONE (11:58)
[2024-08-09] MEDS: PHENYLEPHRINE 10 MG/ML VIAL IV ONE (11:58)
--- NOTE | 2024-08-09 12:41 | P.PN ---
Subjective Progress Note Date: 08/09/24 On 08/06/2024, the patient is being seen in the intensive care unit following her bypass surgery. Noted the patient underwent off-pump single-vessel bypass surgery with EVANS to LAD. The patient also underwent a left atrial appendage exclusion. Noted intraoperatively, the patient encountered increased hemoptysis and a total of 200 cc of blood was aspirated through the orotracheal tube. This was a complication related to the Smiley-Karen catheter as the catheter was withdrawn later on. The chest x-ray shows an area of consolidation in the right lower lobe which is probably an area of intraparenchymal hemorrhage. After arriving to the intensive care unit, the patient was seen and evaluated. The pa tient was assist-control mode of mechanical ventilation at rate of 14, tidal volume of 400, FiO2 50% with a PEEP of 10. Blood gases showed a pH of 7.24 with a pCO2 of 52 and pO2 of 82. Based on that, the respiratory rate was increased up to 24. The hemodynamic parameters showed a cardiac output of 5 and an index of 2.8. PA pressures were 34/22. The patient was on milrinone running at 0.2 mcg/kg/h, nitroglycerin drip at 5 mcg/min and norepinephrine at 0.11 mcg/kg/min. The patient is also on normal citrate of 75 cc an hour and insulin drip at the rate of 3.5 units an hour. Cardiac rhythm was sinus. Discussed the case with cardiothoracic surgery. Performed a bedside bronchoscopy on this patient and copious amount of blood clots were aspirated from the airway. The completion of the bronchoscopy, the patient had no residual blood clots and full airway patency was established. Subsequently, the patient started having loss and volume, and the return tidal volumes were low and the patient had difficulties in maintaining the pressure in her orotracheal tube cuff. Based on that, I remove the orotracheal tube and replaced it by #8. Intubation was done in the intensive care unit. During the process, the patient had no significant hemodynamic instability. For now, the patient has a right pleural and left lower chest tube and mediastinal chest tube. No evidence of any air leak. Chest x-ray shows no evidence of any pneumothorax. Reviewed the series of x- rays done specially the 1 that was done post reintubation. ET tube was seen around 3 cm above the jeremie. The Smiley-Karen catheter was projecting and appropriate location. Drainage tubes were in place. The blood work that was done postop showed a hemoglobin of 9.3, platelet count of 120, and the most recent blood gas showed a pH of 7.37 with pCO2 of 36 and pO2 of 134 and this was done FiO2 of 50%. The patient remains sedated on propofol. Cardiac rhythm is sinus. On today's evaluation of 08/07/2024, the patient is being seen for a follow-up. The patient was weaned off mechanical ventilator and the patient was extubated today without any major difficulties. This morning, she is sitting up in a chair and she is calm and comfortable and denies having any specific complaints. She is currently on 2 L of oxygen by nasal cannula. The patient is currently off milrinone. The cardiac output Is at 4.5 with an index of 2.5. PA pressures are 24/10 and a CVP is at 6. The patient has mediastinal chest tube x 2, left pleural and right pleural chest tube. Mediastinal chest tube is produced 90 cc over the past 8 hours) since surgery. Left pleural tube has produced 125 cc overnight) 50 cc since surgery. Right lower chest tube is produced 70 cc over the past 8 hours and 150 cc overnight. The cardiac rhythm is sinus. Urine output is adequate. There is an order of 30 cc an hour. The patient remains on insulin drip at 2.5 units an hour. No other significant events overnight. In terms of the labs, the patient's blood work showed a hemoglobin of 9.4, white cell count of 10.5, platelet count of 131. The BUN is 21 with a creatinine 1.07. Electrolytes are all stable. Serum bicarb is at 18. LFTs are normal. No other significant events overnight. On 08/08/2024, the patient is being seen for a follow-up. The patient is post single-vessel bypass surgery. The patient is currently on 3 Suboxone by nasal cannula. Cardiac rhythm is sinus. Urine output is in order of 5 to 25 cc an hour. The patient was given 40 mg IV Lasix x 1. She is awake and alert. Chest tubes are still in place. The follow-up chest x-ray from today shows evidence of area of consolidation in the right mid/lower lung area which is representation of a pulmonary hemorrhage that occurred at time of surgery. Chest tubes are still in place. Blood work from today shows a white cell count of 14.3, hemoglobin 7.8 and a platelet count of 112. Sodium is at 132, BUN 23 creatinine is 1.5. Potassium level is at 4.0. Serum bicarb is at 19. The patient sustained an acute kidney injury. Note that she has been treated for a Klebsiella urinary tract infection preoperatively. For now, the patient is on metoprolol 12.5 mg p.o. twice a day. She is on aspirin. She is on Plavix. She is on amiodarone 4 mg p.o. twice a day. She remains on insulin drip for blood sugar control. On 08/09/2024, the patient is being seen for a follow-up. The patient is awake and alert and communicating. She is currently on 3 days of oxygen by nasal cannula. She did sustain acute kidney injury and diminished urine output. Based on that, the patient was started on dopamine renal dose. Creatinine is improving. The patient remains normal sinus rhythm. The fluid balance is +1.2 L over the past 24 hours. The mediastinal chest tube has been removed and the patient continues to have a right and the left pleural chest tube. Sitting up in a chair she is calm and comfortable. White cell count of 12.7, hemoglobin is at 8 and the platelet count is 145. Sodium is at 134 with potassium level of 4 and a BUN of 36 with a creatinine of 1.2. Rest of the medications were all reviewed. She is using the incentive spirometer. Some soreness in her chest related to previous thoracotomy. The patient is currently on Lantus insulin 10 units daily & scale insulin coverage. Objective - Vital Signs Vital signs: Vital Signs Temp 98.3 F 08/09/24 08:00 Pulse 70 08/09/24 08:00 Resp 19 08/09/24 08:00 BP 99/51 08/09/24 08:00 Pulse Ox 99 08/09/24 08:00 FiO2 40 08/06/24 18:00 Intake & Output 08/08/24 08/09/24 08/09/24 18:59 06:59 18:59 Intake Total 1565.483 698 36 Output Total 380 643 85 Balance 1185.483 55 -49 Weight 86.6 kg Intake: IV 792 498 36 0.9 10cc/hr 30 Albumin Human 25% 50 ml 50 In Empty Bag 1 bag @ 50 mls/hr IVPB ONCE ONE Rx#: [id number] Albumin Human 5% 250 ml 250 In Empty Bag 1 bag @ 250 mls/hr IVPB ONCE STA Rx#: [id number] Invasive Line 3 30 30 Pressure Bag (0.9 Sodium 72 78 6 Chloride) Sodium Chloride 0.9% 1, 360 390 30 000 ml @ 30 mls/hr IV . Q24H [facility] Rx#:[id number] Intake, IV Titration 7.483 Amount Insulin Regular 100 unit 7.483 In Sodium Chloride 0.9% 100 ml @ Per Protocol IV .Q0M [facility] Rx#:[id number] Oral 766 200 Output: Chest Tube Drainage 230 208 0 Chest Tube Bilateral 0 Mediastinal Chest Tube Left Lateral 150 120 0 Chest Chest Tube Right Lateral 80 88 0 Chest Urine 150 435 85 Other: Voiding Method Indwelling Catheter Indwelling Catheter # Bowel Movements 0 0 ABP, PAP, CO, CI - Last Documented Arterial Blood Pressure 102/34 Pulmonary Artery Pressure 30/10 Cardiac Output 5.2 Cardiac Index 2.9 - Exam CONSTITUTIONAL: Appears comfortable, cooperative, no acute distress RESPIRATORY: Lungs sounds diminished in the bases bilaterally. Respirations even, nonlabored. Currently on 2 L nasal cannula with oxygen saturation 98%. Able to achieve 750 mL on incentive spirometry. Strong nonproductive cough. CARDIOVASCULAR: S1, S2 present. Regular rate and rhythm, sinus rhythm on tele metry. Sternum stable. Palpable peripheral pulses bilaterally. Trace generalized edema present. No calf pain or tenderness noted. Heart hugger in place with patient demonstrating appropriate use. Antiembolism stockings, SCDs present. GASTROINTESTINAL: Abdomen soft, nontender, nondistended. Active bowel sounds present 4 quadrants. Tolerating diet. Positive flatus GENITOURINARY: Lomeli present draining clear, yellow urine. Output overnight 25-40 mL per hour, 560 mL in the last 24 hours INTEGUMENTARY: Skin is warm and dry with evidence of good perfusion. Anterior chest incision well approximated and covered with dry intact dressing. Left lower extremity EVH site well approximated without redness NEUROLOGIC: Cranial nerves II through XII intact MUSKULOSKELETAL: Able to move all extremities, strength equal bilaterally, gait normal PSYCHIATRIC: Alert and oriented to person place and time, appropriate affect, intact judgment and insight INVASIVE LINES AND TUBES: Left/right pleural chest tubes present and connected to wall suction, no air leaks present. Left pleural chest tube with 80 mL serosanguineous drainage overnight, 250 mL in the last 24 hours. Right pleural chest tube with 80 mL serosanguineous drainage overnight, 120 mL in the last 24 hours. Right internal jugular cordis, right radial arterial line present. Last CVP 13. - Labs CBC & Chem 7: 08/09/24 05:55 08/09/24 05:55 Labs: Abnormal Lab Results - Last 24 Hours (Table) 08/08/24 08/08/24 08/08/24 Range/Units 09:11 10:10 11:26 WBC (3.8-10.6) k/uL RBC (3.80-5.40) m/uL Hgb (11.4-16.0) gm/dL Hct (34.0-46.0) % Plt Count (150-450) k/uL Neutrophils # (1.3-7.7) k/uL Sodium (137-145) mmol/L Carbon Dioxide (22-30) mmol/L BUN (7-17) mg/dL Creatinine (0.52-1.04) mg/dL Glucose (74-99) mg/dL POC Glucose (mg/dL) 149 H 129 H 120 H (70-110) mg/dL Total Bilirubin (0.2-1.3) mg/dL AST (14-36) U/L Total Protein (6.3-8.2) g/dL Albumin (3.5-5.0) g/dL 08/08/24 08/08/24 08/08/24 Range/Units 17:09 20:51 22:20 WBC (3.8-10.6) k/uL RBC (3.80-5.40) m/uL Hgb (11.4-16.0) gm/dL Hct (34.0-46.0) % Plt Count (150-450) k/uL Neutrophils # (1.3-7.7) k/uL Sodium (137-145) mmol/L Carbon Dioxide (22-30) mmol/L BUN (7-17) mg/dL Creatinine (0.52-1.04) mg/dL Glucose (74-99) mg/dL POC Glucose (mg/dL) 169 H 141 H 139 H (70-110) mg/dL Total Bilirubin (0.2-1.3) mg/dL AST (14-36) U/L Total Protein (6.3-8.2) g/dL Albumin (3.5-5.0) g/dL 08/09/24 08/09/24 08/09/24 Range/Units 02:23 05:55 05:55 WBC 12.7 H (3.8-10.6) k/uL RBC 2.66 L (3.80-5.40) m/uL Hgb 8.0 L (11.4-16.0) gm/dL Hct 24.9 L (34.0-46.0) % Plt Count 145 L (150-450) k/uL Neutrophils # 9.8 H (1.3-7.7) k/uL Sodium 134 L (137-145) mmol/L Carbon Dioxide 18 L (22-30) mmol/L BUN 36 H (7-17) mg/dL Creatinine 1.27 H (0.52-1.04) mg/dL Glucose 122 H (74-99) mg/dL POC Glucose (mg/dL) 134 H (70-110) mg/dL Total Bilirubin 1.7 H (0.2-1.3) mg/dL AST 39 H (14-36) U/L Total Protein 5.6 L (6.3-8.2) g/dL Albumin 3.3 L (3.5-5.0) g/dL 08/09/24 Range/Units 07:31 WBC (3.8-10.6) k/uL RBC (3.80-5.40) m/uL Hgb (11.4-16.0) gm/dL Hct (34.0-46.0) % Plt Count (150-450) k/uL Neutrophils # (1.3-7.7) k/uL Sodium (137-145) mmol/L Carbon Dioxide (22-30) mmol/L BUN (7-17) mg/dL Creatinine (0.52-1.04) mg/dL Glucose (74-99) mg/dL POC Glucose (mg/dL) 124 H (70-110) mg/dL Total Bilirubin (0.2-1.3) mg/dL AST (14-36) U/L Total Protein (6.3-8.2) g/dL Albumin (3.5-5.0) g/dL Assessment and Plan Plan: Coronary artery disease, non-ST elevated myocardial infarction, awaiting coronary bypass surgery. The patient is known to have coronary artery disease. The patient has undergone previous PCI to LAD back in April 2024. [facility] heart catheterization was completed on July 10, 2024 which demonstrated a 30% stenosis to her distal left main coronary artery, a 70% ostial LAD disease, patent stent in the mid LAD, 70% diffuse distal LAD disease, 50% ostial and proximal left circumflex disease with negative IFR performed on May 18, 2024, when compared to the heart catheterization from 05/18/2024 there was no progression of the CAD. The patient is status post off-pump single-vessel bypass surgery with EVANS to LAD. The patient is currently postop day # 3. The patient is hemodynamically stable and the patient is currently off pressors. Thoracotomy, remains intubated on mechanical ventilator. Extubated to 2 L of oxygen nasal cannula and the mediastinal chest tube was removed and the patient continues to have a right and left lower chest tube. Right lung parenchymal hemorrhage involving the right lower lobe in addition to hemoptysis and endobronchial hemorrhage, most likely a complication of Smiley-Karen catheter and the catheter has been repositioned. Bronchoscopy was also done with evacuation of copious amount of residual blood clots retained in the patient's airways. Chest x-ray findings are unchanged Acute kidney injury with oliguria, currently on dopamine and her kidney function is improving , urinary tract infection with Klebsiella, on 07/31/2024 treated with Rocephin Left internal carotid artery stenosis, 50 to 69% Ischemic cardiomyopathy with EF 30-35% on TTE 07/29/24, preserved LV systolic function on WILLAM 07/31/24 Hypertension Hyperlipidemia, treated, cholesterol 112, LDL 56.5 Hypothyroid, TSH 2.66 Left bundle branch block Obesity BMI of 36.2 Mild restrictive lung disease, preoperative FEV1 66% of predicted Previous tobacco dependence with cessation over 40 years ago Plan: Extubated and patient is currently on 2 L of oxygen by nasal cannula Wean down FiO2 as tolerated to maintain saturation above 90% Bronchoscopy was performed on 08/06/2024 in the intensive care unit and the blood clots from the airways were removed. Patient is currently off pressors Cardiac rhythm is sinus Discontinue insulin drip and start the patient on Lantus insulin 10 units along with insulin scale coverage Monitor urine output Continue dopamine renal dose Continue aspirin and Plavix metoprolol 12.5 mg p.o. twice a day Amiodarone 400 mg p.o. twice a day Lipitor 40 mg p.o. daily Keep the chest tube in place for today, chest tube management as per cardiothoracic surgery Labs were noted, monitor renal function We will continue to follow. Evaluation was done and 31 minutes. Time with Patient: Greater than 30
--- NOTE | 2024-08-09 16:22 | PN ---
PROGRESS NOTE SUBJECTIVE: A 74-year-old lady, who underwent bypass surgery. Today is postop day #3, has had issues with low urine output and hypotension, and is currently on dopamine for the same. CURRENT MEDICATIONS: Include: 1. Amiodarone 400 b.i.d. 2. Aspirin. 3. Atorvastatin. 4. Plavix. 5. Dopamine at 2.5. 6. Lasix as needed. 7. Metoprolol 12.5 b.i.d. PHYSICAL EXAMINATION: VITAL SIGNS: She is afebrile. Heart rate is 74 beats per minute, blood pressure is 122/60, was 89/48 earlier in the day, respiratory rate is 24. CHEST: Reveals diminished air entry at the bases. HEART: Reveals first and second heart sounds. No gallop. No murmur. No rub. ABDOMEN: Soft. EXTREMITIES: Did not reveal any edema. LABORATORY DATA: Labs show a hemoglobin of 8, which remained stable compared to yesterday. Her hemoglobin on admission was 12.6. Potassium is 4, creatinine is 1.2. ASSESSMENT: 1. Coronary artery disease, status post bypass surgery. 2. Hypotension. 3. Anemia. PLAN: Continue current measures. MMODL / IJN: [id number] /
[2024-08-09 16:26] LABS: Glucose,Whole Blood 105 mg/dL (70-110)
--- NOTE | 2024-08-09 20:06 | P.PN ---
Subjective Progress Note Date: 08/09/24 74-year-old female with past medical history significant for CAD, ischemic cardiomyopathy, recent NSTEMI with stenting of the mid LAD 05/13/2024 followed by cardiac catheterization on 07/10/2024 reporting no progression of disease with medical therapy maximized, left bundle branch block ,hypertension, hyp erlipidemia, morbid obesity, prediabetic with hemoglobin A1c of 6.2 (07/21), hypothyroidism, prior nicotine dependence, and multiple other medical issues presented to the ER with complaints of radiating midsternal chest pain accompanied by diaphoresis and shortness of breath over the last 2 to 3 nights in a row. Admits to fluctuating chest pain since April 2024 as well as her last catheterization in June 2024. denies nausea, vomiting or diarrhea. Denies abdominal pain. Reports weight loss of 11 pounds since April 2024. Denies upper respiratory infections or known sick contacts. She started cardiac rehab yesterday. Reports pain initiates in her right hand travels up her right arm across to her mid sternum. Symptoms usually begin after dinner, progresses through the night, averaging a total of 3 nitro sublinguals each night. Afebrile, normal WBC. Chest x-ray reported nonacute. Hematology, coagulation panel unremarkable. Sodium 136, potassium 5.5, bicarb 21, BUN 25, creatinine 0.96, mag 2.0, T. bili 1.4, AST 77, ALT 42, alk phos WNL. Troponin 0.053. BNP 1870. EKG reported sinus rhythm with left bundle branch block. 08/09/2024 - the patient is being seen and evaluated for a follow-up. The patient is awake and alert and communicating. She is currently on 3 liters of oxygen by nasal cannula. Patient has had creatinine trending up with low urine output; was started on dopamine renal dose. Creatinine is improving. The patient remains normal sinus rhythm. -The mediastinal chest tube has been removed and the patient continues to have a right and the left pleural chest tube. -White cell count of 12.7, hemoglobin is at 8 and the platelet count is 145. Sodium is at 134 with potassium level of 4 and a BUN of 36 with a creatinine of 1.2. Continue dopamine renal dose; aspirin and Plavix; metoprolol 12.5 mg p.o. twice a day; Amiodarone 400 mg p.o. twice a day; Lipitor 40 mg p.o. daily Keep the chest tube in place for today, chest tube management as per cardiothoracic surgery Objective - Vital Signs Vital signs: Vital Signs Temp 98.3 F 08/09/24 08:00 Pulse 70 08/09/24 08:00 Resp 19 08/09/24 08:00 BP 99/51 08/09/24 08:00 Pulse Ox 99 08/09/24 08:00 FiO2 40 08/06/24 18:00 Intake & Output 08/08/24 08/09/24 08/09/24 18:59 06:59 18:59 Intake Total 1565.483 698 36 Output Total 380 643 85 Balance 1185.483 55 -49 Weight 86.6 kg Intake: IV 792 498 36 0.9 10cc/hr 30 Albumin Human 25% 50 ml 50 In Empty Bag 1 bag @ 50 mls/hr IVPB ONCE ONE Rx#: [id number] Albumin Human 5% 250 ml 250 In Empty Bag 1 bag @ 250 mls/hr IVPB ONCE [facility] Rx#: [id number] Invasive Line 3 30 30 Pressure Bag (0.9 Sodium 72 78 6 Chloride) Sodium Chloride 0.9% 1, 360 390 30 000 ml @ 30 mls/hr IV . Q24H [facility] Rx#:[id number] Intake, IV Titration 7.483 Amount Insulin Regular 100 unit 7.483 In Sodium Chloride 0.9% 100 ml @ Per Protocol IV .Q0M [facility] Rx#:[id number] Oral 766 200 Output: Chest Tube Drainage 230 208 0 Chest Tube Bilateral 0 Mediastinal Chest Tube Left Lateral 150 120 0 Chest Chest Tube Right Lateral 80 88 0 Chest Urine 150 435 85 Other: Voiding Method Indwelling Catheter Indwelling Catheter # Bowel Movements 0 0 ABP, PAP, CO, CI - Last Documented Arterial Blood Pressure 102/34 Pulmonary Artery Pressure 30/10 Cardiac Output 5.2 Cardiac Index 2.9 - Exam GENERAL: WIYOT,Alert and oriented x 3, laying in bed, no acute distress. HEENT: Atraumatic, normocephalic, conjunctivae normal. eyes normal. NECK: Supple,no JVD. CARDIOVASCULAR: S1, S2. regular rate and rhythm. RESPIRATION: Unlabored, equal air entry, essentially clear to auscultation. ABDOMEN: Soft, nondistended, nontender . No guarding. Positive bowel sounds. LEGS: No edema. no swelling. No calf tenderness. NERVOUS SYSTEM: Cranial N 2-12 grossly normal. No focal deficits. Strength and sensation grossly intact. Skin: Warm and dry, no rash. - Labs CBC & Chem 7: 08/09/24 05:55 08/09/24 05:55 Labs: Abnormal Lab Results - Last 24 Hours (Table) 08/08/24 08/08/24 08/08/24 Range/Units 10:10 11:26 17:09 WBC (3.8-10.6) k/uL RBC (3.80-5.40) m/uL Hgb (11.4-16.0) gm/dL Hct (34.0-46.0) % Plt Count (150-450) k/uL Neutrophils # (1.3-7.7) k/uL Sodium (137-145) mmol/L Carbon Dioxide (22-30) mmol/L BUN (7-17) mg/dL Creatinine (0.52-1.04) mg/dL Glucose (74-99) mg/dL POC Glucose (mg/dL) 129 H 120 H 169 H (70-110) mg/dL Total Bilirubin (0.2-1.3) mg/dL AST (14-36) U/L Total Protein (6.3-8.2) g/dL Albumin (3.5-5.0) g/dL 08/08/24 08/08/24 08/09/24 Range/Units 20:51 22:20 02:23 WBC (3.8-10.6) k/uL RBC (3.80-5.40) m/uL Hgb (11.4-16.0) gm/dL Hct (34.0-46.0) % Plt Count (150-450) k/uL Neutrophils # (1.3-7.7) k/uL Sodium (137-145) mmol/L Carbon Dioxide (22-30) mmol/L BUN (7-17) mg/dL Creatinine (0.52-1.04) mg/dL Glucose (74-99) mg/dL POC Glucose (mg/dL) 141 H 139 H 134 H (70-110) mg/dL Total Bilirubin (0.2-1.3) mg/dL AST (14-36) U/L Total Protein (6.3-8.2) g/dL Albumin (3.5-5.0) g/dL 08/09/24 08/09/24 08/09/24 Range/Units 05:55 05:55 07:31 WBC 12.7 H (3.8-10.6) k/uL RBC 2.66 L (3.80-5.40) m/uL Hgb 8.0 L (11.4-16.0) gm/dL Hct 24.9 L (34.0-46.0) % Plt Count 145 L (150-450) k/uL Neutrophils # 9.8 H (1.3-7.7) k/uL Sodium 134 L (137-145) mmol/L Carbon Dioxide 18 L (22-30) mmol/L BUN 36 H (7-17) mg/dL Creatinine 1.27 H (0.52-1.04) mg/dL Glucose 122 H (74-99) mg/dL POC Glucose (mg/dL) 124 H (70-110) mg/dL Total Bilirubin 1.7 H (0.2-1.3) mg/dL AST 39 H (14-36) U/L Total Protein 5.6 L (6.3-8.2) g/dL Albumin 3.3 L (3.5-5.0) g/dL Assessment and Plan Assessment: NSTEMI,in a patient with prior CAD, recent ID with stenting of the mid LAD 05/13/2024. 07/10/2024 cardiac catheterization completed reporting 30% distal left main disease, 70% ostial LAD disease, patent stents in the mid LAD, 70% di ffuse distal LAD disease. 50% ostial and proximal left circumflex disease negative IFR performed on 05/18/2024. Cardiology reported no progression of CAD, comparing to heart cath of 05/18/2024.Per catheterization reports cardiology felt that the LAD intervention was complex and patient would benefit from optimization of cardiac medications and was started on Imdur therapy. If patient fails antianginal and optimize heart failure medication she would be considered for CABG. Acute systolic heart failure Ischemic cardiomyopathy, EF 30 to 35% Moderate mitral regurgitation Mild to moderate aortic regurgitation with mild aortic stenosis Mild tricuspid regurgitation Acute UTI with Klebsiella Hyperbilirubinemia with minimally elevated AST and ALT. History of abnormally thickened endometrium with vascularity concerning for endometrial carcinoma, reported per pelvic/transvaginal ultrasound 05/07/2024. Further outpatient workup in progress. Left bundle branch block Hypertension Hyperlipidemia Morbid obesity, BMI 35, reports 11 pound weight loss since 05/19 Prediabetic, hemoglobin A1c 6.2 (07/21), currently 6.1 Prior nicotine dependence, 1 pack/day x 10 years,quit 1978 Anxiety Depression
[2024-08-09 21:07] LABS: Glucose,Whole Blood 103 mg/dL (70-110)
[2024-08-10 02:14] LABS: Glucose,Whole Blood 111 mg/dL (70-110)
[2024-08-10 05:42] LABS: HCT 23.9 % (34.0-46.0); HGB 7.5 gm/dL (11.4-16.0); Hypochromasia Slight; MCH 29.4 pg (25.0-35.0); MCHC 31.2 g/dL (31.0-37.0); MCV 94.1 fL (80.0-100.0); Mean Platelet Volume 8.3; Platelet Count 179 k/uL (150-450); RBC 2.53 m/uL (3.80-5.40); RDW 15.5 % (11.5-15.5); WBC 10.3 k/uL (3.8-10.6)
[2024-08-10 05:57] LABS: African American GFR (CKD) >90 (>60 ml/min/1.73 sqM); Anion Gap 6 mmol/L; Blood Urea Nitrogen 32 mg/dL (7-17); Calcium 8.4 mg/dL (8.4-10.2); Carbon Dioxide 21 mmol/L (22-30); Chloride 108 mmol/L (98-107); Glucose 97 mg/dL (74-99); Magnesium 2.2 mg/dL (1.6-2.3); Non-African American GFR(CKD) 81 (>60 ml/min/1.73 sqM); Potassium 4.1 mmol/L (3.5-5.1); Sodium 135 mmol/L (137-145)
[2024-08-10] MEDS: FUROSEMIDE 10 MG/ML 2 ML VIAL IV ONE (09:42)
--- NOTE | 2024-08-10 09:44 | P.PN ---
Subjective Progress Note Date: 08/10/24 The patient is 74-year-old female who is currently admitted after undergoing off-pump coronary bypass times 1. Postoperatively patient has been hypotensive. Patient was interviewed sitting up in the recliner chair. She is currently breathing comfortably. No acute distress. Patient states chest tubes will be removed today by CV surgery. She states she is fatigued, but did not develop any dizziness or lightheadedness when ambulating to the chair. GENERAL: Ill-appearing, well-nourished and in no acute distress. Pale. NECK: Supple without JVD or thyromegaly. LUNGS: Breath sounds clear to auscultation bilaterally. Respiration equal and unlabored. No wheezes, rales or rhonchi. HEART: Regular rate and rhythm without murmurs, rubs or gallops. S1 and S2 heard. Heart hugger in place EXTREMITIES: Normal range of motion, no edema. No clubbing or cyanosis. Peripheral pulses intact and strong. TELEMETRY: Sinus rhythm overnight LABS: WBC 10.3, hemoglobin 7.5, hematocrit 23.9, platelet 179, sodium 135, potassium 4.1, BUN 32, creatinine 0.73, magnesium 2.2 IMPRESSION: Coronary artery disease Status post coronary bypass x1 Ischemic cardiomyopathy, EF 30-35 Mitral regurgitation Left carotid atherosclerosis Left bundle branch block Postoperative hypotension Postoperative anemia PLAN: Continue supportive treatment aggressive pulmonary hygiene Chest tubes to be discontinued later today Further recommendations to be based upon clinical course I am dictating on behalf of Dr Simon Hilario's history/physical and assessment/plan. Objective - Vital Signs Vital signs: Vital Signs Temp 98.2 F 08/10/24 08:00 Pulse 66 08/10/24 09:13 Resp 24 08/10/24 09:00 BP 105/76 08/10/24 09:00 Pulse Ox 100 08/10/24 09:00 FiO2 40 08/06/24 18:00 Intake & Output 08/09/24 08/10/24 08/10/24 18:59 06:59 18:59 Intake Total 1529 426 234 Output Total 955 645 230 Balance 574 -219 4 Weight 86.4 kg Intake: IV 462 426 118 Invasive Line 3 30 30 10 Pressure Bag (0.9 Sodium 72 66 18 Chloride) Sodium Chloride 0.9% 1, 360 330 90 000 ml @ 30 mls/hr IV . Q24H [facility] Rx#:[id number] Oral 1067 116 Output: Chest Tube Drainage 310 40 20 Chest Tube Left Lateral 160 10 10 Chest Chest Tube Right Lateral 150 30 10 Chest Urine 645 605 210 Other: Voiding Method Indwelling Catheter Indwelling Catheter # Bowel Movements 1 ABP, PAP, CO, CI - Last Documented Arterial Blood Pressure 103/103 Pulmonary Artery Pressure 30/10 Cardiac Output 5.2 Cardiac Index 2.9 - Labs CBC & Chem 7: 08/10/24 05:34 08/10/24 05:34 Labs: Abnormal Lab Results - Last 24 Hours (Table) 08/09/24 08/10/24 08/10/24 Range/Units 11:01 02:13 05:34 RBC 2.53 L (3.80-5.40) m/uL Hgb 7.5 L (11.4-16.0) gm/dL Hct 23.9 L (34.0-46.0) % Sodium (137-145) mmol/L Chloride (98-107) mmol/L Carbon Dioxide (22-30) mmol/L BUN (7-17) mg/dL POC Glucose (mg/dL) 155 H 111 H (70-110) mg/dL 08/10/24 Range/Units 05:34 RBC (3.80-5.40) m/uL Hgb (11.4-16.0) gm/dL Hct (34.0-46.0) % Sodium 135 L (137-145) mmol/L Chloride 108 H (98-107) mmol/L Carbon Dioxide 21 L (22-30) mmol/L BUN 32 H (7-17) mg/dL POC Glucose (mg/dL) (70-110) mg/dL
--- NOTE | 2024-08-10 09:48 | XR ---
EXAMINATION TYPE: XR chest 1V portable DATE OF EXAM: 08/10/2024 4:16 AM COMPARISON: 08/09/2024 CLINICAL INDICATION: Female, 74 years old with history of Post open heart, TECHNIQUE: XR chest 1V portable views of the chest are obtained. FINDINGS: Demonstrated are scattered senescent parenchymal change. Left-sided chest tube unchanged in position. No sizable pneumothorax present. Right IJ sheath noted t o be in place. Right perihilar opacity may be slightly improved and could reflect atelectasis and/or infiltrate. Postoperative changes of CABG. The heart is stable. Hilar and mediastinal structures are within normal limits. Degenerative changes are seen of the dorsal spine. IMPRESSION: 1. Left-sided chest tube unchanged in position. No sizable pneumothorax present. Right IJ sheath not ed to be in place. Right perihilar opacity may be slightly improved and could reflect atelectasis and /or infiltrate. [facility], , 08/10/2024 9:46 AM
--- NOTE | 2024-08-10 10:51 | P.PN ---
Subjective Progress Note Date: 08/10/24 Principal diagnosis: Coronary artery disease, non-ST elevated myocardial infarction this admission, very dynamic mitral valve regurgitation. Previuos medical history of coronary ar abena disease with non-STEMI and PCI to her LAD in April 2024, ischemic cardiomyopathy, hypertension, hyperlipidemia, hypothyroid, known left bundle branch block, hard of hearing, obesity, mild restrictive lung disease, previous tobacco dependence with cessation over 40 years ago, and recent vaginal bleeding being followed by [facility]. Preoperative nasal swab positive for MSSA, preoperative urinary tract infection with Klebsiella, preoperative transaminitis, left internal carotid artery stenosis POD #4 off pump single-vessel coronary artery bypass grafting using the in situ left internal mammary artery to the left anterior descending artery, exclusion of the left atrial appendage using a 35mm AtriClip, endoscopic harvesting of the left thigh greater saphenous vein that was not used, graft flow measurement using the [employer] system, intraoperative transesophageal echocardiogram and epiaortic scanning Postoperative acute blood loss anemia and thrombocytopenia, expected given hemodilution Endobronchial hemorrhage with retained blood clots, status post flexible bronchoscopy with removal of blood clots The patient was seen and examined in follow-up today August 10, 2024 at her bedside in the intensive care unit. She is currently sitting up to the bedside chair, is awake, alert, oriented x 3 and is in no acute apparent distress. She remains hemodynamically stable although is on dopamine drip renal dose at 2.5 mcg/kg/min For renal perfusion. She denies any complaints of shortness of breath at this time, although does have some complaints intermittently of some surgical type pain to her chest tube insertion sites. Oxygen saturations are 97% on 2 L nasal cannula and she is achieving 750 mL on her incentive spirometry with encouragement. Left IJ cordis remains in place with continuous CVP monitoring, current CVP pressure 5 mmHg. Left and right pleural chest tubes remain in place to low continuous wall suction -20 cm H2O. No airleak is present. Draining thin serosanguineous drainage. Left pleural chest tube drained 10 mL output in the last 8 hours and 150 mL output in the last 24 hours, right pleural chest tube draining 30 mL output in the last 8 hours and 190 mL output in the last 24 hours. Laboratory and chest x-ray results were reviewed. The patient has been up ambulating in the intensive care unit hallway with standby assistance. Objective - Vital Signs Vital signs: Vital Signs Temp 98.5 F 08/10/24 04:00 Pulse 67 08/10/24 07:00 Resp 28 H 08/10/24 07:00 BP 104/48 08/10/24 07:00 Pulse Ox 98 08/10/24 07:00 FiO2 40 08/06/24 18:00 Intake & Output 08/09/24 08/10/24 08/10/24 18:59 06:59 18:59 Intake Total 1529 426 36 Output Total 955 645 35 Balance 574 -219 1 Weight 86.4 kg Intake: IV 462 426 36 Invasive Line 3 30 30 Pressure Bag (0.9 Sodium 72 66 6 Chloride) Sodium Chloride 0.9% 1, 360 330 30 000 ml @ 30 mls/hr IV . Q24H [facility] Rx#:[id number] Oral 1067 Output: Chest Tube Drainage 310 40 Chest Tube Left Lateral 160 10 Chest Chest Tube Right Lateral 150 30 Chest Urine 645 605 35 Other: Voiding Method Indwelling Catheter Indwelling Catheter # Bowel Movements 1 ABP, PAP, CO, CI - Last Documented Arterial Blood Pressure 103/103 Pulmonary Artery Pressure 30/10 Cardiac Output 5.2 Cardiac Index 2.9 - Exam CONSTITUTIONAL: Appears comfortable, cooperative, no acute distress RESPIRATORY: Lungs sounds diminished in the bases bilaterally. Respirations even, nonlabored. Currently on 2 L nasal cannula with oxygen saturation 97%. Able to achieve 750 mL on incentive spirometry. Strong nonproductive cough. CARDIOVASCULAR: S1, S2 present. Regular rate and rhythm, sinus rhythm on telemetry. Sternum stable. Palpable peripheral pulses bilaterally. Trace generalized edema present. No calf pain or tenderness noted. Heart hugger in place with patient demonstrating appropriate use. Antiembolism stockings, SCDs present. GASTROINTESTINAL: Abdomen soft, nontender, nondistended. Active bowel sounds present 4 quadrants. Tolerating diet. Passing flatus GENITOURINARY: Lomeli present draining clear, yellow urine. Urine output 430 mL in the last 8 hours. INTEGUMENTARY: Skin is warm and dry with evidence of good perfusion. Midline sternal incision well approximated and covered with dry intact dressing. Left lower extremity EVH site well approximated without redness or drainage. NEUROLOGIC: Cranial nerves II through XII intact. No focal deficits. MUSKULOSKELETAL: Able to move all extremities, strength equal bilaterally, gait normal. PSYCHIATRIC: Alert and oriented to person place and time, appropriate affect, intact judgment and insight. INVASIVE LINES AND TUBES: Left/right pleural chest tubes present and connected to low continuous wall suction, no air leaks present. Left pleural chest tube with 10 mL serosanguineous drainage overnight, 150 mL in the last 24 hours. Right pleural chest tube with 30 mL serosanguineous drainage overnight, 190 mL in the last 24 hours. Left internal jugular cordis, right radial arterial line present. Last CVP 5 millimeters of mercury. - Allied health notes Allied health notes reviewed: nursing - Labs CBC & Chem 7: 08/10/24 05:34 08/10/24 05:34 Labs: Abnormal Lab Results - Last 24 Hours (Table) 08/09/24 08/10/24 08/10/24 Range/Units 11:01 02:13 05:34 RBC 2.53 L (3.80-5.40) m/uL Hgb 7.5 L (11.4-16.0) gm/dL Hct 23.9 L (34.0-46.0) % Sodium (137-145) mmol/L Chloride (98-107) mmol/L Carbon Dioxide (22-30) mmol/L BUN (7-17) mg/dL POC Glucose (mg/dL) 155 H 111 H (70-110) mg/dL 08/10/24 Range/Units 05:34 RBC (3.80-5.40) m/uL Hgb (11.4-16.0) gm/dL Hct (34.0-46.0) % Sodium 135 L (137-145) mmol/L Chloride 108 H (98-107) mmol/L Carbon Dioxide 21 L (22-30) mmol/L BUN 32 H (7-17) mg/dL POC Glucose (mg/dL) (70-110) mg/dL - Imaging and Cardiology Chest x-ray: report reviewed, image reviewed Assessment and Plan Assessment: Coronary artery disease with history of a previous PCI to her LAD in April 2024 Non-ST elevated myocardial infarction this admission Chest pain with radiating pain to her right arm, likely secondary to above Ischemic cardiomyopathy with an ejection fraction of 30 to 35% on most recent transthoracic 2D echocardiogram Acute systolic heart failure with a proBNP of 1870 Transaminitis, resolving Left bundle branch block Hypertension Hyperlipidemia Hypothyroidism Recent vaginal bleeding starting in March 2024, most recent episode of bleeding was today July 30, 2024, April 2024 the patient was having complaints of vaginal bleeding and underwent a ultrasound of her pelvis, complete transvaginal with findings revealing an abnormally thickened endomet rium with vascularity concerning for endometrial carcinoma, further follow-up was recommended Obesity with a BMI of 35.2 kg/m Remote history of nicotine dependence quit smoking over 40 years ago Hard of hearing Plan: Continue to maximize medical therapy with aspirin, statin, Plavix, and beta- apolonia. Will increase beta-apolonia therapy as tolerated. Continue amiodarone for atrial fibrillation prophylaxis. Patient has had no atrial fibrillation up to this point. Wean oxygen as tolerated. Encourage incentive spirometry use 10 times every hour while awake. Bronchodilators per pulmonology. Increase activity, ambulate as tolerated. PT/OT/cardiac rehab following. Will monitor daily labs and chest x-rays, electrolyte replacement per protocol. Will give 20 mg IV push Lasix today. GI/DVT prophylaxis. Insulin management per internal medicine. Patient is not diabetic, preoperative hemoglobin A1c 6.1%. Pain control per current medication regimen. Discontinue dopamine drip. Remove Cordis this afternoon. We will remove her left and right pleural chest tubes today. Remove Lomeli catheter for another 24 hours, continue to monitor record strict accurate intake and output. May bladder scan every 6 hours and as needed postvoid residual if greater than 300 mL of urine may straight cath. We will likely transfer her to the third floor cardiac stepdown unit later today for further rehab and monitoring. More recommendations to follow per patient's clinical course. Time with Patient: Greater than 30
[2024-08-10 11:20] LABS: Glucose,Whole Blood 107 mg/dL (70-110)
--- NOTE | 2024-08-10 13:09 | P.PN ---
Subjective Progress Note Date: 08/10/24 Principal diagnosis: POD #4 off pump single-vessel coronary artery bypass grafting using the in situ left internal mammary artery to the left anterior descending artery, exclusion of the left atrial appendage using a 35mm AtriClip, endoscopic harvesting of the left thigh greater saphenous vein that was not used, graft flow measurement using the [employer] system, intraoperative transesophageal echocardiogram and epiaortic scanning On 08/06/2024, the patient is being seen in the intensive care unit following her bypass surgery. Noted the patient underwent off-pump single-vessel bypass surgery with EVANS to LAD. The patient also underwent a left atrial appendage exclusion. Noted intraoperatively, the patient encountered increased hemoptysis and a total of 200 cc of blood was aspirated through the orotracheal tube. This was a complication related to the [place]-Karen catheter as the catheter was withdrawn later on. The chest x-ray shows an area of consolidation in the right lower lobe which is probably an area of intraparenchymal hemorrhage. After arriving to the intensive care unit, the patient was seen and evaluated. The patient was assist-control mode of mechanical ventilation at rate of 14, tidal volume of 400, FiO2 50% with a PEEP of 10. Blood gases showed a pH of 7.24 with a pCO2 of 52 and pO2 of 82. Based on that, the respiratory rate was increased up to 24. The hemodynamic parameters showed a cardiac output of 5 and an index of 2.8. PA pressures were 34/22. The patient was on milrinone running at 0.2 mcg/kg/h, nitroglycerin drip at 5 mcg/min and norepinephrine at 0.11 mcg/kg/min. The patient is also on normal citrate of 75 cc an hour and insulin drip at the rate of 3.5 units an hour. Cardiac rhythm was sinus. Discussed the case with c ardiothoracic surgery. Performed a bedside bronchoscopy on this patient and copious amount of blood clots were aspirated from the airway. The completion of the bronchoscopy, the patient had no residual blood clots and full airway patency was established. Subsequently, the patient started having loss and volume, and the return tidal volumes were low and the patient had difficulties in maintaining the pressure in her orotracheal tube cuff. Based on that, I remove the orotracheal tube and replaced it by #8. Intubation was done in the intensive care unit. During the process, the patient had no significant hemodynamic instability. For now, the patient has a right pleural and left lower chest tube and mediastinal chest tube. No evidence of any air leak. Chest x-ray shows no evidence of any pneumothorax. Reviewed the series of x- rays done specially the 1 that was done post reintubation. ET tube was seen around 3 cm above the jereime. The [place]-Karen catheter was projecting and approp riate location. Drainage tubes were in place. The blood work that was done postop showed a hemoglobin of 9.3, platelet count of 120, and the most recent blood gas showed a pH of 7.37 with pCO2 of 36 and pO2 of 134 and this was done FiO2 of 50%. The patient remains sedated on propofol. Cardiac rhythm is sinus. On today's evaluation of 08/07/2024, the patient is being seen for a follow-up. The patient was weaned off mechanical ventilator and the patient was extubated today without any major difficulties. This morning, she is sitting up in a chair and she is calm and comfortable and denies having any specific complaints. She is currently on 2 L of oxygen by nasal cannula. The patient is currently off milrinone. The cardiac output Is at 4.5 with an index of 2.5. PA pressures are 24/10 and a CVP is at 6. The patient has mediastinal chest tube x 2, left pleural and right pleural chest tube. Mediastinal chest tube is produced 90 cc over the past 8 hours) since surgery. Left pleural tube has produced 125 cc overnight) 50 cc since surgery. Right lower chest tube is produced 70 cc over the past 8 hours and 150 cc overnight. The cardiac rhythm is sinus. Urine output is adequate. There is an order of 30 cc an hour. The patient remains on insulin drip at 2.5 units an hour. No other significant events overnight. In terms of the labs, the patient's blood work showed a hemoglobin of 9.4, white cell count of 10.5, platelet count of 131. The BUN is 21 with a creatinine 1.0 7. Electrolytes are all stable. Serum bicarb is at 18. LFTs are normal. No other significant events overnight. On 08/08/2024, the patient is being seen for a follow-up. The patient is post single-vessel bypass surgery. The patient is currently on 3 Suboxone by nasal cannula. Cardiac rhythm is sinus. Urine output is in order of 5 to 25 cc an hour. The patient was given 40 mg IV Lasix x 1. She is awake and alert. Chest tubes are still in place. The follow-up chest x-ray from today shows evidence of area of consolidation in the right mid/lower lung area which is representation of a pulmonary hemorrhage that occurred at time of surgery. Chest tubes are still in place. Blood work from today shows a white cell count of 14.3, hemoglobin 7.8 and a platelet count of 112. Sodium is at 132, BUN 23 creatinine is 1.5. Potassium level is at 4.0. Serum bicarb is at 19. The patient sustained an acute kidney injury. Note that she has been treated for a Klebsiella urinary tract infection preoperatively. For now, the patient is on metoprolol 12.5 mg p.o. twice a day. She is on aspirin. She is on Plavix. She is on amiodarone 4 mg p.o. twice a day. She remains on insulin drip for blood sugar control. On 08/09/2024, the patient is being seen for a follow-up. The patient is awake and alert and communicating. She is currently on 3 days of oxygen by nasal cannula. She did sustain acute kidney injury and diminished urine output. Based on that, the patient was started on dopamine renal dose. Creatinine is improving. The patient remains normal sinus rhythm. The fluid balance is +1.2 L over the past 24 hours. The mediastinal chest tube has been removed and the patient continues to have a right and the left pleural chest tube. Sitting up in a chair she is calm and comfortable. White cell count of 12.7, hemoglobin is at 8 and the platelet count is 145. Sodium is at 134 with potassium level of 4 and a BUN of 36 with a creatinine of 1.2. Rest of the medications were all reviewed. She is using the incentive spirometer. Some soreness in her chest related to previous thoracotomy. The patient is currently on Lantus insulin 10 units daily & scale insulin coverage. Patient was seen today on 08/10/2024, patient remains in the ICU, on room air, does not seem to be in any distress. IV fluids at 30 cc/h. Patient is not requiring any inotropes or any pressors, continues to have right lower lobe opacity most likely related to her last episode of hemoptysis. Patient is clinically improving. Labs showed WBC of 10.3 hemoglobin 7.5 electrolytes are normal renal profile is normal blood sugar is 107. Chest x-ray continues to have left-sided chest tube in place, no pneumothorax, right perihilar opacity slightly improving but persists Objective - Vital Signs Vital signs: Vital Signs Temp 98.2 F 08/10/24 08:00 Pulse 62 08/10/24 12:41 Resp 24 08/10/24 09:00 BP 105/76 08/10/24 09:00 Pulse Ox 100 08/10/24 09:00 FiO2 40 08/06/24 18:00 Intake & Output 08/09/24 08/10/24 08/10/24 18:59 06:59 18:59 Intake Total 1529 426 234 Output Total 955 645 230 Balance 574 -219 4 Weight 86.4 kg Intake: IV 462 426 118 Invasive Line 3 30 30 10 Pressure Bag (0.9 Sodium 72 66 18 Chloride) Sodium Chloride 0.9% 1, 360 330 90 000 ml @ 30 mls/hr IV . [facility]H [facility] Rx#:[id number] Oral 1067 116 Output: Chest Tube Drainage 310 40 20 Chest Tube Left Lateral 160 10 10 Chest Chest Tube Right Lateral 150 30 10 Chest Urine 645 605 210 Other: Voiding Method Indwelling Catheter Indwelling Catheter # Bowel Movements 1 ABP, PAP, CO, CI - Last Documented Arterial Blood Pressure 103/103 Pulmonary Artery Pressure 30/10 Cardiac Output 5.2 Cardiac Index 2.9 - Exam GENERAL: Revealed a 74-year-old female in no distress, on room air, HEENT: Atraumatic, normocephalic, conjunctivae normal. eyes normal. NECK: Supple,no JVD. No neck masses, no stridor. CARDIOVASCULAR: Distant S1-S2, no S3 gallop. RESPIRATION: Clear bilaterally no crackles rhonchi or wheezes. ABDOMEN: Obese soft nontender no MAG no rebound no guarding LEGS: No clubbing edema or cyanosis NERVOUS SYSTEM: Alert oriented x 3 no gross focal deficit Skin: No rashes - Labs CBC & Chem 7: 08/10/24 05:34 08/10/24 05:34 Labs: Abnormal Lab Results - Last 24 Hours (Table) 08/10/24 08/10/24 08/10/24 Range/Units 02:13 05:34 05:34 RBC 2.53 L (3.80-5.40) m/uL Hgb 7.5 L (11.4-16.0) gm/dL Hct 23.9 L (34.0-46.0) % Sodium 135 L (137-145) mmol/L Chloride 108 H (98-107) mmol/L Carbon Dioxide 21 L (22-30) mmol/L BUN 32 H (7-17) mg/dL POC Glucose (mg/dL) 111 H (70-110) mg/dL Assessment and Plan Assessment: Impression: status post off-pump single-vessel bypass surgery with EVANS to LAD. The patient is currently postop day #4 the patient is hemodynamically stable and the patient is currently off pressors. Right lung parenchymal hemorrhage involving the right lower lobe in addition to hemoptysis and endobronchial hemorrhage, most likely a complication of [place]-Karen catheter and the catheter has been repositioned. Bronchoscopy was also done with evacuation of copious amount of residual blood clots retained in the patient's airways. Chest x-ray findings are unchanged Acute kidney injury with oliguria, responded to dopamine Acute urinary tract infection, treated with Rocephin, resolved Ischemic cardiomyopathy with EF 30-35% on TTE 07/29/24, preserved LV systolic function on WILLAM 07/31/24 Hypertension Hyperlipidemia, treated, cholesterol 112, LDL 56.5 Hypothyroid, Left bundle branch block Ex-smoker Recommendation: Continue incentive spirometry Continue ambulation in the hallway Continue to monitor labs on a daily basis Continue aspirin Plavix metoprolol and amiodarone as well as statin Chest tube remains in place, managed by cardiothoracic surgery Could consider transferring the patient out of the ICU to a monitored bed and selective Will continue to follow Time with Patient: Less than 30
[2024-08-10] MEDS: ACETAMINOPHEN TAB 500 MG TAB PO PRN (13:45)
[2024-08-10] MEDS: SODIUM CHLORIDE 0.9% 1,000 ML IV SCH (15:18)
[2024-08-10] MEDS: ALBUMIN HUMAN 5% 250 ML in EMPTY BAG 1 BAG IVPB ONE (15:18)
[2024-08-10 16:39] LABS: Glucose,Whole Blood 105 mg/dL (70-110)
[2024-08-10 21:21] LABS: Glucose,Whole Blood 114 mg/dL (70-110)
--- NOTE | 2024-08-10 22:49 | P.PN ---
Subjective Progress Note Date: 08/07/24 Chief Complaint: Chest pain This is a 74-year-old female with past medical history significant for CAD, ischemic cardiomyopathy, recent NSTEMI with stenting of the mid LAD 05/13/2024 followed by cardiac catheterization on 07/10/2024 reporting no progression of disease with medical therapy maximized, left bundle branch block ,hypertension, hyperlipidemia, morbid obesity, prediabetic with hemoglobin A1c of 6.2 (07/21), hypothyroidism, prior nicotine dependence, and multiple other medical issues presented to the ER with complaints of radiating midsternal chest pain accompanied by diaphoresis and shortness of breath over the last 2 to 3 nights in a row. Admits to fluctuating chest pain since April 2024 as well as her last catheterization in June 2024. denies nausea, vomiting or diarrhea. Denies abdominal pain. Reports weight loss of 11 pounds since April 2024. De nies upper respiratory infections or known sick contacts. She started cardiac rehab yesterday. Reports pain initiates in her right hand travels up her right arm across to her mid sternum. Symptoms usually begin after dinner, progresses through the night, averaging a total of 3 nitro sublinguals each night. Afebrile, normal WBC. Chest x-ray reported nonacute. Hematology, coagulation panel unremarkable. Sodium 136, potassium 5.5, bicarb 21, BUN 25, creatinine 0.96, mag 2.0, T. bili 1.4, AST 77, ALT 42, alk phos WNL. Troponin 0.053. BNP 1870. EKG reported sinus rhythm with left bundle branch block. Anticoagulated on IV heparin drip. Echo ordered. 07/30/2024 serial enzymes 0.053, 0.033, 0.193.Echo reported severely impaired low ventricular systolic function, EF 30 to 35%, moderate mitral regurgitation, mild to moderate aortic regurgitation with mild aortic stenosis, mild tricuspid regurgitation. Reported she had another episode of right arm pain radiating up to midsternal chest pain during the night starting around 10:00, received morphine, pain subsided but developed nausea. Maintained on heparin drip., CTS consult recently placed, evaluation pending. 07/31/2024 patient was seen resting comfortably in bed with at bedside had a conversation with Dr. Kirby of cardiothoracic surgery and Dr. [facility] regarding her care is determined that we would undergo a nuclear stress test to determine if there is any exercise-induced ischemia. If there was then would proceed with further intervention she is okay with this plan she denies any shortness of breath she had minimum chest pain last evening she is currently on Imdur which has diminished her angina. 08/03/2024 patient seen today resting comfortably all test were discussed with patient cardiothoracic surgery has recommended revascularization procedure coronary artery bypass graft which will be done midweek. She continues on heparin, Plavix is on hold 5 to 7 days prior to surgery cardiology continues to follow patient remains on Imdur. 08/04/2024 maintained on ceftriaxone for UTI with Klebsiella. Afebrile, normal WBC. Plavix remains on hold. Scheduled for CABG on . Reports she did have a chest pain episode during the night, continues on Imdur with Ranexa dose increased as per cardiology. 08/05/2024 anticoagulated on heparin drip .reports another episode of chest pain during the night, relieved with sublingual nitro. Currently denies chest pain, palpitations or shortness of breath. Telemetry sinus rhythm. Tolerating diet, denies nausea, vomiting. Reports bowel movement yesterday scheduled for CABG tomorrow. Continues on ceftriaxone for Klebsiella UTI. UA repeated, reporting large blood, negative nitrates, small leukocytes, rare bacteria. 08/06/2024 pt going for surgery today for coronary artery bypass graft. 08/07/2024 patient is seen today first day postop coronary artery bypass graft patient has discomfort with chest tubes anterior chest wall with deep inspi rations. She continues to have 100% ICU support from cardiothoracic surgery cardiology pulmonary critical care will continue to follow patient's progress until she is released to the floors Objective - Vital Signs Vital signs: Vital Signs Temp 98.1 F 08/04/24 20:07 Pulse 75 08/05/24 04:20 Resp 17 08/05/24 04:20 BP 115/79 08/05/24 04:20 Pulse Ox 95 08/05/24 04:20 FiO2 Intake & Output 08/04/24 08/05/24 08/05/24 18:59 06:59 18:59 Intake Total 50 240 Output Total 200 Balance 50 -200 240 Weight 84 kg Intake: Intake, IV Titration 50 Amount cefTRIAXone 1 gm In 50 Sodium Chloride 0.9% 50 ml @ 100 mls/hr IVPB Q24HR [facility] Rx#:[id number] Oral 240 Output: Urine 200 Other: Voiding Method Toilet Toilet - Exam VITAL SIGNS: [Reviewed] GENERAL: [place],Alert and oriented x 3, laying in bed, no acute distress. HEENT: Atraumatic, normocephalic, conjunctivae normal. eyes normal. NECK: Supple,no JVD. CARDIOVASCULAR: S1, S2. regular rate and rhythm. RESPIRATION: Unlabored, equal air entry, essentially clear to auscultation. ABDOMEN: Soft, nondistended, nontender . No guarding. Positive bowel sounds. LEGS: No edema. no swelling. No calf tenderness. NERVOUS SYSTEM: Cranial N 2-12 grossly normal. No focal deficits. Strength and sensation grossly intact. Skin: Warm and dry, no rash. - Labs CBC & Chem 7: 08/05/24 05:54 08/05/24 05:54 Labs: Abnormal Lab Results - Last 24 Hours (Table) 08/05/24 08/05/24 08/05/24 Range/Units 00:12 05:54 05:54 Hgb 11.1 L (11.4-16.0) gm/dL MCHC 30.1 L (31.0-37.0) g/dL APTT (22.0-30.0) sec BUN 20 H (7-17) mg/dL AST 57 H (14-36) U/L ALT 41 H (4-34) U/L Alkaline Phosphatase 131 H (38-126) U/L Urine Appearance Cloudy H (Clear) Urine Protein 1+ H (Negative) Urine Blood Large H (Negative) Ur Leukocyte Esterase Small H (Negative) Urine RBC >182 H (0-5) /hpf Urine WBC 47 H (0-5) /hpf Urine Bacteria Rare H (None) /hpf Hyaline Casts 10 H (0-2) /lpf Urine Mucus Rare H (None) /hpf 08/05/24 Range/Units 05:54 Hgb (11.4-16.0) gm/dL MCHC (31.0-37.0) g/dL APTT 50.2 H (22.0-30.0) sec BUN (7-17) mg/dL AST (14-36) U/L ALT (4-34) U/L Alkaline Phosphatase (38-126) U/L Urine Appearance (Clear) Urine Protein (Negative) Urine Blood (Negative) Ur Leukocyte Esterase (Negative) Urine RBC (0-5) /hpf Urine WBC (0-5) /hpf Urine Bacteria (None) /hpf Hyaline Casts (0-2) /lpf Urine Mucus (None) /hpf Assessment and Plan Assessment: NSTEMI,in a patient with prior CAD, recent [place] with stenting of the mid LAD 05/13/2024. 07/10/2024 cardiac catheterization completed reporting 30% distal left main disease, 70% ostial LAD disease, patent stents in the mid LAD, 70% diffuse distal LAD disease. 50% ostial and proximal left circumflex disease negative IFR performed on 05/18/2024. Cardiology reported no progression of CAD, comparing to heart cath of 05/18/2024.Per catheterization reports cardiology felt that the LAD intervention was complex and patient would benefit from optimization of cardiac medications and was started on Imdur therapy. If patient fails antianginal and optimize heart failure medication she would be considered for CABG. Acute systolic heart failure Ischemic cardiomyopathy, EF 30 to 35% Moderate mitral regurgitation Mild to moderate aortic regurgitation with mild aortic stenosis Mild tricuspid regurgitation Acute UTI with Klebsiella Hyperbilirubinemia with minimally elevated AST and ALT. History of abnormally thickened endometrium with vascularity concerning for endometrial carcinoma, reported per pelvic/transvaginal ultrasound 05/07/2024. Further outpatient workup in progress. Left bundle branch block Hypertension Hyperlipidemia Morbid obesity, BMI 35, reports 11 pound weight loss since 05/19 Prediabetic, hemoglobin A1c 6.2 (07/21), currently 6.1 Prior nicotine dependence, 1 pack/day x 10 years,quit 1978 Anxiety Depression Plan: Continue on current medication regimen ,monitoring and symptomatic treatment. Maintain ceftriaxone for UTI. CABG scheduled for tomorrow, August 07, 2024. Plavix remains on hold. anticoagulation with heparin drip. Aggressive pulmonary toileting with incentive spirometer reinforced. Objective - Vital Signs Vital signs: Vital Signs Temp 98.3 F 08/07/24 16:00 Pulse 87 08/07/24 20:41 Resp 24 08/07/24 20:00 BP 101/45 08/07/24 20:00 Pulse Ox 96 08/07/24 20:00 FiO2 40 08/06/24 18:00 Intake & Output 08/07/24 08/07/24 08/08/24 06:59 18:59 06:59 Intake Total 6143.274 3786.293 536 Output Total 915 498 10 Balance 99.227 2035.293 526 Weight 86.3 kg 86.3 kg Intake: IV 1004.8 1443.9 36 ACETAMINOPHEN IV (For NPO 100 ) 1,000 mg In Empty Bag 1 bag @ 400 mls/hr IVPB Q6HR [facility] Rx#:[id number] Albumin Human 5% 250 ml 750 In Empty Bag 1 bag @ 250 mls/hr IVPB Q1HR [facility] Rx#: [id number] Cardiac Output (0.9 120 80 Sodium chloride) Invasive Line 3 30 40 Milrinone-D5w Pmx 20 mg 28.8 2.4 In Dextrose/Water 1 100ml .bag @ Per Protocol IV . Q0M [facility] Rx#:[id number] Nitroglycerin-D5w Pmx 50 18.0 1.5 mg In Dextrose/Water 1 250ml.bag @ 5 MCG/MIN 1.5 mls/hr IV .Q24H [facility] Rx#: [id number] Pressure Bag (0.9 Sodium 108 90 6 Chloride) Sodium Chloride 0.9% 1, 600 480 30 000 ml @ 30 mls/hr IV . Q24H [facility] Rx#:[id number] Intake, IV Titration 9.427 89.393 0 Amount Insulin Regular 100 unit 9.427 17.541 0 In Sodium Chloride 0.9% 100 ml @ Per Protocol IV .Q0M [facility] Rx#:[id number] Milrinone-D5w Pmx 20 mg 42.202 In Dextrose/Water 1 100ml .bag @ 0.1 MCG/KG/MIN 2. 43 mls/hr IV .Q24H [facility] Rx #:[id number] Nitroglycerin-D5w Pmx 50 29.65 mg In Dextrose/Water 1 250ml.bag @ 5 MCG/MIN 1.5 mls/hr IV .Q24H [facility] Rx#: [id number] Oral 1000 500 Output: Chest Tube Drainage 500 228 Chest Tube Bilateral 190 80 Mediastinal Chest Tube Left Lateral 210 80 Chest Chest Tube Right Lateral 100 68 Chest Drainage 40 Left Calf 40 Urine 375 270 10 Other: Voiding Method Indwelling Catheter Indwelling Catheter ABP, PAP, CO, CI - Last Documented Arterial Blood Pressure 102/36 Pulmonary Artery Pressure 30/10 Cardiac Output 5.2 Cardiac Index 2.9 - Labs CBC & Chem 7: 08/10/24 05:34 08/10/24 05:34 Labs: Abnormal Lab Results - Last 24 Hours (Table) 08/05/24 08/06/24 08/06/24 Range/Units 05:54 22:28 23:16 WBC (3.8-10.6) k/uL RBC (3.80-5.40) m/uL Hgb (11.4-16.0) gm/dL Hct (34.0-46.0) % Plt Count (150-450) k/uL Neutrophils # (1.3-7.7) k/uL Carbon Dioxide (22-30) mmol/L BUN (7-17) mg/dL Creatinine (0.52-1.04) mg/dL Glucose (74-99) mg/dL POC Glucose (mg/dL) 116 H 115 H (70-110) mg/dL AST (14-36) U/L Total Protein (6.3-8.2) g/dL Albumin (3.5-5.0) g/dL Crossmatch See Detail 08/07/24 08/07/24 08/07/24 Range/Units 00:21 01:18 03:39 WBC (3.8-10.6) k/uL RBC (3.80-5.40) m/uL Hgb (11.4-16.0) gm/dL Hct (34.0-46.0) % Plt Count (150-450) k/uL Neutrophils # (1.3-7.7) k/uL Carbon Dioxide (22-30) mmol/L BUN (7-17) mg/dL Creatinine (0.52-1.04) mg/dL Glucose (74-99) mg/dL POC Glucose (mg/dL) 119 H 115 H 122 H (70-110) mg/dL AST (14-36) U/L Total Protein (6.3-8.2) g/dL Albumin (3.5-5.0) g/dL Crossmatch 08/07/24 08/07/24 08/07/24 Range/Units 04:10 04:10 06:36 WBC 10.8 H (3.8-10.6) k/uL RBC 3.23 L (3.80-5.40) m/uL Hgb 9.4 L (11.4-16.0) gm/dL Hct 30.1 L (34.0-46.0) % Plt Count 131 L (150-450) k/uL Neutrophils # 8.7 H (1.3-7.7) k/uL Carbon Dioxide 18 L (22-30) mmol/L BUN 21 H (7-17) mg/dL Creatinine 1.07 H (0.52-1.04) mg/dL Glucose 110 H (74-99) mg/dL POC Glucose (mg/dL) 142 H (70-110) mg/dL AST 56 H (14-36) U/L Total Protein 5.5 L (6.3-8.2) g/dL Albumin 3.4 L (3.5-5.0) g/dL Crossmatch 08/07/24 08/07/24 08/07/24 Range/Units 07:13 08:05 09:07 WBC (3.8-10.6) k/uL RBC (3.80-5.40) m/uL Hgb (11.4-16.0) gm/dL Hct (34.0-46.0) % Plt Count (150-450) k/uL Neutrophils # (1.3-7.7) k/uL Carbon Dioxide (22-30) mmol/L BUN (7-17) mg/dL Creatinine (0.52-1.04) mg/dL Glucose (74-99) mg/dL POC Glucose (mg/dL) 151 H 179 H 154 H (70-110) mg/dL AST (14-36) U/L Total Protein (6.3-8.2) g/dL Albumin (3.5-5.0) g/dL Crossmatch 08/07/24 08/07/24 08/07/24 Range/Units 10:10 11:03 13:18 WBC (3.8-10.6) k/uL RBC (3.80-5.40) m/uL Hgb (11.4-16.0) gm/dL Hct (34.0-46.0) % Plt Count (150-450) k/uL Neutrophils # (1.3-7.7) k/uL Carbon Dioxide (22-30) mmol/L BUN (7-17) mg/dL Creatinine (0.52-1.04) mg/dL Glucose (74-99) mg/dL POC Glucose (mg/dL) 133 H 115 H 139 H (70-110) mg/dL AST (14-36) U/L Total Protein (6.3-8.2) g/dL Albumin (3.5-5.0) g/dL Crossmatch 08/07/24 08/07/24 08/07/24 Range/Units 14:00 15:02 16:02 WBC (3.8-10.6) k/uL RBC (3.80-5.40) m/uL Hgb (11.4-16.0) gm/dL Hct (34.0-46.0) % Plt Count (150-450) k/uL Neutrophils # (1.3-7.7) k/uL Carbon Dioxide (22-30) mmol/L BUN (7-17) mg/dL Creatinine (0.52-1.04) mg/dL Glucose (74-99) mg/dL POC Glucose (mg/dL) 148 H 138 H 126 H (70-110) mg/dL AST (14-36) U/L Total Protein (6.3-8.2) g/dL Albumin (3.5-5.0) g/dL Crossmatch 08/07/24 08/07/24 Range/Units 19:03 20:13 WBC (3.8-10.6) k/uL RBC (3.80-5.40) m/uL Hgb (11.4-16.0) gm/dL Hct (34.0-46.0) % Plt Count (150-450) k/uL Neutrophils # (1.3-7.7) k/uL Carbon Dioxide (22-30) mmol/L BUN (7-17) mg/dL Creatinine (0.52-1.04) mg/dL Glucose (74-99) mg/dL POC Glucose (mg/dL) 245 H 162 H (70-110) mg/dL AST (14-36) U/L Total Protein (6.3-8.2) g/dL Albumin (3.5-5.0) g/dL Crossmatch
--- NOTE | 2024-08-10 23:03 | P.PN ---
Subjective Chief Complaint: Chest pain This is a 74-year-old female with past medical history significant for CAD, ischemic cardiomyopathy, recent NSTEMI with stenting of the mid LAD 05/13/2024 followed by cardiac catheterization on 07/10/2024 reporting no progression of disease with medical therapy maximized, left bundle branch block ,hypertension, hyperlipidemia, morbid obesity, prediabetic with hemoglobin A1c of 6.2 (07/21), hypothyroidism, prior nicotine dependence, and multiple other medical issues presented to the ER with complaints of radiating midsternal chest pain accompanied by diaphoresis and shortness of breath over the last 2 to 3 nights in a row. Admits to fluctuating chest pain since April 2024 as well as her last catheterization in June 2024. denies nausea, vomiting or diarrhea. Denies abdominal pain. Reports weight loss of 11 pounds since April 2024. Denies upper respiratory infections or known sick contacts. She started cardiac rehab yesterday. Reports pain initiates in her right hand travels up her right arm across to her mid sternum. Symptoms usually begin after dinner, progresses through the night, averaging a total of 3 nitro sublinguals each night. Afebrile, normal WBC. Chest x-ray reported nonacute. Hematology, coagulation panel unremarkable. Sodium 136, potassium 5.5, bicarb 21, BUN 25, creatinine 0.96, mag 2.0, T. bili 1.4, AST 77, ALT 42, alk phos WNL. Troponin 0.053. BNP 1870. EKG reported sinus rhythm with left bundle branch block. Anticoagulated on IV heparin drip. Echo ordered. 07/30/2024 serial enzymes 0.053, 0.033, 0.193.Echo reported severely impaired low ventricular systolic function, EF 30 to 35%, moderate mitral regurgitation, mild to moderate aortic regurgitation with mild aortic stenosis, mild tricuspid regurgitation. Reported she had another episode of right arm pain radiating up to midsternal chest pain during the night starting around 10:00, received morphine, pain subsided but developed nausea. Maintained on heparin drip., CTS consult recently placed, evaluation pending. 07/31/2024 patient was seen resting comfortably in bed with at bedside had a conversation with Dr. Kirby of cardiothoracic surgery and Dr. [facility] of [facility] regarding her care is determined that we would undergo a nuclear stress test to determine if there is any exercise-induced ischemia. If there was then would proceed with further intervention she is okay with this plan she denies any shortness of breath she had minimum chest pain last evening she is currently on Imdur which has diminished her angina. 08/03/2024 patient seen today resting comfortably all test were discussed with patient cardiothoracic surgery has recommended revascularization procedure co ronary artery bypass graft which will be done midweek. She continues on heparin, Plavix is on hold 5 to 7 days prior to surgery cardiology continues to follow patient remains on Imdur. 08/04/2024 maintained on ceftriaxone for UTI with Klebsiella. Afebrile, normal WBC. Plavix remains on hold. Scheduled for CABG on . Reports she did have a chest pain episode during the night, continues on Imdur with Ranexa dose increased as per cardiology. 08/05/2024 anticoagulated on heparin drip .reports another episode of chest pain during the night, relieved with sublingual nitro. Currently denies chest pain, palpitations or shortness of breath. Telemetry sinus rhythm. Tolerating diet, denies nausea, vomiting. Reports bowel movement yesterday scheduled for CABG tomorrow. Continues on ceftriaxone for Klebsiella UTI. UA repeated, reporting large blood, negative nitrates, small leukocytes, rare bacteria. 08/06/2024 pt going for surgery today for coronary artery bypass graft. 08/07/2024 patient is seen today first day postop coronary artery bypass graft patient has discomfort with chest tubes anterior chest wall with deep inspirations. She continues to have 100% ICU support from cardiothoracic surgery cardiology pulmonary critical care will continue to follow patient's progress until she is released to the floors. 08/10/2024 patient seen today still in the ICU requiring support from pulmonary critical care. Still has 2 chest tubes inserted anteriorly. She is currently getting a breathing treatment as standard protocol denies any chest pain denies any fever. Objective - Vital Signs Vital signs: Vital Signs Temp 98.1 F 08/04/24 20:07 Pulse 75 08/05/24 04:20 Resp 17 08/05/24 04:20 BP 115/79 08/05/24 04:20 Pulse Ox 95 08/05/24 04:20 FiO2 Intake & Output 08/04/24 08/05/24 08/05/24 18:59 06:59 18:59 Intake Total 50 240 Output Total 200 Balance 50 -200 240 Weight 84 kg Intake: Intake, IV Titration 50 Amount cefTRIAXone 1 gm In 50 Sodium Chloride 0.9% 50 ml @ 100 mls/hr IVPB Q24HR [facility] Rx#:[id number] Oral 240 Output: Urine 200 Other: Voiding Method Toilet Toilet - Exam VITAL SIGNS: [Reviewed] GENERAL: [place],Alert and oriented x 3, laying in bed, no acute distress. HEENT: Atraumatic, normocephalic, conjunctivae normal. eyes normal. NECK: Supple,no JVD. CARDIOVASCULAR: S1, S2. regular rate and rhythm. RESPIRATION: Unlabored, equal air entry, essentially clear to auscultation. ABDOMEN: Soft, nondistended, nontender . No guarding. Positive bowel sounds. LEGS: No edema. no swelling. No calf tenderness. NERVOUS SYSTEM: Cranial N 2-12 grossly normal. No focal deficits. Strength and sensation grossly intact. Skin: Warm and dry, no rash. - Labs CBC & Chem 7: 08/05/24 05:54 08/05/24 05:54 Labs: Abnormal Lab Results - Last 24 Hours (Table) 08/05/24 08/05/24 08/05/24 Range/Units 00:12 05:54 05:54 Hgb 11.1 L (11.4-16.0) gm/dL MCHC 30.1 L (31.0-37.0) g/dL APTT (22.0-30.0) sec BUN 20 H (7-17) mg/dL AST 57 H (14-36) U/L ALT 41 H (4-34) U/L Alkaline Phosphatase 131 H (38-126) U/L Urine Appearance Cloudy H (Clear) Urine Protein 1+ H (Negative) Urine Blood Large H (Negative) Ur Leukocyte Esterase Small H (Negative) Urine RBC >182 H (0-5) /hpf Urine WBC 47 H (0-5) /hpf Urine Bacteria Rare H (None) /hpf Hyaline Casts 10 H (0-2) /lpf Urine Mucus Rare H (None) /hpf 08/05/24 Range/Units 05:54 Hgb (11.4-16.0) gm/dL MCHC (31.0-37.0) g/dL APTT 50.2 H (22.0-30.0) sec BUN (7-17) mg/dL AST (14-36) U/L ALT (4-34) U/L Alkaline Phosphatase (38-126) U/L Urine Appearance (Clear) Urine Protein (Negative) Urine Blood (Negative) Ur Leukocyte Esterase (Negative) Urine RBC (0-5) /hpf Urine WBC (0-5) /hpf Urine Bacteria (None) /hpf Hyaline Casts (0-2) /lpf Urine Mucus (None) /hpf Assessment and Plan Assessment: NSTEMI,in a patient with prior CAD, recent [place] with stenting of the mid LAD 05/13/2024. 07/10/2024 cardiac catheterization completed reporting 30% distal left main disease, 70% ostial LAD disease, patent stents in the mid LAD, 70% diffuse distal LAD disease. 50% ostial and proximal left circumflex disease negative IFR performed on 05/18/2024. Cardiology reported no progression of CAD, comparing to heart cath of 05/18/2024.Per catheterization reports cardiology felt that the LAD intervention was complex and patient would benefit from optimization of cardiac medications and was started on Imdur therapy. If patient fails antianginal and optimize heart failure medication she would be considered for CABG. Acute systolic heart failure Ischemic cardiomyopathy, EF 30 to 35% Moderate mitral regurgitation Mild to moderate aortic regurgitation with mild aortic stenosis Mild tricuspid regurgitation Acute UTI with Klebsiella Hyperbilirubinemia with minimally elevated AST and ALT. History of abnormally thickened endometrium with vascularity concerning for endometrial carcinoma, reported per pelvic/transvaginal ultrasound 05/07/2024. Further outpatient workup in progress. Left bundle branch block Hypertension Hyperlipidemia Morbid obesity, BMI 35, reports 11 pound weight loss since 05/19 Prediabetic, hemoglobin A1c 6.2 (07/21), currently 6.1 Prior nicotine dependence, 1 pack/day x 10 years,quit 1978 Anxiety Depression Plan: Continue on current medication regimen ,monitoring and symptomatic treatment. Maintain ceftriaxone for UTI. CABG scheduled for tomorrow, August 07, 2024. Plavix remains on hold. anticoagulation with heparin drip. Aggressive pulmonary toileting with incentive spirometer reinforced. Objective - Vital Signs Vital signs: Vital Signs Temp 98.3 F 08/10/24 12:00 Pulse 63 08/10/24 21:03 Resp 23 08/10/24 19:00 BP 97/59 08/10/24 19:00 Pulse Ox 95 08/10/24 19:00 FiO2 40 08/06/24 18:00 Intake & Output 08/10/24 08/10/24 08/11/24 06:59 18:59 06:59 Intake Total 426 1066 470 Output Total 645 820 40 Balance -219 246 430 Weight 86.4 kg Intake: IV 426 460 33 Invasive Line 3 30 40 Pressure Bag (0.9 Sodium 66 60 3 Chloride) Sodium Chloride 0.9% 1, 330 360 30 000 ml @ 30 mls/hr IV . Q24H [facility] Rx#:[id number] Oral 356 437 Albumin 250 Albumin Human 5% 250 ml 250 In Empty Bag 1 bag @ 250 mls/hr IVPB ONCE ONE Rx#: [id number] Output: Chest Tube Drainage 40 250 Chest Tube Left Lateral 10 110 Chest Chest Tube Right Lateral 30 140 Chest Urine 605 570 40 Other: Voiding Method Indwelling Catheter Indwelling Catheter # Bowel Movements 1 ABP, PAP, CO, CI - Last Documented Arterial Blood Pressure 103/103 Pulmonary Artery Pressure 30/10 Cardiac Output 5.2 Cardiac Index 2.9 - Labs CBC & Chem 7: 08/10/24 05:34 08/10/24 05:34 Labs: Abnormal Lab Results - Last 24 Hours (Table) 08/10/24 08/10/24 08/10/24 Range/Units 02:13 05:34 05:34 RBC 2.53 L (3.80-5.40) m/uL Hgb 7.5 L (11.4-16.0) gm/dL Hct 23.9 L (34.0-46.0) % Sodium 135 L (137-145) mmol/L Chloride 108 H (98-107) mmol/L Carbon Dioxide 21 L (22-30) mmol/L BUN 32 H (7-17) mg/dL POC Glucose (mg/dL) 111 H (70-110) mg/dL 08/10/24 Range/Units 21:19 RBC (3.80-5.40) m/uL Hgb (11.4-16.0) gm/dL Hct (34.0-46.0) % Sodium (137-145) mmol/L Chloride (98-107) mmol/L Carbon Dioxide (22-30) mmol/L BUN (7-17) mg/dL POC Glucose (mg/dL) 114 H (70-110) mg/dL
[2024-08-11 02:50] LABS: Glucose,Whole Blood 110 mg/dL (70-110)
[2024-08-11 06:11] LABS: Basophils % (A) 0 %; Eosinophils # (A) 0.5 k/uL (0-0.7); Eosinophils % (A) 7 %; HCT 21.9 % (34.0-46.0); HGB 7.5 gm/dL (11.4-16.0); Hypochromasia Slight; Lymphocytes # (A) 1.1 k/uL (1.0-4.8); Lymphocytes % (A) 16 %; MCH 32.6 pg (25.0-35.0); MCHC 34.3 g/dL (31.0-37.0); Mean Platelet Volume 9.2; Monocytes # (A) 0.7 k/uL (0-1.0); Monocytes % (A) 9 %; Neutrophils # (A) 4.6 k/uL (1.3-7.7); Neutrophils % (A) 65 %; Platelet Count 208 k/uL (150-450); RDW 15.6 % (11.5-15.5); WBC 7.1 k/uL (3.8-10.6)
[2024-08-11 06:34] LABS: ALT 12 U/L (4-34); AST 31 U/L (14-36); African American GFR (CKD) 85 (>60 ml/min/1.73 sqM); Albumin 2.8 g/dL (3.5-5.0); Alkaline Phosphatase 89 U/L (38-126); Anion Gap 8 mmol/L; Blood Urea Nitrogen 31 mg/dL (7-17); Calcium 8.5 mg/dL (8.4-10.2); Carbon Dioxide 19 mmol/L (22-30); Chloride 111 mmol/L (98-107); Glucose 85 mg/dL (74-99); Non-African American GFR(CKD) 74 (>60 ml/min/1.73 sqM); Sodium 138 mmol/L (137-145); Total Bilirubin 1.4 mg/dL (0.2-1.3); Total Protein 5.1 g/dL (6.3-8.2)
[2024-08-11 07:04] LABS: Glucose,Whole Blood 97 mg/dL (70-110)
--- NOTE | 2024-08-11 07:25 | XR ---
EXAMINATION TYPE: XR chest 2V DATE OF EXAM: 08/11/2024 6:22 AM COMPARISON: None. CLINICAL INDICATION: Female, 74 years old with history of Postop cardiac surgery: Shortness of breath TECHNIQUE: XR chest 2V views of the chest are obtained. FINDINGS: Scattered senescent parenchymal changes noted. Hyperinflation compatible with COPD. Right IJ sheath remains in place. Right perihilar infiltrate and/or atelectasis redemonstrated. Remov al of left-sided chest tube with pleural parenchymal stranding density seen. Heart size is stable. Mediastinal structures are stable and grossly unremarkable. No evidence for hilar prominence. Degenerative changes dorsal spine. IMPRESSION: 1. Right IJ sheath remains in place. Right perihilar infiltrate and/or atelectasis redemonstrated. Re moval of left-sided chest tube with pleural parenchymal stranding density seen. [facility], , 08/11/2024 7:23 AM
[2024-08-11] MEDS: AMIODARONE 200 MG TAB PO SCH (07:58)
[2024-08-11] MEDS: FERROUS SULFATE 325 MG TAB PO SCH (07:58)
[2024-08-11] MEDS: ASCORBIC ACID 500 MG TAB PO SCH (07:58)
--- NOTE | 2024-08-11 08:54 | P.PN ---
Subjective Progress Note Date: 08/11/24 Principal diagnosis: Coronary artery disease, non-ST elevated myocardial infarction this admission, very dynamic mitral valve regurgitation. Previuos medical history of coronary ar abena disease with non-STEMI and PCI to her LAD in April 2024, ischemic cardiomyopathy, hypertension, hyperlipidemia, hypothyroid, known left bundle branch block, hard of hearing, obesity, mild restrictive lung disease, previous tobacco dependence with cessation over 40 years ago, and recent vaginal bleeding being followed by [facility]. Preoperative nasal swab positive for MSSA, preoperative urinary tract infection with Klebsiella, preoperative transaminitis, left internal carotid artery stenosis POD #5 off pump single-vessel coronary artery bypass grafting using the in situ left internal mammary artery to the left anterior descending artery, exclusion of the left atrial appendage using a 35mm AtriClip, endoscopic harvesting of the left thigh greater saphenous vein that was not used, graft flow measurement using the MOgene system, intraoperative transesophageal echocardiogram and epiaortic scanning Postoperative acute blood loss anemia and thrombocytopenia, expected given hemodilution Endobronchial hemorrhage with retained blood clots, status post flexible bronchoscopy with removal of blood clots The patient was seen and examined this morning sitting up in recliner in the intensive care unit in no acute distress. Remains in sinus rhythm, hemodynamically stable although blood pressure marginal at times, she was not given her Lopressor dose last night. Currently on room air with oxygen saturation in the mid 90s. States pain is controlled on current medication regimen, denies shortness of breath. Labs, chest x-ray reviewed. Left internal jugular cordis remains present. She was ambulatory out in the hallway this morning with assistance. No other new concerns. Objective - Vital Signs Vital signs: Vital Signs Temp 98.2 F 08/11/24 04:00 Pulse 65 08/11/24 07:54 Resp 24 08/11/24 07:00 BP 109/51 08/11/24 07:00 Pulse Ox 95 08/11/24 07:00 FiO2 40 08/06/24 18:00 Intake & Output 08/10/24 08/11/24 08/11/24 18:59 06:59 18:59 Intake Total 1066 1403 33 Output Total 820 525 30 Balance 246 878 3 Weight 86.545 kg Intake: IV 460 426 33 Invasive Line 3 40 30 Pressure Bag (0.9 Sodium 60 36 3 Chloride) Sodium Chloride 0.9% 1, 360 360 30 000 ml @ 30 mls/hr IV . Q24H [facility] Rx#:[id number] Oral 356 977 Albumin 250 Albumin Human 5% 250 ml 250 In Empty Bag 1 bag @ 250 mls/hr IVPB ONCE ONE Rx#: [id number] Output: Chest Tube Drainage 250 Chest Tube Left Lateral 110 Chest Chest Tube Right Lateral 140 Chest Urine 570 525 30 Other: Voiding Method Indwelling Catheter Indwelling Catheter # Bowel Movements 1 ABP, PAP, CO, CI - Last Documented Arterial Blood Pressure 103/103 Pulmonary Artery Pressure 30/10 Cardiac Output 5.2 Cardiac Index 2.9 - Exam CONSTITUTIONAL: Appears comfortable, cooperative, no acute distress RESPIRATORY: Lungs sounds diminished in the bases bilaterally. Respirations even, nonlabored. Currently on room air with oxygen saturation 95%. Able to achieve 500 mL on incentive spirometry. Strong nonproductive cough. CARDIOVASCULAR: S1, S2 present. Regular rate and rhythm, sinus rhythm on telemetry. Sternum stable. Palpable peripheral pulses bilaterally. Trace generalized edema present. No calf pain or tenderness noted. Heart hugger in place with patient demonstrating appropriate use. Antiembolism stockings, SCDs present. GASTROINTESTINAL: Abdomen soft, nontender, nondistended. Active bowel sounds present 4 quadrants. Tolerating diet. Positive bowel movement 08/10 GENITOURINARY: Lomeli present draining clear, yellow urine. Output overnight 30-35 mL per hour, 1030 mL in the last 24 hours INTEGUMENTARY: Skin is warm and dry with evidence of good perfusion. Anterior chest incision well approximated and covered with dry intact dressing. Left lower extremity EVH site well approximated without redness NEUROLOGIC: Cranial nerves II through XII intact MUSKULOSKELETAL: Able to move all extremities, strength equal bilaterally, gait normal PSYCHIATRIC: Alert and oriented to person place and time, appropriate affect, intact judgment and insight INVASIVE LINES AND TUBES: Right internal jugular cordis remains present, last CVP 5 - Allied health notes Allied health notes reviewed: nursing - Labs CBC & Chem 7: 08/11/24 05:27 08/11/24 05:27 Labs: Abnormal Lab Results - Last 24 Hours (Table) 08/10/24 08/11/24 08/11/24 Range/Units 21:19 05:27 05:27 RBC 2.30 L (3.80-5.40) m/uL Hgb 7.5 L (11.4-16.0) gm/dL Hct 21.9 L (34.0-46.0) % RDW 15.6 H (11.5-15.5) % Chloride 111 H (98-107) mmol/L Carbon Dioxide 19 L (22-30) mmol/L BUN 31 H (7-17) mg/dL POC Glucose (mg/dL) 114 H (70-110) mg/dL Total Bilirubin 1.4 H (0.2-1.3) mg/dL Total Protein 5.1 L (6.3-8.2) g/dL Albumin 2.8 L (3.5-5.0) g/dL - Imaging and Cardiology Chest x-ray: report reviewed, image reviewed Assessment and Plan Assessment: Coronary artery disease, non-ST elevated myocardial infarction this admission, status post single-vessel off-pump CABG Very dynamic mitral valve regurgitation Recent vaginal bleeding being followed by [facility] Preoperative nasal swab positive for MSSA, treated with nasal mupirocin Preoperative urinary tract infection with Klebsiella, treated with Rocephin Preoperative transaminitis Left internal carotid artery stenosis, 50 to 69% Postoperative acute blood loss anemia and thrombocytopenia, expected given hemodilution Endobronchial hemorrhage with retained blood clots, status post flexible bronchoscopy with removal of blood clots History of coronary artery disease with non-STEMI and PCI to her LAD in April 2024 Ischemic cardiomyopathy with EF 30-35% on TTE 07/29/24, preserved LV systolic function on WILLAM 07/31/24 Hypertension Hyperlipidemia, treated, cholesterol 112, LDL 56.5 Hypothyroid, TSH 2.66 Known left bundle branch block Obesity Mild restrictive lung disease, preoperative FEV1 66% of predicted Previous tobacco dependence with cessation over 40 years ago Plan: Continue to maximize medical therapy with aspirin, statin, Plavix, beta-apolonia therapy. Will increase beta-apolonia therapy as tolerated, patient did not receive second dose of beta-apolonia yesterday due to hypotension Continue amiodarone for A-fib prophylaxis, will decrease to 200 mg twice daily today. Patient has had no atrial fibrillation up to this point Encourage incentive spirometry use 10 times every hour while awake. Bronchodilators per pulmonology Increase activity, ambulate as tolerated. PT/OT/cardiac rehab following Will monitor daily labs and x-rays, electrolyte replacement per protocol, no Lasix today GI/DVT prophylaxis Insulin management per internal medicine. Patient is not diabetic, preoperative hemoglobin A1c 6.1% Pain control per current medication regimen Discontinue Cordis Discontinue Lomeli catheter, may bladder scan and straight cath for greater than 300 mL residual Continue to monitor record strict accurate intake and output Will place transfer orders for 3 S. cardiac stepdown unit, may transfer when bed available More recommendations to follow as patient progresses
[2024-08-11 11:27] LABS: Glucose,Whole Blood 109 mg/dL (70-110)
--- NOTE | 2024-08-11 13:47 | P.PN ---
Subjective Progress Note Date: 08/11/24 Principal diagnosis: POD #5 off pump single-vessel coronary artery bypass grafting using the in situ left internal mammary artery to the left anterior descending artery, exclusion of the left atrial appendage using a 35mm AtriClip, endoscopic harvesting of the left thigh greater saphenous vein that was not used, graft flow measurement using the [employer] system, intraoperative transesophageal echocardiogram and epiaortic scanning On 08/06/2024, the patient is being seen in the intensive care unit following her bypass surgery. Noted the patient underwent off-pump single-vessel bypass surgery with EVANS to LAD. The patient also underwent a left atrial appendage exclusion. Noted intraoperatively, the patient encountered increased hemoptysis and a total of 200 cc of blood was aspirated through the orotracheal tube. This was a complication related to the Roxana-Karen catheter as the catheter was withdrawn later on. The chest x-ray shows an area of consolidation in the right lower lobe which is probably an area of intraparenchymal hemorrhage. After arriving to the intensive care unit, the patient was seen and evaluated. The patient was assist-control mode of mechanical ventilation at rate of 14, tidal volume of 400, FiO2 50% with a PEEP of 10. Blood gases showed a pH of 7.24 with a pCO2 of 52 and pO2 of 82. Based on that, the respiratory rate was increased up to 24. The hemodynamic parameters showed a cardiac output of 5 and an index of 2.8. PA pressures were 34/22. The patient was on milrinone running at 0.2 mcg/kg/h, nitroglycerin drip at 5 mcg/min and norepinephrine at 0.11 mcg/kg/min. The patient is also on normal citrate of 75 cc an hour and insulin drip at the rate of 3.5 units an hour. Cardiac rhythm was sinus. Discussed the case with c ardiothoracic surgery. Performed a bedside bronchoscopy on this patient and copious amount of blood clots were aspirated from the airway. The completion of the bronchoscopy, the patient had no residual blood clots and full airway patency was established. Subsequently, the patient started having loss and volume, and the return tidal volumes were low and the patient had difficulties in maintaining the pressure in her orotracheal tube cuff. Based on that, I remove the orotracheal tube and replaced it by #8. Intubation was done in the intensive care unit. During the process, the patient had no significant hemodynamic instability. For now, the patient has a right pleural and left lower chest tube and mediastinal chest tube. No evidence of any air leak. Chest x-ray shows no evidence of any pneumothorax. Reviewed the series of x- rays done specially the 1 that was done post reintubation. ET tube was seen around 3 cm above the jeremie. The Roxana-Karen catheter was projecting and approp riate location. Drainage tubes were in place. The blood work that was done postop showed a hemoglobin of 9.3, platelet count of 120, and the most recent blood gas showed a pH of 7.37 with pCO2 of 36 and pO2 of 134 and this was done FiO2 of 50%. The patient remains sedated on propofol. Cardiac rhythm is sinus. On today's evaluation of 08/07/2024, the patient is being seen for a follow-up. The patient was weaned off mechanical ventilator and the patient was extubated today without any major difficulties. This morning, she is sitting up in a chair and she is calm and comfortable and denies having any specific complaints. She is currently on 2 L of oxygen by nasal cannula. The patient is currently off milrinone. The cardiac output Is at 4.5 with an index of 2.5. PA pressures are 24/10 and a CVP is at 6. The patient has mediastinal chest tube x 2, left pleural and right pleural chest tube. Mediastinal chest tube is produced 90 cc over the past 8 hours) since surgery. Left pleural tube has produced 125 cc overnight) 50 cc since surgery. Right lower chest tube is produced 70 cc over the past 8 hours and 150 cc overnight. The cardiac rhythm is sinus. Urine output is adequate. There is an order of 30 cc an hour. The patient remains on insulin drip at 2.5 units an hour. No other significant events overnight. In terms of the labs, the patient's blood work showed a hemoglobin of 9.4, white cell count of 10.5, platelet count of 131. The BUN is 21 with a creatinine 1.0 7. Electrolytes are all stable. Serum bicarb is at 18. LFTs are normal. No other significant events overnight. On 08/08/2024, the patient is being seen for a follow-up. The patient is post single-vessel bypass surgery. The patient is currently on 3 Suboxone by nasal cannula. Cardiac rhythm is sinus. Urine output is in order of 5 to 25 cc an hour. The patient was given 40 mg IV Lasix x 1. She is awake and alert. Chest tubes are still in place. The follow-up chest x-ray from today shows evidence of area of consolidation in the right mid/lower lung area which is representation of a pulmonary hemorrhage that occurred at time of surgery. Chest tubes are still in place. Blood work from today shows a white cell count of 14.3, hemoglobin 7.8 and a platelet count of 112. Sodium is at 132, BUN 23 creatinine is 1.5. Potassium level is at 4.0. Serum bicarb is at 19. The patient sustained an acute kidney injury. Note that she has been treated for a Klebsiella urinary tract infection preoperatively. For now, the patient is on metoprolol 12.5 mg p.o. twice a day. She is on aspirin. She is on Plavix. She is on amiodarone 4 mg p.o. twice a day. She remains on insulin drip for blood sugar control. On 08/09/2024, the patient is being seen for a follow-up. The patient is awake and alert and communicating. She is currently on 3 days of oxygen by nasal cannula. She did sustain acute kidney injury and diminished urine output. Based on that, the patient was started on dopamine renal dose. Creatinine is improving. The patient remains normal sinus rhythm. The fluid balance is +1.2 L over the past 24 hours. The mediastinal chest tube has been removed and the patient continues to have a right and the left pleural chest tube. Sitting up in a chair she is calm and comfortable. White cell count of 12.7, hemoglobin is at 8 and the platelet count is 145. Sodium is at 134 with potassium level of 4 and a BUN of 36 with a creatinine of 1.2. Rest of the medications were all reviewed. She is using the incentive spirometer. Some soreness in her chest related to previous thoracotomy. The patient is currently on Lantus insulin 10 units daily & scale insulin coverage. Patient was seen today on 08/10/2024, patient remains in the ICU, on room air, does not seem to be in any distress. IV fluids at 30 cc/h. Patient is not requiring any inotropes or any pressors, continues to have right lower lobe opacity most likely related to her last episode of hemoptysis. Patient is clinically improving. Labs showed WBC of 10.3 hemoglobin 7.5 electrolytes are normal renal profile is normal blood sugar is 107. Chest x-ray continues to have left-sided chest tube in place, no pneumothorax, right perihilar opacity slightly improving but persists Patient was seen today on 08/11/2024, patient is in the ICU as an overflow, doing fairly well, not in any distress, she is on room air, and the plan is to hopefully send her to 3 S. today. No cough no wheezing no shortness of breath, chest x-ray showed postoperative changes, right perihilar area of consolidation remains about the same, I believe this is related to her last episode of hemoptysis and persists. WBC count is 7.1 hemoglobin 7.5 electrolytes are normal renal profile is normal Objective - Vital Signs Vital signs: Vital Signs Temp 98.1 F 08/11/24 12:18 Pulse 66 08/11/24 13:00 Resp 22 08/11/24 13:00 BP 126/66 08/11/24 12:18 Pulse Ox 98 08/11/24 12:18 FiO2 40 08/06/24 18:00 Intake & Output 08/10/24 08/11/24 08/11/24 18:59 06:59 18:59 Intake Total 1066 1403 527 Output Total 820 525 140 Balance 246 878 387 Weight 86.545 kg Intake: IV 460 426 53 Invasive Line 3 40 30 Invasive Line 7 20 Pressure Bag (0.9 Sodium 60 36 3 Chloride) Sodium Chloride 0.9% 1, 360 360 30 000 ml @ 30 mls/hr IV . Q24H [facility] Rx#:[id number] Oral 356 977 474 Albumin 250 Albumin Human 5% 250 ml 250 In Empty Bag 1 bag @ 250 mls/hr IVPB ONCE ONE Rx#: [id number] Output: Chest Tube Drainage 250 Chest Tube Left Lateral 110 Chest Chest Tube Right Lateral 140 Chest Urine 570 525 140 Other: Voiding Method Indwelling Catheter Indwelling Catheter # Bowel Movements 1 1 ABP, PAP, CO, CI - Last Documented Arterial Blood Pressure 103/103 Pulmonary Artery Pressure 30/10 Cardiac Output 5.2 Cardiac Index 2.9 - Exam GENERAL: Revealed a 74-year-old female in no distress, on room air, HEENT: Atraumatic, normocephalic, conjunctivae normal. eyes normal. NECK: Supple,no JVD. No neck masses, no stridor. CARDIOVASCULAR: Distant S1-S2, no S3 gallop. RESPIRATION: Clear bilaterally no crackles rhonchi or wheezes. ABDOMEN: Obese soft nontender no MAG no rebound no guarding LEGS: No clubbing edema or cyanosis NERVOUS SYSTEM: Alert oriented x 3 no gross focal deficit Skin: No rashes - Labs CBC & Chem 7: 08/11/24 05:27 08/11/24 05:27 Labs: Abnormal Lab Results - Last 24 Hours (Table) 08/10/24 08/11/24 08/11/24 Range/Units 21:19 05:27 05:27 RBC 2.30 L (3.80-5.40) m/uL Hgb 7.5 L (11.4-16.0) gm/dL Hct 21.9 L (34.0-46.0) % RDW 15.6 H (11.5-15.5) % Chloride 111 H (98-107) mmol/L Carbon Dioxide 19 L (22-30) mmol/L BUN 31 H (7-17) mg/dL POC Glucose (mg/dL) 114 H (70-110) mg/dL Total Bilirubin 1.4 H (0.2-1.3) mg/dL Total Protein 5.1 L (6.3-8.2) g/dL Albumin 2.8 L (3.5-5.0) g/dL Assessment and Plan Assessment: Impression: status post off-pump single-vessel bypass surgery with EVANS to LAD. The patient is currently postop day #5 Right lung parenchymal hemorrhage involving the right lower lobe in addition to hemoptysis and endobronchial hemorrhage, most likely a complication of Roxana-Karen catheter and the catheter has been repositioned. Bronchoscopy was also done with evacuation of copious amount of residual blood clots retained in the patient's airways. Chest x-ray findings are unchanged Acute kidney injury with oliguria, responded to dopamine Acute urinary tract infection, treated with Rocephin, resolved Ischemic cardiomyopathy with EF 30-35% on TTE 07/29/24, preserved LV systolic function on WILLAM 07/31/24 Hypertension Dyslipidemia Hypothyroid, Left bundle branch block Ex-smoker Recommendation: Continue incentive spirometry Continue ambulation in the hallway Continue to monitor labs on a daily basis Continue aspirin Plavix metoprolol and amiodarone as well as statin Transfer to 3 S. today Will continue to follow Time with Patient: Less than 30
--- NOTE | 2024-08-11 14:39 | P.PN ---
Subjective Progress Note Date: 08/11/24 The patient is 74-year-old female who is currently admitted after undergoing single-vessel off-pump coronary bypass. Patient was hypotensive postprocedure. All drips and lines have subsequently been discontinued. She has been up ambulating around her room without issue. Patient interviewed and examined resting comfortably in the recliner chair. She states she is feeling better today. No dizziness or lightheadedness with standing. Mild chest discomfort with deep breathing. No difficulty breathing GENERAL: Well-appearing, well-nourished and in no acute distress. Pale. NECK: Supple without JVD or thyromegaly. LUNGS: Breath sounds clear to auscultation bilaterally. Respiration equal and unlabored. No wheezes, rales or rhonchi. HEART: Regular rate and rhythm without murmurs, rubs or gallops. S1 and S2 heard. Heart hugger in place EXTREMITIES: Normal range of motion, no edema. No clubbing or cyanosis. Peripheral pulses intact and strong. TELEMETRY: Sinus rhythm overnight LABS: WBC 7.1, hemoglobin 7.5, hematocrit 21.9, platelet 208, sodium 138, potassium 4.0, BUN 31, creatinine 0.79, AST 12, ALT 89 IMPRESSION: Coronary artery disease Status post coronary bypass x1 Ischemic cardiomyopathy, EF 30-35 Mitral regurgitation Left carotid atherosclerosis Left bundle branch block Postoperative hypotension Postoperative anemia PLAN: Continue supportive treatment aggressive pulmonary hygiene Further recommendations to be based upon clinical course I am dictating on behalf of Dr Simon Hilario's history/physical and assessment/plan. Objective - Vital Signs Vital signs: Vital Signs Temp 98.1 F 08/11/24 12:18 Pulse 66 08/11/24 13:00 Resp 22 08/11/24 13:00 BP 126/66 08/11/24 12:18 Pulse Ox 98 08/11/24 12:18 FiO2 40 08/06/24 18:00 Intake & Output 08/10/24 08/11/24 08/11/24 18:59 06:59 18:59 Intake Total 1066 1403 527 Output Total 820 525 140 Balance 246 878 387 Weight 86.545 kg Intake: IV 460 426 53 Invasive Line 3 40 30 Invasive Line 7 20 Pressure Bag (0.9 Sodium 60 36 3 Chloride) Sodium Chloride 0.9% 1, 360 360 30 000 ml @ 30 mls/hr IV . Q24H [facility] Rx#:[id number] Oral 356 847 474 Albumin 250 Albumin Human 5% 250 ml 250 In Empty Bag 1 bag @ 250 mls/hr IVPB ONCE ONE Rx#: [id number] Output: Chest Tube Drainage 250 Chest Tube Left Lateral 110 Chest Chest Tube Right Lateral 140 Chest Urine 570 525 140 Other: Voiding Method Indwelling Catheter Indwelling Catheter # Bowel Movements 1 1 ABP, PAP, CO, CI - Last Documented Arterial Blood Pressure 103/103 Pulmonary Artery Pressure 30/10 Cardiac Output 5.2 Cardiac Index 2.9 - Labs CBC & Chem 7: 08/11/24 05:27 08/11/24 05:27 Labs: Abnormal Lab Results - Last 24 Hours (Table) 08/10/24 08/11/24 08/11/24 Range/Units 21:19 05:27 05:27 RBC 2.30 L (3.80-5.40) m/uL Hgb 7.5 L (11.4-16.0) gm/dL Hct 21.9 L (34.0-46.0) % RDW 15.6 H (11.5-15.5) % Chloride 111 H (98-107) mmol/L Carbon Dioxide 19 L (22-30) mmol/L BUN 31 H (7-17) mg/dL POC Glucose (mg/dL) 114 H (70-110) mg/dL Total Bilirubin 1.4 H (0.2-1.3) mg/dL Total Protein 5.1 L (6.3-8.2) g/dL Albumin 2.8 L (3.5-5.0) g/dL
[2024-08-11 20:06] LABS: Glucose,Whole Blood 125 mg/dL (70-110)
--- NOTE | 2024-08-11 21:35 | P.PN ---
Subjective Progress Note Date: 08/11/24 Chief Complaint: Chest pain This is a 74-year-old female with past medical history significant for CAD, ischemic cardiomyopathy, recent NSTEMI with stenting of the mid LAD 05/13/2024 followed by cardiac catheterization on 07/10/2024 reporting no progression of disease with medical therapy maximized, left bundle branch block ,hypertension, hyperlipidemia, morbid obesity, prediabetic with hemoglobin A1c of 6.2 (07/21), hypothyroidism, prior nicotine dependence, and multiple other medical issues presented to the ER with complaints of radiating midsternal chest pain accompanied by diaphoresis and shortness of breath over the last 2 to 3 nights in a row. Admits to fluctuating chest pain since April 2024 as well as her last catheterization in June 2024. denies nausea, vomiting or diarrhea. Denies abdominal pain. Reports weight loss of 11 pounds since April 2024. De nies upper respiratory infections or known sick contacts. She started cardiac rehab yesterday. Reports pain initiates in her right hand travels up her right arm across to her mid sternum. Symptoms usually begin after dinner, progresses through the night, averaging a total of 3 nitro sublinguals each night. Afebrile, normal WBC. Chest x-ray reported nonacute. Hematology, coagulation panel unremarkable. Sodium 136, potassium 5.5, bicarb 21, BUN 25, creatinine 0.96, mag 2.0, T. bili 1.4, AST 77, ALT 42, alk phos WNL. Troponin 0.053. BNP 1870. EKG reported sinus rhythm with left bundle branch block. Anticoagulated on IV heparin drip. Echo ordered. 07/30/2024 serial enzymes 0.053, 0.033, 0.193.Echo reported severely impaired low ventricular systolic function, EF 30 to 35%, moderate mitral regurgitation, mild to moderate aortic regurgitation with mild aortic stenosis, mild tricuspid regurgitation. Reported she had another episode of right arm pain radiating up to midsternal chest pain during the night starting around 10:00, received morphine, pain subsided but developed nausea. Maintained on heparin drip., CTS consult recently placed, evaluation pending. 07/31/2024 patient was seen resting comfortably in bed with at bedside had a conversation with Dr. Kirby of cardiothoracic surgery and Dr. [facility] of [facility] regarding her care is determined that we would undergo a nuclear stress test to determine if there is any exercise-induced ischemia. If there was then would proceed with further intervention she is okay with this plan she denies any shortness of breath she had minimum chest pain last evening she is currently on Imdur which has diminished her angina. 08/03/2024 patient seen today resting comfortably all test were discussed with patient cardiothoracic surgery has recommended revascularization procedure coronary artery bypass graft which will be done midweek. She continues on heparin, Plavix is on hold 5 to 7 days prior to surgery cardiology continues to follow patient remains on Imdur. 08/04/2024 maintained on ceftriaxone for UTI with Klebsiella. Afebrile, normal WBC. Plavix remains on hold. Scheduled for CABG on . Reports she did have a chest pain episode during the night, continues on Imdur with Ranexa dose increased as per cardiology. 08/05/2024 anticoagulated on heparin drip .reports another episode of chest pain during the night, relieved with sublingual nitro. Currently denies chest pain, palpitations or shortness of breath. Telemetry sinus rhythm. Tolerating diet, denies nausea, vomiting. Reports bowel movement yesterday scheduled for CABG tomorrow. Continues on ceftriaxone for Klebsiella UTI. UA repeated, reporting large blood, negative nitrates, small leukocytes, rare bacteria. 08/06/2024 pt going for surgery today for coronary artery bypass graft. 08/07/2024 patient is seen today first day postop coronary artery bypass graft patient has discomfort with chest tubes anterior chest wall with deep inspi rations. She continues to have 100% ICU support from cardiothoracic surgery cardiology pulmonary critical care will continue to follow patient's progress until she is released to the floors. 08/10/2024 patient seen today still in the ICU requiring support from pulmonary critical care. Still has 2 chest tubes inserted anteriorly. She is currently getting a breathing treatment as standard protocol denies any chest pain denies any fever. 08/11/2024 patient seen today a little more comfortable with the removal of 2 chest tubes she is currently off all IVs and is feeling better. Still feels lik e she got hit by a truck. She was up twice today with assistance. She denies any fever cough or congestion. Objective - Vital Signs Vital signs: Vital Signs Temp 98.1 F 08/04/24 20:07 Pulse 75 08/05/24 04:20 Resp 17 08/05/24 04:20 BP 115/79 08/05/24 04:20 Pulse Ox 95 08/05/24 04:20 FiO2 Intake & Output 08/04/24 08/05/24 08/05/24 18:59 06:59 18:59 Intake Total 50 240 Output Total 200 Balance 50 -200 240 Weight 84 kg Intake: Intake, IV Titration 50 Amount cefTRIAXone 1 gm In 50 Sodium Chloride 0.9% 50 ml @ 100 mls/hr IVPB Q24HR [facility] Rx#:[id number] Oral 240 Output: Urine 200 Other: Voiding Method Toilet Toilet - Exam VITAL SIGNS: [Reviewed] GENERAL: [place],Alert and oriented x 3, laying in bed, no acute distress. HEENT: Atraumatic, normocephalic, conjunctivae normal. eyes normal. NECK: Supple,no JVD. CARDIOVASCULAR: S1, S2. regular rate and rhythm. RESPIRATION: Unlabored, equal air entry, essentially clear to auscultation. ABDOMEN: Soft, nondistended, nontender . No guarding. Positive bowel sounds. LEGS: No edema. no swelling. No calf tenderness. NERVOUS SYSTEM: Cranial N 2-12 grossly normal. No focal deficits. Strength and sensation grossly intact. Skin: Warm and dry, no rash. - Labs CBC & Chem 7: 08/05/24 05:54 08/05/24 05:54 Labs: Abnormal Lab Results - Last 24 Hours (Table) 08/05/24 08/05/24 08/05/24 Range/Units 00:12 05:54 05:54 Hgb 11.1 L (11.4-16.0) gm/dL MCHC 30.1 L (31.0-37.0) g/dL APTT (22.0-30.0) sec BUN 20 H (7-17) mg/dL AST 57 H (14-36) U/L ALT 41 H (4-34) U/L Alkaline Phosphatase 131 H (38-126) U/L Urine Appearance Cloudy H (Clear) Urine Protein 1+ H (Negative) Urine Blood Large H (Negative) Ur Leukocyte Esterase Small H (Negative) Urine RBC >182 H (0-5) /hpf Urine WBC 47 H (0-5) /hpf Urine Bacteria Rare H (None) /hpf Hyaline Casts 10 H (0-2) /lpf Urine Mucus Rare H (None) /hpf 08/05/24 Range/Units 05:54 Hgb (11.4-16.0) gm/dL MCHC (31.0-37.0) g/dL APTT 50.2 H (22.0-30.0) sec BUN (7-17) mg/dL AST (14-36) U/L ALT (4-34) U/L Alkaline Phosphatase (38-126) U/L Urine Appearance (Clear) Urine Protein (Negative) Urine Blood (Negative) Ur Leukocyte Esterase (Negative) Urine RBC (0-5) /hpf Urine WBC (0-5) /hpf Urine Bacteria (None) /hpf Hyaline Casts (0-2) /lpf Urine Mucus (None) /hpf Assessment and Plan Assessment: NSTEMI,in a patient with prior CAD, recent MT with stenting of the mid LAD 05/13/2024. 07/10/2024 cardiac catheterization completed reporting 30% distal left main disease, 70% ostial LAD disease, patent stents in the mid LAD, 70% diffuse distal LAD disease. 50% ostial and proximal left circumflex disease negative IFR performed on 05/18/2024. Cardiology reported no progression of CAD, comparing to heart cath of 05/18/2024.Per catheterization reports cardiology felt that the LAD intervention was complex and patient would benefit from optimization of cardiac medications and was started on Imdur therapy. If patient fails antianginal and optimize heart failure medication she would be considered for CABG. Acute systolic heart failure Ischemic cardiomyopathy, EF 30 to 35% Moderate mitral regurgitation Mild to moderate aortic regurgitation with mild aortic stenosis Mild tricuspid regurgitation Acute UTI with Klebsiella Hyperbilirubinemia with minimally elevated AST and ALT. History of abnormally thickened endometrium with vascularity concerning for endometrial carcinoma, reported per pelvic/transvaginal ultrasound 05/07/2024. Further outpatient workup in progress. Left bundle branch block Hypertension Hyperlipidemia Morbid obesity, BMI 35, reports 11 pound weight loss since 05/19 Prediabetic, hemoglobin A1c 6.2 (07/21), currently 6.1 Prior nicotine dependence, 1 pack/day x 10 years,quit 1978 Anxiety Depression Plan: Continue on current medication regimen ,monitoring and symptomatic treatment. Continue to progress and cleared to be transferred out of the ICU. Anticipate discharge 24 to 36 hours when stable. Will need cardiac rehab. Will continue lifestyle modifications. Will need to make appointment for further evaluation of dysfunctional uterine bleeding and thickened suspicious endometrium. Objective - Vital Signs Vital signs: Vital Signs Temp 98.2 F 08/11/24 16:50 Pulse 68 08/11/24 20:56 Resp 16 08/11/24 16:50 BP 112/72 08/11/24 16:50 Pulse Ox 99 08/11/24 16:50 FiO2 40 08/06/24 18:00 Intake & Output 08/11/24 08/11/24 08/12/24 06:59 18:59 06:59 Intake Total 1403 774 Output Total 525 490 Balance 878 284 Weight 86.545 kg Intake: IV 426 63 Invasive Line 3 30 Invasive Line 7 30 Pressure Bag (0.9 Sodium 36 3 Chloride) Sodium Chloride 0.9% 1, 360 30 000 ml @ 30 mls/hr IV . Q24H [facility] Rx#:[id number] Oral 977 711 Output: Urine 525 490 Other: Voiding Method Indwelling Catheter # Bowel Movements 1 1 ABP, PAP, CO, CI - Last Documented Arterial Blood Pressure 103/103 Pulmonary Artery Pressure 30/10 Cardiac Output 5.2 Cardiac Index 2.9 - Labs CBC & Chem 7: 08/11/24 05:27 08/11/24 05:27 Labs: Abnormal Lab Results - Last 24 Hours (Table) 08/11/24 08/11/24 08/11/24 Range/Units 05:27 05:27 20:04 RBC 2.30 L (3.80-5.40) m/uL Hgb 7.5 L (11.4-16.0) gm/dL Hct 21.9 L (34.0-46.0) % RDW 15.6 H (11.5-15.5) % Chloride 111 H (98-107) mmol/L Carbon Dioxide 19 L (22-30) mmol/L BUN 31 H (7-17) mg/dL POC Glucose (mg/dL) 125 H (70-110) mg/dL Total Bilirubin 1.4 H (0.2-1.3) mg/dL Total Protein 5.1 L (6.3-8.2) g/dL Albumin 2.8 L (3.5-5.0) g/dL
[2024-08-12 02:41] LABS: Glucose,Whole Blood 112 mg/dL (70-110)
[2024-08-12 05:48] LABS: HCT 25.6 % (34.0-46.0); HGB 7.9 gm/dL (11.4-16.0); Hypochromasia Moderate; MCH 29.6 pg (25.0-35.0); MCV 95.6 fL (80.0-100.0); Platelet Count 327 k/uL (150-450); RBC 2.68 m/uL (3.80-5.40); RDW 15.5 % (11.5-15.5); WBC 9.9 k/uL (3.8-10.6)
[2024-08-12 05:54] LABS: Potassium 3.4 mmol/L (3.5-5.1)
[2024-08-12 05:55] LABS: African American GFR (CKD) >90 (>60 ml/min/1.73 sqM); Anion Gap 18 mmol/L; Blood Urea Nitrogen 21 mg/dL (7-17); Calcium 8.3 mg/dL (8.4-10.2); Carbon Dioxide 11 mmol/L (22-30); Chloride 107 mmol/L (98-107); Glucose 107 mg/dL (74-99); Non-African American GFR(CKD) >90 (>60 ml/min/1.73 sqM); Sodium 136 mmol/L (137-145)
[2024-08-12 06:37] LABS: Glucose,Whole Blood 131 mg/dL (70-110)
[2024-08-12] MEDS: POTASSIUM BICARBONATE/CIT AC 20 MEQ TABLET.EFF PO ONE (07:01)
--- NOTE | 2024-08-12 08:08 | XR ---
EXAMINATION TYPE: XR chest 2V DATE OF EXAM: 08/12/2024 6:25 AM COMPARISON: 08/11/2024 CLINICAL INDICATION: Female, 74 years old with history of post open heart: Shortness of breath TECHNIQUE: XR chest 2V views of the chest are obtained. FINDINGS: Scattered senescent parenchymal changes noted. Hyperinflation compatible with COPD. Right perihilar infiltrate and/or atelectasis. Discoid atelectasis left midlung zone. Heart size is stable. Mediastinal structures are stable and grossly unremarkable. No evidence for hilar prominence. Degenerative changes dorsal spine. IMPRESSION: 1. Overall stable chest. [facility], , 08/12/2024 8:06 AM
--- NOTE | 2024-08-12 08:53 | P.PN ---
Subjective Progress Note Date: 08/12/24 Principal diagnosis: Coronary artery disease, non-ST elevated myocardial infarction this admission, very dynamic mitral valve regurgitation. Previuos medical history of coronary ar abena disease with non-STEMI and PCI to her LAD in April 2024, ischemic cardiomyopathy, hypertension, hyperlipidemia, hypothyroid, known left bundle branch block, hard of hearing, obesity, mild restrictive lung disease, previous tobacco dependence with cessation over 40 years ago, and recent vaginal bleeding being followed by [facility]. Preoperative nasal swab positive for MSSA, preoperative urinary tract infection with Klebsiella, preoperative transaminitis, left internal carotid artery stenosis POD #6 off pump single-vessel coronary artery bypass grafting using the in situ left internal mammary artery to the left anterior descending artery, exclusion of the left atrial appendage using a 35mm AtriClip, endoscopic harvesting of the left thigh greater saphenous vein that was not used, graft flow measurement using the Offerboard system, intraoperative transesophageal echocardiogram and epiaortic scanning Postoperative acute blood loss anemia and thrombocytopenia, expected given hemodilution Endobronchial hemorrhage with retained blood clots, status post flexible bronchoscopy with removal of blood clots Hypotension expected postoperatively given acute blood loss, resolved The patient was seen and examined this morning sitting up in recliner in the intensive care unit in no acute distress. Remains in sinus rhythm, hemodynamically stable. Currently on room air with oxygen saturation in the mid 90s. States pain is controlled on current medication regimen, denies shortness of breath. Labs, chest x-ray reviewed. She has been ambulatory out in the hallway and received first postoperative shower yesterday. Transfer orders were placed yesterday for [facility], no bed availability. No other new concerns. Objective - Vital Signs Vital signs: Vital Signs Temp 98.1 F 08/12/24 04:00 Pulse 71 08/12/24 08:33 Resp 24 08/12/24 04:00 BP 130/59 08/12/24 04:00 Pulse Ox 97 08/12/24 08:27 FiO2 40 08/06/24 18:00 Intake & Output 08/11/24 08/12/24 08/12/24 18:59 06:59 18:59 Intake Total 774 Output Total 490 50 Balance 284 -50 Weight 86.545 kg 86.6 kg Intake: IV 63 Invasive Line 7 30 Pressure Bag (0.9 Sodium 3 Chloride) Sodium Chloride 0.9% 1, 30 000 ml @ 30 mls/hr IV . Q24H [facility] Rx#:[id number] Oral 711 Output: Urine 490 50 Other: # Bowel Movements 1 1 ABP, PAP, CO, CI - Last Documented Arterial Blood Pressure 103/103 Pulmonary Artery Pressure 30/10 Cardiac Output 5.2 Cardiac Index 2.9 - Exam CONSTITUTIONAL: Appears comfortable, cooperative, no acute distress RESPIRATORY: Lungs sounds diminished in the bases bilaterally. Respirations even, nonlabored. Currently on room air with oxygen saturation 98%. Able to achieve 500 mL on incentive spirometry. Strong nonproductive cough. CARDIOVASCULAR: S1, S2 present. Regular rate and rhythm, sinus rhythm on telemetry. Sternum stable. Palpable peripheral pulses bilaterally. Trace generalized edema present. No calf pain or tenderness noted. Heart hugger in place with patient demonstrating appropriate use. Antiembolism stockings, SCDs present. GASTROINTESTINAL: Abdomen soft, nontender, nondistended. Active bowel sounds present 4 quadrants. Tolerating diet. Positive bowel movement 08/12 GENITOURINARY: Continues to void INTEGUMENTARY: Skin is warm and dry with evidence of good perfusion. Anterior chest incision well approximated and covered with dry intact dressing. Left lower extremity EVH site well approximated without redness NEUROLOGIC: Cranial nerves II through XII intact MUSKULOSKELETAL: Able to move all extremities, strength equal bilaterally, gait normal PSYCHIATRIC: Alert and oriented to person place and time, appropriate affect, intact judgment and insight - Allied health notes Allied health notes reviewed: nursing - Labs CBC & Chem 7: 08/12/24 05:21 08/12/24 05:21 Labs: Abnormal Lab Results - Last 24 Hours (Table) 08/11/24 08/12/24 08/12/24 Range/Units 20:04 02:39 05:21 RBC 2.68 L (3.80-5.40) m/uL Hgb 7.9 L (11.4-16.0) gm/dL Hct 25.6 L (34.0-46.0) % Sodium (137-145) mmol/L Potassium (3.5-5.1) mmol/L Carbon Dioxide (22-30) mmol/L BUN (7-17) mg/dL Creatinine (0.52-1.04) mg/dL Glucose (74-99) mg/dL POC Glucose (mg/dL) 125 H 112 H (70-110) mg/dL Calcium (8.4-10.2) mg/dL 08/12/24 08/12/24 Range/Units 05:21 06:35 RBC (3.80-5.40) m/uL Hgb (11.4-16.0) gm/dL Hct (34.0-46.0) % Sodium 136 L (137-145) mmol/L Potassium 3.4 L (3.5-5.1) mmol/L Carbon Dioxide 11 L (22-30) mmol/L BUN 21 H (7-17) mg/dL Creatinine 0.50 L (0.52-1.04) mg/dL Glucose 107 H (74-99) mg/dL POC Glucose (mg/dL) 131 H (70-110) mg/dL Calcium 8.3 L (8.4-10.2) mg/dL - Imaging and Cardiology Chest x-ray: report reviewed, image reviewed Assessment and Plan Assessment: Coronary artery disease, non-ST elevated myocardial infarction this admission, status post single-vessel off-pump CABG Very dynamic mitral valve regurgitation Recent vaginal bleeding being followed by [facility] Preoperative nasal swab positive for MSSA, treated with nasal mupirocin Preoperative urinary tract infection with Klebsiella, treated with Rocephin Preoperative transaminitis Left internal carotid artery stenosis, 50 to 69% Postoperative acute blood loss anemia and thrombocytopenia, expected given hemodilution Endobronchial hemorrhage with retained blood clots, status post flexible bronchoscopy with removal of blood clots Hypotension, expected given acute blood loss, resolved History of coronary artery disease with non-STEMI and PCI to her LAD in April 2024 Ischemic cardiomyopathy with EF 30-35% on TTE 07/29/24, preserved LV systolic function on WILLAM 07/31/24 Hypertension Hyperlipidemia, treated, cholesterol 112, LDL 56.5 Hypothyroid, TSH 2.66 Known left bundle branch block Obesity Mild restrictive lung disease, preoperative FEV1 66% of predicted Previous tobacco dependence with cessation over 40 years ago Plan: Continue to maximize medical therapy with aspirin, statin, Plavix, beta-apolonia therapy. Will increase beta-apolonia therapy as tolerated Continue amiodarone for A-fib prophylaxis. Patient has had no atrial fibrillation up to this point Encourage incentive spirometry use 10 times every hour while awake. Bronchodilators per pulmonology Increase activity, ambulate as tolerated. PT/OT/cardiac rehab following Will monitor daily labs and x-rays, electrolyte replacement per protocol, no Lasix today GI/DVT prophylaxis Insulin management per internal medicine. Patient is not diabetic, preoperative hemoglobin A1c 6.1% Pain control per current medication regimen Continue to monitor record strict accurate intake and output Shower daily Transfer orders placed yesterday for [facility] [address]. cardiac stepdown unit, may transfer when bed available Discharge planning in progress, anticipate discharge to home with home care in the next 24 to 48 hours More recommendations to follow as patient progresses
--- NOTE | 2024-08-12 09:38 | P.PN ---
Subjective Progress Note Date: 08/12/24 The patient is 74-year-old female who is currently admitted after undergoing single-vessel off-pump coronary bypass. Patient has done well during her recovery process. All drips and lines have been discontinued. Patient interviewed and examined resting comfortably in the recliner chair. GENERAL: Well-appearing, well-nourished and in no acute distress. Pale. NECK: Supple without JVD or thyromegaly. LUNGS: Breath sounds clear to auscultation bilaterally. Respiration equal and unlabored. No wheezes, rales or rhonchi. HEART: Regular rate and rhythm without murmurs, rubs or gallops. S1 and S2 hear d. Heart hugger in place EXTREMITIES: Normal range of motion, no edema. No clubbing or cyanosis. P eripheral pulses intact and strong. TELEMETRY: Sinus rhythm overnight LABS: WBC 9.9, hemoglobin 7.9, hematocrit 25.6, platelet 327, sodium 136, potassium 3.4, BUN 21, creatinine 0.50 IMPRESSION: Coronary artery disease Status post coronary bypass x1 Ischemic cardiomyopathy, EF 30-35 Mitral regurgitation Left carotid atherosclerosis Left bundle branch block Postoperative hypotension Postoperative anemia PLAN: Continue supportive treatment and aggressive pulmonary hygiene Encourage ambulation Follow-up with primary mixer foam rubber 1 week from discharge I am dictating on behalf of Dr Simon Hilario's history/physical and assessment/plan. Objective - Vital Signs Vital signs: Vital Signs Temp 98.1 F 08/12/24 08:00 Pulse 71 08/12/24 08:33 Resp 16 08/12/24 08:00 BP 132/59 08/12/24 08:00 Pulse Ox 97 08/12/24 08:27 FiO2 40 08/06/24 18:00 Intake & Output 08/11/24 08/12/24 08/12/24 18:59 06:59 18:59 Intake Total 774 Output Total 490 50 Balance 284 -50 Weight 86.545 kg 86.6 kg Intake: IV 63 Invasive Line 7 30 Pressure Bag (0.9 Sodium 3 Chloride) Sodium Chloride 0.9% 1, 30 000 ml @ 30 mls/hr IV . Q24H [facility] Rx#:[id number] Oral 711 Output: Urine 490 50 Other: # Bowel Movements 1 1 ABP, PAP, CO, CI - Last Documented Arterial Blood Pressure 103/103 Pulmonary Artery Pressure 30/10 Cardiac Output 5.2 Cardiac Index 2.9 - Labs CBC & Chem 7: 08/12/24 05:21 08/12/24 05:21 Labs: Abnormal Lab Results - Last 24 Hours (Table) 08/11/24 08/12/24 08/12/24 Range/Units 20:04 02:39 05:21 RBC 2.68 L (3.80-5.40) m/uL Hgb 7.9 L (11.4-16.0) gm/dL Hct 25.6 L (34.0-46.0) % Sodium (137-145) mmol/L Potassium (3.5-5.1) mmol/L Carbon Dioxide (22-30) mmol/L BUN (7-17) mg/dL Creatinine (0.52-1.04) mg/dL Glucose (74-99) mg/dL POC Glucose (mg/dL) 125 H 112 H (70-110) mg/dL Calcium (8.4-10.2) mg/dL 08/12/24 08/12/24 Range/Units 05:21 06:35 RBC (3.80-5.40) m/uL Hgb (11.4-16.0) gm/dL Hct (34.0-46.0) % Sodium 136 L (137-145) mmol/L Potassium 3.4 L (3.5-5.1) mmol/L Carbon Dioxide 11 L (22-30) mmol/L BUN 21 H (7-17) mg/dL Creatinine 0.50 L (0.52-1.04) mg/dL Glucose 107 H (74-99) mg/dL POC Glucose (mg/dL) 131 H (70-110) mg/dL Calcium 8.3 L (8.4-10.2) mg/dL
--- NOTE | 2024-08-12 10:27 | P.PN ---
Subjective Progress Note Date: 08/12/24 H&P Date: 07/29/24 Chief Complaint: Chest pain This is a 74-year-old female with past medical history significant for CAD, ischemic cardiomyopathy, recent NSTEMI with stenting of the mid LAD 05/13/2024 followed by cardiac catheterization on 07/10/2024 reporting no progression of disease with medical therapy maximized, left bundle branch block ,hypertension, hyperlipidemia, morbid obesity, prediabetic with hemoglobin A1c of 6.2 (07/21), hypothyroidism, prior nicotine dependence, and multiple other medical issues presented to the ER with complaints of radiating midsternal chest pain accompanied by diaphoresis and shortness of breath over the last 2 to 3 nights in a row. Admits to fluctuating chest pain since April 2024 as well as her last catheterization in June 2024. denies nausea, vomiting or diarrhea. Denies abdominal pain. Reports weight loss of 11 pounds since April 2024. Denies upper respiratory infections or known sick contacts. She started cardiac rehab yesterday. Reports pain initiates in her right hand travels up her right arm across to her mid sternum. Symptoms usually begin after dinner, progresses through the night, averaging a total of 3 nitro sublinguals each night. Afebrile, normal WBC. Chest x-ray reported nonacute. Hematology, coagulation panel unremarkable. Sodium 136, potassium 5.5, bicarb 21, BUN 25, creatinine 0.96, mag 2.0, T. bili 1.4, AST 77, ALT 42, alk phos WNL. Troponin 0.053. BNP 1870. EKG reported sinus rhythm with left bundle branch block. Anticoagulated on IV heparin drip. Echo ordered. 07/30/2024 serial enzymes 0.053, 0.033, 0.193.Echo reported severely impaired low ventricular systolic function, EF 30 to 35%, moderate mitral regurgitation, mild to moderate aortic regurgitation with mild aortic stenosis, mild tricuspid regurgitation. Reported she had another episode of right arm pain radiating up to midsternal chest pain during the night starting around 10:00, received morphine, pain subsided but developed nausea. Maintained on heparin drip., CTS consult recently placed, evaluation pending. 07/31/2024 patient was seen resting comfortably in bed with at bedside had a conversation with Dr. Kirby of cardiothoracic surgery and Dr. [facility] of [facility] regarding her care is determined that we would undergo a nuclear stress test to determine if there is any exercise-induced ischemia. If there was then would proceed with further intervention she is okay with this plan she denies any shortness of breath she had minimum chest pain last evening she is currently on Imdur which has diminished her angina. 08/03/2024 patient seen today resting comfortably all test were discussed with patient cardiothoracic surgery has recommended revascularization procedure coronary artery bypass graft which will be done midweek. She continues on heparin, Plavix is on hold 5 to 7 days prior to surgery cardiology continues to follow patient remains on Imdur. 08/04/2024 maintained on ceftriaxone for UTI with Klebsiella. Afebrile, normal WBC. Plavix remains on hold. Scheduled for CABG on . Reports she did have a chest pain episode during the night, continues on Imdur with Ranexa dose increased as per cardiology. 08/05/2024 anticoagulated on heparin drip .reports another episode of chest pain during the night, relieved with sublingual nitro. Currently denies chest pain, palpitations or shortness of breath. Telemetry sinus rhythm. Tolerating diet, denies nausea, vomiting. Reports bowel movement yesterday scheduled for CABG tomorrow. Continues on ceftriaxone for Klebsiella UTI. UA repeated, reporting large blood, negative nitrates, small leukocytes, rare bacteria. 08/06/2024 pt going for surgery today for coronary artery bypass graft. 08/07/2024 patient is seen today first day postop coronary artery bypass graft patient has discomfort with chest tubes anterior chest wall with deep inspirations. She continues to have 100% ICU support from cardiothoracic surgery cardiology pulmonary critical care will continue to follow patient's progress until she is released to the floors. 08/10/2024 patient seen today still in the ICU requiring support from pulmonary critical care. Still has 2 chest tubes inserted anteriorly. She is currently getting a breathing treatment as standard protocol denies any chest pain denies any fever. 08/11/2024 patient seen today a little more comfortable with the removal of 2 chest tubes she is currently off all IVs and is feeling better. Still feels like she got hit by a truck. She was up twice today with assistance. She denies any fever cough or congestion. 08/12/2024 Telemetry sinus rhythm. Ambulating in hallway, tolerated exertion well. denies chest pain or palpitations or shortness of breath. Maintaining O2 sats in the high 90s on room air. Afebrile, normal WBC. Hemoglobin 7.9, platelets 327. Renal function stable, potassium 3.4, receiving supplements. Blood sugars controlled. Objective - Vital Signs Vital signs: Vital Signs Temp 98.1 F 08/12/24 08:00 Pulse 71 08/12/24 08:33 Resp 16 08/12/24 08:00 BP 132/59 08/12/24 08:00 Pulse Ox 97 08/12/24 08:27 FiO2 40 08/06/24 18:00 Intake & Output 08/11/24 08/12/24 08/12/24 18:59 06:59 18:59 Intake Total 774 Output Total 490 50 Balance 284 -50 Weight 86.545 kg 86.6 kg Intake: IV 63 Invasive Line 7 30 Pressure Bag (0.9 Sodium 3 Chloride) Sodium Chloride 0.9% 1, 30 000 ml @ 30 mls/hr IV . Q24H [facility] Rx#:[id number] Oral 711 Output: Urine 490 50 Other: # Bowel Movements 1 1 ABP, PAP, CO, CI - Last Documented Arterial Blood Pressure 103/103 Pulmonary Artery Pressure 30/10 Cardiac Output 5.2 Cardiac Index 2.9 - Exam VITAL SIGNS: [Reviewed] GENERAL: [place],Alert and oriented x 3, sitting up in chair ,no acute distress. HEENT: Atraumatic, normocephalic, conjunctivae normal. eyes normal. NECK: Supple,no JVD. CARDIOVASCULAR: S1, S2. regular rate and rhythm. RESPIRATION: Unlabored, equal air entry, essentially clear to auscultation. ABDOMEN: Soft, nondistended, nontender . No guarding. Positive bowel sounds. LEGS: No edema. no swelling. No calf tenderness. NERVOUS SYSTEM: Cranial N 2-12 grossly normal. No focal deficits. Strength and sensation grossly intact. Skin: Warm and dry, no rash. - Labs CBC & Chem 7: 08/12/24 05:21 08/12/24 05:21 Labs: Abnormal Lab Results - Last 24 Hours (Table) 08/11/24 08/12/24 08/12/24 Range/Units 20:04 02:39 05:21 RBC 2.68 L (3.80-5.40) m/uL Hgb 7.9 L (11.4-16.0) gm/dL Hct 25.6 L (34.0-46.0) % Sodium (137-145) mmol/L Potassium (3.5-5.1) mmol/L Carbon Dioxide (22-30) mmol/L BUN (7-17) mg/dL Creatinine (0.52-1.04) mg/dL Glucose (74-99) mg/dL POC Glucose (mg/dL) 125 H 112 H (70-110) mg/dL Calcium (8.4-10.2) mg/dL 08/12/24 08/12/24 Range/Units 05:21 06:35 RBC (3.80-5.40) m/uL Hgb (11.4-16.0) gm/dL Hct (34.0-46.0) % Sodium 136 L (137-145) mmol/L Potassium 3.4 L (3.5-5.1) mmol/L Carbon Dioxide 11 L (22-30) mmol/L BUN 21 H (7-17) mg/dL Creatinine 0.50 L (0.52-1.04) mg/dL Glucose 107 H (74-99) mg/dL POC Glucose (mg/dL) 131 H (70-110) mg/dL Calcium 8.3 L (8.4-10.2) mg/dL Assessment and Plan Assessment: NSTEMI,in a patient with prior CAD, recent NV with stenting of the mid LAD 05/13/2024. 07/10/2024 cardiac catheterization completed reporting 30% distal left main disease, 70% ostial LAD disease, patent stents in the mid LAD, 70% diffuse distal LAD disease. 50% ostial and proximal left circumflex disease negative IFR performed on 05/18/2024. Cardiology reported no progression of CAD, comparing to heart cath of 05/18/2024.Per catheterization reports cardiology felt that the LAD intervention was complex and patient would benefit from optimization of cardiac medications ,started on Imdur therapy. "If patient fails antianginal and optimize heart failure medication she would be considered for CABG. " status post CABG, single-vessel 08/06/2024. Acute blood loss anemia and thrombocytopenia postoperative, expected outcome ,secondary to hemodilution Acute systolic heart failure Ischemic cardiomyopathy, EF 30 to 35% Moderate mitral regurgitation Mild to moderate aortic regurgitation with mild aortic stenosis Mild tricuspid regurgitation Left internal carotid stenosis 50 to 69% Acute UTI with Klebsiella Hyperbilirubinemia with minimally elevated AST and ALT. 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 Further outpatient workup in progress. Left bundle branch block Hypertension Hyperlipidemia Morbid obesity, BMI 35, reports 11 pound weight loss since 05/19 Prediabetic, hemoglobin A1c 6.2 (07/21), currently 6.1 Prior nicotine dependence, 1 pack/day x 10 years,quit 1978 Anxiety Depression Plan: Continue on current medication regimen ,monitoring and symptomatic treatment. Telemetry overflow-transfer out of ICU,pending cardiac stepdown bed availability. aggressive pulmonary toileting with incentive spirometer reinfor ed, increase ambulation as tolerated. Discharge planning in progress in the next 24 hours as per CTS. follow-up with PCP in 1 week. The impression and plan of care has been dictated as directed. : I performed a history and examination of this patient, discussed the same with the dictator. I agree with the dictator's note ,documented as a scribe. Any additional findings or plans will be noted.
[2024-08-12 11:22] LABS: Glucose,Whole Blood 95 mg/dL (70-110)
[2024-08-12 16:34] LABS: Glucose,Whole Blood 114 mg/dL (70-110)
--- NOTE | 2024-08-12 16:47 | P.PN ---
Subjective Progress Note Date: 08/12/24 Principal diagnosis: POD #6 off pump single-vessel coronary artery bypass grafting using the in situ left internal mammary artery to the left anterior descending artery, exclusion of the left atrial appendage using a 35mm AtriClip, endoscopic harvesting of the left thigh greater saphenous vein that was not used, graft flow measurement using the Clerkystim system, intraoperative transesophageal echocardiogram and epiaortic scanning On 08/06/2024, the patient is being seen in the intensive care unit following her bypass surgery. Noted the patient underwent off-pump single-vessel bypass surgery with EVANS to LAD. The patient also underwent a left atrial appendage exclusion. Noted intraoperatively, the patient encountered increased hemoptysis and a total of 200 cc of blood was aspirated through the orotracheal tube. This was a complication related to the Newport-Karen catheter as the catheter was withdrawn later on. The chest x-ray shows an area of consolidation in the right lower lobe which is probably an area of intraparenchymal hemorrhage. After arriving to the intensive care unit, the patient was seen and evaluated. The patient was assist-control mode of mechanical ventilation at rate of 14, tidal volume of 400, FiO2 50% with a PEEP of 10. Blood gases showed a pH of 7.24 with a pCO2 of 52 and pO2 of 82. Based on that, the respiratory rate was increased up to 24. The hemodynamic parameters showed a cardiac output of 5 and an index of 2.8. PA pressures were 34/22. The patient was on milrinone running at 0.2 mcg/kg/h, nitroglycerin drip at 5 mcg/min and norepinephrine at 0.11 mcg/kg/min. The patient is also on normal citrate of 75 cc an hour and insulin drip at the rate of 3.5 units an hour. Cardiac rhythm was sinus. Discussed the case with c ardiothoracic surgery. Performed a bedside bronchoscopy on this patient and copious amount of blood clots were aspirated from the airway. The completion of the bronchoscopy, the patient had no residual blood clots and full airway patency was established. Subsequently, the patient started having loss and volume, and the return tidal volumes were low and the patient had difficulties in maintaining the pressure in her orotracheal tube cuff. Based on that, I remove the orotracheal tube and replaced it by #8. Intubation was done in the intensive care unit. During the process, the patient had no significant hemodynamic instability. For now, the patient has a right pleural and left lower chest tube and mediastinal chest tube. No evidence of any air leak. Chest x-ray shows no evidence of any pneumothorax. Reviewed the series of x- rays done specially the 1 that was done post reintubation. ET tube was seen around 3 cm above the jeremie. The Newport-Karen catheter was projecting and approp riate location. Drainage tubes were in place. The blood work that was done postop showed a hemoglobin of 9.3, platelet count of 120, and the most recent blood gas showed a pH of 7.37 with pCO2 of 36 and pO2 of 134 and this was done FiO2 of 50%. The patient remains sedated on propofol. Cardiac rhythm is sinus. On today's evaluation of 08/07/2024, the patient is being seen for a follow-up. The patient was weaned off mechanical ventilator and the patient was extubated today without any major difficulties. This morning, she is sitting up in a chair and she is calm and comfortable and denies having any specific complaints. She is currently on 2 L of oxygen by nasal cannula. The patient is currently off milrinone. The cardiac output Is at 4.5 with an index of 2.5. PA pressures are 24/10 and a CVP is at 6. The patient has mediastinal chest tube x 2, left pleural and right pleural chest tube. Mediastinal chest tube is produced 90 cc over the past 8 hours) since surgery. Left pleural tube has produced 125 cc overnight) 50 cc since surgery. Right lower chest tube is produced 70 cc over the past 8 hours and 150 cc overnight. The cardiac rhythm is sinus. Urine output is adequate. There is an order of 30 cc an hour. The patient remains on insulin drip at 2.5 units an hour. No other significant events overnight. In terms of the labs, the patient's blood work showed a hemoglobin of 9.4, white cell count of 10.5, platelet count of 131. The BUN is 21 with a creatinine 1.0 7. Electrolytes are all stable. Serum bicarb is at 18. LFTs are normal. No other significant events overnight. On 08/08/2024, the patient is being seen for a follow-up. The patient is post single-vessel bypass surgery. The patient is currently on 3 Suboxone by nasal cannula. Cardiac rhythm is sinus. Urine output is in order of 5 to 25 cc an hour. The patient was given 40 mg IV Lasix x 1. She is awake and alert. Chest tubes are still in place. The follow-up chest x-ray from today shows evidence of area of consolidation in the right mid/lower lung area which is representation of a pulmonary hemorrhage that occurred at time of surgery. Chest tubes are still in place. Blood work from today shows a white cell count of 14.3, hemoglobin 7.8 and a platelet count of 112. Sodium is at 132, BUN 23 creatinine is 1.5. Potassium level is at 4.0. Serum bicarb is at 19. The patient sustained an acute kidney injury. Note that she has been treated for a Klebsiella urinary tract infection preoperatively. For now, the patient is on metoprolol 12.5 mg p.o. twice a day. She is on aspirin. She is on Plavix. She is on amiodarone 4 mg p.o. twice a day. She remains on insulin drip for blood sugar control. On 08/09/2024, the patient is being seen for a follow-up. The patient is awake and alert and communicating. She is currently on 3 days of oxygen by nasal cannula. She did sustain acute kidney injury and diminished urine output. Based on that, the patient was started on dopamine renal dose. Creatinine is improving. The patient remains normal sinus rhythm. The fluid balance is +1.2 L over the past 24 hours. The mediastinal chest tube has been removed and the patient continues to have a right and the left pleural chest tube. Sitting up in a chair she is calm and comfortable. White cell count of 12.7, hemoglobin is at 8 and the platelet count is 145. Sodium is at 134 with potassium level of 4 and a BUN of 36 with a creatinine of 1.2. Rest of the medications were all reviewed. She is using the incentive spirometer. Some soreness in her chest related to previous thoracotomy. The patient is currently on Lantus insulin 10 units daily & scale insulin coverage. Patient was seen today on 08/10/2024, patient remains in the ICU, on room air, does not seem to be in any distress. IV fluids at 30 cc/h. Patient is not requiring any inotropes or any pressors, continues to have right lower lobe opacity most likely related to her last episode of hemoptysis. Patient is clinically improving. Labs showed WBC of 10.3 hemoglobin 7.5 electrolytes are normal renal profile is normal blood sugar is 107. Chest x-ray continues to have left-sided chest tube in place, no pneumothorax, right perihilar opacity slightly improving but persists Patient was seen today on 08/11/2024, patient is in the ICU as an overflow, doing fairly well, not in any distress, she is on room air, and the plan is to hopefully send her to 3 S. today. No cough no wheezing no shortness of breath, chest x-ray showed postoperative changes, right perihilar area of consolidation remains about the same, I believe this is related to her last episode of hemoptysis and persists. WBC count is 7.1 hemoglobin 7.5 electrolytes are normal renal profile is normal Seen today on 08/12/2024, patient is now on the medical floor, 3 S., doing well, on room air, not in any distress. Chest x-ray showed mostly postoperative changes labs were reviewed she had relatively normal CBC except for hemoglobin of 7.9 electrolytes are normal renal profile is normal Objective - Vital Signs Vital signs: Vital Signs Temp 98.4 F 08/12/24 10:50 Pulse 72 08/12/24 16:02 Resp 16 08/12/24 10:50 BP 135/69 08/12/24 10:50 Pulse Ox 96 08/12/24 10:50 FiO2 40 08/06/24 18:00 Intake & Output 08/11/24 08/12/24 08/12/24 18:59 06:59 18:59 Intake Total 774 118 Output Total 490 50 250 Balance 284 -50 -132 Weight 86.545 kg 86.6 kg Intake: IV 63 Invasive Line 7 30 Pressure Bag (0.9 Sodium 3 Chloride) Sodium Chloride 0.9% 1, 30 000 ml @ 30 mls/hr IV . Q24H [facility] Rx#:[id number] Oral 711 118 Output: Urine 490 50 250 Other: Voiding Method Bedside Commode # Voids 1 # Bowel Movements 1 1 ABP, PAP, CO, CI - Last Documented Arterial Blood Pressure 103/103 Pulmonary Artery Pressure 30/10 Cardiac Output 5.2 Cardiac Index 2.9 - Exam GENERAL: Revealed a 74-year-old female in no distress, on room air, HEENT: Atraumatic, normocephalic, conjunctivae normal. eyes normal. NECK: Supple,no JVD. No neck masses, no stridor. CARDIOVASCULAR: Distant S1-S2, no S3 gallop. RESPIRATION: Clear bilaterally no crackles rhonchi or wheezes. ABDOMEN: Obese soft nontender no MAG no rebound no guarding LEGS: No clubbing edema or cyanosis NERVOUS SYSTEM: Alert oriented x 3 no gross focal deficit Skin: No rashes - Labs CBC & Chem 7: 08/12/24 05:21 08/12/24 05:21 Labs: Abnormal Lab Results - Last 24 Hours (Table) 08/11/24 08/12/24 08/12/24 Range/Units 20:04 02:39 05:21 RBC 2.68 L (3.80-5.40) m/uL Hgb 7.9 L (11.4-16.0) gm/dL Hct 25.6 L (34.0-46.0) % Sodium (137-145) mmol/L Potassium (3.5-5.1) mmol/L Carbon Dioxide (22-30) mmol/L BUN (7-17) mg/dL Creatinine (0.52-1.04) mg/dL Glucose (74-99) mg/dL POC Glucose (mg/dL) 125 H 112 H (70-110) mg/dL Calcium (8.4-10.2) mg/dL 08/12/24 08/12/24 08/12/24 Range/Units 05:21 06:35 16:33 RBC (3.80-5.40) m/uL Hgb (11.4-16.0) gm/dL Hct (34.0-46.0) % Sodium 136 L (137-145) mmol/L Potassium 3.4 L (3.5-5.1) mmol/L Carbon Dioxide 11 L (22-30) mmol/L BUN 21 H (7-17) mg/dL Creatinine 0.50 L (0.52-1.04) mg/dL Glucose 107 H (74-99) mg/dL POC Glucose (mg/dL) 131 H 114 H (70-110) mg/dL Calcium 8.3 L (8.4-10.2) mg/dL Assessment and Plan Assessment: Impression: status post off-pump single-vessel bypass surgery with EVANS to LAD. The patient is currently postop day # 6 Right lung parenchymal hemorrhage involving the right lower lobe in addition to hemoptysis and endobronchial hemorrhage, most likely a complication of Newport-Karen catheter and the catheter has been repositioned. Bronchoscopy was also done with evacuation of copious amount of residual blood clots retained in the patient's airways. Chest x-ray findings are unchanged Acute kidney injury with oliguria, responded to dopamine Acute urinary tract infection, treated with Rocephin, resolved Ischemic cardiomyopathy with EF 30-35% on TTE 07/29/24, preserved LV systolic function on WILLAM 07/31/24 Hypertension Dyslipidemia Hypothyroid, Left bundle branch block Ex-smoker Recommendation: Continue incentive spirometry Continue ambulation in the hallway Continue to monitor labs on a daily basis Continue aspirin Plavix metoprolol and amiodarone as well as statin Possible discharge planning in the next 24 hours Time with Patient: Less than 30
[2024-08-12 18:43] VITALS: RESP 18
[2024-08-12 20:46] LABS: Glucose,Whole Blood 120 mg/dL (70-110)
[2024-08-13 01:57] LABS: Glucose,Whole Blood 98 mg/dL (70-110)
[2024-08-13 06:28] LABS: Glucose,Whole Blood 119 mg/dL (70-110)
[2024-08-13] MEDS: INSULIN GLARGINE (LANTUS) 100 UNIT/ML SYR SQ SCH (06:35)
[2024-08-13 07:18] LABS: HCT 29.9 % (34.0-46.0); HGB 8.9 gm/dL (11.4-16.0); Hypochromasia Marked; MCH 28.5 pg (25.0-35.0); MCHC 29.6 g/dL (31.0-37.0); MCV 96.4 fL (80.0-100.0); Mean Platelet Volume 7.8; Platelet Count 353 k/uL (150-450); RDW 15.5 % (11.5-15.5); WBC 10.1 k/uL (3.8-10.6)
--- NOTE | 2024-08-13 07:47 | XR ---
EXAMINATION TYPE: XR chest 2V DATE OF EXAM: 08/13/2024 6:42 AM COMPARISON: 08/12/2024 CLINICAL INDICATION: Female, 74 years old with history of Postcardiac surgery: Shortness of breath TECHNIQUE: XR chest 2V views of the chest are obtained. FINDINGS: Scattered senescent parenchymal changes noted. Hyperinflation compatible with COPD. Stable right perihilar infiltrate and/or atelectasis. Discoid atelectasis left midlung zone. Heart size is stable. Mediastinal structures are stable and grossly unremarkable. No evidence for hilar prominence. Degenerative changes dorsal spine. IMPRESSION: 1. Stable postoperative chest [facility] Georgina Jay, , 08/13/2024 7:45 AM
[2024-08-13 08:01] LABS: African American GFR (CKD) >90 (>60 ml/min/1.73 sqM); Anion Gap 11 mmol/L; Blood Urea Nitrogen 17 mg/dL (7-17); Calcium 8.9 mg/dL (8.4-10.2); Carbon Dioxide 19 mmol/L (22-30); Chloride 113 mmol/L (98-107); Glucose 105 mg/dL (74-99); Non-African American GFR(CKD) >90 (>60 ml/min/1.73 sqM); Potassium 4.5 mmol/L (3.5-5.1); Sodium 143 mmol/L (137-145)
[2024-08-13] MEDS: METOPROLOL TARTRATE 25 MG TAB PO SCH (10:30)
[2024-08-13 10:41] VITALS: BP 129/76; TEMP 97.8
--- NOTE | 2024-08-13 11:08 | P.PN ---
Subjective Progress Note Date: 08/13/24 Principal diagnosis: Coronary artery disease, non-ST elevated myocardial infarction this admission, very dynamic mitral valve regurgitation. Previuos medical history of coronary ar abena disease with non-STEMI and PCI to her LAD in April 2024, ischemic cardiomyopathy, hypertension, hyperlipidemia, hypothyroid, known left bundle branch block, hard of hearing, obesity, mild restrictive lung disease, previous tobacco dependence with cessation over 40 years ago, and recent vaginal bleeding being followed by [facility]. Preoperative nasal swab positive for MSSA, preoperative urinary tract infection with Klebsiella, preoperative transaminitis, left internal carotid artery stenosis POD #7 off pump single-vessel coronary artery bypass grafting using the in situ left internal mammary artery to the left anterior descending artery, exclusion of the left atrial appendage using a 35mm AtriClip, endoscopic harvesting of the left thigh greater saphenous vein that was not used, graft flow measurement using the [employer] system, intraoperative transesophageal echocardiogram and epiaortic scanning Postoperative acute blood loss anemia and thrombocytopenia, expected given hemodilution Endobronchial hemorrhage with retained blood clots, status post flexible bronchoscopy with removal of blood clots Hypotension expected postoperatively given acute blood loss, resolved The patient was seen and examined this morning sitting up in recliner on the cardiac stepdown unit in no acute distress. Remains in sinus rhythm, hemodynamically stable. Currently on room air with oxygen saturation in the mid 90s. States pain is controlled on current medication regimen, denies shortness of breath. Labs, chest x-ray reviewed. She has been ambulatory out in the hallway, daily showers. Anticipates discharge to home with home care today. No other new concerns. Objective - Vital Signs Vital signs: Vital Signs Temp 97.8 F 08/13/24 08:00 Pulse 78 08/13/24 08:00 Resp 18 08/13/24 08:00 BP 129/76 08/13/24 08:00 Pulse Ox 97 08/13/24 08:00 FiO2 40 08/06/24 18:00 Intake & Output 08/12/24 08/13/24 08/13/24 18:59 06:59 18:59 Intake Total 716 540 540 Output Total 250 Balance 466 540 540 Weight 85.9 kg Intake: Oral 716 540 540 Output: Urine 250 Other: Voiding Method Bedside Commode Bedside Commode Bedside Commode # Voids 3 0 # Bowel Movements 2 ABP, PAP, CO, CI - Last Documented Arterial Blood Pressure 103/103 Pulmonary Artery Pressure 30/10 Cardiac Output 5.2 Cardiac Index 2.9 - Exam CONSTITUTIONAL: Appears comfortable, cooperative, no acute distress RESPIRATORY: Lungs sounds diminished in the bases bilaterally. Respirations even, nonlabored. Currently on room air with oxygen saturation 96%. Able to achieve 750 mL on incentive spirometry. Strong nonproductive cough. CARDIOVASCULAR: S1, S2 present. Regular rate and rhythm, sinus rhythm on telemetry. Sternum stable. Palpable peripheral pulses bilaterally. Trace generalized edema present. No calf pain or tenderness noted. Heart hugger in place with patient demonstrating appropriate use. Antiembolism stockings, SCDs present. GASTROINTESTINAL: Abdomen soft, nontender, nondistended. Active bowel sounds present 4 quadrants. Tolerating diet. Positive bowel movement 08/13 x2 GENITOURINARY: Continues to void INTEGUMENTARY: Skin is warm and dry with evidence of good perfusion. Anterior chest incision well approximated. Left lower extremity EVH site well approximated without redness NEUROLOGIC: Cranial nerves II through XII intact MUSKULOSKELETAL: Able to move all extremities, strength equal bilaterally, gait normal PSYCHIATRIC: Alert and oriented to person place and time, appropriate affect, intact judgment and insight - Allied health notes Allied health notes reviewed: nursing - Labs CBC & Chem 7: 08/13/24 06:53 08/13/24 06:53 Labs: Abnormal Lab Results - Last 24 Hours (Table) 08/12/24 08/12/24 08/13/24 Range/Units 16:33 20:45 06:26 RBC (3.80-5.40) m/uL Hgb (11.4-16.0) gm/dL Hct (34.0-46.0) % MCHC (31.0-37.0) g/dL Chloride (98-107) mmol/L Carbon Dioxide (22-30) mmol/L Glucose (74-99) mg/dL POC Glucose (mg/dL) 114 H 120 H 119 H (70-110) mg/dL 08/13/24 08/13/24 Range/Units 06:53 06:53 RBC 3.10 L (3.80-5.40) m/uL Hgb 8.9 L (11.4-16.0) gm/dL Hct 29.9 L (34.0-46.0) % MCHC 29.6 L (31.0-37.0) g/dL Chloride 113 H (98-107) mmol/L Carbon Dioxide 19 L (22-30) mmol/L Glucose 105 H (74-99) mg/dL POC Glucose (mg/dL) (70-110) mg/dL - Imaging and Cardiology Chest x-ray: report reviewed, image reviewed Assessment and Plan Assessment: Coronary artery disease, non-ST elevated myocardial infarction this admission, status post single-vessel off-pump CABG Very dynamic mitral valve regurgitation Recent vaginal bleeding being followed by [facility] Preoperative nasal swab positive for MSSA, treated with nasal mupirocin Preoperative urinary tract infection with Klebsiella, treated with Rocephin Preoperative transaminitis Left internal carotid artery stenosis, 50 to 69% Postoperative acute blood loss anemia and thrombocytopenia, expected given hemodilution Endobronchial hemorrhage with retained blood clots, status post flexible bronchoscopy with removal of blood clots Hypotension, expected given acute blood loss, resolved History of coronary artery disease with non-STEMI and PCI to her LAD in April 2024 Ischemic cardiomyopathy with EF 30-35% on TTE 07/29/24, preserved LV systolic function on WILLAM 07/31/24 Hypertension Hyperlipidemia, treated, cholesterol 112, LDL 56.5 Hypothyroid, TSH 2.66 Known left bundle branch block Obesity Mild restrictive lung disease, preoperative FEV1 66% of predicted Previous tobacco dependence with cessation over 40 years ago Plan: Continue to maximize medical therapy with aspirin, statin, Plavix, beta-apolonia therapy. Will increase beta-apolonia therapy as tolerated, increased to 25 mg twice daily today Continue amiodarone for A-fib prophylaxis, will taper per protocol. Patient has had no atrial fibrillation up to this point Encourage incentive spirometry use 10 times every hour while awake. Bronchodilators per pulmonology Increase activity, ambulate as tolerated. PT/OT/cardiac rehab following Will monitor daily labs and x-rays, electrolyte replacement per protocol, no Lasix today GI/DVT prophylaxis Insulin management per internal medicine. Patient is not diabetic, preoperative hemoglobin A1c 6.1% Pain control per current medication regimen Continue to monitor record strict accurate intake and output Shower daily Discharge planning in progress, anticipate discharge to home with home care this afternoon More recommendations to follow as patient progresses
[2024-08-13 11:50] LABS: Glucose,Whole Blood 96 mg/dL (70-110)
[2024-08-13 11:55] VITALS: PULSE 68
[2024-08-13] MEDS: ONDANSETRON 4 MG/2 ML VIAL IVP PRN (12:19)
--- NOTE | 2024-08-13 13:31 | P.PN ---
Subjective Progress Note Date: 08/13/24 This is a 74-year-old female with past medical history significant for CAD, ischemic cardiomyopathy, recent NSTEMI with stenting of the mid LAD 05/13/2024 followed by cardiac catheterization on 07/10/2024 reporting no progression of disease with medical therapy maximized, left bundle branch block ,hypertension, hyperlipidemia, morbid obesity, prediabetic with hemoglobin A1c of 6.2 (07/21), hypothyroidism, prior nicotine dependence, and multiple other medical issues presented to the ER with complaints of radiating midsternal chest pain accompanied by diaphoresis and shortness of breath over the last 2 to 3 nights in a row. Admits to fluctuating chest pain since April 2024 as well as her last catheterization in June 2024. denies nausea, vomiting or diarrhea. Denies abdominal pain. Reports weight loss of 11 pounds since April 2024. Denies upper respiratory infections or known sick contacts. She started cardiac rehab yesterday. Reports pain initiates in her right hand travels up her right arm across to her mid sternum. Symptoms usually begin after dinner, progresses through the night, averaging a total of 3 nitro sublinguals each night. Afebrile, normal WBC. Chest x-ray reported nonacute. Hematology, coagulation panel unremarkable. Sodium 136, potassium 5.5, bicarb 21, BUN 25, creatinine 0.96, mag 2.0, T. bili 1.4, AST 77, ALT 42, alk phos WNL. Troponin 0.053. BNP 1870. EKG reported sinus rhythm with left bundle branch block. Anticoagulated on IV heparin drip. Echo ordered. 07/30/2024 serial enzymes 0.053, 0.033, 0.193.Echo reported severely impaired low ventricular systolic function, EF 30 to 35%, moderate mitral regurgitation, mild to moderate aortic regurgitation with mild aortic stenosis, mild tricuspid regurgitation. Reported she had another episode of right arm pain radiating up to midsternal chest pain during the night starting around 10:00, received morphine, pain subsided but developed nausea. Maintained on heparin drip., CTS consult recently placed, evaluation pending. 07/31/2024 patient was seen resting comfortably in bed with at bedside had a conversation with Dr. Kirby of cardiothoracic surgery and Dr. [facility] of [facility] regarding her care is determined that we would undergo a nuclear stress test to determine if there is any exercise-induced ischemia. If there was then would proceed with further intervention she is okay with this plan she denies any shortness of breath she had minimum chest pain last evening she is currently on Imdur which has diminished her angina. 08/03/2024 patient seen today resting comfortably all test were discussed with patient cardiothoracic surgery has recommended revascularization procedure coronary artery bypass graft which will be done midweek. She continues on heparin, Plavix is on hold 5 to 7 days prior to surgery cardiology continues to follow patient remains on Imdur. 08/04/2024 maintained on ceftriaxone for UTI with Klebsiella. Afebrile, normal WBC. Plavix remains on hold. Scheduled for CABG on . Reports she did have a chest pain episode during the night, continues on Imdur with Ranexa dose increased as per cardiology. 08/05/2024 anticoagulated on heparin drip .reports another episode of chest pain during the night, relieved with sublingual nitro. Currently denies chest pain, palpitations or shortness of breath. Telemetry sinus rhythm. Tolerating diet, denies nausea, vomiting. Reports bowel movement yesterday scheduled for CABG tomorrow. Continues on ceftriaxone for Klebsiella UTI. UA repeated, reporting large blood, negative nitrates, small leukocytes, rare bacteria. 08/06/2024 pt going for surgery today for coronary artery bypass graft. 08/07/2024 patient is seen today first day postop coronary artery bypass graft patient has discomfort with chest tubes anterior chest wall with deep inspirations. She continues to have 100% ICU support from cardiothoracic surgery cardiology pulmonary critical care will continue to follow patient's progress until she is released to the floors. 08/10/2024 patient seen today still in the ICU requiring support from pulmonary critical care. Still has 2 chest tubes inserted anteriorly. She is currently getting a breathing treatment as standard protocol denies any chest pain denies any fever. 08/11/2024 patient seen today a little more comfortable with the removal of 2 chest tubes she is currently off all IVs and is feeling better. Still feels like she got hit by a truck. She was up twice today with assistance. She denies any fever cough or congestion. 08/12. Patient seen and examined. Blood work done this morning showed WBC 9.9, hemoglobin 7.9, platelet count 327, sodium 137 potassium 3.4. Potassium placement ordered 08/13. Patient seen and examined. Blood work done today showed WBC 10.1, hemoglobin 8.9, platelet count 353, sodium 143, potassium 4.5, BUN 17, creatinine 0.57. Denies any chest pain. Vital signs stable REVIEW OF SYSTEMS: CONSTITUTIONAL: No fever, no malaise,. CARDIOVASCULAR: No chest pain, no palpitations, no syncope. PULMONARY: No shortness of breath, no cough, GASTROINTESTINAL: No diarrhea, no nausea, no vomiting, no abdominal pain. NEUROLOGICAL: No headaches, no weakness, PHYSICAL EXAMINATION: GENERAL: The patient is alert and oriented x3, not in any acute distress. Well developed, well nourished. HEENT: Pupils are round and equally reacting to light. EOMI. No scleral icterus. No conjunctival pallor. Normocephalic, atraumatic. No pharyngeal erythema. No thyromegaly. CARDIOVASCULAR: S1 and S2 present. No murmurs, rubs, or gallops. PULMONARY: Diminished breath sounds at the bases, sternotomy surgical incision seen ABDOMEN: Soft, nontender, nondistended, normoactive bowel sounds. No palpable organomegaly. MUSCULOSKELETAL: No joint swelling or deformity. EXTREMITIES: No cyanosis, clubbing, or pedal edema. NEUROLOGICAL: Gross neurological examination did not reveal any focal deficits. SKIN: No rashes. Assessment and plan NSTEMI,in a patient with prior CAD, recent PR with stenting of the mid LAD 05/13/2024. 07/10/2024 cardiac catheterization completed reporting 30% distal left main disease, 70% ostial LAD disease, patent stents in the mid LAD, 70% diffuse distal LAD disease. Acute systolic heart failure Ischemic cardiomyopathy, EF 30 to 35% Moderate mitral regurgitation Mild to moderate aortic regurgitation with mild aortic stenosis Mild tricuspid regurgitation Acute UTI with Klebsiella Hyperbilirubinemia with minimally elevated AST and ALT. History of abnormally thickened endometrium with vascularity concerning for en dometrial carcinoma, reported per pelvic/transvaginal ultrasound 05/07/2024. Further outpatient workup in progress. Left bundle branch block Hypertension Hyperlipidemia Morbid obesity, BMI 35, reports 11 pound weight loss since 05/19 Prediabetic, hemoglobin A1c 6.2 (07/21), currently 6.1 Prior nicotine dependence, 1 pack/day x 10 years,quit 1978 Anxiety Depression Monitor vital signs Monitor CBC Monitor CMP Continue telemetry monitoring Status post single-vessel coronary artery bypass grafting using the in situ left internal mammary artery to the left anterior descending artery, exclusion of the left atrial appendage using a 35mm AtriClip, endoscopic harvesting of the left thigh greater saphenous vein that was not used, graft flow measurement using the [employer] system, intraoperative transesophageal echocardiogram and epiaortic scanning Continue aspirin, Lipitor, Lopressor Continue Plavix Monitor blood sugar levels, continue current insulin regimen Continue breathing treatments continue Synthroid Cardiac surgery following Cardiology following Labs and medication were reviewed.. Continue same treatment. Continue with symptomatic treatment. Resume home medication. Monitor labs and vitals. DVT and GI prophylaxis. Further recommendations as per clinical course of the patie nt Dictation was produced using [employer] dictation software. please excuse any grammatical, word or spelling errors. Objective - Vital Signs Vital signs: Vital Signs Temp 97.8 F 08/13/24 08:00 Pulse 78 08/13/24 08:00 Resp 18 08/13/24 08:00 BP 129/76 08/13/24 08:00 Pulse Ox 97 08/13/24 08:00 FiO2 40 08/06/24 18:00 Intake & Output 08/12/24 08/13/24 08/13/24 18:59 06:59 18:59 Intake Total 716 540 540 Output Total 250 Balance 466 540 540 Weight 85.9 kg Intake: Oral 716 540 540 Output: Urine 250 Other: Voiding Method Bedside Commode Bedside Commode # Voids 3 0 # Bowel Movements 2 ABP, PAP, CO, CI - Last Documented Arterial Blood Pressure 103/103 Pulmonary Artery Pressure 30/10 Cardiac Output 5.2 Cardiac Index 2.9 - Labs CBC & Chem 7: 08/13/24 06:53 08/13/24 06:53 Labs: Abnormal Lab Results - Last 24 Hours (Table) 08/12/24 08/12/24 08/13/24 Range/Units 16:33 20:45 06:26 RBC (3.80-5.40) m/uL Hgb (11.4-16.0) gm/dL Hct (34.0-46.0) % MCHC (31.0-37.0) g/dL Chloride (98-107) mmol/L Carbon Dioxide (22-30) mmol/L Glucose (74-99) mg/dL POC Glucose (mg/dL) 114 H 120 H 119 H (70-110) mg/dL 08/13/24 08/13/24 Range/Units 06:53 06:53 RBC 3.10 L (3.80-5.40) m/uL Hgb 8.9 L (11.4-16.0) gm/dL Hct 29.9 L (34.0-46.0) % MCHC 29.6 L (31.0-37.0) g/dL Chloride 113 H (98-107) mmol/L Carbon Dioxide 19 L (22-30) mmol/L Glucose 105 H (74-99) mg/dL POC Glucose (mg/dL) (70-110) mg/dL
--- NOTE | 2024-08-13 14:29 | P.PN ---
Subjective Progress Note Date: 08/13/24 Principal diagnosis: POD #7 off pump single-vessel coronary artery bypass grafting using the in situ left internal mammary artery to the left anterior descending artery, exclusion of the left atrial appendage using a 35mm AtriClip, endoscopic harvesting of the left thigh greater saphenous vein that was not used, graft flow measurement using the [employer] system, intraoperative transesophageal echocardiogram and epiaortic scanning On 08/06/2024, the patient is being seen in the intensive care unit following her bypass surgery. Noted the patient underwent off-pump single-vessel bypass surgery with EVANS to LAD. The patient also underwent a left atrial appendage exclusion. Noted intraoperatively, the patient encountered increased hemoptysis and a total of 200 cc of blood was aspirated through the orotracheal tube. This was a complication related to the Upton-Karen catheter as the catheter was withdrawn later on. The chest x-ray shows an area of consolidation in the right lower lobe which is probably an area of intraparenchymal hemorrhage. After arriving to the intensive care unit, the patient was seen and evaluated. The patient was assist-control mode of mechanical ventilation at rate of 14, tidal volume of 400, FiO2 50% with a PEEP of 10. Blood gases showed a pH of 7.24 with a pCO2 of 52 and pO2 of 82. Based on that, the respiratory rate was increased up to 24. The hemodynamic parameters showed a cardiac output of 5 and an index of 2.8. PA pressures were 34/22. The patient was on milrinone running at 0.2 mcg/kg/h, nitroglycerin drip at 5 mcg/min and norepinephrine at 0.11 mcg/kg/min. The patient is also on normal citrate of 75 cc an hour and insulin drip at the rate of 3.5 units an hour. Cardiac rhythm was sinus. Discussed the case with c ardiothoracic surgery. Performed a bedside bronchoscopy on this patient and copious amount of blood clots were aspirated from the airway. The completion of the bronchoscopy, the patient had no residual blood clots and full airway patency was established. Subsequently, the patient started having loss and volume, and the return tidal volumes were low and the patient had difficulties in maintaining the pressure in her orotracheal tube cuff. Based on that, I remove the orotracheal tube and replaced it by #8. Intubation was done in the intensive care unit. During the process, the patient had no significant hemodynamic instability. For now, the patient has a right pleural and left lower chest tube and mediastinal chest tube. No evidence of any air leak. Chest x-ray shows no evidence of any pneumothorax. Reviewed the series of x- rays done specially the 1 that was done post reintubation. ET tube was seen around 3 cm above the jeremie. The Upton-Karen catheter was projecting and approp riate location. Drainage tubes were in place. The blood work that was done postop showed a hemoglobin of 9.3, platelet count of 120, and the most recent blood gas showed a pH of 7.37 with pCO2 of 36 and pO2 of 134 and this was done FiO2 of 50%. The patient remains sedated on propofol. Cardiac rhythm is sinus. On today's evaluation of 08/07/2024, the patient is being seen for a follow-up. The patient was weaned off mechanical ventilator and the patient was extubated today without any major difficulties. This morning, she is sitting up in a chair and she is calm and comfortable and denies having any specific complaints. She is currently on 2 L of oxygen by nasal cannula. The patient is currently off milrinone. The cardiac output Is at 4.5 with an index of 2.5. PA pressures are 24/10 and a CVP is at 6. The patient has mediastinal chest tube x 2, left pleural and right pleural chest tube. Mediastinal chest tube is produced 90 cc over the past 8 hours) since surgery. Left pleural tube has produced 125 cc overnight) 50 cc since surgery. Right lower chest tube is produced 70 cc over the past 8 hours and 150 cc overnight. The cardiac rhythm is sinus. Urine output is adequate. There is an order of 30 cc an hour. The patient remains on insulin drip at 2.5 units an hour. No other significant events overnight. In terms of the labs, the patient's blood work showed a hemoglobin of 9.4, white cell count of 10.5, platelet count of 131. The BUN is 21 with a creatinine 1.0 7. Electrolytes are all stable. Serum bicarb is at 18. LFTs are normal. No other significant events overnight. On 08/08/2024, the patient is being seen for a follow-up. The patient is post single-vessel bypass surgery. The patient is currently on 3 Suboxone by nasal cannula. Cardiac rhythm is sinus. Urine output is in order of 5 to 25 cc an hour. The patient was given 40 mg IV Lasix x 1. She is awake and alert. Chest tubes are still in place. The follow-up chest x-ray from today shows evidence of area of consolidation in the right mid/lower lung area which is representation of a pulmonary hemorrhage that occurred at time of surgery. Chest tubes are still in place. Blood work from today shows a white cell count of 14.3, hemoglobin 7.8 and a platelet count of 112. Sodium is at 132, BUN 23 creatinine is 1.5. Potassium level is at 4.0. Serum bicarb is at 19. The patient sustained an acute kidney injury. Note that she has been treated for a Klebsiella urinary tract infection preoperatively. For now, the patient is on metoprolol 12.5 mg p.o. twice a day. She is on aspirin. She is on Plavix. She is on amiodarone 4 mg p.o. twice a day. She remains on insulin drip for blood sugar control. On 08/09/2024, the patient is being seen for a follow-up. The patient is awake and alert and communicating. She is currently on 3 days of oxygen by nasal cannula. She did sustain acute kidney injury and diminished urine output. Based on that, the patient was started on dopamine renal dose. Creatinine is improving. The patient remains normal sinus rhythm. The fluid balance is +1.2 L over the past 24 hours. The mediastinal chest tube has been removed and the patient continues to have a right and the left pleural chest tube. Sitting up in a chair she is calm and comfortable. White cell count of 12.7, hemoglobin is at 8 and the platelet count is 145. Sodium is at 134 with potassium level of 4 and a BUN of 36 with a creatinine of 1.2. Rest of the medications were all reviewed. She is using the incentive spirometer. Some soreness in her chest related to previous thoracotomy. The patient is currently on Lantus insulin 10 units daily & scale insulin coverage. Patient was seen today on 08/10/2024, patient remains in the ICU, on room air, does not seem to be in any distress. IV fluids at 30 cc/h. Patient is not requiring any inotropes or any pressors, continues to have right lower lobe opacity most likely related to her last episode of hemoptysis. Patient is clinically improving. Labs showed WBC of 10.3 hemoglobin 7.5 electrolytes are normal renal profile is normal blood sugar is 107. Chest x-ray continues to have left-sided chest tube in place, no pneumothorax, right perihilar opacity slightly improving but persists Patient was seen today on 08/11/2024, patient is in the ICU as an overflow, doing fairly well, not in any distress, she is on room air, and the plan is to hopefully send her to 3 S. today. No cough no wheezing no shortness of breath, chest x-ray showed postoperative changes, right perihilar area of consolidation remains about the same, I believe this is related to her last episode of hemoptysis and persists. WBC count is 7.1 hemoglobin 7.5 electrolytes are normal renal profile is normal Seen today on 08/12/2024, patient is now on the medical floor, 3 S., doing well, on room air, not in any distress. Chest x-ray showed mostly postoperative changes labs were reviewed she had relatively normal CBC except for hemoglobin of 7.9 electrolytes are normal renal profile is normal Seen today on 08/13/2024, patient is doing well, has no active pulmonary symptoms on room air, relatively asymptomatic. Chest x-ray showed stable postoperative findings otherwise unremarkable. Labs today are relatively normal including CBC and basic metabolic profile, renal profile Objective - Vital Signs Vital signs: Vital Signs Temp 97.8 F 08/13/24 08:00 Pulse 68 08/13/24 11:53 Resp 18 08/13/24 08:00 BP 129/76 08/13/24 08:00 Pulse Ox 98 08/13/24 11:43 FiO2 40 08/06/24 18:00 Intake & Output 08/12/24 08/13/24 08/13/24 18:59 06:59 18:59 Intake Total 716 540 540 Output Total 250 Balance 466 540 540 Weight 85.9 kg Intake: Oral 716 540 540 Output: Urine 250 Other: Voiding Method Bedside Commode Bedside Commode Bedside Commode # Voids 3 0 # Bowel Movements 2 ABP, PAP, CO, CI - Last Documented Arterial Blood Pressure 103/103 Pulmonary Artery Pressure 30/10 Cardiac Output 5.2 Cardiac Index 2.9 - Exam GENERAL: Revealed a 74-year-old female in no distress, on room air, HEENT: Atraumatic, normocephalic, conjunctivae normal. eyes normal. NECK: Supple,no JVD. No neck masses, no stridor. CARDIOVASCULAR: Distant S1-S2, no S3 gallop. RESPIRATION: Clear bilaterally no crackles rhonchi or wheezes. ABDOMEN: Obese soft nontender no MAG no rebound no guarding LEGS: No clubbing edema or cyanosis NERVOUS SYSTEM: Alert oriented x 3 no gross focal deficit Skin: No rashes - Labs CBC & Chem 7: 08/13/24 06:53 08/13/24 06:53 Labs: Abnormal Lab Results - Last 24 Hours (Table) 08/12/24 08/12/24 08/13/24 Range/Units 16:33 20:45 06:26 RBC (3.80-5.40) m/uL Hgb (11.4-16.0) gm/dL Hct (34.0-46.0) % MCHC (31.0-37.0) g/dL Chloride (98-107) mmol/L Carbon Dioxide (22-30) mmol/L Glucose (74-99) mg/dL POC Glucose (mg/dL) 114 H 120 H 119 H (70-110) mg/dL 08/13/24 08/13/24 Range/Units 06:53 06:53 RBC 3.10 L (3.80-5.40) m/uL Hgb 8.9 L (11.4-16.0) gm/dL Hct 29.9 L (34.0-46.0) % MCHC 29.6 L (31.0-37.0) g/dL Chloride 113 H (98-107) mmol/L Carbon Dioxide 19 L (22-30) mmol/L Glucose 105 H (74-99) mg/dL POC Glucose (mg/dL) (70-110) mg/dL Assessment and Plan Assessment: Impression: status post off-pump single-vessel bypass surgery with EVANS to LAD. The patient is currently postop day #7 Right lung parenchymal hemorrhage involving the right lower lobe in addition to hemoptysis and endobronchial hemorrhage, most likely a complication of Upton-Karen catheter and the catheter has been repositioned. Bronchoscopy was also done with evacuation of copious amount of residual blood clots retained in the patient's airways. Chest x-ray findings are unchanged Acute kidney injury with oliguria, responded to dopamine Acute urinary tract infection, treated with Rocephin, resolved Ischemic cardiomyopathy with EF 30-35% on TTE 07/29/24, preserved LV systolic function on WILLAM 07/31/24 Hypertension Dyslipidemia Hypothyroid, Left bundle branch block Ex-smoker Recommendation: Continue incentive spirometry Cleared for discharge today and follow-up on outpatient basis. Time with Patient: Less than 30
--- NOTE | 2024-08-13 14:43 | P.DS ---
Providers Date of admission: 07/29/24 05:57 Expected date of discharge: 08/13/24 Attending physician: Brandi Velazquez Consults: 07/29/24 05:56 Consult Physician Urgent Consulting Provider: Baron Lucia Consult Reason/Comments: cp Do you want consulting provider notified?: Yes 07/30/24 10:49 Consult Physician Routine Consulting Provider: Sean Kirby Consult Reason/Comments: cabg eval, prox LAD and distal LM disease Do you want consulting provider notified?: Yes 08/05/24 08:32 Consult Physician Routine Consulting Provider: Rick Roa Consult Reason/Comments: pulm clearance preop cabg Do you want consulting provider notified?: Yes 08/05/24 15:26 Consult to Anesthesia Routine Consulting Provider: Anesthesia,Services Consult Reason/Comments: Cardiac Surgery Pre-Op 08/06/24 12:28 Consult Physician Routine Consulting Provider: Maury Estrada Consult Reason/Comments: med mgmt Do you want consulting provider notified?: Already Contacted Primary care physician: Maury Estrada [facility] Course: FINAL DIAGNOSIS: Coronary artery disease, non-ST elevated myocardial infarction this admission Very dynamic mitral valve regurgitation Recent vaginal bleeding being 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 by 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 Preoperative nasal swab positive for MSSA, treated with nasal mupirocin Preoperative urinary tract infection with Klebsiella, treated with Rocephin Preoperative transaminitis Left internal carotid artery stenosis, 50 to 69% Postoperative acute blood loss anemia and thrombocytopenia, expected given hemodilution Endobronchial hemorrhage with retained blood clots, status post flexible bronchoscopy with removal of blood clots Hypotension, expected given acute blood loss, resolved History of coronary artery disease with non-STEMI and PCI to her LAD in April 2024 Ischemic cardiomyopathy with EF 30-35% on TTE 07/29/24, preserved LV systolic function on WILLAM 07/31/24 Hypertension Hyperlipidemia, treated, cholesterol 112, LDL 56.5 Hypothyroid, TSH 2.66 Known left bundle branch block Obesity Mild restrictive lung disease, preoperative FEV1 66% of predicted Previous tobacco dependence with cessation over 40 years ago PRINCIPAL PROCEDURE: Off pump single-vessel coronary artery bypass grafting using the in situ left internal mammary artery to the left anterior descending artery Exclusion of the left atrial appendage using a 35mm AtriClip Endoscopic harvesting of the left thigh greater saphenous vein that was not used Graft flow measurement using the Buck system Intraoperative transesophageal echocardiogram and epiaortic scanning HISTORY OF PRESENT ILLNESS: This is a 74-year-old female patient who follows on an outpatient basis with Dr. Estrada for primary care and Dr. Tam for cardiology care. The patient presented to the emergency department at [facility] on July 27, 2024 with complaints of anginal symptomatology including intermittent chest pain with radiation normally relieved by sublingual nitro which had been increasing in frequency. A twelve-lead EKG was completed showing normal sinus rhythm with a left bundle branch block heart rate 70 bpm. Chest x- ray was completed showing no evidence of acute cardiopulmonary disease. Transthoracic 2D echocardiogram was completed which showed reduced left ventricular ejection fraction estimated at 30 to 35%, severely impaired left ventricular systolic function, moderate mitral valve regurgitation, mild aortic valve stenosis with peak gradient of 19 mmHg, mean gradient of 12 mmHg, mild to moderate aortic valve regurgitation, mild tricuspid valve regurgitation, trace pulmonic valve regurgitation, and normal size aortic root and proximal ascending aorta. Initial laboratory results showed WBC count of 6.5, hemoglobin 12.6, hematocrit 40.1, platelets 195, PT 10.6, INR 1.0, PTT 22.9, sodium 136, potassium 5.5, chloride 105, CO2 21, BUN 25, creatinine 0.96, glucose 103, magnesium 2.0, AST 77, ALT 42, proBNP 1870, and serial troponins as high as 0.193. She was ruled in for non-ST elevated myocardial infarction. She was admitted for evaluation and treatment with consultation placed to cardiology. She underwent heart catheterization July 10, 2024 revealing 30% stenosis to distal left main coronary artery, 70% ostial LAD disease, patent stent in the mid LAD, 70% diffuse distal LAD disease, 50% ostial and proximal left circumflex disease with negative IFR performed on May 18, 2024, when compared to the heart catheterization from 05/18/2024 there was no progression of the CAD. Post heart cath the patient was recommended for intensification and optimization of her antianginal and GDMT for her heart failure. Due to previous heart catheterization and presenting symptomatology along with diagnosis of acute myocardial infarction consultation was placed to cardiothoracic surgery for surgical revascularization recommendations. She was seen by Dr. Neumann who requested a transesophageal echocardiogram to further verify valvular function. WILLAM demonstrated preserved LV function with mild mitral regurgitation, mild to moderate aortic regurgitation. She was recommended to undergo surgical myocardial revascularization which was scheduled for August 06, [address] Velazquez. The usual perioperative course was discussed in detail with the patient and her family, all risks and benefits were explained, all questions were answered, and consent was obtained to proceed with surgery. The patient was kept inpatient due to the nature of her disease process. HOSPITAL COURSE: The patient was brought to the preoperative area 08/06/24, prepared in the usual fashion, and subsequently taken to the operating room where Dr. Velazquez performed single-vessel off-pump CABG. Upon completion of surgery the patient was transferred to the cardiovascular intensive care unit where she was recovered and monitored hemodynamically. Upon arrival to the ICU she was noted to have endobronchial hemorrhage with retained blood clots which were removed under bronchoscopy. She did have hypotension related to acute blood loss and did receive a blood transfusion. She was extubated, all lines, tubes, and drips were discontinued when appropriate, and she was transferred to 3 S. cardiac stepdown unit for further monitoring and rehabilitation. Her oxygen was titrated down, she continued to work with physical and occupational therapy, she was tolerating oral diet, her pain was controlled, and she was ready to be discharged to home with [facility] on postoperative day #7. She received written and verbal instruction regarding her medications, activity restrictions, signs and symptoms requiring physician notification, and follow-up appointments. Patient Condition at Discharge: Stable Plan - Discharge Summary Discharge Rx Participant: No New Discharge Prescriptions: New Metoprolol Tartrate [Lopressor] 25 mg PO BID #60 tab Sennosides-Docusate Sodium [Senokot-S] 2 each PO HS PRN tab PRN Reason: Constipation Acetaminophen Tab [Tylenol] 1,000 mg PO Q6HR PRN tab PRN Reason: Fever And/ Or Pain Amiodarone [Cordarone] 200 mg PO BID #17 tab Continue Calcium/Magnesium/Zinc [Asfnlxt-Lfbgvpijf-Ghsj Tablet] 1 tab PO HS Escitalopram [Lexapro] 10 mg PO HS Atorvastatin [Lipitor] 80 mg PO HS #30 tab Multivitamins, Thera [Multivitamin (formulary)] 1 tab PO HS Cetirizine HCl [Zyrtec] 10 mg PO HS Pantoprazole [Protonix] 40 mg PO DAILY Levothyroxine Sodium [Synthroid] 112 mcg PO DAILY Aspirin EC [Ecotrin Low Dose] 81 mg PO DAILY 30 Days #30 tab Clopidogrel [Plavix] 75 mg PO DAILY Discontinued Nitroglycerin Sl Tabs [Nitrostat] 0.4 mg SUBLINGUAL Q5M PRN #100 tab PRN Reason: Chest Pain Losartan [Cozaar] 50 mg PO DAILY Isosorbide Mononitrate ER [Imdur] 30 mg PO DAILY #30 tab carvediloL [Coreg] 6.25 mg PO BID-W/MEALS #60 tab Ranolazine [Ranexa] 500 mg PO Q12HR #60 tab Spironolactone [Aldactone] 12.5 mg PO HS Discharge Medication List Calcium/Magnesium/Zinc [Rzxcbta-Cdkdsuzcj-Odcu Tablet] 1 tab PO HS 11/29/20 [History] Escitalopram [Lexapro] 10 mg PO HS 11/29/20 [History] Levothyroxine Sodium [Synthroid] 112 mcg PO DAILY 05/12/24 [History] Atorvastatin [Lipitor] 80 mg PO HS #30 tab 05/15/24 [Rx] Aspirin EC [Ecotrin Low Dose] 81 mg PO DAILY 30 Days #30 tab 05/20/24 [Rx] Cetirizine HCl [Zyrtec] 10 mg PO HS 07/09/24 [History] Clopidogrel [Plavix] 75 mg PO DAILY 07/09/24 [History] Multivitamins, Thera [Multivitamin (formulary)] 1 tab PO HS 07/09/24 [History] Pantoprazole [Protonix] 40 mg PO DAILY 07/09/24 [History] Acetaminophen Tab [Tylenol] 1,000 mg PO Q6HR PRN tab 08/13/24 [Rx] Amiodarone [Cordarone] 200 mg PO BID #17 tab 08/13/24 [Rx] Metoprolol Tartrate [Lopressor] 25 mg PO BID #60 tab 08/13/24 [Rx] Sennosides-Docusate Sodium [Senokot-S] 2 each PO HS PRN tab 08/13/24 [Rx] Follow up Appointment(s)/Referral(s): Juan Tam MD [Medical Doctor] - 09/10/24 2:00 pm (You have an echocardiogram already scheduled on August 27 at 11:15 AM, as well as an appointment with Dr. Tam on September 10 at 2 PM) [facility],Cardiac [NON-STAFF] - 4 Weeks Brandi Velazquez MD [STAFF PHYSICIAN] - 09/04/24 10:00 am Maury Estrada DO [Primary Care Provider] - 08/27/24 3:40 pm Dany Hunter NPC [Nurse Practitioner] - 08/19/24 3:30 pm (You will be seen in the surgeon's office behind the hospital in [facility], [address] Office phone number is ) [facility] [NON-STAFF] - (You should be seen by RN the day after discharge, then 2-3 times per week until you start cardiac rehab. Physical and Occupational Therapy should visit at least once, may continue to visit if needed) Rick Roa MD [STAFF PHYSICIAN] - 10/20/24 9:45 am Ambulatory/Diagnostic Orders: Complete Blood Count w/diff [LAB.AMB] Time Frame: 3 Days, Location: None Selected Comprehensive Metabolic Panel [LAB.AMB] Time Frame: 3 Days, Location: None Selected Patient Instructions/Handouts: Chest Pain (ED) Activity/Diet/Wound Care/Special Instructions: DISCHARGE INSTRUCTIONS: 1. No driving for 4 weeks, or until physician gives their ok. 2. The patient should sleep in their own bed, no medical bed needed. 3. Stairs are not an issue. If the bedroom is upstairs, it is advised that the patient go up at night and down in the morning for the first week. Go slowly, using handrail and take 1 step at a time. 4. LOVE hose are to be worn for 30 days post surgery or until physician discontinues. 5. Heart hugger is to be worn 100% of the time until physician discontinues.(except when showering) 6. No lifting, pushing, or pulling more than 10 pounds for 12 weeks. The physician will advise of any restriction changes. 7. The patient is expected to continue the prescribed walking program. 8. Continue pain control per as needed orders. 9. Continue with incentive spirometry and splinting/heart hugger until otherwise directed by the physician. 10. Must shower daily using liquid antibacterial soap 11. Routine sternal incision care. No powders, lotions, ointments on incisions. No dressings are necessary on incisions unless they are draining. Dermabond tape is to remain on sternal incision until surgeon follow-up. 12. Please call surgeon/DIGITAL ASSOCIATE for temp greater than 101 F or purulent drainage from incisions. 13. You should weigh yourself daily, record and bring log with you to follow up appointments. 14. All prescriptions given by surgeon for 30 days. Refills need to be filled through senior power scheduler/primary care physician. 15. A Red armband has been placed on the patient. It should be worn for 30 days post discharge from surgery and will be removed by the cardiac surgeons. If an ER visit is necessary, please make sure the number on the Red armband is called before going to ER. 16. You have been referred to and are expected to begin Cardiac Rehab in approximately 4-6 weeks. 17. Quitting smoking is the most important step you can take to improve your health. For additional information and assistance to quit smoking, please call the [place] tobacco quit line (0-129-VXPG-NOW/ ) or online: [email or web address] SERVICES TO PROVIDE: RN SKILLED HOME CARE SERVICES FOR POST-OP SURGICAL PATIENTS WITH THE FOLLOWING: Coronary Artery Bypass Surgery (CABG), Mitral Valve Repla cement/Repair ( MVR), Aortic Valve Replacement/Repair (AVR) RN TO CONTINUE EDUCATION FROM ``ROAD TO A HEALTH HEART PATIENT EDUCATION MANUAL (GIVEN TO PATIENT IN THE HOSPITAL) MEDICATION RECONCILIATION WITH EDUCATION NEEDED ON FIRST HOME VISIT EMPHASIZE IMPORTANCE OF WEARING BREAST SUPPORT/HEART HUGGER ENCOURAGE USE OF INCENTIVE SPIROMETER 10 X EVERY HOUR WHILE AWAKE ENCOURAGE UTILIZATION OF LOWER EXTREMITY COMPRESSION STOCKINGS/LOVE HOSE and ELEVATE LEGS ABOVE LEVEL OF HEART WHILE AT REST. ENCOURAGE AMBULATION 3-5x/day INCREASING TOLERATES, WHILE AVOIDING EXTREMES IN TEMPERATURE FREQUENCY: RN TO OPEN THE PATIENT WITHIN 24 HOURS OF DISCHARGE FROM THE HOSPITAL WITH TELEHEALTH INSTALLED AT [facility], RN TO VISIT 2-3 X A WEEK FOR 4 WEEKS ESTABLISHED BY PATIENT NEEDS. LABORATORY: CBC, CMP TO BE DRAWN ON THE THIRD DAY HOME, (RAN STAT) FAX RESULTS TO [phone]. TELEHEALTH PARAMETERS: WEIGHT: NOTIFY MD OF WEIGHT GAIN OF 2 LBS IN 24 HOURS OR 5 LBS IN ONE WEEK HR: NOTIFY MD OF HR <55 BPM OR HR>100 BPM BP: NOTIFY MD IF BP <90/55 OR BP>140/100 O2 SAT: NOTIFY MD IF PO2<93% ON ROOM AIR SEND TELEHEALTH REPORT TO CORE MICROARCHITECT AND CARDIOVASCULAR SURGEON THE FIRST WEEK OF CARE AND THEN BI-WEEKLY. PLEASE ADDITIONALLY COMMUNICATE ANY ABNORMALS AND NEW FINDINGS TO THE SURGEONS OFFICE. Discharge Disposition: HOME WITH HOME HEALTH SERVICES
== END 2024-08-13 14:27 | disposition home health service (06) | DRG 235 ==
LOC: EC 03:24 → 3SCARD 05:57 → 2SICU 08-06 06:09 → 3SCARD 08-12 10:47
PROVIDERS: ADMIT Surgery; ATTEND Surgery
PROC: B24BZZ4 Ultrasonography of Heart with Aorta, Transesophageal (ICD-10-PCS; 2024-07-31)
PROC: 02L70CK Occlusion of Left Atrial Appendage with Extraluminal Device, Open Approach (ICD-10-PCS; 2024-08-06)
PROC: B24BZZ4 Ultrasonography of Heart with Aorta, Transesophageal (ICD-10-PCS; 2024-08-06)
PROC: 4A0305C Measurement of Arterial Flow, Coronary, Open Approach (ICD-10-PCS; 2024-08-06)
PROC: 30233H0 Transfusion of Autologous Whole Blood into Peripheral Vein, Percutaneous Approach (ICD-10-PCS; 2024-08-06)
PROC: 0BC18ZZ Extirpation of Matter from Trachea, Via Natural or Artificial Opening Endoscopic (ICD-10-PCS; 2024-08-06)
PROC: 0BC28ZZ Extirpation of Matter from Carina, Via Natural or Artificial Opening Endoscopic (ICD-10-PCS; 2024-08-06)
PROC: 0BC78ZZ Extirpation of Matter from Left Main Bronchus, Via Natural or Artificial Opening Endoscopic (ICD-10-PCS; 2024-08-06)
PROC: 3E033XZ Introduction of Vasopressor into Peripheral Vein, Percutaneous Approach (ICD-10-PCS; 2024-08-06)
PROC: 30233J1 Transfusion of Nonautologous Serum Albumin into Peripheral Vein, Percutaneous Approach (ICD-10-PCS; 2024-08-06)
PROC: 3E033RZ Introduction of Antiarrhythmic into Peripheral Vein, Percutaneous Approach (ICD-10-PCS; 2024-08-06)
PROC: 02100Z9 Bypass Coronary Artery, One Artery from Left Internal Mammary, Open Approach (ICD-10-PCS; principal; 2024-08-06 08:00)
PROC: 06BQ4ZZ Excision of Left Saphenous Vein, Percutaneous Endoscopic Approach (ICD-10-PCS; 2024-08-06 08:00)
PROC: 0WCQ8ZZ Extirpation of Matter from Respiratory Tract, Via Natural or Artificial Opening Endoscopic (ICD-10-PCS; 2024-08-06 08:00)
DX: I21.4 Non-ST elevation (NSTEMI) myocardial infarction (principal); I50.21 Acute systolic (congestive) heart failure; R04.89 Hemorrhage from other sites in respiratory passages; I27.22 Pulmonary hypertension due to left heart disease; N17.9 Acute kidney failure, unspecified; B96.1 Klebsiella pneumoniae [K. pneumoniae] as the cause of diseases classified elsewhere; Z68.36 Body mass index [BMI] 36.0-36.9, adult; D69.59 Other secondary thrombocytopenia; I11.0 Hypertensive heart disease with heart failure; I65.22 Occlusion and stenosis of left carotid artery; E03.9 Hypothyroidism, unspecified; R63.4 Abnormal weight loss; F32.A Depression, unspecified; I08.3 Combined rheumatic disorders of mitral, aortic and tricuspid valves; D62 Acute posthemorrhagic anemia; N39.0 Urinary tract infection, site not specified; R04.2 Hemoptysis; J93.82 Other air leak; E66.01 Morbid (severe) obesity due to excess calories; I25.10 Atherosclerotic heart disease of native coronary artery without angina pectoris; E78.5 Hyperlipidemia, unspecified; J98.4 Other disorders of lung; H91.90 Unspecified hearing loss, unspecified ear; I95.9 Hypotension, unspecified; N93.9 Abnormal uterine and vaginal bleeding, unspecified; I44.7 Left bundle-branch block, unspecified; E80.6 Other disorders of bilirubin metabolism; R73.03 Prediabetes; F41.9 Anxiety disorder, unspecified; I25.5 Ischemic cardiomyopathy; R93.89 Abnormal findings on diagnostic imaging of other specified body structures; Y82.8 Other medical devices associated with adverse incidents; I25.2 Old myocardial infarction; Z95.5 Presence of coronary angioplasty implant and graft; Z79.02 Long term (current) use of antithrombotics/antiplatelets; Z79.82 Long term (current) use of aspirin; Z79.890 Hormone replacement therapy; Z79.899 Other long term (current) drug therapy; Z87.891 Personal history of nicotine dependence
CPT/HCPCS: 36415; 71045; 71046; 71250; 78452; 80048; 80053; 80061; 81001; 82150; 82330; 82805; 83036; 83690; 83735; 83880; 84132; 84443; 84484; 85025; 85027; 85049; 85384; 85610; 85730; 86850; 86900; 86901; 86920; 87070; 87077; 87086; 87186; 93005; 93017; 93306; 93312; 93320; 93325; 93880; 93970; 94002; 94150; 94640; 94760; 96365; 96366; 96375; 99291

== ENCOUNTER → 2024-09-19 | Outpatient (CLI) | payer MEDICARE ==
[2024-09-19 14:08] LABS: HCT 32.3 % (37.2-46.3); HGB 9.4 g/dL (12.0-15.0); MCHC 29.1 g/dL (32.0-37.0); MCV 85.9 FL (80.0-97.0); Mean Platelet Volume 10.5 FL (9.5-12.2); NRBC Per 100 WBC 0 X 10*3/uL (0.00-0.01); Platelet Count 339 X 10*3/uL (140-440); RBC 3.76 X 10*6/uL (4.10-5.20); WBC 5.69 X 10*3/uL (4.50-10.00)
[2024-09-19 14:18] LABS: ALT 30 U/L (8-44); AST 50 U/L (13-35); Albumin 4.1 g/dL (3.8-4.9); Albumin/Globulin Ratio 1.28 Ratio (1.60-3.17); Alkaline Phosphatase 138 U/L (41-126); BUN/Creat Ratio 17.43 Ratio (12.00-20.00); Blood Urea Nitrogen 12.2 mg/dL (9.0-27.0); Calcium 9.2 mg/dL (8.7-10.3); Carbon Dioxide 22.9 mmol/L (21.6-31.8); Chloride 104 mmol/L (96-109); Chol/HDL Ratio 2.91 Ratio; Globulin 3.2 g/dL (1.6-3.3); Glucose 97 mg/dL (70-110); LDL Cholesterol,Calculated 58.5 mg/dL (0.0-131.0); Potassium 4.8 mmol/L (3.5-5.5); Sodium 140 mmol/L (135-145); Total Bilirubin 0.8 mg/dL (0.3-1.2); Total Protein 7.3 g/dL (6.2-8.2); VLDL Calculation 17.64 mg/dL (5.00-40.00)
[2024-09-19 14:22] LABS: NT-Pro-B-Type Natriuretic Pept 3119 pg/mL (0-450)
== END | disposition home or self-care (01) ==
LOC: LABWHC1 10:13
PROVIDERS: ATTEND Student in an Organized Health Care Education/Training Program
DX: D72.9 Disorder of white blood cells, unspecified (principal); E11.9 Type 2 diabetes mellitus without complications; E78.5 Hyperlipidemia, unspecified; E03.9 Hypothyroidism, unspecified; I50.9 Heart failure, unspecified; R79.89 Other specified abnormal findings of blood chemistry
CPT/HCPCS: 36415; 80053; 80061; 83036; 83880; 85027

== ENCOUNTER 2024-11-02 06:03 | Day surgery (SDC) | payer MEDICARE ==
[~2024-11-02 06:03] MED LIST changes: +BENZOCAINE SPRAY 1 EACH MM PRN; -LACTATED RINGERS 1,000 ML IV SCH; -LIDOCAINE 1% 20 ML VIAL (10MG/ML) FOR IV START INTRADERMA PRN; +MIDAZOLAM 2 MG/2 ML VIAL IV PRN; +fentaNYL (PF) 50 MCG/ML 2 ML AMP IVP PRN
[2024-11-02 07:08] VITALS: RESP 16; TEMP 98.5
[2024-11-02] MEDS: SODIUM CHLORIDE 0.9% 500 ML 500 ML IV ONE (08:12)
[2024-11-02] MEDS: BENZOCAINE SPRAY 1 EACH MM ONE (08:20)
[2024-11-02] MEDS: MIDAZOLAM 2 MG/2 ML VIAL IVP ONE (08:21)
[2024-11-02] MEDS: fentaNYL (PF) 50 MCG/1 ML VIAL IVP ONE (08:21)
--- NOTE | 2024-11-02 09:38 | P.TEE ---
Date of Procedure: 11/02/24 Description of Procedure(s): Procedure performed: 1. Transesophageal Echocardiogram with color flow doppler, pulsed wave doppler and continuous wave doppler, (CPT 69585, +[id number], [id number]) 2. Moderate conscious sedation. Sedation time [20] mins. (CPT 13443) Indications: Severe mitral regurgitation. Congestive heart failure Brief HPI: March 2024 patient presented to the hospital with STEMI and got PCI to mid LAD. She had residual CAD in proximal LAD which was not amenable for intervention. Since her STEMI presentation she had multiple hospital presentations for NSTEMI's and unstable angina symptoms. For this she underwent CABG with single-vessel EVANS to LAD. Prior to CABG it was noted that she had moderate mitral regurgitation. For this WILLAM was performed and it showed mild to moderate MR. During CABG no valvular work was done. Post CABG follow-up in the office she was noticed to have systolic murmur and surface echo showed concern of severe mitral regurgitation. For this she was scheduled for a WILLAM Consent: I have discussed the risks, benefits and alternative therapies for the above-mentioned procedure. The patient has indicated understanding and acceptance of the risks of the procedure. Signed consent was obtained and was placed in the paper chart. Procedural Steps: Timeout was performed in usual fashion. Patient's heart rate, blood pressure, oxygen saturation and ECG were monitored. Benzocaine was sprayed liberally in the back of the throat. Bite block was placed between the jaw. [1] mg of Versed and [50] mcg of Fentanyl were administered intravenously. After achieving appropriate moderate conscious sedation, WILLAM probe was advanced without difficulty and without any immediate complications to the esophagus. WILLAM study was performed with color flow doppler, pulsed wave doppler and continuous wave doppler. The probe was then removed. Patient tolerated the procedure well. Patient was transferred to the post procedure area in stable and satisfactory condition. Throughout the procedure patient's heart rate, blood pressure, oxygen saturation and ECG were monitored. Total sedation time [20] mins. Complications: none FINDINGS Left Atrium: Mild left atrial size. No evidence of mass or thrombus seen. Systolic forward flow blunting noticed in pulmonic vein. Evidence of mildly elevated LA pressures with bulging of interatrial septum seen. Left Atrial Appendage: Appendage is nicely excluded by the atrial clip. No persistent flow Inter atrial septum: Intact inter-atrial septum with no evidence of atrial septal defect or patent foramen ovale. Left Ventricle: Normal global LV size and systolic function. Mild paradoxical septal motion noticed from left bundle branch block Right Atrium: Normal overall RA size Right Ventricle: Normal global RV size and systolic function Aortic Valve: Trileaflet, mild calcific sclerosis, mild central aortic regurgitation. Mitral Valve: Structurally normal. Normal coaptation. Mitral annulus does not appear dilated. Moderate mitral regurgitation. Likely mechanism seems to be differential LV wall contraction between anterolateral and posteromedial LV sheriff. MR does appear mildly progressed when compared to last WILLAM. Pulmonic Valve: Trace ND Tricuspid Valve: Mild tricuspid regurg. Ascending aorta, Aortic root and Aortic arch: Normal size aortic root and ascending aorta. Mild intimal thickening. Descending aorta: Mild intimal thickening. No evidence of large atheroma or bulky calcification No pericardial effusion CONCLUSION: Normal global LV size and systolic function. Mild concentric LVH. Paradoxical septal motion from CABG and LBBB Moderate functional mitral regurgitation. Normal size mitral annulus, normal coaptation. Mild aortic regurgitation, mildly sclerotic aortic valve trileaflet Mild tricuspid regurgitation Mild left atrial dilatation Nicely excluded left atrial appendage with atrial clip Juan Tam MD, RPVI, FACC Thank you for allowing [facility] to participate in this patient's care. Feel free to reach out in case of any followup questions.
[2024-11-02 10:00] VITALS: BP 107/48; PULSE 51
== END 2024-11-02 10:08 | disposition home or self-care (01) ==
LOC: CATHCVL 06:03
PROVIDERS: ATTEND Student in an Organized Health Care Education/Training Program
DX: I25.10 Atherosclerotic heart disease of native coronary artery without angina pectoris (principal); I08.3 Combined rheumatic disorders of mitral, aortic and tricuspid valves; I50.9 Heart failure, unspecified; I21.3 ST elevation (STEMI) myocardial infarction of unspecified site; I44.7 Left bundle-branch block, unspecified; I25.2 Old myocardial infarction; I42.0 Dilated cardiomyopathy; I11.0 Hypertensive heart disease with heart failure; I50.22 Chronic systolic (congestive) heart failure; Z95.5 Presence of coronary angioplasty implant and graft; Z72.0 Tobacco use; Z95.1 Presence of aortocoronary bypass graft; Z88.1 Allergy status to other antibiotic agents; Z88.2 Allergy status to sulfonamides; Z79.82 Long term (current) use of aspirin; Z79.02 Long term (current) use of antithrombotics/antiplatelets; Z79.890 Hormone replacement therapy; Z79.899 Other long term (current) drug therapy
CPT/HCPCS: 93312; 93320; 93325; 99152; J2250; J3010

== ENCOUNTER → 2024-11-09 | Outpatient (CLI) | payer MEDICARE ==
[2024-11-09 16:19] LABS: Basophils # (A) 0.06 X 10*3/uL (0.00-0.10); Basophils % (A) 1.4 %; Eosinophils # (A) 0.29 X 10*3/uL (0.04-0.35); Eosinophils % (A) 6.6 %; HCT 32.1 % (37.2-46.3); HGB 9.3 g/dL (12.0-15.0); Lymphocytes # (A) 1.35 X 10*3/uL (0.90-5.00); Lymphocytes % (A) 30.6 %; MCH 22.5 pg (27.0-32.0); MCV 77.5 FL (80.0-97.0); Mean Platelet Volume 10.3 FL (9.5-12.2); Monocytes # (A) 0.46 X 10*3/uL (0.20-1.00); Monocytes % (A) 10.4 %; NRBC Per 100 WBC 0 X 10*3/uL (0.00-0.01); Neutrophils # (A) 2.24 X 10*3/uL (1.80-7.70); Neutrophils % (A) 50.8 %; Platelet Count 296 X 10*3/uL (140-440); RBC 4.14 X 10*6/uL (4.10-5.20); RDW 18.7 % (11.5-14.5); WBC 4.41 X 10*3/uL (4.50-10.00)
[2024-11-09 16:30] LABS: BUN/Creat Ratio 20.38 Ratio (12.00-20.00); Blood Urea Nitrogen 16.3 mg/dL (9.0-27.0); Glucose 90 mg/dL (70-110)
[2024-11-09 16:31] LABS: ALT 27 U/L (8-44); AST 46 U/L (13-35); Albumin/Globulin Ratio 1.33 Ratio (1.60-3.17); Alkaline Phosphatase 112 U/L (41-126); Calcium 9.1 mg/dL (8.7-10.3); Carbon Dioxide 21.6 mmol/L (21.6-31.8); Chloride 107 mmol/L (96-109); Magnesium 2.1 mg/dL (1.5-2.4); Potassium 4.9 mmol/L (3.5-5.5); Sodium 138 mmol/L (135-145); Total Bilirubin 0.6 mg/dL (0.3-1.2)
== END | disposition home or self-care (01) ==
LOC: LABWHC1 10:21
PROVIDERS: ATTEND Student in an Organized Health Care Education/Training Program
DX: I34.0 Nonrheumatic mitral (valve) insufficiency (principal); R06.02 Shortness of breath
CPT/HCPCS: 36415; 80053; 83735; 85025